=== PATIENT | female | born 1960 | race Caucasian/White ===

== ENCOUNTER 2016-07-19 11:11 | Inpatient (IN) | payer MEDICARE, OTHER ==
[2016-07-19 11:19] LABS: Glucose,Whole Blood 134 mg/dL (75-99)
--- NOTE | 2016-07-19 11:21 | ED ---
General Adult HPI - General Stated complaint: adema Time Seen by Provider: 07/19/16 11:11 Source: patient, EMS, RN notes reviewed, old records reviewed Mode of arrival: EMS - History of Present Illness Initial comments: This is a 56-year-old female history of multiple medical problems including renal insufficiency morbid obesity diabetes who was brought in by EMS for evaluation of lower extremity edema which is gotten worse over last week or so. She denies any fevers chills nausea vomiting sweats he is asthmatic but denies shortness of breath at this time. She does have some tingling and numbness to the skin. He does have weeping to the lower extremities. - Related Data Home Medications Medication Instructions Recorded Confirmed Allopurinol [Zyloprim] 100 mg PO DAILY 06/10/14 07/19/16 Cyclobenzaprine [Flexeril] 10 mg PO HS PRN 06/10/14 07/19/16 Exenatide [Byetta] 10 mcg SQ BID 06/10/14 07/19/16 Insulin Detemir [Levemir] 105 unit SQ BID 06/10/14 07/19/16 Magnesium Oxide [Magox 400] 800 mg PO BID 06/10/14 07/19/16 Montelukast Sodium [Singulair] 10 mg PO HS 06/10/14 07/19/16 Multivitamin/Iron/Folic Acid 1 tab PO DAILY 06/10/14 07/19/16 [Centrum Complete Multivit Tab] Simvastatin [Zocor] 40 mg PO HS 06/10/14 07/19/16 Venlafaxine HCl ER [Effexor XR] 150 mg PO DAILY 06/10/14 07/19/16 Budesonide-Formot 160-4.5 Mcg 2 puff INHALATION RT-BID 01/07/15 07/19/16 [Symbicort 160-4.5 Mcg Inhaler] Cholecalciferol [Vitamin D3] 2,000 unit PO DAILY 01/07/15 07/19/16 ALPRAZolam [Xanax] 0.25 mg PO TID PRN 07/09/15 07/19/16 ARIPiprazole [Abilify] 10 mg PO DAILY 07/09/15 07/19/16 Albuterol Nebulized [Ventolin 2.5 mg INHALATION RT-QID PRN 07/09/15 07/19/16 Nebulized] Insulin Lispro [humaLOG] 35 units SQ TID-W/MEALS 12/27/15 07/19/16 Ammonium Lactate Lotion 1 applic TOPICAL BID 07/19/16 07/19/16 [Lac-Hydrin 12% Lotion] Calcitriol [Rocaltrol] 0.25 mcg PO Q72H 07/19/16 07/19/16 Calcium Carbonate [Calcium] 600 mg PO TID 07/19/16 07/19/16 Cetirizine HCl [Zyrtec] 10 mg PO DAILY 07/19/16 07/19/16 Ferrous Sulfate [Feosol] 325 mg PO TID 07/19/16 07/19/16 Fluticasone/Salmeterol [Advair 1 inhalation PO RT-BID 07/19/16 07/19/16 250-50 Diskus] Furosemide [Lasix] 60 mg PO DAILY 07/19/16 07/19/16 INSULIN LISPRO (HumaLOG) [HumaLOG] 15 units SQ DAILY 07/19/16 07/19/16 Metoprolol Tartrate [Lopressor] 12.5 mg PO BID 07/19/16 07/19/16 Nystatin 100,000 Unit/ml Susp 5 ml PO QID PRN 07/19/16 07/19/16 [Mycostatin Oral Susp] Pantoprazole [Protonix] 40 mg PO DAILY 07/19/16 07/19/16 traMADol HCL [Ultram] 100 mg PO Q6H PRN 07/19/16 07/19/16 Allergies Allergy/AdvReac Type Severity Reaction Status Date / Time codeine Allergy Rash/Hives Verified 07/19/16 11:39 Review of Systems ROS Statement: Those systems with pertinent positive or pertinent negative responses have been documented in the HPI. ROS Other: All systems not noted in ROS Statement are negative. Past Medical History Past Medical History: Asthma, COPD, Diabetes Mellitus, Hyperlipidemia, Renal Disease Additional Past Medical History / Comment(s): USES A WALKER OR W/C TO AMBULATE, PREVIOUS USE OF O2 NONE NOW, HX OF GOUT, HIATAL HERNIA, WEARS DEPENDS History of Any Multi-Drug Resistant Organisms: None Reported Past Surgical History: Bariatric Surgery, Cholecystectomy, Orthopedic Surgery Additional Past Surgical History / Comment(s): Total L knee 11/19/14, lap band placed then removed, gastric sleeve 08/19/2012 EGD. Past Anesthesia/Blood Transfusion Reactions: No Reported Reaction Additional Past Anesthesia/Blood Transfusion Reaction / Comment(s): Pt has never recieved blood.CLAUSTERPHOBIA Past Psychological History: Anxiety, Depression, Schizophrenia Additional Psychological History / Comment(s): Pt has hx also of borderline personality disorder. Pt does not drive so this niece also gives her rides. [facility] [place] [facility]. HAS A CAREGIVER(SHAYY AGEE [id number]) Smoking Status: Never smoker Past Alcohol Use History: None Reported Past Drug Use History: None Reported - Past Family History Father Family Medical History: Musculoskeletal Disorder Additional Family Medical History / Comment(s): Father had parkinsons. He in his 80's. Mother Family Medical History: No Reported History General Exam - General Exam Comments Initial Comments: This is a well-developed well-nourished awake alert oriented 3 female General appearance: alert, in no apparent distress Head exam: Present: atraumatic, normocephalic, normal inspection Eye exam: Present: normal appearance, PERRL, EOMI. Absent: scleral icterus, conjunctival injection, periorbital swelling ENT exam: Present: normal exam, mucous membranes moist Neck exam: Present: normal inspection. Absent: tenderness, meningismus, lymphadenopathy Respiratory exam: Present: decreased breath sounds. Absent: respiratory distress, wheezes, rales, rhonchi, stridor Cardiovascular Exam: Present: regular rate, normal rhythm, normal heart sounds. Absent: systolic murmur, diastolic murmur, rubs, gallop, clicks GI/Abdominal exam: Present: soft, normal bowel sounds. Absent: distended, tenderness, guarding, rebound, rigid Extremities exam: Present: full ROM, normal capillary refill, pedal edema, other (Stasis dermatitis bilaterally with some erythema noted some weeping noted from both lower extremities. No definite increased temperature.). Absent : tenderness, joint swelling, calf tenderness Back exam: Present: normal inspection Neurological exam: Present: alert, oriented X3, CN II-XII intact Psychiatric exam: Present: normal affect, normal mood Skin exam: Present: warm, dry. Absent: intact, rash Course Vital Signs 07/19/16 07/19/16 11:28 13:55 Temperature 98.5 F 97.6 F Pulse Rate 97 96 Respiratory 18 18 Rate Blood Pressure 117/58 100/49 O2 Sat by Pulse 97 99 Oximetry - Reevaluation(s) Reevaluation #1: 07/19/16 15:18 The patient is also complaining of some apparent dysfunctional uterine bleeding and would like to get this checked will she is admitted. EKG Findings - EKG Results: EKG: interpreted by ELSA, sinus rhythm (Sinus rhythm with a rate of 97. 01 40 QRS duration of 92 QT/QTC of 358/454 did this is normal. EKG.) Medical Decision Making - Medical Decision Making I did discuss findings with patient and her family patient be admitted for failure of outpatient treatment. - Lab Data Result diagrams: 07/19/16 11:55 07/19/16 11:55 Lab Results 07/19/16 07/19/16 07/19/16 Range/Units 11:18 11:55 11:55 WBC 8.7 (3.8-10.6) k/uL RBC 4.50 (3.80-5.40) m/uL Hgb 14.3 (11.4-16.0) gm/dL Hct 43.5 (34.0-46.0) % MCV 96.8 (80.0-100.0) fL MCH 31.8 (25.0-35.0) pg MCHC 32.9 (31.0-37.0) g/dL RDW 13.9 (11.5-15.5) % Plt Count 220 (150-450) k/uL Neutrophils % 74 % Lymphocytes % 18 % Monocytes % 4 % Eosinophils % 2 % Basophils % 1 % Neutrophils # 6.4 (1.3-7.7) k/uL Lymphocytes # 1.6 (1.0-4.8) k/uL Monocytes # 0.3 (0-1.0) k/uL Eosinophils # 0.2 (0-0.7) k/uL Basophils # 0.1 (0-0.2) k/uL Sodium (137-145) mmol/L Potassium (3.5-5.1) mmol/L Chloride (98-107) mmol/L Carbon Dioxide (22-30) mmol/L Anion Gap mmol/L BUN (7-17) mg/dL Creatinine (0.52-1.04) mg/dL Est GFR (MDRD) Af Amer (>60 ml/min/1.73 sqM) Est GFR (MDRD) Non-Af (>60 ml/min/1.73 sqM) Glucose (74-99) mg/dL POC Glucose (mg/dL) 134 H (75-99) mg/dL POC Glu Material Control Specialist Maris Rodriguez Calcium (8.4-10.2) mg/dL Magnesium (1.6-2.3) mg/dL Total Bilirubin (0.2-1.3) mg/dL AST (14-36) U/L ALT (9-52) U/L Alkaline Phosphatase (38-126) U/L Total Creatine Kinase 27 L (30-135) U/L CK-MB (CK-2) 0.5 (0.0-2.4) ng/mL CK-MB (CK-2) Rel Index 1.9 NT-Pro-B Natriuret Pep pg/mL Total Protein (6.3-8.2) g/dL Albumin (3.5-5.0) g/dL Urine Color Urine Appearance (Clear) Urine pH (5.0-8.0) Ur Specific Freeland (1.001-1.035) Urine Protein (Negative) Urine Glucose (UA) (Negative) Urine Ketones (Negative) Urine Blood (Negative) Urine Nitrate (Negative) Urine Bilirubin (Negative) Urine Urobilinogen (<2.0) mg/dL Ur Leukocyte Esterase (Negative) 07/19/16 07/19/16 07/19/16 Range/Units 11:55 11:55 13:05 WBC (3.8-10.6) k/uL RBC (3.80-5.40) m/uL Hgb (11.4-16.0) gm/dL Hct (34.0-46.0) % MCV (80.0-100.0) fL MCH (25.0-35.0) pg MCHC (31.0-37.0) g/dL RDW (11.5-15.5) % Plt Count (150-450) k/uL Neutrophils % % Lymphocytes % % Monocytes % % Eosinophils % % Basophils % % Neutrophils # (1.3-7.7) k/uL Lymphocytes # (1.0-4.8) k/uL Monocytes # (0-1.0) k/uL Eosinophils # (0-0.7) k/uL Basophils # (0-0.2) k/uL Sodium 145 (137-145) mmol/L Potassium 4.1 (3.5-5.1) mmol/L Chloride 97 L (98-107) mmol/L Carbon Dioxide 37 H (22-30) mmol/L Anion Gap 11 mmol/L BUN 30 H (7-17) mg/dL Creatinine 1.09 H (0.52-1.04) mg/dL Est GFR (MDRD) Af Amer >60 (>60 ml/min/1.73 sqM) Est GFR (MDRD) Non-Af 52 (>60 ml/min/1.73 sqM) Glucose 134 H (74-99) mg/dL POC Glucose (mg/dL) (75-99) mg/dL POC Glu Material Control Specialist ID Calcium 9.2 (8.4-10.2) mg/dL Magnesium 1.9 (1.6-2.3) mg/dL Total Bilirubin 0.8 (0.2-1.3) mg/dL AST 68 H (14-36) U/L ALT 70 H (9-52) U/L Alkaline Phosphatase 187 H (38-126) U/L Total Creatine Kinase (30-135) U/L CK-MB (CK-2) (0.0-2.4) ng/mL CK-MB (CK-2) Rel Index NT-Pro-B Natriuret Pep 69 pg/mL Total Protein 7.4 (6.3-8.2) g/dL Albumin 3.7 (3.5-5.0) g/dL Urine Color Yellow Urine Appearance Clear (Clear) Urine pH 6.0 (5.0-8.0) Ur Specific Freeland 1.013 (1.001-1.035) Urine Protein Negative (Negative) Urine Glucose (UA) Negative (Negative) Urine Ketones Negative (Negative) Urine Blood Negative (Negative) Urine Nitrate Negative (Negative) Urine Bilirubin Negative (Negative) Urine Urobilinogen <2.0 (<2.0) mg/dL Ur Leukocyte Esterase Negative (Negative) - Radiology Data Radiology results: report reviewed (I did review the imaging and report no acute findings), image reviewed Disposition Clinical Impression: Renal insufficiency, Peripheral edema, Dysfunctional uterine bleeding, Failure of outpatient treatment Disposition: ADMITTED IP TO THIS HOSP Condition: Stable Referrals: Alen Wbeb DO [Primary Care Provider] - 1-2 days
[2016-07-19 12:14] LABS: Basophils # (A) 0.1 k/uL (0-0.2); Basophils % (A) 1 %; CH 32.5; CHCM 33.7; Eosinophils # (A) 0.2 k/uL (0-0.7); Eosinophils % (A) 2 %; HCT 43.5 % (34.0-46.0); HDW 2.92; HGB 14.3 gm/dL (11.4-16.0); Luc # (Auto) 0.15; Luc % (Auto) 2; Lymphocytes # (A) 1.6 k/uL (1.0-4.8); Lymphocytes % (A) 18 %; MCH 31.8 pg (25.0-35.0); MCHC 32.9 g/dL (31.0-37.0); MCV 96.8 fL (80.0-100.0); Mean Platelet Volume 8.2; Monocytes # (A) 0.3 k/uL (0-1.0); Monocytes % (A) 4 %; Neutrophils # (A) 6.4 k/uL (1.3-7.7); Neutrophils % (A) 74 %; RDW 13.9 % (11.5-15.5); WBC 8.7 k/uL (3.8-10.6); WBC (Perox) 8.63
[2016-07-19 12:20] LABS: ALT 70 U/L (9-52); AST 68 U/L (14-36); Alkaline Phosphatase 187 U/L (38-126); Anion Gap 11 mmol/L; Blood Urea Nitrogen 30 mg/dL (7-17); Calcium 9.2 mg/dL (8.4-10.2); Carbon Dioxide 37 mmol/L (22-30); Chloride 97 mmol/L (98-107); Glucose 134 mg/dL (74-99); Magnesium 1.9 mg/dL (1.6-2.3); Non-African American GFR(MDRD) 52 (>60 ml/min/1.73 sqM); Potassium 4.1 mmol/L (3.5-5.1); Sodium 145 mmol/L (137-145); Total Bilirubin 0.8 mg/dL (0.2-1.3); Total Protein 7.4 g/dL (6.3-8.2)
[2016-07-19 12:49] LABS: Creatine Kinase MB 0.5 ng/mL (0.0-2.4)
--- NOTE | 2016-07-19 13:15 | US ---
EXAMINATION TYPE: US venous doppler duplex LE BI DATE OF EXAM: 07/19/2016 12:56 PM COMPARISON: Prior bilateral lower extremity ultrasound May 12, 2014 CLINICAL HISTORY: Pain. Morbidly obese patient SIDE PERFORMED: Bilateral VESSELS IMAGED: External Iliac Vein (EIV) Common Femoral Vein Deep Femoral Vein Greater Saphenous Vein * Femoral Vein Popliteal Vein Small Saphenous Vein * Proximal Calf Veins (* superficial vessels) TECHNOLOGIST IMPRESSION: compression imaging unachievable for upper legs due to patient size and eris thing, additional color imaging was performed on upper legs to document good color flow. compression imaging was done on pop vn as well as color imaging. Right Leg: Negative for DVT Left Leg: Negative for DVT Exam is noted suboptimal due to patient's large body habitus and overlying clothing material. Teetee hermann views only performed from popliteal vein inferiorly. Satisfactory color flow and phasicity is se en above popliteal vein level bilaterally on images saved. IMPRESSION: Suboptimal study without ultrasound evidence for acute DVT identified in either lower ext remity.
[2016-07-19 13:42] LABS: Appearance,Urine Clear (Clear); Bilirubin,Urine Negative (Negative); Glucose,Urine (UA) Negative (Negative); Ketones,Urine Negative (Negative); Leukocyte Esterase,Urine Negative (Negative); Nitrite,Urine Negative (Negative); Protein,Urine Negative (Negative); Specific Gravity,Urine 1.013 (1.001-1.035); UA Billing (MACRO vs. MICRO) CHEM; Urobilinogen,Urine <2.0 mg/dL (<2.0)
--- NOTE | 2016-07-19 13:44 | XR ---
EXAMINATION TYPE: XR chest 2V DATE OF EXAM: 07/19/2016 1:38 PM COMPARISON: CTA chest and chest x-ray December 27, 2015. HISTORY: History of asthma presents with cough per order, fluid retention per patient. TECHNIQUE: Frontal and lateral views of the chest are obtained. FINDINGS: Exam is suboptimal due to patient's large body habitus. There is no obvious new focal air s pace opacity, pleural effusion, or pneumothorax seen. The cardiac silhouette size remains prominent. Somewhat low lung volumes are redemonstrated. The osseous structures are intact. IMPRESSION: Suboptimal study with persistent cardiac silhouette prominence but no acute infiltrate c learly seen.
[2016-07-19] MEDS ORDERED: NALOXONE 0.4 MG/ML 1 ML VIAL IV PRN (15:20)
[2016-07-19] MEDS ORDERED: ALBUTEROL NEBULIZED 2.5 MG/3 ML INHALATION PRN (15:21)
[2016-07-19] MEDS ORDERED: ALPRAZolam 0.25 MG TAB PO PRN (15:21)
[2016-07-19] MEDS ORDERED: CYCLOBENZAPRINE 10 MG TAB PO PRN (15:21)
[2016-07-19] MEDS ORDERED: CALCITRIOL 0.25 MCG CAP PO SCH (17:00)
[2016-07-19 17:07] LABS: Glucose,Whole Blood 252 mg/dL (75-99)
[2016-07-19 19:05] LABS: Glucose,Whole Blood 261 mg/dL (75-99)
[2016-07-19] MEDS ORDERED: NON-FORMULARY DRUG (Fluticasone/Salmeterol [Advair 250-50 Diskus] 1 INHALATION) PO SCH (20:00)
[2016-07-19 20:27] LABS: Glucose,Whole Blood 252 mg/dL (75-99)
[2016-07-19] MEDS: SYMBICORT 160-4.5 MCG INHALER INHALATION SCH (20:30)
[2016-07-19] MEDS: CALCIUM CARBONATE 500 MG CHEWABLE PO SCH (20:32)
[2016-07-19] MEDS: traMADol 50 MG TAB PO PRN (20:32)
[2016-07-19] MEDS: FUROSEMIDE 10 MG/ML 4 ML VIAL IV SCH (20:32)
[2016-07-19] MEDS: FERROUS SULFATE 325 MG TAB PO SCH (20:33)
[2016-07-19] MEDS: INSULIN LISPRO (humaLOG) 300 UNIT/3 ML VIAL SQ SCH (20:34)
[2016-07-19] MEDS: INSULIN DETEMIR 100 UNIT/ML 10 ML VIAL SQ SCH (20:35)
[2016-07-19] MEDS: AMMONIUM LACTATE 12% LOTION 225 GM BTL TOPICAL SCH (20:35)
[2016-07-19] MEDS: ATORVASTATIN 20 MG TAB PO SCH (20:35)
[2016-07-19] MEDS: MAGNESIUM OXIDE 400 MG TAB PO SCH (20:35)
[2016-07-19] MEDS: MONTELUKAST 10 MG TAB PO SCH (20:36)
[2016-07-19] MEDS: METOPROLOL TARTRATE 12.5 MG TAB PO SCH (23:17)
[2016-07-20] MEDS: FUROSEMIDE 10 MG/ML 4 ML VIAL IV SCH ×4 (00:01→22:43)
[2016-07-20] MEDS: traMADol 50 MG TAB PO PRN ×2 (04:09→19:25)
[2016-07-20] MEDS: INSULIN LISPRO (humaLOG) 300 UNIT/3 ML VIAL SQ SCH ×4 (04:13→17:11)
[2016-07-20 04:17] LABS: Glucose,Whole Blood 262 mg/dL (75-99)
[2016-07-20] MEDS: ALLOPURINOL 100 MG TAB PO SCH (07:37)
[2016-07-20] MEDS: METOPROLOL TARTRATE 12.5 MG TAB PO SCH ×2 (07:37→19:26)
[2016-07-20] MEDS: LORATADINE 10 MG TAB PO SCH (07:37)
[2016-07-20] MEDS: CALCIUM CARBONATE 500 MG CHEWABLE PO SCH ×3 (07:37→17:10)
[2016-07-20] MEDS: VENLAFAXINE HCL ER 150 MG CAP PO SCH (07:37)
[2016-07-20] MEDS: MAGNESIUM OXIDE 400 MG TAB PO SCH ×2 (07:37→19:26)
[2016-07-20] MEDS: PANTOPRAZOLE 40 MG TABLET PO SCH (07:38)
[2016-07-20] MEDS: ARIPiprazole 10 MG TAB PO SCH (07:38)
[2016-07-20] MEDS: CHOLECALCIFEROL 1,000 UNIT TAB PO SCH (07:38)
[2016-07-20] MEDS: FERROUS SULFATE 325 MG TAB PO SCH ×3 (07:44→17:10)
[2016-07-20] MEDS: INSULIN DETEMIR 100 UNIT/ML 10 ML VIAL SQ SCH ×2 (07:46→21:05)
[2016-07-20 07:47] LABS: Glucose,Whole Blood 210 mg/dL (75-99)
[2016-07-20] MEDS: AMMONIUM LACTATE 12% LOTION 225 GM BTL TOPICAL SCH ×2 (07:50→19:30)
[2016-07-20 08:34] LABS: CH 31.4; CHCM 32.5; HCT 41.3 % (34.0-46.0); HGB 13.3 gm/dL (11.4-16.0); MCH 31.2 pg (25.0-35.0); MCHC 32.1 g/dL (31.0-37.0); Mean Platelet Volume 7.2; RBC 4.25 m/uL (3.80-5.40); RDW 13.7 % (11.5-15.5); WBC 6.2 k/uL (3.8-10.6)
[2016-07-20 08:45] LABS: Anion Gap 10 mmol/L; Blood Urea Nitrogen 27 mg/dL (7-17); Calcium 8.6 mg/dL (8.4-10.2); Carbon Dioxide 37 mmol/L (22-30); Chloride 100 mmol/L (98-107); Glucose 213 mg/dL (74-99); Non-African American GFR(MDRD) 58 (>60 ml/min/1.73 sqM); Sodium 147 mmol/L (137-145)
[2016-07-20] MEDS ORDERED: FUROSEMIDE 40 MG TAB PO SCH (09:00)
[2016-07-20] MEDS: SYMBICORT 160-4.5 MCG INHALER INHALATION SCH ×2 (09:34→19:35)
[2016-07-20 11:02] LABS: Hemoglobin A1C 7.9 % (4.2-6.1)
[2016-07-20 11:38] LABS: Glucose,Whole Blood 224 mg/dL (75-99)
[2016-07-20] MEDS: EXENATIDE 10 MCG SQ SCH (11:48)
--- NOTE | 2016-07-20 12:38 | HP ---
DATE OF ADMISSION: 07/19/2016 PRESENTING COMPLAINT: Swelling of the legs, hands. HISTORY OF PRESENTING COMPLAINT: This is a 56-year-old patient of Dr. Webb whose chronic stable medical conditions include diabetes, sleep apnea, hypertension, hyperlipidemia, depression, asthma, morbid obesity. Patient developed increasing swelling in the hands, legs, face. She did go down to see Dr. Webb and was given Lasix to which did not help much. Hence, she was admitted. Patient since admission did receive IV Lasix, did receive increased dose of Lasix. She diuresed, feels a bit better. REVIEW OF SYSTEMS: CONSTITUTIONAL: Tired. HEENT: None. RESPIRATORY: Baseline some shortness of breath. CARDIOVASCULAR: None. GASTROINTESTINAL: None. GENITOURINARY: None. MUSCULOSKELETAL: None. DERMATOLOGICAL: Some cellulitis of the lower extremity. HEMATOLOGICAL: None. LYMPHATICS: None. PSYCHIATRY: History of depression, controlled. NEUROLOGICAL: Some numbness, tingling in the feet. PAST MEDICAL HISTORY: Asthma, diabetes mellitus type 2, hyperlipidemia, kidney disease, gait dysfunction, uses a walker, gout, hiatal hernia, urinary incontinence,. stopped menstruating about 15 years ago, depression, schizophrenia. PAST SURGICAL HISTORY: Bariatric surgery, cholecystectomy, left total knee done, lap band placed then removed, gastric sleeve on 08/19/12. SOCIAL HISTORY: The patient lives with [facility], has a caregiver, Angela, Sunday through Sunday, telephone number [phone]. No smoking. Alcohol rarely. FAMILY HISTORY: Father had Parkinson disease, in his 80s. HOME MEDICATIONS: 1. Nystatin suspension 5 mL p.o. q.i.d. p.r.n. 2. Lasix 60 mg p.o. daily. 3. Calcitriol 0.25 mcg p.o. every 72 hours. 4. Lopressor 12.5 p.o. b.i.d. 5. Humalog 15 units subcu daily. 6. Effexor XR 150 mg p.o. daily. 7. Protonix 40 mg p.o. daily. 8. Centrum complete 1 tablet p.o. daily. 9. Singulair 10 mg q.h.s. 10. Magnesium 800 mg p.o. b.i.d. 11. Humalog 35 units subcu t.i.d. with meals. 12. Levemir 105 units subcu b.i.d. 13. Advair 250/50 one puff b.i.d. 14. Iron 325 p.o. t.i.d. 15. Byetta 10 mcg subcu b.i.d. 16. Vitamin D3, 2000 units p.o. daily. 17. Zyrtec 10 mg p.o. daily. 18. Calcium 600 mg p.o. t.i.d. 19. Symbicort 160/4.5 two puffs b.i.d. 20. Lac-Hydrin 12% lotion topical b.i.d. 21. Allopurinol 100 mg p.o. daily. 22. Abilify 10 mg p.o. daily. 23. Zocor 40 mg q.h.s. 24. Ultram 100 mg p.o. q.6 p.r.n. 25. Xanax 0.25 p.o. t.i.d. p.r.n. 26. Flexeril 10 mg p.o. q.h.s. p.r.n. 27. Ventolin 2.5 q.i.d. p.r.n. Allergies to CODEINE. ON EXAMINATION: VITAL SIGNS ON PRESENTATION: Temperature 98.5, pulse 97, respirations 18, blood pressure 117/58, pulse ox 97% on room air. GENERAL APPEARANCE: Morbidly obese, BMI 69.9, sitting up, tired appearing. EYES: Pupils equal. Conjunctivae normal. HEENT: External appearance of nose and ears normal. Oral cavity normal. NECK: Short, thick, unable to assess JVD. Mass not palpable. RESPIRATORY: Effort increased. LUNGS: Distant breath sounds. CARDIOVASCULAR: Heart sounds muffled. Edema present. ABDOMEN: Distended. Large. Soft. Liver and spleen not palpable. LYMPHATIC: No lymph nodes palpable in neck or axillae. PSYCHIATRY: Alert and oriented x3. Mood and affect slightly anxious appearing. DERMATOLOGICAL: Evidence of some cellulitis in both the shins. Edema is present. PSYCHIATRY: Alert and oriented x3. Mood and affect normal. INVESTIGATIONS: White count 8.7, hemoglobin 14.3. Potassium 4.1. BUN 30, creatinine 1.09. UA negative. EKG shows normal sinus rhythm. Chest x-ray suboptimal study. Venous Doppler no obvious evidence of DVT ASSESSMENT: 1. Possible acute on chronic congestive heart failure exacerbation from diastolic dysfunction. The patient's ejection fraction is 50% to 55% from echocardiogram back in August 2014. The patient did feel somewhat better with IV Lasix. 2. Morbid obesity, body mass index 69.9 3. Moderate persistent asthma. 4. Diabetes mellitus type 2, chronically on insulin. 5. Hyperlipidemia. 6. Chronic kidney disease stage II, probably from diabetic nephropathy. 7. Gait dysfunction, uses a walker. 8. Chronic gout. 9. Hiatal hernia. 10. Chronic urinary incontinence. 11. Schizophrenia, chronic, stable. PLAN: Patient is on IV Lasix. Home medication are resumed. We will also give IV ceftriaxone for the cellulitis lower extremity. Care was discussed with the patient. Keep a close eye on the electrolytes. The patient does feel better with Lasix. Will at least need 2 nights of hospital stay based on the presentation. Care was discussed with the patient.
[2016-07-20 16:57] LABS: Glucose,Whole Blood 150 mg/dL (75-99)
[2016-07-20] MEDS: ATORVASTATIN 20 MG TAB PO SCH (19:26)
[2016-07-20] MEDS: MONTELUKAST 10 MG TAB PO SCH (19:30)
[2016-07-20 20:46] LABS: Glucose,Whole Blood 167 mg/dL (75-99)
[2016-07-21 04:15] LABS: Glucose,Whole Blood 179 mg/dL (75-99)
[2016-07-21] MEDS: INSULIN LISPRO (humaLOG) 300 UNIT/3 ML VIAL SQ SCH ×3 (04:42→12:37)
[2016-07-21] MEDS: traMADol 50 MG TAB PO PRN (04:45)
[2016-07-21 07:46] LABS: Glucose,Whole Blood 151 mg/dL (75-99)
[2016-07-21] MEDS: AMMONIUM LACTATE 12% LOTION 225 GM BTL TOPICAL SCH (07:48)
[2016-07-21] MEDS: ALLOPURINOL 100 MG TAB PO SCH (07:48)
[2016-07-21] MEDS: FUROSEMIDE 10 MG/ML 4 ML VIAL IV SCH (07:48)
[2016-07-21] MEDS: FERROUS SULFATE 325 MG TAB PO SCH ×2 (07:48→12:37)
[2016-07-21] MEDS: CALCIUM CARBONATE 500 MG CHEWABLE PO SCH ×2 (07:48→12:36)
[2016-07-21] MEDS: LORATADINE 10 MG TAB PO SCH (07:48)
[2016-07-21] MEDS: VENLAFAXINE HCL ER 150 MG CAP PO SCH (07:49)
[2016-07-21] MEDS: METOPROLOL TARTRATE 12.5 MG TAB PO SCH (07:49)
[2016-07-21] MEDS: MAGNESIUM OXIDE 400 MG TAB PO SCH (07:49)
[2016-07-21] MEDS: PANTOPRAZOLE 40 MG TABLET PO SCH (07:49)
[2016-07-21] MEDS: ARIPiprazole 10 MG TAB PO SCH (07:49)
[2016-07-21] MEDS: INSULIN DETEMIR 100 UNIT/ML 10 ML VIAL SQ SCH (07:57)
[2016-07-21 08:16] VITALS: BP 106/59; PULSE 94; RESP 16; TEMP 97.9
[2016-07-21] MEDS: SYMBICORT 160-4.5 MCG INHALER INHALATION SCH (08:30)
[2016-07-21 08:37] LABS: Anion Gap 9 mmol/L; Blood Urea Nitrogen 31 mg/dL (7-17); Calcium 8.8 mg/dL (8.4-10.2); Carbon Dioxide 38 mmol/L (22-30); Chloride 97 mmol/L (98-107); Glucose 153 mg/dL (74-99); Non-African American GFR(MDRD) 53 (>60 ml/min/1.73 sqM); Potassium 3.6 mmol/L (3.5-5.1); Sodium 144 mmol/L (137-145)
--- NOTE | 2016-07-21 09:48 | ECHOF ---
Referral Reason:chf MEASUREMENTS -------- HEIGHT: 154.9 cm WEIGHT: 167.8 kg BP: RVIDd: 2.8 cm (< 3.3) IVSd: 1.3 cm (0.6 - 1.1) LVIDd: 4.2 cm (3.9 - 5.3) LVPWd: 1.4 cm (0.6 - 1.1) IVSs: 1.6 cm LVIDs: 2.6 cm LVPWs: 1.7 cm LA Diam: 3.1 cm (2.7 - 3.8) Ao Diam: 3.0 cm (2.0 - 3.7) AV Cusp: 2.0 cm (1.5 - 2.6) MV EXCURSION: 20.499 mm (> 18.000) MV EF SLOPE: 56 mm/s (70 - 150) EPSS: 0.3 cm MV E Efrain: 0.93 m/s MV DecT: 232 ms MV A Efrain: 1.01 m/s MV E/A Ratio: 0.92 RAP: 5.00 mmHg RVSP: 34.31 mmHg FINDINGS -------- Sinus rhythm. This was a technically difficult study with suboptimal views. The left ventricular size is normal. There is moderate concentric left ventricular hypertrophy. Overall left ventricular systolic function is normal with, an EF between 60 - 65 %. The diastolic filling pattern is normal for the age of the patient 12.46. The right ventricle is normal in size. The left atrial size is normal. The right atrium was not well visualized. 1.5mg of Definity was utilized for enhancement of images The aortic valve was not well visualized. The mitral valve leaflets are mildly thickened. Mild tricuspid regurgitation present. Right ventricular systolic pressure is normal at < 35 mmHg. The pulmonic valve was not well visualized. The aortic root size is normal. Normal inferior vena cava with normal inspiratory collapse consistent with estimated right atrial pressure of 5 mmHg. There is no pericardial effusion. CONCLUSIONS -------- 1. Sinus rhythm. 2. 1.5mg of Definity was utilized for enhancement of images 3. The aortic valve was not well visualized. 4. The mitral valve leaflets are mildly thickened. 5. Mild tricuspid regurgitation present. 6. Right ventricular systolic pressure is normal at < 35 mmHg. 7. The pulmonic valve was not well visualized. 8. The aortic root size is normal. 9. Normal inferior vena cava with normal inspiratory collapse consistent with estimated right atrial pressure of 5 mmHg. 10. There is no pericardial effusion. 11. This was a technically difficult study with suboptimal views. 12. The left ventricular size is normal. 13. There is moderate concentric left ventricular hypertrophy. 14. Overall left ventricular systolic function is normal with, an EF between 60 - 65 %. 15. The diastolic filling pattern is normal for the age of the patient 12.46 16. The right ventricle is normal in size. 17. The left atrial size is normal. 18. The right atrium was not well visualized. EDUCATION SUPERVISOR: Anastacia Khan RDCS
[2016-07-21 11:27] LABS: Glucose,Whole Blood 229 mg/dL (75-99)
[2016-07-21] MEDS: CHOLECALCIFEROL 1,000 UNIT TAB PO SCH (12:36)
--- NOTE | 2016-07-21 20:17 | DS ---
DATE OF ADMISSION: 07/19/2016 DATE OF DISCHARGE: 07/21/2016 FINAL DIAGNOSES: 1. Acute on chronic congestive heart failure exacerbation from diastolic dysfunction, ejection fraction 50% to 55%. 2. Moderate obesity, body mass index 69.9. 3. Moderate persistent asthma. 4. Diabetes mellitus type 2, chronically on insulin. 5. Hyperlipidemia. 6. Chronic kidney disease, stage IV probably from diabetic nephropathy. 7. Gait dysfunction uses a walker. 8. Chronic gout. 9. Hiatal hernia. 10. Chronic urinary incontinence. 11. Schizophrenic, chronic stable. 12. Hypertensive heart disease. HOSPITAL COURSE: This patient presented with CHF exacerbation, 2-D echo showed an EF of 60-65%. Doing better at the time of discharge. Patient BUN and creatinine were 31 and 1.08. Patient DVT was ruled out doing much better at the time of discharge. Care was discussed with the patient. On examination lungs have fair air entry. CARDIOVASCULAR: First and second sounds normal. Edema decreased. DISCHARGE MEDICATIONS: 1. Allopurinol 100 mg a day. 2. Flexeril 10 mg p.o. q.h.s. p.r.n. 3. Byetta 10 mcg subcutaneously b.i.d. 4. Levemir 105 units subcu b.i.d. 5. Magnesium oxide 800 mg p.o. b.i.d. 6. Singulair 10 mg p.o. q.h.s. 7. Centrum complete multivitamin 1 tablet p.o. daily. 8. Zocor 40 mg p.o. q.h.s. 9. Effexor-XR 150 mg daily. 10. Symbicort 160/4.5, 2 puffs b.i.d. 11. Vitamin D3 2000 p.o. daily. 12. Xanax 0.25 p.o. t.i.d. p.r.n. 13. Abilify 10 mg p.o. daily. 14. Hytrin 2.5 nebulizer q.i.d. p.r.n. 15. Humalog 35 units subcutaneously t.i.d. with meals. 16. Lac-Hydrin 12% topical b.i.d. 17. Rocaltrol 0.25 micrograms p.o. q72. 18. Calcium 600 mg p.o. t.i.d. 19. Iron 325 p.o. t.i.d. 20. Lasix 60 mg p.o. daily. 21. Humalog 15 units subcu daily. 22. Lopressor 12.5 p.o. b.i.d. 23. Mycostatin 5 mL p.o. q.i.d. p.r.n. 24. Protonix 40 mg p.o. daily. 25. Ultram 100 mg p.o. q.6 p.r.n. 26. Ceftin 200 mg p.o. b.i.d. 6 capsules. 27. ( ) topical b.i.d. Follow up with Dr. Webb on 08/02/2016. Lungs distant breath sounds. CARDIOVASCULAR: First and second sounds normal. Mild cellulitis of the lower extremities, improved.
== END 2016-07-21 16:33 | disposition home health service (06) | DRG 291 ==
LOC: EC 11:11 → 4MS4W 15:20 → 5MS5E 17:39
PROVIDERS: ADMIT Hospitalist; ATTEND Hospitalist
DX: I13.0 Hypertensive heart and chronic kidney disease with heart failure and stage 1 through stage 4 chronic kidney disease, or unspecified chronic kidney disease (principal); I50.33 Acute on chronic diastolic (congestive) heart failure; N18.4 Chronic kidney disease, stage 4 (severe); L03.115 Cellulitis of right lower limb; L03.116 Cellulitis of left lower limb; E11.22 Type 2 diabetes mellitus with diabetic chronic kidney disease; E11.21 Type 2 diabetes mellitus with diabetic nephropathy; E66.01 Morbid (severe) obesity due to excess calories; E78.5 Hyperlipidemia, unspecified; F20.9 Schizophrenia, unspecified; F32.9 Major depressive disorder, single episode, unspecified; F60.3 Borderline personality disorder; G47.30 Sleep apnea, unspecified; J44.9 Chronic obstructive pulmonary disease, unspecified; J45.40 Moderate persistent asthma, uncomplicated; K44.9 Diaphragmatic hernia without obstruction or gangrene; M1A.9XX0 Chronic gout, unspecified, without tophus (tophi); N93.8 Other specified abnormal uterine and vaginal bleeding; R32 Unspecified urinary incontinence; F41.9 Anxiety disorder, unspecified; R26.9 Unspecified abnormalities of gait and mobility; F40.240 Claustrophobia; Z68.44 Body mass index [BMI] 60.0-69.9, adult; Z79.4 Long term (current) use of insulin; Z79.899 Other long term (current) drug therapy; Z88.5 Allergy status to narcotic agent
CPT/HCPCS: 36415; 51701; 71020; 80048; 80053; 81003; 82550; 82553; 83036; 83735; 83880; 85025; 85027; 93005; 93306; 93970; 94640; 99285

== ENCOUNTER → 2016-08-09 | Outpatient (CLI) | payer MEDICARE, OTHER ==
[2016-08-09 13:46] VITALS: BP 120/76; PULSE 106; TEMP 97.5; BMI 62.4
[2016-08-09 16:03] LABS: Iron 52 ug/dL (37-170); Phosphorous 3.9 mg/dL (2.5-4.5)
[2016-08-09 16:14] LABS: % Iron Saturation 19.4 % (20-50); Prealbumin 13 mg/dL (18-36); Total Iron Binding Capacity 268 ug/dL (265-497)
[2016-08-09 17:10] LABS: Vitamin B12 619 pg/mL (239-931)
[2016-08-09 18:46] LABS: Hemoglobin A1C 8.1 % (4.2-6.1)
[2016-08-11 18:23] LABS: Selenium 148 mcg/L (63-160)
--- NOTE | 2016-09-13 16:55 | P.PN ---
Progress Note - Text DATE OF SERVICE: 08/09/2016 CHIEF COMPLAINT: Bariatric assessment. HISTORY OF PRESENT ILLNESS: Tresa Espinoza is a 56-year-old female with previous gastric band over 7+ years ago. For her height of 5 foot 2 her highest weight was 400 pounds. Her body mass index was 73.3. She was then revised to a gastric sleeve by Dr. Onofre in 2012. Her weight had initially gone down to 314 pounds. Now she comes in with weight gain to 340 pounds. Body mass index has gone down to 62.4. Percent excess weight loss is 22%. Body mass index has been reduced by 11 points. She has maintained 60-pound weight loss. In the past 8 months, she had been hospitalized for renal insufficiency. Approximately 3 weeks ago she was in the hospital. She comes in with evaluation for additional weight loss procedures. Overall now she has poor kidney function. She is now in a wheelchair. Since her last evaluation in September 2015, she has gained another 20 pounds. PAST MEDICAL HISTORY: 1. Hypertension. 2. Depression. 3. Chronic back pain. 4. Diabetes type 2. 5. Chronic obstructive pulmonary disease. 6. Panniculitis. 7. Iron deficiency anemia. 8. Chronic obstructive pulmonary disease. 9. Gout. 10. Cognitive delay. 11. Chronic renal insufficiency. 12. Borderline personality disorder. 13. Morbid obesity. 14. Debility in wheelchair. PAST SURGICAL HISTORY: 1. Left total knee arthroplasty. 2. History of Lap band placement with subsequent removal. 3. Gastric sleeve in July 2012. 4. Cholecystectomy. 5. Upper endoscopy. MEDICATIONS: 1. Ultram. 2. Effexor. 3. Zocor. 4. Silvadene cream. 5. Protonix. 6. Nystatin powder. 7. Multivitamin. 8. Singulair. 9. Lopressor. 10. Magnesium oxide. 11. Humalog. 12. Levemir. 13. Lasix. 14. Feosol. 15. Byetta. 16. Flexeril. 17. Vitamin D. 18. Seproxetine. 19. Calcium. 20. Calcitrol. 21. Symbicort. 22. Ammonium lactate lotion. 23. Allopurinol. 24. Ventolin inhaler. 25. Abilify. 26. Xanax. ALLERGIES: Denies. SOCIAL HISTORY: No active tobacco use. FAMILY HISTORY: Pertinent for morbid obesity including Parkinson disease. Please note she has a personal history of anxiety, depression, including schizophrenia. REVIEW OF SYSTEMS: CONSTITUTIONAL: Weight gain of 20 pounds in 8 months. Initial body mass index of 73.3 now down to 62.4. Highest weight of 400 pounds now down to 340 pounds. Maintained percent excess weight loss of only 22%. A total maintained weight loss 60 pounds. GENITOURINARY: History of renal insufficiency. CARDIOVASCULAR: History of congestive heart failure. MUSCULOSKELETAL: History of distal increased edema as well as wheelchair bound. GASTROINTESTINAL: Diaphragmatic hiatal hernia confirmed upper endoscopy. Has GERD. GENERAL: No reports of fever or chills. HEENT: Wears glasses. No troubles with hearing. ENDOCRINE: Has diabetes without hypothyroidism. RESPIRATORY: History of asthma. Also she is currently on home oxygen at all times. NEURO: No history of stroke or seizure disorders. PSYCH: History of anxiety, depression including schizophrenia. HEMATOLOGIC: No easy bruising or bleeding. PHYSICAL EXAM: VITAL SIGNS: 97.5, 106, 120/76, 5 foot 2, 340 pounds. Body mass index 62.4. ABDOMEN: Protuberant, soft, nontender, nondistended. No palpable incisional hernia. Moderate panniculitis. MUSCULOSKELETAL: 3+ bilateral pitting edema extending to the proximal thighs. No cyanosis. GENERAL: Well-developed female in no acute distress. HEENT: No scleral icterus. Extraocular muscles grossly intact. NEURO: No focal or lateralizing signs. PSYCH: Appropriate mood and affect. NECK: Supple without lymphadenopathy. No JV distention. CHEST: Non-labored respirations and equal bilateral excursions. CARDIOVASCULAR: Regular rate and rhythm. Palpable 2+ radial pulses. LABS: Hemoglobin A1c elevated at 8.1%. Percent iron saturation is low at 19.4. Ferritin elevated at 477. Prealbumin low at 13. Zinc low at 56. ASSESSMENT: 1. Morbid obesity due to excess calories. 2. Body mass index reduced from 73.3 down to 62.4. 3. History of sleeve gastrectomy. 4. Moderate weight regain. 5. Recurrent moderate to severe panniculitis. 6. Depression without recent psychosis. 7. Gastroesophageal reflux disease. 8. Asthma. 9. Magnesium deficiency. 10. Hypertensive heart disease. 11. Insulin-dependent diabetes type 2. 12. Iron deficiency anemia. 13. Chronic lower back pain. 14. Vitamin D deficiency. 15. Gout. 16. Anxiety disorder. 17. Osteoarthritis of the bilateral knees. 18. Osteoarthritis of lower back. 19. Chronic renal disease secondary to diabetes type 2, poorly controlled. 20. Dietary surveillance and counseling. PLAN: 1. On exam, she has moderate edema for which she would be best served with follow-up with a social contact worker including a winding rack operator. 2. Given her increased comorbidities, including wheelchair bound, this puts her at extremely higher risks for complications from additional bariatric procedures. She has sleeve gastrectomy and with her moderate weight alternatives of a duodenal switch was discussed. Referral to [facility] was also described; however, she states that she has been denied referral. 3. In the interim, medically supervised weight loss, specifically for diabetic education was also reviewed and discussed. 4. Overall, options were reviewed in detail for which at this time for safety will continue with medical supervised weight loss.
== END | disposition home or self-care (01) ==
LOC: BARWHC3 13:22
PROVIDERS: ATTEND Surgery Plastic and Reconstructive Surgery
DX: Z48.815 Encounter for surgical aftercare following surgery on the digestive system (principal); E66.01 Morbid (severe) obesity due to excess calories; Z68.44 Body mass index [BMI] 60.0-69.9, adult; E21.1 Secondary hyperparathyroidism, not elsewhere classified; D50.8 Other iron deficiency anemias; E46 Unspecified protein-calorie malnutrition; E55.9 Vitamin D deficiency, unspecified; K74.1 Hepatic sclerosis; N19 Unspecified kidney failure; K50.90 Crohn's disease, unspecified, without complications; Z98.84 Bariatric surgery status; M79.3 Panniculitis, unspecified; F32.9 Major depressive disorder, single episode, unspecified; K21.9 Gastro-esophageal reflux disease without esophagitis; J45.909 Unspecified asthma, uncomplicated; E61.2 Magnesium deficiency; I11.9 Hypertensive heart disease without heart failure; G89.29 Other chronic pain; M54.5 Low back pain; M10.9 Gout, unspecified; F41.9 Anxiety disorder, unspecified; M17.0 Bilateral primary osteoarthritis of knee; M47.896 Other spondylosis, lumbar region; E11.22 Type 2 diabetes mellitus with diabetic chronic kidney disease; Z79.4 Long term (current) use of insulin; N18.9 Chronic kidney disease, unspecified; Z79.899 Other long term (current) drug therapy; R60.9 Edema, unspecified; Z99.3 Dependence on wheelchair
CPT/HCPCS: 84255; 84134; 84425; 82607; 82728; 83036; 82525; 82746; 83540; 83550; 83735; 84100; 84443; 84590; 84630; 82306; 83970; 97803; 36415; G0463; 99211

== ENCOUNTER → 2016-12-22 | Outpatient (CLI) | payer MEDICARE, OTHER ==
--- NOTE | 2016-12-22 13:58 | US ---
EXAMINATION TYPE: US pelvic complete DATE OF EXAM: 12/22/2016 COMPARISON: NONE CLINICAL HISTORY: N93.9 Abnormal uterine and vaginal bleeding, unspe. Abnormal bleeding x 6 months TECHNIQUE: Transvaginal (TV) and Transabdominal (TA) Date of LMP: Unsure EXAM MEASUREMENTS: Uterus: 7.4 x 4.3 x 4.4 cm Endometrial Stripe: 1.41 cm 1. Uterus: Anteverted 2. Endometrium: Heterogenous 3. Right Ovary: Obscured by overlying bowel gas 4. Left Ovary: Obscured by overlying bowel gas 5. Bilateral Adnexa: wnl 6. Posterior cul-de-sac: wnl Exam limitations due to patient morbid obesity IMPRESSION: LIMITED EXAMINATION DEMONSTRATING SOME HETEROGENEITY OF THE UTERUS. THIS MAY BE SECONDARY TO ADENOMYO SIS.
== END | disposition home or self-care (01) ==
LOC: RADUSWWP 12:18
PROVIDERS: ATTEND Family Medicine
DX: N93.9 Abnormal uterine and vaginal bleeding, unspecified (principal); R93.9 Diagnostic imaging inconclusive due to excess body fat of patient
CPT/HCPCS: 76830; 76856; 76857

== ENCOUNTER 2017-04-03 11:23 | Inpatient (IN) | payer MEDICARE, OTHER ==
[2017-04-03 11:51] LABS: Glucose,Whole Blood 339 mg/dL (75-99)
[2017-04-03] MEDS ORDERED: cefTRIAXone IN SWFI 1,000 MG/10 ML SYRINGE IVP STA (12:04)
[2017-04-03] MEDS ORDERED: INSULIN REGULAR 100 UNIT/ML VIAL IV ONE (12:06)
[2017-04-03] MEDS ORDERED: INSULIN REGULAR 100 UNIT/ML VIAL SQ ONE (12:06)
[2017-04-03] MEDS ORDERED: cefTRIAXone IN SWFI 2,000 MG/20 ML SYRINGE IVP STA (12:11)
--- NOTE | 2017-04-03 13:18 | ED ---
General Adult HPI - General Chief complaint: Recheck/Abnormal Lab/Rx Stated complaint: Hyperglycemia Time Seen by Provider: 04/03/17 11:54 Source: patient, Caregiver Mode of arrival: wheelchair Limitations: no limitations - History of Present Illness Initial comments: 56 years old female came in with high sugar, she said she has a sugar high for the last few days he is insulin-dependent diabetic also on oral hypoglycemic agents her sugar today is 339 she also expressed concerning thoughts that she has been thinking about harming herself she has a long history of depression and suicidal thoughts been more frequent lately. She does have a cellulitis of the legs chronic but seems like her legs are more red or erythematous recently. Review of system is unremarkable otherwise - Related Data Home Medications Medication Instructions Recorded Confirmed Allopurinol [Zyloprim] 100 mg PO DAILY 06/10/14 04/03/17 Cyclobenzaprine [Flexeril] 10 mg PO HS PRN 06/10/14 04/03/17 Exenatide [Byetta] 10 mcg SQ BID 06/10/14 04/03/17 Insulin Detemir [Levemir] 80 unit SQ BID 06/10/14 04/03/17 Montelukast Sodium [Singulair] 10 mg PO HS 06/10/14 04/03/17 Simvastatin [Zocor] 40 mg PO HS 06/10/14 04/03/17 Venlafaxine HCl ER [Effexor XR] 150 mg PO DAILY 06/10/14 04/03/17 ARIPiprazole [Abilify] 15 mg PO DAILY 07/09/15 04/03/17 Albuterol Nebulized [Ventolin 2.5 mg INHALATION RT-QID PRN 07/09/15 04/03/17 Nebulized] Ammonium Lactate Lotion 1 applic TOPICAL BID 07/19/16 04/03/17 [Lac-Hydrin 12% Lotion] Calcitriol [Rocaltrol] 0.25 mcg PO DIRECTED 07/19/16 04/03/17 Ferrous Sulfate [Feosol] 325 mg PO TID 07/19/16 04/03/17 Furosemide [Lasix] 40 mg PO DAILY 07/19/16 04/03/17 Metoprolol Tartrate [Lopressor] 12.5 mg PO BID 07/19/16 04/03/17 Pantoprazole [Protonix] 40 mg PO DAILY 07/19/16 04/03/17 traMADol HCL [Ultram] 100 mg PO Q6H PRN 07/19/16 04/03/17 Cetirizine HCl [Zyrtec] 10 mg PO DAILY 12/15/16 04/03/17 Nystatin 100,000Unit/gm Cream 1 applic TOPICAL BID 12/15/16 04/03/17 [Mycostatin Cream] ALPRAZolam [Xanax] 0.75 mg PO DAILY PRN 04/03/17 04/03/17 Albuterol Inhaler [Ventolin Hfa 2 puff INHALATION RT-Q6H PRN 04/03/17 04/03/17 Inhaler] Budesonide-Formot 160-4.5 Mcg 2 puff INHALATION RT-BID 04/03/17 04/03/17 [Symbicort 160-4.5 Mcg Inhaler] Calcium Carbonate [Calcium] 600 mg PO TID 04/03/17 04/03/17 Canagliflozin [Invokana] 300 mg PO DAILY 04/03/17 04/03/17 Collagenase [Santyl] 1 applic TOPICAL DAILY 04/03/17 04/03/17 Docusate [Colace] 100 mg PO DAILY 04/03/17 04/03/17 Hydrochlorothiazide 25 mg PO DAILY 04/03/17 04/03/17 Insulin Lispro [humaLOG Kwikpen] 40 unit SQ AC-BID@0800,1200 04/03/17 04/03/17 Insulin Lispro [humaLOG Kwikpen] 60 unit SQ AC-SUPPER 04/03/17 04/03/17 Magnesium Oxide [Mag-Ox] 800 mg PO BID 04/03/17 04/03/17 Nystatin 100,000 Unit/ml Susp 500,000 units PO QID 04/03/17 04/03/17 [Mycostatin Oral Susp] Potassium Chloride [Klor-Con 20] 20 meq PO DAILY 04/03/17 04/03/17 Triamcinolone 0.1% Cream [Kenalog] 1 applicatio TOPICAL BID 04/03/17 04/03/17 Zinc Oxide [Desitin] 1 applic TOPICAL DAILY 04/03/17 04/03/17 Allergies Allergy/AdvReac Type Severity Reaction Status Date / Time codeine Allergy Rash/Hives Verified 04/03/17 11:53 Review of Systems ROS Statement: Those systems with pertinent positive or pertinent negative responses have been documented in the HPI. ROS Other: All systems not noted in ROS Statement are negative. Past Medical History Past Medical History: Asthma, COPD, Diabetes Mellitus, Hyperlipidemia, Renal Disease Additional Past Medical History / Comment(s): USES A WALKER OR W/C TO AMBULATE, PREVIOUS USE OF O2 NONE NOW, HX OF GOUT, HIATAL HERNIA, UTI, WEARS DEPENDS, PER PT'S CAREGIVER-"PT STOPPED MENSTRUATING 15 YEARS AGO BUT HAS STARTED SPOTTING AND AT TIME HEAVY" History of Any Multi-Drug Resistant Organisms: None Reported Past Surgical History: Bariatric Surgery, Cholecystectomy, Orthopedic Surgery Additional Past Surgical History / Comment(s): Total L knee 04/15/14, lap band placed then removed, gastric sleeve 08/19/2012 EGD. D and C Past Anesthesia/Blood Transfusion Reactions: No Reported Reaction Additional Past Anesthesia/Blood Transfusion Reaction / Comment(s): Pt has never recieved blood.CLAUSTERPHOBIA Past Psychological History: Anxiety, Depression, Schizophrenia Smoking Status: Never smoker Past Alcohol Use History: Occasional Past Drug Use History: None Reported - Past Family History Father Family Medical History: Musculoskeletal Disorder Additional Family Medical History / Comment(s): Father had parkinsons. He in his 80's. Mother Family Medical History: No Reported History General Exam - General Exam Comments Initial Comments: General: The patient is awake and alert, in no distress, and does not appear acutely ill. She is very anxious and crying off and on during the interview Skin: Skin is warm and dry and no rashes or lesions are noted. Both of her lower legs have a cellulitis Eye: Pupils are equal, round and reactive to light, extra-ocular movements are intact; there is normal conjunctiva bilaterally. Ears, nose, mouth and throat: There are moist mucous membranes and no oral lesions. Neck: The neck is supple, there is no tenderness or JVD. Cardiovascular: There is a regular rate and rhythm. No murmur, rub or gallop is appreciated. Respiratory: To auscultation bilateral, no wheezing no rhonchi no distress respiratory yan noticed Gastrointestinal: Soft, non-distended, non-tender abdomen without masses or organomegaly noted. There is no rebound or guarding present. Bowel sounds are unremarkable. Back: There is no tenderness to palpation in the midline. There is no obvious deformity. Musculoskeletal: Normal ROM, no tenderness, There is no pedal edema. There is no calf tenderness or swelling. No cords were appreciated. Neurological: CN II-XII intact, Cranial nerves III through XII are intact. There are no obvious motor or sensory deficits. Coordination appears grossly intact. Speech is normal. Psychiatric: Cooperative, seems depressed and admits to suicidal ideation Limitations: no limitations Course Vital Signs 04/03/17 11:34 Temperature 98 F Pulse Rate 108 H Respiratory 18 Rate Blood Pressure 130/63 O2 Sat by Pulse 99 Oximetry Gen. was reassessed at 1430, sugar was at 339 WITH THE BOTH LEGS IS STILL PENDING WHITE COUNT IS 10.9 INR IS NEGATIVE URINALYSIS IS UNREMARKABLE LACTATE IS 3.2 CONSIDERING THE HYPERGLYCEMIA AND ELEVATED LACTATE SHE WOULD NEED TO COME INTO THE MEDICAL FLOOR UNDER DR. BROOKS'S SERVICE AND A CONSIDERING HER DEPRESSION AND SUICIDAL IDEATION CONSULT DEPARTMENT OF PSYCHIATRY RADIOLOGY DIRECTOR PHYSICIAN DR. FERNÁNDEZ PSYCHIATRIST WILL BE CONSULTED EKG Findings - EKG Comments: EKG Findings:: Sinus tachycardia ventricular rate is 109 AR interval is 144 QRS duration is 90 QT/QTc is 342/460 of this EKG does not reveal any ST elevation or significant ST depression Medical Decision Making - Lab Data Result diagrams: 04/03/17 13:16 04/03/17 13:16 Lab Results 04/03/17 04/03/17 04/03/17 Range/Units 11:49 13:16 13:16 WBC 10.9 H (3.8-10.6) k/uL RBC 4.91 (3.80-5.40) m/uL Hgb 15.3 (11.4-16.0) gm/dL Hct 48.5 H (34.0-46.0) % MCV 98.7 (80.0-100.0) fL MCH 31.1 (25.0-35.0) pg MCHC 31.5 (31.0-37.0) g/dL RDW 15.5 (11.5-15.5) % Plt Count 224 (150-450) k/uL Neutrophils % 74 % Lymphocytes % 20 % Monocytes % 3 % Eosinophils % 2 % Basophils % 1 % Neutrophils # 8.1 H (1.3-7.7) k/uL Lymphocytes # 2.1 (1.0-4.8) k/uL Monocytes # 0.4 (0-1.0) k/uL Eosinophils # 0.2 (0-0.7) k/uL Basophils # 0.1 (0-0.2) k/uL Macrocytosis Slight PT (9.0-12.0) sec INR (<1.2) APTT (22.0-30.0) sec Sodium 140 (137-145) mmol/L Potassium 3.1 L (3.5-5.1) mmol/L Chloride 96 L (98-107) mmol/L Carbon Dioxide 33 H (22-30) mmol/L Anion Gap 11 mmol/L BUN 33 H (7-17) mg/dL Creatinine 1.10 H (0.52-1.04) mg/dL Est GFR (MDRD) Af Amer >60 (>60 ml/min/1.73 sqM) Est GFR (MDRD) Non-Af 52 (>60 ml/min/1.73 sqM) Glucose 307 H (74-99) mg/dL POC Glucose (mg/dL) 339 H (75-99) mg/dL POC Glu Human Resources Operations Specialist ID Myra Ellis Plasma Lactic Acid Oscar (0.7-2.0) mmol/L Calcium 9.3 (8.4-10.2) mg/dL Total Bilirubin 1.0 (0.2-1.3) mg/dL AST 42 H (14-36) U/L ALT 52 (9-52) U/L Alkaline Phosphatase 272 H (38-126) U/L Total Protein 7.4 (6.3-8.2) g/dL Albumin 3.6 (3.5-5.0) g/dL Urine Color Urine Appearance (Clear) Urine pH (5.0-8.0) Ur Specific [place] (1.001-1.035) Urine Protein (Negative) Urine Glucose (UA) (Negative) Urine Ketones (Negative) Urine Blood (Negative) Urine Nitrite (Negative) Urine Bilirubin (Negative) Urine Urobilinogen (<2.0) mg/dL Ur Leukocyte Esterase (Negative) Urine RBC (0-5) /hpf Urine WBC (0-5) /hpf Ur Squamous Epith Cells (0-4) /hpf Urine Bacteria (None) /hpf 04/03/17 04/03/1717 Range/Units 13:16 13:16 13:16 WBC (3.8-10.6) k/uL RBC (3.80-5.40) m/uL Hgb (11.4-16.0) gm/dL Hct (34.0-46.0) % MCV (80.0-100.0) fL MCH (25.0-35.0) pg MCHC (31.0-37.0) g/dL RDW (11.5-15.5) % Plt Count (150-450) k/uL Neutrophils % % Lymphocytes % % Monocytes % % Eosinophils % % Basophils % % Neutrophils # (1.3-7.7) k/uL Lymphocytes # (1.0-4.8) k/uL Monocytes # (0-1.0) k/uL Eosinophils # (0-0.7) k/uL Basophils # (0-0.2) k/uL Macrocytosis PT 10.2 (9.0-12.0) sec INR 1.0 (<1.2) APTT 24.1 (22.0-30.0) sec Sodium (137-145) mmol/L Potassium (3.5-5.1) mmol/L Chloride (98-107) mmol/L Carbon Dioxide (22-30) mmol/L Anion Gap mmol/L BUN (7-17) mg/dL Creatinine (0.52-1.04) mg/dL Est GFR (MDRD) Af Amer (>60 ml/min/1.73 sqM) Est GFR (MDRD) Non-Af (>60 ml/min/1.73 sqM) Glucose (74-99) mg/dL POC Glucose (mg/dL) (75-99) mg/dL POC Glu Human Resources Operations Specialist ID Plasma Lactic Acid Oscar 3.0 H* (0.7-2.0) mmol/L Calcium (8.4-10.2) mg/dL Total Bilirubin (0.2-1.3) mg/dL AST (14-36) U/L ALT (9-52) U/L Alkaline Phosphatase (38-126) U/L Total Protein (6.3-8.2) g/dL Albumin (3.5-5.0) g/dL Urine Color Yellow Urine Appearance Clear (Clear) Urine pH 7.0 (5.0-8.0) Ur Specific [place] 1.014 (1.001-1.035) Urine Protein Negative (Negative) Urine Glucose (UA) 4+ H (Negative) Urine Ketones Negative (Negative) Urine Blood Negative (Negative) Urine Nitrite Negative (Negative) Urine Bilirubin Negative (Negative) Urine Urobilinogen <2.0 (<2.0) mg/dL Ur Leukocyte Esterase Trace H (Negative) Urine RBC 1 (0-5) /hpf Urine WBC 7 H (0-5) /hpf Ur Squamous Epith Cells <1 (0-4) /hpf Urine Bacteria Rare H (None) /hpf 04/03/17 04/03/17 Range/Units 13:17 14:25 WBC (3.8-10.6) k/uL RBC (3.80-5.40) m/uL Hgb (11.4-16.0) gm/dL Hct (34.0-46.0) % MCV (80.0-100.0) fL MCH (25.0-35.0) pg MCHC (31.0-37.0) g/dL RDW (11.5-15.5) % Plt Count (150-450) k/uL Neutrophils % % Lymphocytes % % Monocytes % % Eosinophils % % Basophils % % Neutrophils # (1.3-7.7) k/uL Lymphocytes # (1.0-4.8) k/uL Monocytes # (0-1.0) k/uL Eosinophils # (0-0.7) k/uL Basophils # (0-0.2) k/uL Macrocytosis PT (9.0-12.0) sec INR (<1.2) APTT (22.0-30.0) sec Sodium (137-145) mmol/L Potassium (3.5-5.1) mmol/L Chloride (98-107) mmol/L Carbon Dioxide (22-30) mmol/L Anion Gap mmol/L BUN (7-17) mg/dL Creatinine (0.52-1.04) mg/dL Est GFR (MDRD) Af Amer (>60 ml/min/1.73 sqM) Est GFR (MDRD) Non-Af (>60 ml/min/1.73 sqM) Glucose (74-99) mg/dL POC Glucose (mg/dL) 312 H 314 H (75-99) mg/dL POC Glu Human Resources Operations Specialist Myra Velazquez Tiffany Plasma Lactic Acid Oscar (0.7-2.0) mmol/L Calcium (8.4-10.2) mg/dL Total Bilirubin (0.2-1.3) mg/dL AST (14-36) U/L ALT (9-52) U/L Alkaline Phosphatase (38-126) U/L Total Protein (6.3-8.2) g/dL Albumin (3.5-5.0) g/dL Urine Color Urine Appearance (Clear) Urine pH (5.0-8.0) Ur Specific [place] (1.001-1.035) Urine Protein (Negative) Urine Glucose (UA) (Negative) Urine Ketones (Negative) Urine Blood (Negative) Urine Nitrite (Negative) Urine Bilirubin (Negative) Urine Urobilinogen (<2.0) mg/dL Ur Leukocyte Esterase (Negative) Urine RBC (0-5) /hpf Urine WBC (0-5) /hpf Ur Squamous Epith Cells (0-4) /hpf Urine Bacteria (None) /hpf Disposition Clinical Impression: Hyperglycemia, Cellulitis, Suicidal ideation, Depression Disposition: ADMITTED IP TO THIS HOSP Condition: Good Referrals: Alen Webb DO [Primary Care Provider] - 1-2 days
[2017-04-03 13:19] LABS: Glucose,Whole Blood 312 mg/dL (75-99)
[2017-04-03] MEDS: SODIUM CHLORIDE 0.9% 500 ML IV SCH ×2 (13:29→13:30)
[2017-04-03 13:36] LABS: Basophils # (A) 0.1 k/uL (0-0.2); Basophils % (A) 1 %; CH 31.7; CHCM 32.3; Eosinophils # (A) 0.2 k/uL (0-0.7); Eosinophils % (A) 2 %; HCT 48.5 % (34.0-46.0); HGB 15.3 gm/dL (11.4-16.0); Luc # (Auto) 0.09; Luc % (Auto) 1; Lymphocytes # (A) 2.1 k/uL (1.0-4.8); Lymphocytes % (A) 20 %; MCH 31.1 pg (25.0-35.0); MCHC 31.5 g/dL (31.0-37.0); MCV 98.7 fL (80.0-100.0); Macrocytosis Slight; Mean Platelet Volume 8.2; Monocytes # (A) 0.4 k/uL (0-1.0); Monocytes % (A) 3 %; Neutrophils # (A) 8.1 k/uL (1.3-7.7); Neutrophils % (A) 74 %; RBC 4.91 m/uL (3.80-5.40); RDW 15.5 % (11.5-15.5); WBC 10.9 k/uL (3.8-10.6); WBC (Perox) 10.77
[2017-04-03 13:40] LABS: Appearance,Urine Clear (Clear); Bacteria,Urine Rare /hpf; Bilirubin,Urine Negative (Negative); Glucose,Urine (UA) 4+ (Negative); Ketones,Urine Negative (Negative); Leukocyte Esterase,Urine Trace (Negative); Nitrite,Urine Negative (Negative); Particle Count 1010; Protein,Urine Negative (Negative); RBC,Urine 1 /hpf (0-5); Specific Gravity,Urine 1.014 (1.001-1.035); Squamous Epithelial Cell,Urine <1 /hpf (0-4); UA Billing (MACRO vs. MICRO) MICRO; Urobilinogen,Urine <2.0 mg/dL (<2.0); WBC,Urine 7 /hpf (0-5)
[2017-04-03 13:44] LABS: Partial Thromboplastin Time 24.1 sec (22.0-30.0); Prothrombin Time 10.2 sec (9.0-12.0)
[2017-04-03 13:49] LABS: ALT 52 U/L (9-52); AST 42 U/L (14-36); Alkaline Phosphatase 272 U/L (38-126); Anion Gap 11 mmol/L; Blood Urea Nitrogen 33 mg/dL (7-17); Calcium 9.3 mg/dL (8.4-10.2); Carbon Dioxide 33 mmol/L (22-30); Chloride 96 mmol/L (98-107); Glucose 307 mg/dL (74-99); Non-African American GFR(MDRD) 52 (>60 ml/min/1.73 sqM); Potassium 3.1 mmol/L (3.5-5.1); Sodium 140 mmol/L (137-145); Total Protein 7.4 g/dL (6.3-8.2)
--- NOTE | 2017-04-03 13:55 | XR ---
EXAMINATION TYPE: XR chest 1V portable DATE OF EXAM: 04/03/2017 Comparison: 07/19/2016 Clinical History: 56-year-old female Fever Findings: Heart is borderline enlarged. Heart size may be accentuated by AP portable technique. Hazy densities in the lower lungs may relate to overlying soft tissue. No melissa consolidation or significant pleural effusion. Impression: Limited portable exam. Heart is borderline in size. Hazy lower lung densities likely relates to overl megha soft tissue. No definite acute process.
[2017-04-03] MEDS ORDERED: POTASSIUM CHLORIDE ORAL LIQUID 40 MEQ/30 ML CUP PO ONE (13:58)
[2017-04-03 14:27] LABS: Glucose,Whole Blood 314 mg/dL (75-99)
[2017-04-03] MEDS ORDERED: NALOXONE 0.4 MG/ML 1 ML VIAL IV PRN (14:37)
[2017-04-03] MEDS ORDERED: ACETAMINOPHEN TAB 325 MG TAB PO PRN (14:48)
[2017-04-03] MEDS ORDERED: ALBUTEROL INHALER 60 PUFF/8 GM INHALER INHALATION PRN (15:00)
[2017-04-03] MEDS ORDERED: CYCLOBENZAPRINE 10 MG TAB PO PRN (15:00)
[2017-04-03] MEDS ORDERED: ALBUTEROL NEBULIZED 2.5 MG/3 ML INHALATION PRN (15:00)
[2017-04-03] MEDS ORDERED: traMADol 50 MG TAB PO PRN (15:00)
[2017-04-03] MEDS ORDERED: ALPRAZolam 0.25 MG TAB PO PRN (15:00)
--- NOTE | 2017-04-03 15:02 | US ---
EXAMINATION TYPE: US venous doppler duplex LE BI DATE OF EXAM: 04/03/2017 2:49 PM COMPARISON: US 07/19/2016 CLINICAL HISTORY: 56-year-old female Pain. SIDE PERFORMED: Bilateral TECHNIQUE: The lower extremity deep venous system is examined utilizing real time linear array sonog merissa with graded compression, doppler sonography and color-flow sonography. FINDINGS: DISC RULER OPERATOR NOTES: Extremely difficult and limited exam due to patient body habitus. VESSELS IMAGED: External Iliac Vein (EIV) Common Femoral Vein Deep Femoral Vein Greater Saphenous Vein * Femoral Vein Popliteal Vein Small Saphenous Vein * Proximal Calf Veins (* superficial vessels) Right Leg: Appears negative for DVT as visualized Left Leg: Appears negative for DVT as visualized IMPRESSION: Exam limitations due to large patient body habitus. No DVT visualized in either lower extremity image d from the groin to the upper calves.
[2017-04-03 16:30] LABS: Glucose,Whole Blood 253 mg/dL (75-99)
[2017-04-03 17:08] LABS: Glucose,Whole Blood 286 mg/dL (75-99)
[2017-04-03] MEDS ORDERED: HUMALOG U SQ SCH (17:30)
[2017-04-03] MEDS ORDERED: INSULIN LISPRO (humaLOG) 300 UNIT/3 ML VIAL SQ SCH ×2 (17:30)
[2017-04-03] MEDS: NYSTATIN 100,000 UNIT/ML SUSP 500,000 UNIT/5 ML CUP PO SCH ×2 (17:40→21:52)
[2017-04-03] MEDS: CALCIUM CARBONATE 500 MG CHEWABLE PO SCH ×2 (17:41→21:52)
[2017-04-03] MEDS: FERROUS SULFATE 325 MG TAB PO SCH ×2 (17:41→21:52)
[2017-04-03] MEDS: INSULIN LISPRO (humaLOG) 300 UNIT/3 ML VIAL SQ SCH ×2 (17:43→22:10)
--- NOTE | 2017-04-03 17:43 | HP ---
HISTORY AND PHYSICAL DATE OF ADMISSION: 04/03/17. PRESENT COMPLAINT: Severe depression. HISTORY OF PRESENTING COMPLAINT: A very pleasant 56 -year-old patient of Dr. Webb. Chronic stable medical conditions include COPD, hyperlipidemia, hiatal hernia, osteoarthritis. The patient presents her sugars been running high anywhere from 400s to 500s. The patient already takes Levemir 80 units twice a day. The patient also has a history of depression as feeling rather tearful and sometimes wants to hurt herself. Actually has got too many medical conditions. The patient also got discoloration of lower extremities, scratches herself and got some redness on the guillen, especially on the right side. The patient normally uses a wheelchair or walker to get about. REVIEW OF SYSTEMS: Constitutional: Tired. HEENT none. Respiratory: Baseline some shortness of breath. Cardiovascular: No chest pain. Gastrointestinal: None. Genitourinary: None. Musculoskeletal: Arthritic pain especially in the knees and lower back. Dermatological: Chronic skin changes in the lower extremities and bleeding from where she has been scratching. Psychiatry depressed, suicidal. NEUROLOGICAL: Numbness and tingling in both the feet. PAST MEDICAL HISTORY: COPD, diabetes, hyperlipidemia, kidney disease, gait difficulties, uses a walker, hiatal hernia, depression, schizophrenia, osteoarthritis. PAST SURGICAL HISTORY: Bariatric surgery, cholecystectomy, left total knee, lap band placed and removed, gastric sleeve in 2013. PAST PSYCH HISTORY: Past psych history of depression, anxiety, schizophrenia, personality disorder. SOCIAL HISTORY: Lives at the [facility]. Has a caregiver, Soraya, telephone #[phone]. No smoking. Alcohol occasional. FAMILY HISTORY: Father had Parkinson's disease. HOME MEDICATIONS: 1. Humalog quick pen 40 units a.c. b.i.d. and 60 units with supper. 2. Rocaltrol 0.25 mcg every month. 3. Desitin topical daily. 4. Xanax 0.75 p.o. daily p.r.n. 5. Ultram 100 mg p.o. q.6h p.r.n. 6. Kenalog topical b.i.d. 7. Ventolin 2 puffs q.6h p.r.n. 8. Zocor 40 mg q.h.s. 9. Protonix 40 mg p.o. daily. 10.Santyl topical daily. 11.Symbicort 160/4.5, 2 puffs b.i.d. 12.Mycostatin p.o. q.i.d. 13.Cream topical b.i.d. 14.Singulair 10 mg q.h.s. 15.Lopressor 12.5 p.o. b.i.d. 16.Magnesium oxide 800 mg p.o. b.i.d. 17.Levemir 80 units subcu b.i.d. 18.Lasix 40 mg p.o. daily. 19.Potassium 20 mEq p.o. daily. 20.Colace 100 mg p.o. daily. 21.Invokana 300 mg p.o. daily. 22.Calcium 600 mg p.o. t.i.d. 23.Hydrochlorothiazide 25 mg p.o. daily. 24.Effexor XR 150 mg p.o. daily. 25.Iron 325 p.o. t.i.d. 26.Flexeril 10 mg p.o. q.h.s. p.r.n. 27.Zyrtec 10 mg p.o. daily. 28.Byetta 10 mcg subcu b.i.d. 29.Lac-Hydrin 12% lotion topical b.i.d. 30.Allopurinol 100 mg p.o. daily. 31.Ventolin 2.5 q.i.d. p.r.n. 32.Abilify 50 mg p.o. daily. ALLERGIES: CODEINE. PHYSICAL EXAMINATION: Temperature 98, pulse 108, respiration 18, blood pressure 130/63, pulse ox 99% on room air. General appearance morbidly obese, BMI 58. Sitting up. Eyes pupils equal. Conjunctivae normal. HEENT: Oral cavity normal. Neck short, thick. JVD unable to assess. Mass not palpable. Respiratory effort increased. Lungs distant breath sounds. Cardiovascular: Heart sounds muffled edema present. Abdomen large distended pendulous, liver spleen not palpable. Lymphatics no lymph nodes palpable in the neck or axillae. PSYCHIATRY: Alert and oriented x3. Mood and affect somewhat low. Musculoskeletal evidence of osteoarthritis especially in the knees and hands. Dermatological: The patient has got venous stasis changes of lower extremity half way down the guillen to the feet and area of superficial bleeding on the right side from scratching. INVESTIGATIONS: White count 10.9, hemoglobin 15.3, potassium 3.1, BUN 33, creatinine 1.10, sugar was 312, AST 42. ASSESSMENT: 1. Major depression, recurrent, with suicidal ideation. 2. Diabetes mellitus type 2, chronically on insulin, uncontrolled causing peripheral neuropathy and chronic kidney disease stage II from diabetic nephrosclerosis. 3. Hypokalemia. 4. Morbid obesity BMI 58. 5. Bilateral lower extremity venous stasis with dermatitis. 6. Mild cellulitis right lower extremity from scratching. 7. Obesity hypoventilation syndrome. 8. Hyperlipidemia. 9. Gait dysfunction uses a walker and a wheelchair from morbid obesity. 10.Hiatal hernia. 11.Primary osteoarthritis likely of the knees and upper back. PLAN: Will get a sitter for the patient. Psychiatry was consulted. Home medications will be resumed. Will increase the patient's Lantus to 100 units subcu b.i.d. The patient was told not to scratch. Replace potassium and follow from there. Copy to Dr. Webb. MMCARRIEL / KAYCE: [id number] /
[2017-04-03] MEDS: SYMBICORT 160-4.5 MCG INHALER INHALATION SCH (18:48)
[2017-04-03] MEDS ORDERED: INSULIN DETEMIR 100 UNIT/ML 10 ML VIAL SQ SCH (21:00)
[2017-04-03] MEDS: ATORVASTATIN 20 MG TAB PO SCH (21:50)
[2017-04-03] MEDS: AMMONIUM LACTATE 12% LOTION 225 GM BTL TOPICAL SCH (21:50)
[2017-04-03] MEDS: EXENATIDE 10 MCG SQ SCH (21:51)
[2017-04-03] MEDS: METOPROLOL TARTRATE 12.5 MG TAB PO SCH (21:52)
[2017-04-03] MEDS: MAGNESIUM OXIDE 400 MG TAB PO SCH (21:52)
[2017-04-03] MEDS: MONTELUKAST 10 MG TAB PO SCH (21:52)
[2017-04-03] MEDS: TRIAMCINOLONE 0.1% CREAM 80 GM TUBE TOPICAL SCH (21:53)
[2017-04-03] MEDS: NYSTATIN 100,000UNIT/GM CREAM 30 GM TUBE TOPICAL SCH (21:53)
[2017-04-03] MEDS: INSULIN DETEMIR 100 UNIT/ML 10 ML VIAL SQ SCH (22:15)
[2017-04-03 22:19] LABS: Glucose,Whole Blood 207 mg/dL (75-99)
[2017-04-04 07:41] LABS: Glucose,Whole Blood 172 mg/dL (75-99)
[2017-04-04] MEDS ORDERED: INSULIN LISPRO (humaLOG) 300 UNIT/3 ML VIAL SQ SCH (08:00)
[2017-04-04] MEDS ORDERED: HUMALOG U SQ SCH (08:00)
[2017-04-04] MEDS: DOCUSATE 100 MG CAP PO SCH (08:14)
[2017-04-04] MEDS: EXENATIDE 10 MCG SQ SCH ×2 (08:15→17:24)
[2017-04-04] MEDS: FUROSEMIDE 40 MG TAB PO SCH (08:15)
[2017-04-04] MEDS: COLLAGENASE 250 UNIT/GM OINTMENT 30 GM TUBE TOPICAL SCH (08:16)
[2017-04-04] MEDS: INSULIN LISPRO (humaLOG) 300 UNIT/3 ML VIAL SQ SCH ×4 (08:16→13:48)
[2017-04-04] MEDS: cefTRIAXone IN SWFI 2,000 MG/20 ML SYRINGE IVP SCH (08:16)
[2017-04-04] MEDS: HYDROCHLOROTHIAZIDE 25 MG TAB PO SCH (08:17)
[2017-04-04] MEDS: PANTOPRAZOLE 40 MG TABLET PO SCH (08:17)
[2017-04-04] MEDS: LORATADINE 10 MG TAB PO SCH (08:17)
[2017-04-04] MEDS: ALLOPURINOL 100 MG TAB PO SCH (08:18)
[2017-04-04] MEDS: MAGNESIUM OXIDE 400 MG TAB PO SCH ×2 (08:18→21:58)
[2017-04-04] MEDS: CALCIUM CARBONATE 500 MG CHEWABLE PO SCH ×3 (08:18→21:59)
[2017-04-04] MEDS: METOPROLOL TARTRATE 12.5 MG TAB PO SCH ×2 (08:18→21:58)
[2017-04-04] MEDS: FERROUS SULFATE 325 MG TAB PO SCH ×3 (08:18→21:58)
[2017-04-04] MEDS: NYSTATIN 100,000 UNIT/ML SUSP 500,000 UNIT/5 ML CUP PO SCH ×4 (08:18→21:58)
[2017-04-04] MEDS: ARIPiprazole 15 MG TAB PO SCH (08:18)
[2017-04-04] MEDS: NYSTATIN 100,000UNIT/GM CREAM 30 GM TUBE TOPICAL SCH ×2 (08:19→21:59)
[2017-04-04] MEDS: POTASSIUM CHLORIDE ER 20 MEQ TAB.ER PO SCH (08:19)
[2017-04-04] MEDS: ZINC OXIDE 20% OINT 28.4 GM TUBE TOPICAL SCH (08:20)
[2017-04-04] MEDS: TRIAMCINOLONE 0.1% CREAM 80 GM TUBE TOPICAL SCH ×2 (08:20→21:59)
[2017-04-04] MEDS: SYMBICORT 160-4.5 MCG INHALER INHALATION SCH ×2 (08:50→21:34)
[2017-04-04] MEDS ORDERED: VENLAFAXINE HCL ER 150 MG CAP PO SCH (09:00)
[2017-04-04] MEDS: AMMONIUM LACTATE 12% LOTION 225 GM BTL TOPICAL SCH ×2 (09:35→21:56)
[2017-04-04] MEDS: NON-FORMULARY DRUG (Canagliflozin [Invokana] 300 MG) PO SCH (09:35)
[2017-04-04] MEDS: INSULIN DETEMIR 100 UNIT/ML 10 ML VIAL SQ SCH ×2 (09:36→21:57)
[2017-04-04 10:02] LABS: Basophils % (A) 0 %; CH 30.7; CHCM 31.5; Eosinophils # (A) 0.1 k/uL (0-0.7); Eosinophils % (A) 2 %; HCT 42.7 % (34.0-46.0); HDW 2.59; HGB 13.6 gm/dL (11.4-16.0); Hypochromasia Slight; Luc # (Auto) 0.12; Luc % (Auto) 2; Lymphocytes # (A) 1.6 k/uL (1.0-4.8); Lymphocytes % (A) 20 %; MCH 31.4 pg (25.0-35.0); MCHC 31.9 g/dL (31.0-37.0); MCV 98.2 fL (80.0-100.0); Mean Platelet Volume 8.4; Monocytes # (A) 0.2 k/uL (0-1.0); Monocytes % (A) 3 %; Neutrophils % (A) 74 %; RBC 4.34 m/uL (3.80-5.40); RDW 15.2 % (11.5-15.5); WBC 8.1 k/uL (3.8-10.6); WBC (Perox) 8.21
[2017-04-04 10:16] LABS: Anion Gap 8 mmol/L; Blood Urea Nitrogen 28 mg/dL (7-17); Calcium 8.6 mg/dL (8.4-10.2); Carbon Dioxide 30 mmol/L (22-30); Chloride 101 mmol/L (98-107); Glucose 403 mg/dL (74-99); Non-African American GFR(MDRD) 51 (>60 ml/min/1.73 sqM); Potassium 3.7 mmol/L (3.5-5.1); Sodium 139 mmol/L (137-145)
[2017-04-04 12:32] LABS: Glucose,Whole Blood 344 mg/dL (75-99)
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
[2017-04-04] MEDS ORDERED: INSULIN ASPART 100 UNIT/ML 1 ML 10 ML VIAL SQ SCH ×2 (16:17→16:22)
--- NOTE | 2017-04-04 16:43 | P.PN ---
Progress Note - Text Progress Note Date: 04/04/17 DATE OF SERVICE: 04/04/2017 PRESENTING COMPLAINT: Severe depression/ suicidal ideation HISTORY OF PRESENT ILLNESS: 56-year-old female who presented with hyperglycemia with blood glucose running in the 400s to 500s. Her extremities are discolored and patient scratches at these routinely, looks like cellulitis. Has a history of depression was feeling very tearful and expressed wanting to hurt herself. Patient was admitted for the same. Sitter placed at the bedside for suicide precaution. INTERVAL HISTORY: 04/04/2017: Patient seen in follow-up, lying in bed appears comfortable sitter at the bedside. Tolerating her diet able to eat her breakfast, blood glucose is somewhat improved 170 this morning. Uses a wheelchair and a walker to get about requires some assistance. Waiting for psychiatry to see the patient. Nursing staff spoke with patient's family and they have some concerns about her living alone as they feel she is not able to care for herself, some talk about going for guardianship for her. REVIEW OF SYSTEMS: Done for constitutional ,cardiovascular, GI, pulmonary with relevant findings as above. CURRENT MEDICATIONS Albuterol, allopurinol 100 mg by mouth daily, Xanax 0.75 mg by mouth daily, Abilify 15 mg by mouth daily, Lipitor 20 mg by mouth at bedtime, Symbicort 160- 4.5 g, calcitriol 0.25 g by mouth Sunday, ferrous sulfate 325 mg by mouth 3 times a day, Lasix 40 mg by mouth daily, hydrochlorothiazide 25 mg by mouth daily, NovoLog 60 units subcu at supper, NovoLog 40 units subcu twice a day Levemir 100 units subcu twice a day, Lac-Hydrin topical twice a day, magnesium oxide 800 mg by mouth twice a day, Lopressor 12.5 mg by mouth twice a day, Singulair 10 mg by mouth at bedtime, Protonix 40 mg by mouth before meals breakfast, potassium chloride 20 mEq by mouth daily, Ultram 100 mg by mouth every 6 hours. PHYSICAL EXAM VITAL SIGNS: Temperature 98.8, pulse 109, respiratory rate 20, blood pressure 126/70, oxygen saturation 94% on room air. GENERAL APPEARANCE: Lying in bed, not in distress. EYES: Pupils equal. Conjunctiva normal. NECK: JVD not raised. Mass not palpable. RESPIRATORY: Respiratory effort normal. Lungs diminished to auscultation. CARDIOVASCULAR: First and second sounds normal. Moderate edema. ABDOMEN: Soft. Liver and spleen not palpable. No tenderness. No mass palpable. PSYCHIATRY: Alert and oriented x3. Mood and affect normal. INTEGUMENT: Bilateral lower extremities red tender swollen some scratch villar noted which are scabbed over INVESTIGATIONS: CBC unremarkable, BUN 28, creatinine 1.12, Accu-Cheks noted. ASSESSMENT: -Major depression, recurrent, with suicidal ideation. -Diabetes mellitus type 2 chronically on insulin, uncontrolled causing peripheral neuropathy and chronic kidney damage stage II from diabetic nephrosclerosis. -Hypokalemia. -Moderate obesity BMI 58. -Bilateral lower extremity venous stasis with dermatitis. -Mild cellulitis right lower extremity from scratching. -Obesity hypoventilation syndrome. -Hyperlipidemia. -Gait dysfunction uses walker and wheelchair for morbid obesity. -Hiatal hernia. -Primary osteoarthritis likely of the knees and upper back. PLAN: Psychiatry does not feel patient is in acute danger to herself, discontinue the one-to-one sitter, does not feel patient meets criteria for involuntary admission to mental health services, does recommend increasing venlafaxine ER to 225 mg daily and to continue Abilify, further suggests seeing new psychiatrist earlier and more frequently. We'll speak with social work regarding guardianship for this patient. We'll continue with current medication and treatment plan. Tentative discharge planning for the next 24-48 hours. OFFAL WORKER statement: Patient was seen and examined by nurse practitioner Imelda Gillis and all elements of the case discussed with attending Dr. Montilla
[2017-04-04 17:05] LABS: Glucose,Whole Blood 292 mg/dL (75-99)
[2017-04-04] MEDS: INSULIN ASPART 100 UNIT/ML 1 ML 10 ML VIAL SQ SCH ×2 (17:22→21:57)
--- NOTE | 2017-04-04 19:13 | PN ---
PROGRESS NOTE DATE OF SERVICE: 04/04/2017. ATTENDING NOTE: Patient was seen and examined by me. I discussed with my nurse practitioner, Ms. Gillis. Patient admitted with depression with some suicidal ideation, doing much better today. Also had uncontrolled sugars, feeling better. Also on ceftriaxone for cellulitis of lower extremity. EXAMINATION: Afebrile, pulse 109, blood pressure 126/70. Decreased redness in the lower extremity. Accu-Cheks did show 172, 344, 292. ASSESSMENT: 1. Major depression, recurrent, with suicidal ideation on presentation, now improving. 2. Diabetes mellitus type 2, uncontrolled. PLAN: Will increase the patient's Aspart to 50 units subcu 3 times a day. Other medication and treatment plan is to continue. Sitter has been discontinued per Psych. MMODL / IJN: [id number] /
[2017-04-04 21:10] LABS: Glucose,Whole Blood 279 mg/dL (75-99)
[2017-04-04] MEDS: ATORVASTATIN 20 MG TAB PO SCH (21:57)
[2017-04-04] MEDS: MONTELUKAST 10 MG TAB PO SCH (21:58)
[2017-04-05 07:09] LABS: Glucose,Whole Blood 212 mg/dL (75-99)
[2017-04-05] MEDS: SYMBICORT 160-4.5 MCG INHALER INHALATION SCH ×2 (07:22→19:22)
[2017-04-05 07:51] LABS: Anion Gap 7 mmol/L; Blood Urea Nitrogen 24 mg/dL (7-17); Calcium 8.7 mg/dL (8.4-10.2); Carbon Dioxide 31 mmol/L (22-30); Chloride 102 mmol/L (98-107); Glucose 214 mg/dL (74-99); Non-African American GFR(MDRD) 58 (>60 ml/min/1.73 sqM); Potassium 3.5 mmol/L (3.5-5.1); Sodium 140 mmol/L (137-145)
[2017-04-05] MEDS: NYSTATIN 100,000UNIT/GM CREAM 30 GM TUBE TOPICAL SCH ×2 (08:00→21:16)
[2017-04-05] MEDS: ZINC OXIDE 20% OINT 28.4 GM TUBE TOPICAL SCH (08:00)
[2017-04-05] MEDS: EXENATIDE 10 MCG SQ SCH ×2 (08:00→17:46)
[2017-04-05] MEDS: TRIAMCINOLONE 0.1% CREAM 80 GM TUBE TOPICAL SCH ×2 (08:00→21:18)
[2017-04-05] MEDS: NON-FORMULARY DRUG (Canagliflozin [Invokana] 300 MG) PO SCH (08:00)
[2017-04-05] MEDS: METOPROLOL TARTRATE 12.5 MG TAB PO SCH ×2 (08:05→21:18)
[2017-04-05] MEDS: ARIPiprazole 15 MG TAB PO SCH (08:05)
[2017-04-05] MEDS: CALCIUM CARBONATE 500 MG CHEWABLE PO SCH ×3 (08:05→21:18)
[2017-04-05] MEDS: NYSTATIN 100,000 UNIT/ML SUSP 500,000 UNIT/5 ML CUP PO SCH ×4 (08:06→21:17)
[2017-04-05] MEDS: MAGNESIUM OXIDE 400 MG TAB PO SCH ×2 (08:06→21:18)
[2017-04-05] MEDS: INSULIN ASPART 100 UNIT/ML 1 ML 10 ML VIAL SQ SCH ×7 (08:07→21:17)
[2017-04-05] MEDS: FERROUS SULFATE 325 MG TAB PO SCH ×3 (08:07→21:17)
[2017-04-05] MEDS: POTASSIUM CHLORIDE ER 20 MEQ TAB.ER PO SCH (08:07)
[2017-04-05] MEDS: ALLOPURINOL 100 MG TAB PO SCH (08:07)
[2017-04-05] MEDS: DOCUSATE 100 MG CAP PO SCH (08:07)
[2017-04-05] MEDS: VENLAFAXINE HCL ER 75 MG CAP PO SCH (08:07)
[2017-04-05] MEDS: HYDROCHLOROTHIAZIDE 25 MG TAB PO SCH (08:07)
[2017-04-05] MEDS: FUROSEMIDE 40 MG TAB PO SCH (08:08)
[2017-04-05] MEDS: PANTOPRAZOLE 40 MG TABLET PO SCH (08:08)
[2017-04-05] MEDS: AMMONIUM LACTATE 12% LOTION 225 GM BTL TOPICAL SCH ×2 (08:08→21:18)
[2017-04-05] MEDS: LORATADINE 10 MG TAB PO SCH (08:08)
[2017-04-05] MEDS: COLLAGENASE 250 UNIT/GM OINTMENT 30 GM TUBE TOPICAL SCH (08:10)
[2017-04-05 08:47] VITALS: BMI 57.9
[2017-04-05] MEDS ORDERED: CALCITRIOL 0.25 MCG CAP PO SCH (09:00)
[2017-04-05] MEDS: cefTRIAXone IN SWFI 2,000 MG/20 ML SYRINGE IVP SCH (09:14)
[2017-04-05] MEDS: INSULIN DETEMIR 100 UNIT/ML 10 ML VIAL SQ SCH ×2 (09:14→21:16)
[2017-04-05 12:24] LABS: Glucose,Whole Blood 260 mg/dL (75-99)
--- NOTE | 2017-04-05 14:38 | P.PN ---
Progress Note - Text Progress Note Date: 04/05/17 DATE OF SERVICE: 04/05/2017 PRESENTING COMPLAINT: Severe depression/ suicidal ideation HISTORY OF PRESENT ILLNESS: 56-year-old female who presented with hyperglycemia with blood glucose running in the 400s to 500s. Her extremities are discolored and patient scratches at these routinely, looks like cellulitis. Has a history of depression was feeling very tearful and expressed wanting to hurt herself. Patient was admitted for the same. Psychiatry evaluated the patient and Sitter no longer required for suicide precaution as patient is felt to not be a danger to herself or others. INTERVAL HISTORY: 04/05/2017: Patient seen in follow-up lying in bed appears comfortable. Psychiatry saw the patient and felt patient was not as danger to herself or others DC the safety physician and also felt an inpatient mental health admission was not necessary, medications were adjusted. adjustments made to her insulin yesterday both prandial and dose at bedtime. Blood glucose continues to be in the 200 range.Tolerating her diet able to eat her breakfast, Discussed with the patient regarding guardianship, patient is of sound mind and does not feel she requires anyone to be her guardian. Bilateral lower extremities continue to be reddened tender to palpation, will add Silvadene cream and gauze wraps with Vijay wraps 04/04/2017: Patient seen in follow-up, lying in bed appears comfortable sitter at the bedside. Tolerating her diet able to eat her breakfast, blood glucose is somewhat improved 170 this morning. Uses a wheelchair and a walker to get about requires some assistance. Waiting for psychiatry to see the patient. Nursing staff spoke with patient's family and they have some concerns about her living alone as they feel she is not able to care for herself, some talk about going for guardianship for her. REVIEW OF SYSTEMS: Done for constitutional ,cardiovascular, GI, pulmonary with relevant findings as above. CURRENT MEDICATIONS Albuterol, allopurinol 100 mg by mouth daily, Xanax 0.75 mg by mouth daily, Abilify 15 mg by mouth daily, Lipitor 20 mg by mouth at bedtime, Symbicort 160- 4.5 g, calcitriol 0.25 g by mouth Sunday, ferrous sulfate 325 mg by mouth 3 times a day, Lasix 40 mg by mouth daily, hydrochlorothiazide 25 mg by mouth daily, NovoLog 60 units subcu at supper, NovoLog 40 units subcu twice a day Levemir 100 units subcu twice a day, Lac-Hydrin topical twice a day, magnesium oxide 800 mg by mouth twice a day, Lopressor 12.5 mg by mouth twice a day, Singulair 10 mg by mouth at bedtime, Protonix 40 mg by mouth before meals breakfast, potassium chloride 20 mEq by mouth daily, Ultram 100 mg by mouth every 6 hours. Silvadene cream applied to bilateral lower extremities daily PHYSICAL EXAM VITAL SIGNS: Temperature 97.0, pulse 102, respiratory rate 18, blood pressure 94/45, oxygen saturation 97% on room air. GENERAL APPEARANCE: Lying in bed, not in distress. EYES: Pupils equal. Conjunctiva normal. NECK: JVD not raised. Mass not palpable. RESPIRATORY: Respiratory effort normal. Lungs diminished to auscultation. CARDIOVASCULAR: First and second sounds normal. Moderate edema. ABDOMEN: Soft. Liver and spleen not palpable. No tenderness. No mass palpable. PSYCHIATRY: Alert and oriented x3. Mood and affect normal. INTEGUMENT: Bilateral lower extremities red tender swollen some scratch villar noted which are scabbed over, Silvadene/Curlex/Vijay wraps ordered INVESTIGATIONS: BUN 24, creatinine 1.00, Accu-Cheks continue in the low 200s to upper 200s ASSESSMENT: -Major depression, recurrent, with suicidal ideation, improving -Diabetes mellitus type 2 chronically on insulin, uncontrolled causing peripheral neuropathy and chronic kidney damage stage II from diabetic nephrosclerosis. -Hypokalemia, resolved -Moderate obesity BMI 58. -Bilateral lower extremity venous stasis with dermatitis. -Mild cellulitis right lower extremity from scratching slow to respond -Obesity hypoventilation syndrome. -Hyperlipidemia. -Gait dysfunction uses walker and wheelchair for morbid obesity. -Hiatal hernia. -Primary osteoarthritis likely of the knees and upper back. PLAN: Lower extremities continue to be reddened tender to palpation, Silvadene/Curlex/ Vijay wraps ordered. Patient was very clear about not wanting a legal guardian placed for her seem to have a clear understanding of what that meant. We'll continue with current medication and treatment plan. Tentative discharge planning for the next 24-48 hours. BATTERY TESTER AND REPAIRER statement: Patient was seen and examined by nurse practitioner Imelda Gillis and all elements of the case discussed with attending Dr. Montilla
[2017-04-05 17:22] LABS: Glucose,Whole Blood 202 mg/dL (75-99)
[2017-04-05 20:53] LABS: Glucose,Whole Blood 235 mg/dL (75-99)
[2017-04-05] MEDS: ATORVASTATIN 20 MG TAB PO SCH (21:17)
[2017-04-05] MEDS: MONTELUKAST 10 MG TAB PO SCH (21:18)
[2017-04-06 06:27] VITALS: BP 100/57; PULSE 99; RESP 20; TEMP 97.1
[2017-04-06 07:35] LABS: Glucose,Whole Blood 216 mg/dL (75-99)
[2017-04-06] MEDS: INSULIN ASPART 100 UNIT/ML 1 ML 10 ML VIAL SQ SCH ×4 (07:50→12:21)
[2017-04-06] MEDS: PANTOPRAZOLE 40 MG TABLET PO SCH (07:51)
[2017-04-06] MEDS: ALLOPURINOL 100 MG TAB PO SCH (07:51)
[2017-04-06] MEDS: AMMONIUM LACTATE 12% LOTION 225 GM BTL TOPICAL SCH (07:52)
[2017-04-06] MEDS: ARIPiprazole 15 MG TAB PO SCH (07:52)
[2017-04-06] MEDS: CALCIUM CARBONATE 500 MG CHEWABLE PO SCH (07:52)
[2017-04-06] MEDS: EXENATIDE 10 MCG SQ SCH (07:53)
[2017-04-06] MEDS: NON-FORMULARY DRUG (Canagliflozin [Invokana] 300 MG) PO SCH (07:53)
[2017-04-06] MEDS: NYSTATIN 100,000 UNIT/ML SUSP 500,000 UNIT/5 ML CUP PO SCH ×2 (07:53→12:22)
[2017-04-06] MEDS: NYSTATIN 100,000UNIT/GM CREAM 30 GM TUBE TOPICAL SCH (07:53)
[2017-04-06] MEDS: POTASSIUM CHLORIDE ER 20 MEQ TAB.ER PO SCH (07:54)
[2017-04-06] MEDS: VENLAFAXINE HCL ER 75 MG CAP PO SCH (07:54)
[2017-04-06] MEDS: TRIAMCINOLONE 0.1% CREAM 80 GM TUBE TOPICAL SCH (07:54)
[2017-04-06] MEDS: SYMBICORT 160-4.5 MCG INHALER INHALATION SCH (08:06)
--- NOTE | 2017-04-06 08:24 | PN ---
PROGRESS NOTE DATE OF SERVICE: 04/05/2017. ATTENDING NOTE: Patient seen and examined by me. Discussed with my nurse practitioner, Ms. Gillis. This is a patient who presented with depression and suicidal ideations. Medications adjusted. Also sugars are uncontrolled. Insulin was adjusted. Feeling a bit better. Tolerating food. EXAMINATION: On examination, afebrile. Blood pressure 95/45. INVESTIGATIONS: Accu-Cheks 212, 260, 202, 202. ASSESSMENT: 1. Major depression recurrent with suicidal ideation on presentation, now resolved. 2. Diabetes mellitus type 2 uncontrolled. PLAN: Keep the patient on current dose of Levemir that is 100 subcu twice a day and Humalog 50 units three times a day. antibiotics are to continue. Care was discussed with the patient. There is a question about some family members getting guardianship. Patient is rather to take care of her own decisions at this point. MMODL / IJN: [id number] /
[2017-04-06] MEDS: cefTRIAXone IN SWFI 2,000 MG/20 ML SYRINGE IVP SCH (09:54)
[2017-04-06] MEDS: COLLAGENASE 250 UNIT/GM OINTMENT 30 GM TUBE TOPICAL SCH (09:55)
[2017-04-06] MEDS: FUROSEMIDE 40 MG TAB PO SCH (09:56)
[2017-04-06] MEDS: HYDROCHLOROTHIAZIDE 25 MG TAB PO SCH (09:56)
[2017-04-06] MEDS: FERROUS SULFATE 325 MG TAB PO SCH (09:56)
[2017-04-06] MEDS: DOCUSATE 100 MG CAP PO SCH (09:56)
[2017-04-06] MEDS: METOPROLOL TARTRATE 12.5 MG TAB PO SCH (09:57)
[2017-04-06] MEDS: LORATADINE 10 MG TAB PO SCH (09:57)
[2017-04-06] MEDS: MAGNESIUM OXIDE 400 MG TAB PO SCH (09:57)
[2017-04-06] MEDS: ZINC OXIDE 20% OINT 28.4 GM TUBE TOPICAL SCH (09:58)
[2017-04-06] MEDS: INSULIN DETEMIR 100 UNIT/ML 10 ML VIAL SQ SCH (10:00)
[2017-04-06 12:14] LABS: Glucose,Whole Blood 241 mg/dL (75-99)
--- NOTE | 2017-04-06 23:07 | DS ---
DISCHARGE SUMMARY DATE OF ADMISSION: 04/03/17. DATE OF DISCHARGE: 04/06/17. FINAL DIAGNOSES: 1. Major depression, recurrent, with suicidal ideation present on admission. 2. Diabetes mellitus type 2, chronically on insulin, uncontrolled causing peripheral neuropathy. 3. Chronic kidney disease stage 2, from diabetic nephrosclerosis. 4. Hypokalemia. 5. Morbid obesity BMI 58. 6. Bilateral lower extremity venous stasis with dermatitis. 7. Acute cellulitis of right lower extremity from scratching. 8. Obesity hypoventilation syndrome. 9. Hyperlipidemia. 10.Gait dysfunction uses a walker with a wheelchair from morbid obesity. 11.Hiatal hernia. 12.Primary osteoarthritis likely of the knees and upper back and the lower back. CONSULTATIONS: Dr. Tran from Psychiatry. HOSPITAL COURSE: This patient because of multiple medical problems, felt more depressed, a bit suicidal. Seen by Dr. Tran who had upped her medication. The patient's sugars also were uncontrolled and dose of Lantus and Humalog and sugars were doing better. I did have a long talk with the patient about the same. The patient has some cellulitis from scratching right lower extremity. Responded well to antibiotics and Kerlix and Vijay wraps. EXAMINATION: Lungs distant breath sounds. Psych AO x3. Less depressed. DISCHARGE MEDICATIONS: 1. Allopurinol 100 mg p.o. daily. 2. Flexeril 10 mg p.o. q.h.s. p.r.n. 3. Byetta 10 mcg subcu b.i.d. 4. Singulair 10 mg p.o. q.h.s. 5. Zocor 40 mg q.h.s. 6. Effexor XR 225 mg p.o. daily new dose. 7. Abilify 50 mg p.o. daily. 8. Ventolin 2.5 nebulizer q.i.d. p.r.n. 9. Lac-Hydrin 12% topical b.i.d. 10.Rocaltrol 0.25 mcg p.o. Sunday and . 11.Iron 325 p.o. t.i.d. 12.Lasix 40 mg p.o. daily. 13.Lopressor 12.5 p.o. b.i.d. 14.Protonix 40 mg p.o. daily. 15.Ultram 100 mg p.o. q.6h p.r.n. 16.Zyrtec 10 mg p.o. daily. 17.Xanax 0.75 mg p.o. daily p.r.n. 18.Ventolin HFA 2 puffs q.6h p.r.n. 19.Symbicort 160/4.5, 2 puffs b.i.d. 20.Calcium 600 mg p.o. t.i.d. 21.Invokana 300 mg p.o. daily. 22.Santyl topical daily. 23.Colace 100 mg p.o. daily. 24.Hydrochlorothiazide 25 mg p.o. daily. 25.Magnesium oxide 800 mg p.o. b.i.d. 26.Nystatin 500,000 units b.i.d. 27.Wirt 20 mEq p.o. daily. 28.Kenalog topical b.i.d. 29.Desitin topical daily. 30.Levemir 100 units subcu b.i.d. 31.Insulin lispro 15 units subcu t.i.d. 32.Nystatin topical twice a day powder. 33.Silvadene cream topical to the right lower extremity with Kerlix and Vijay wraps. 34.Bactrim DS 1 tab p.o. q.12, 10 tablets. Accu-Cheks to be followed. Follow with Dr. Webb's 04/10/17. Wound care to continue as discussed. Copy to Dr. Webb. MMCARRIEL / IJN: [id number] /
--- NOTE | 2017-04-25 20:39 | PN ---
PROGRESS NOTE ADDENDUM: On examination, lungs reveal decreased breath sounds. CARDIOVASCULAR: Heart sounds muffled. MMODL / IJN: [id number] /
--- NOTE | 2017-05-13 15:27 | PN ---
PROGRESS NOTE ADDENDUM: This is an addendum to the note on Tresa Espinoza . Note dictated on April 25, 2017 at time 1922. Date transcribed 04/25/17 at 2030. The date of service should read 04/05/17. MMCARRIEL / IJN: [id number] /
== END 2017-04-06 14:10 | disposition home health service (06) | DRG 638 ==
LOC: EC 11:23 → 4MS4W 14:37
PROVIDERS: ADMIT Hospitalist; ATTEND Hospitalist
DX: E11.65 Type 2 diabetes mellitus with hyperglycemia (principal); F33.9 Major depressive disorder, recurrent, unspecified; R45.851 Suicidal ideations; E11.22 Type 2 diabetes mellitus with diabetic chronic kidney disease; Z68.43 Body mass index [BMI] 50.0-59.9, adult; L03.115 Cellulitis of right lower limb; E66.2 Morbid (severe) obesity with alveolar hypoventilation; E11.42 Type 2 diabetes mellitus with diabetic polyneuropathy; I12.9 Hypertensive chronic kidney disease with stage 1 through stage 4 chronic kidney disease, or unspecified chronic kidney disease; N18.2 Chronic kidney disease, stage 2 (mild); E87.6 Hypokalemia; I87.2 Venous insufficiency (chronic) (peripheral); E78.5 Hyperlipidemia, unspecified; R26.9 Unspecified abnormalities of gait and mobility; K44.9 Diaphragmatic hernia without obstruction or gangrene; M17.10 Unilateral primary osteoarthritis, unspecified knee; F20.9 Schizophrenia, unspecified; F60.9 Personality disorder, unspecified; F40.240 Claustrophobia; Z96.652 Presence of left artificial knee joint; J44.9 Chronic obstructive pulmonary disease, unspecified; Z79.899 Other long term (current) drug therapy; Z79.51 Long term (current) use of inhaled steroids; Z90.49 Acquired absence of other specified parts of digestive tract; Z98.84 Bariatric surgery status; Z79.4 Long term (current) use of insulin; Z87.440 Personal history of urinary (tract) infections; Z82.0 Family history of epilepsy and other diseases of the nervous system
CPT/HCPCS: 36415; 71010; 80048; 80053; 81001; 82075; 83036; 83605; 85025; 85610; 85730; 87040; 87086; 93005; 93970; 94640; 94760; 96361; 96374; 99285

== ENCOUNTER → 2017-04-26 | Outpatient (CLI) | payer MEDICARE, OTHER ==
[2017-04-26 17:16] LABS: Basophils % (A) 0 %; CH 31.4; CHCM 32.5; Eosinophils # (A) 0.2 k/uL (0-0.7); Eosinophils % (A) 2 %; HCT 44.4 % (34.0-46.0); HDW 2.85; HGB 14.4 gm/dL (11.4-16.0); Luc # (Auto) 0.11; Luc % (Auto) 1; Lymphocytes # (A) 2.2 k/uL (1.0-4.8); Lymphocytes % (A) 23 %; MCH 31.4 pg (25.0-35.0); MCHC 32.5 g/dL (31.0-37.0); MCV 96.8 fL (80.0-100.0); Mean Platelet Volume 7.8; Monocytes # (A) 0.3 k/uL (0-1.0); Monocytes % (A) 3 %; Neutrophils # (A) 6.8 k/uL (1.3-7.7); Neutrophils % (A) 71 %; RBC 4.59 m/uL (3.80-5.40); RDW 13.3 % (11.5-15.5); WBC 9.6 k/uL (3.8-10.6); WBC (Perox) 9.09
[2017-04-26 17:19] LABS: Appearance,Urine Cloudy (Clear); Bacteria,Urine Rare /hpf; Bilirubin,Urine Negative (Negative); Glucose,Urine (UA) 4+ (Negative); Ketones,Urine Negative (Negative); Leukocyte Esterase,Urine Negative (Negative); Nitrite,Urine Negative (Negative); PH, Urine 6.5 (5.0-8.0); Particle Count 2511; Protein,Urine Negative (Negative); RBC,Urine 2 /hpf (0-5); Specific Gravity,Urine 1.017 (1.001-1.035); Squamous Epithelial Cell,Urine 8 /hpf (0-4); UA Billing (MACRO vs. MICRO) MICRO; Urobilinogen,Urine <2.0 mg/dL (<2.0); WBC,Urine 6 /hpf (0-5)
[2017-04-26 17:26] LABS: Calcium 9.6 mg/dL (8.4-10.2); Magnesium 2.1 mg/dL (1.6-2.3); Phosphorus 3.1 mg/dL (2.5-4.5); Potassium 3.3 mmol/L (3.5-5.1)
[2017-04-27 00:38] LABS: Iron Saturation 15.13 (12.00-45.00)
== END | disposition home or self-care (01) ==
LOC: LABWHC1 16:20
PROVIDERS: ATTEND Nurse Practitioner Family
DX: N39.0 Urinary tract infection, site not specified (principal); M10.9 Gout, unspecified; N18.3 Chronic kidney disease, stage 3 (moderate); N25.81 Secondary hyperparathyroidism of renal origin; D50.9 Iron deficiency anemia, unspecified; D63.1 Anemia in chronic kidney disease; E11.65 Type 2 diabetes mellitus with hyperglycemia; E11.22 Type 2 diabetes mellitus with diabetic chronic kidney disease; E83.42 Hypomagnesemia
CPT/HCPCS: 36415; 80048; 81001; 82306; 82728; 83036; 83540; 83550; 83735; 83970; 84100; 84550; 85025

== ENCOUNTER 2017-12-20 13:48 | Emergency (ER) | payer MEDICARE, OTHER ==
[2017-12-20 13:53] VITALS: RESP 18
[2017-12-20] MEDS ORDERED: SODIUM CHLORIDE 0.9% 1,000 ML IV STA ×2 (14:24)
[2017-12-20] MEDS ORDERED: INSULIN REGULAR 100 UNIT/ML VIAL IV ONE (14:24)
--- NOTE | 2017-12-20 14:27 | ED ---
Recheck HPI - General Chief Complaint: Recheck/Abnormal Lab/Rx Stated Complaint: Elevated BS sent by PCP Time Seen by Provider: 12/20/17 14:14 Source: patient, RN notes reviewed Mode of arrival: wheelchair Limitations: no limitations - History of Present Illness MD Complaint: abnormal lab - Related Data Home Medications Medication Instructions Recorded Confirmed Allopurinol [Zyloprim] 100 mg PO DAILY 06/10/14 04/03/17 Cyclobenzaprine [Flexeril] 10 mg PO HS PRN 06/10/14 04/03/17 Exenatide [Byetta] 10 mcg SQ BID 06/10/14 04/03/17 Montelukast Sodium [Singulair] 10 mg PO HS 06/10/14 04/03/17 Simvastatin [Zocor] 40 mg PO HS 06/10/14 04/03/17 ARIPiprazole [Abilify] 15 mg PO DAILY 07/09/15 04/03/17 Albuterol Nebulized [Ventolin 2.5 mg INHALATION RT-QID PRN 07/09/15 04/03/17 Nebulized] Ammonium Lactate Lotion 1 applic TOPICAL BID 07/19/16 04/03/17 [Lac-Hydrin 12% Lotion] Calcitriol [Rocaltrol] 0.25 mcg PO MOTH 07/19/16 04/03/17 Ferrous Sulfate [Feosol] 325 mg PO TID 07/19/16 04/03/17 Furosemide [Lasix] 40 mg PO DAILY 07/19/16 04/03/17 Metoprolol Tartrate [Lopressor] 12.5 mg PO BID 07/19/16 04/03/17 Pantoprazole [Protonix] 40 mg PO DAILY 07/19/16 04/03/17 traMADol HCL [Ultram] 100 mg PO Q6H PRN 07/19/16 04/03/17 Cetirizine HCl [Zyrtec] 10 mg PO DAILY 12/15/16 04/03/17 ALPRAZolam [Xanax] 0.75 mg PO DAILY PRN 04/03/17 04/03/17 Albuterol Inhaler [Ventolin Hfa 2 puff INHALATION RT-Q6H PRN 04/03/17 04/03/17 Inhaler] Budesonide-Formot 160-4.5 Mcg 2 puff INHALATION RT-BID 04/03/17 04/03/17 [Symbicort 160-4.5 Mcg Inhaler] Calcium Carbonate [Calcium] 600 mg PO TID 04/03/17 04/03/17 Canagliflozin [Invokana] 300 mg PO DAILY 04/03/17 04/03/17 Collagenase [Santyl] 1 applic TOPICAL DAILY 04/03/17 04/03/17 Docusate [Colace] 100 mg PO DAILY 04/03/17 04/03/17 Hydrochlorothiazide 25 mg PO DAILY 04/03/17 04/03/17 Magnesium Oxide [Mag-Ox] 800 mg PO BID 04/03/17 04/03/17 Nystatin 100,000 Unit/ml Susp 500,000 units PO QID 04/03/17 04/03/17 [Mycostatin Oral Susp] Potassium Chloride [Klor-Con 20] 20 meq PO DAILY 04/03/17 04/03/17 Triamcinolone 0.1% Cream [Kenalog] 1 applicatio TOPICAL BID 04/03/17 04/03/17 Zinc Oxide [Desitin] 1 applic TOPICAL DAILY 04/03/17 04/03/17 Previous Rx's Medication Instructions Recorded Insulin Detemir [Levemir] 100 unit SQ BID #0 04/06/17 Insulin Lispro [humaLOG Kwikpen] 50 unit SQ AC-TID #0 04/06/17 Nystatin [Nystop] 1 applic TOPICAL BID #1 package 04/06/17 SILVER sulfADIAZINE CREAM 1 applic TOPICAL DAILY #1 tube 04/06/17 [Silvadene Cream] Sulfamethox-Tmp 800-160Mg [Bactrim 1 tab PO Q12HR #10 tab 04/06/17 DS 800-160 mg] Venlafaxine HCl [Effexor XR] 225 mg PO DAILY #30 tab 04/06/17 Allergies Allergy/AdvReac Type Severity Reaction Status Date / Time codeine Allergy Rash/Hives Verified 12/20/17 13:53 Review of Systems ROS Statement: Those systems with pertinent positive or pertinent negative responses have been documented in the HPI. ROS Other: All systems not noted in ROS Statement are negative. Past Medical History Past Medical History: Asthma, COPD, Diabetes Mellitus, Hyperlipidemia, Renal Disease Additional Past Medical History / Comment(s): USES A WALKER OR W/C TO AMBULATE, PREVIOUS USE OF O2 NONE NOW, HX OF GOUT, HIATAL HERNIA, UTI, WEARS DEPENDS, PER PT'S CAREGIVER-"PT STOPPED MENSTRUATING 15 YEARS AGO BUT HAS STARTED SPOTTING AND AT TIME HEAVY-HAD d&c APPROX 2 WEEKS AGO AT [facility] IN [facility] History of Any Multi-Drug Resistant Organisms: None Reported Past Surgical History: Bariatric Surgery, Cholecystectomy, Orthopedic Surgery Additional Past Surgical History / Comment(s): Total L knee 04/15/14, lap band placed then removed, gastric sleeve 08/19/2012 EGD. D and C Past Anesthesia/Blood Transfusion Reactions: No Reported Reaction Additional Past Anesthesia/Blood Transfusion Reaction / Comment(s): Pt has never recieved blood.CLAUSTERPHOBIA Past Psychological History: Anxiety, Depression, Schizophrenia Smoking Status: Never smoker Past Alcohol Use History: None Reported Past Drug Use History: None Reported - Past Family History Father Family Medical History: Musculoskeletal Disorder Additional Family Medical History / Comment(s): Father had parkinsons. He in his 80's. Mother Family Medical History: No Reported History General Exam - General Exam Comments Initial Comments: This is a well-developed morbidly obese female who is awake alert oriented 3 Limitations: no limitations General appearance: alert, in no apparent distress Head exam: Present: atraumatic, normocephalic, normal inspection Eye exam: Present: normal appearance, PERRL, EOMI. Absent: scleral icterus, conjunctival injection, periorbital swelling ENT exam: Present: mucous membranes dry Neck exam: Present: normal inspection. Absent: tenderness, meningismus, lymphadenopathy Respiratory exam: Present: normal lung sounds bilaterally. Absent: respiratory distress, wheezes, rales, rhonchi, stridor Cardiovascular Exam: Present: normal rhythm, tachycardia, normal heart sounds. Absent: systolic murmur, diastolic murmur, rubs, gallop, clicks GI/Abdominal exam: Present: soft, normal bowel sounds. Absent: distended, tenderness, guarding, rebound, rigid Extremities exam: Present: normal inspection, full ROM, normal capillary refill , pedal edema (Trace edema with stasis dermatitis. No open wounds.). Absent: tenderness, joint swelling, calf tenderness Back exam: Present: normal inspection Neurological exam: Present: alert, oriented X3, CN II-XII intact Psychiatric exam: Present: normal affect, normal mood Skin exam: Present: warm, dry, intact, normal color. Absent: rash Course Vital Signs 12/20/17 13:49 Temperature 98.2 F Pulse Rate 122 H Respiratory 18 Rate Blood Pressure 123/84 O2 Sat by Pulse 96 Oximetry Disposition Referrals: Alen Webb DO [Primary Care Provider] - 1-2 days
[2017-12-20 14:53] LABS: Glucose,Whole Blood 289 mg/dL (75-99)
--- NOTE | 2017-12-20 15:10 | ED ---
General Adult HPI - General Chief complaint: Recheck/Abnormal Lab/Rx Stated complaint: Elevated BS sent by PCP Time Seen by Provider: 12/20/17 14:14 Source: patient, RN notes reviewed Mode of arrival: wheelchair Limitations: no limitations - History of Present Illness Initial comments: This is a 57-year-old female with a history of insulin-dependent diabetes who is sent in for evaluation of elevated blood sugar. She was found have an elevated blood sugar and it doctor's office greater than 600 today. She denies any fevers chills nausea vomiting sweats does have polyuria and polydipsia. No other modifying factors at this time she has been taking her medications as directed. - Related Data Home Medications Medication Instructions Recorded Confirmed Cyclobenzaprine [Flexeril] 10 mg PO HS PRN 06/10/14 12/20/17 Montelukast Sodium [Singulair] 10 mg PO HS 06/10/14 12/20/17 Simvastatin [Zocor] 40 mg PO HS 06/10/14 12/20/17 Ammonium Lactate Lotion 1 applic TOPICAL BID 07/19/16 12/20/17 [Lac-Hydrin 12% Lotion] Calcitriol [Rocaltrol] 0.25 mcg PO MOTH 07/19/16 12/20/17 Furosemide [Lasix] 40 mg PO DAILY 07/19/16 12/20/17 Metoprolol Tartrate [Lopressor] 12.5 mg PO BID 07/19/16 12/20/17 traMADol HCL [Ultram] 100 mg PO Q6H PRN 07/19/16 12/20/17 Albuterol Inhaler [Ventolin Hfa 2 puff INHALATION RT-Q6H PRN 04/03/17 12/20/17 Inhaler] Canagliflozin [Invokana] 300 mg PO DAILY 04/03/17 12/20/17 ARIPiprazole [Abilify] 20 mg PO DAILY 12/20/17 12/20/17 Allopurinol [Zyloprim] 300 mg PO DAILY 12/20/17 12/20/17 Dulaglutide [Trulicity] 0.75 mg SQ Q7D 12/20/17 12/20/17 Fluticasone/Salmeterol [Advair 1 puff INHALATION RT-BID 12/20/17 12/20/17 250-50 Diskus] Furosemide [Lasix] 20 mg PO DAILY 12/20/17 12/20/17 Hydrochlorothiazide 12.5 mg PO HS 12/20/17 12/20/17 Insulin Lispro [humaLOG Kwikpen] 50 unit SQ AC-BID 12/20/17 12/20/17 Insulin Lispro [humaLOG Kwikpen] 70 unit SQ AC-SUPPER 12/20/17 12/20/17 Latanoprost [Xalatan 0.005%] 1 drop LEFT EYE HS 12/20/17 12/20/17 Lisdexamfetamine Dimesylate 50 mg PO QAM 12/20/17 12/20/17 [Vyvanse] Megestrol [Megace] 40 mg PO QID 12/20/17 12/20/17 Potassium Chloride ER [K-Dur 10] 30 meq PO DAILY 12/20/17 12/20/17 Venlafaxine HCl ER [Effexor Xr] 75 mg PO DAILY 12/20/17 12/20/17 Venlafaxine HCl ER [Effexor Xr] 150 mg PO DAILY 12/20/17 12/20/17 traZODone HCL 75 mg PO HS 12/20/17 12/20/17 Previous Rx's Medication Instructions Recorded Insulin Detemir [Levemir] 100 unit SQ BID #0 04/06/17 Allergies Allergy/AdvReac Type Severity Reaction Status Date / Time codeine Allergy Rash/Hives Verified 12/20/17 14:52 Review of Systems ROS Statement: Those systems with pertinent positive or pertinent negative responses have been documented in the HPI. ROS Other: All systems not noted in ROS Statement are negative. Past Medical History Past Medical History: Asthma, COPD, Diabetes Mellitus, Hyperlipidemia, Renal Disease Additional Past Medical History / Comment(s): USES A WALKER OR W/C TO AMBULATE, PREVIOUS USE OF O2 NONE NOW, HX OF GOUT, HIATAL HERNIA, UTI, WEARS DEPENDS, PER PT'S CAREGIVER-"PT STOPPED MENSTRUATING 15 YEARS AGO BUT HAS STARTED SPOTTING AND AT TIME HEAVY-HAD d&c APPROX 2 WEEKS AGO AT [facility] History of Any Multi-Drug Resistant Organisms: None Reported Past Surgical History: Bariatric Surgery, Cholecystectomy, Orthopedic Surgery Additional Past Surgical History / Comment(s): Total L knee 04/15/14, lap band placed then removed, gastric sleeve 08/19/2012 EGD. D and C Past Anesthesia/Blood Transfusion Reactions: No Reported Reaction Additional Past Anesthesia/Blood Transfusion Reaction / Comment(s): Pt has never recieved blood.CLAUSTERPHOBIA Past Psychological History: Anxiety, Depression, Schizophrenia Smoking Status: Never smoker Past Alcohol Use History: None Reported Past Drug Use History: None Reported - Past Family History Father Family Medical History: Musculoskeletal Disorder Additional Family Medical History / Comment(s): Father had parkinsons. He in his 80's. Mother Family Medical History: No Reported History General Exam - General Exam Comments Initial Comments: Physical well-developed obese female who is awake alert oriented 3 female Limitations: no limitations General appearance: alert, in no apparent distress Head exam: Present: atraumatic, normocephalic, normal inspection Eye exam: Present: normal appearance, PERRL, EOMI. Absent: scleral icterus, conjunctival injection, periorbital swelling ENT exam: Present: mucous membranes dry Neck exam: Present: normal inspection. Absent: tenderness, meningismus, lymphadenopathy Respiratory exam: Present: normal lung sounds bilaterally. Absent: respiratory distress, wheezes, rales, rhonchi, stridor Cardiovascular Exam: Present: normal rhythm, tachycardia, normal heart sounds. Absent: systolic murmur, diastolic murmur, rubs, gallop, clicks GI/Abdominal exam: Present: soft, normal bowel sounds. Absent: distended, tenderness, guarding, rebound, rigid Extremities exam: Present: full ROM, normal capillary refill, pedal edema ( Trace edema bilaterally with stasis dermatitis. No open wounds). Absent: tenderness, joint swelling, calf tenderness Back exam: Present: normal inspection Neurological exam: Present: alert, oriented X3, CN II-XII intact Psychiatric exam: Present: normal affect, normal mood Skin exam: Present: warm, dry, intact, normal color. Absent: rash Course Vital Signs 12/20/17 12/20/17 13:49 16:18 Temperature 98.2 F 98.0 F Pulse Rate 122 H 110 H Respiratory 18 18 Rate Blood Pressure 123/84 128/60 O2 Sat by Pulse 96 96 Oximetry EKG Findings - EKG Results: EKG: interpreted by ERMD, sinus rhythm (Sinus tachycardia rate of 112. Interval 146 QRS duration 80 QT since QTC 342/466 left exodeviation no acute ST- T wave changes.) Medical Decision Making - Medical Decision Making I did a long session with patient regarding the findings patient is feeling better. Patient is demonstrating dehydration no sources of any infectious processes. Patient will be discharged home with family. Follow back up with her doctor return when necessary increase her oral fluids. - Lab Data Result diagrams: 12/20/17 14:57 12/20/17 14:57 Lab Results 12/20/17 12/20/17 12/20/17 Range/Units 14:51 14:57 14:57 WBC 10.5 (3.8-10.6) k/uL RBC 4.80 (3.80-5.40) m/uL Hgb 14.7 (11.4-16.0) gm/dL Hct 43.4 (34.0-46.0) % MCV 90.5 (80.0-100.0) fL MCH 30.7 (25.0-35.0) pg MCHC 33.9 (31.0-37.0) g/dL RDW 14.1 (11.5-15.5) % Plt Count 208 (150-450) k/uL Neutrophils % 69 % Lymphocytes % 26 % Monocytes % 3 % Eosinophils % 1 % Basophils % 0 % Neutrophils # 7.2 (1.3-7.7) k/uL Lymphocytes # 2.7 (1.0-4.8) k/uL Monocytes # 0.3 (0-1.0) k/uL Eosinophils # 0.1 (0-0.7) k/uL Basophils # 0.0 (0-0.2) k/uL Sodium (137-145) mmol/L Potassium (3.5-5.1) mmol/L Chloride (98-107) mmol/L Carbon Dioxide (22-30) mmol/L Anion Gap mmol/L BUN (7-17) mg/dL Creatinine (0.52-1.04) mg/dL Est GFR (CKD-EPI)AfAm (>60 ml/min/1.73 sqM) Est GFR (CKD-EPI)NonAf (>60 ml/min/1.73 sqM) Glucose (74-99) mg/dL POC Glucose (mg/dL) 289 H (75-99) mg/dL POC Glu Subgrade Roller Operator Idania Brooke Plasma Lactic Acid Oscar (0.7-2.0) mmol/L Calcium (8.4-10.2) mg/dL Magnesium (1.6-2.3) mg/dL Total Bilirubin (0.2-1.3) mg/dL AST (14-36) U/L ALT (9-52) U/L Alkaline Phosphatase (38-126) U/L Total Creatine Kinase 29 L (30-135) U/L CK-MB (CK-2) 0.4 (0.0-2.4) ng/mL CK-MB (CK-2) Rel Index 1.4 Troponin I <0.012 (0.000-0.034) ng/mL Total Protein (6.3-8.2) g/dL Albumin (3.5-5.0) g/dL Urine Color Urine Appearance (Clear) Urine pH (5.0-8.0) Ur Specific [place] (1.001-1.035) Urine Protein (Negative) Urine Glucose (UA) (Negative) Urine Ketones (Negative) Urine Blood (Negative) Urine Nitrite (Negative) Urine Bilirubin (Negative) Urine Urobilinogen (<2.0) mg/dL Ur Leukocyte Esterase (Negative) Urine RBC (0-5) /hpf Urine WBC (0-5) /hpf Ur Squamous Epith Cells (0-4) /hpf Urine Bacteria (None) /hpf Urine Mucus (None) /hpf 12/20/17 12/20/17 12/20/17 Range/Units 14:57 14:57 14:57 WBC (3.8-10.6) k/uL RBC (3.80-5.40) m/uL Hgb (11.4-16.0) gm/dL Hct (34.0-46.0) % MCV (80.0-100.0) fL MCH (25.0-35.0) pg MCHC (31.0-37.0) g/dL RDW (11.5-15.5) % Plt Count (150-450) k/uL Neutrophils % % Lymphocytes % % Monocytes % % Eosinophils % % Basophils % % Neutrophils # (1.3-7.7) k/uL Lymphocytes # (1.0-4.8) k/uL Monocytes # (0-1.0) k/uL Eosinophils # (0-0.7) k/uL Basophils # (0-0.2) k/uL Sodium 143 (137-145) mmol/L Potassium 3.5 (3.5-5.1) mmol/L Chloride 101 (98-107) mmol/L Carbon Dioxide 31 H (22-30) mmol/L Anion Gap 11 mmol/L BUN 45 H (7-17) mg/dL Creatinine 1.10 H (0.52-1.04) mg/dL Est GFR (CKD-EPI)AfAm 65 (>60 ml/min/1.73 sqM) Est GFR (CKD-EPI)NonAf 57 (>60 ml/min/1.73 sqM) Glucose 312 H (74-99) mg/dL POC Glucose (mg/dL) (75-99) mg/dL POC Glu Subgrade Roller Operator ID Plasma Lactic Acid Oscar 1.7 (0.7-2.0) mmol/L Calcium 9.7 (8.4-10.2) mg/dL Magnesium 2.3 (1.6-2.3) mg/dL Total Bilirubin 0.6 (0.2-1.3) mg/dL AST 27 (14-36) U/L ALT 50 (9-52) U/L Alkaline Phosphatase 169 H (38-126) U/L Total Creatine Kinase (30-135) U/L CK-MB (CK-2) (0.0-2.4) ng/mL CK-MB (CK-2) Rel Index Troponin I (0.000-0.034) ng/mL Total Protein 6.7 (6.3-8.2) g/dL Albumin 3.8 (3.5-5.0) g/dL Urine Color Light Yellow Urine Appearance Clear (Clear) Urine pH 6.0 (5.0-8.0) Ur Specific [place] 1.020 (1.001-1.035) Urine Protein Negative (Negative) Urine Glucose (UA) 4+ H (Negative) Urine Ketones Negative (Negative) Urine Blood Negative (Negative) Urine Nitrite Negative (Negative) Urine Bilirubin Negative (Negative) Urine Urobilinogen <2.0 (<2.0) mg/dL Ur Leukocyte Esterase Trace H (Negative) Urine RBC 2 (0-5) /hpf Urine WBC 12 H (0-5) /hpf Ur Squamous Epith Cells 2 (0-4) /hpf Urine Bacteria Rare H (None) /hpf Urine Mucus Rare H (None) /hpf - Radiology Data Radiology results: report reviewed (I did review the imaging and report no acute findings.), image reviewed Disposition Clinical Impression: Hyperglycemia, Insulin dependent diabetes mellitus, Dehydration Disposition: HOME SELF-CARE Condition: Good Instructions: Diabetic Hyperglycemia (ED), Dehydration (ED) Is patient prescribed a controlled substance at d/c from ED?: No Referrals: Alen Webb DO [Primary Care Provider] - 1-2 days
[2017-12-20 15:18] LABS: Basophils % (A) 0 %; Eosinophils # (A) 0.1 k/uL (0-0.7); Eosinophils % (A) 1 %; HCT 43.4 % (34.0-46.0); HGB 14.7 gm/dL (11.4-16.0); Lymphocytes # (A) 2.7 k/uL (1.0-4.8); Lymphocytes % (A) 26 %; MCH 30.7 pg (25.0-35.0); MCHC 33.9 g/dL (31.0-37.0); MCV 90.5 fL (80.0-100.0); Mean Platelet Volume 7.6; Monocytes # (A) 0.3 k/uL (0-1.0); Monocytes % (A) 3 %; Neutrophils # (A) 7.2 k/uL (1.3-7.7); Neutrophils % (A) 69 %; Platelet Count 208 k/uL (150-450); RDW 14.1 % (11.5-15.5); WBC 10.5 k/uL (3.8-10.6)
[2017-12-20 15:27] LABS: Albumin 3.8 g/dL (3.5-5.0); Calcium 9.7 mg/dL (8.4-10.2); Magnesium 2.3 mg/dL (1.6-2.3); Potassium 3.5 mmol/L (3.5-5.1); Total Bilirubin 0.6 mg/dL (0.2-1.3); Total Protein 6.7 g/dL (6.3-8.2)
--- NOTE | 2017-12-20 15:37 | XR ---
EXAMINATION TYPE: XR chest 2V DATE OF EXAM: 12/20/2017 COMPARISON: 04/03/2017 HISTORY: Shortness of breath TECHNIQUE: Frontal and lateral views of the chest are obtained. FINDINGS: Scattered senescent parenchymal changes noted. Hyperinflation compatible with COPD. No evidence for infiltrate. No evidence for atelectasis. Heart size is stable. Mediastinal structures are stable and grossly unremarkable. No evidence for hilar prominence. Degenerative changes dorsal spine. IMPRESSION: 1. No evidence for acute pulmonary disease.
[2017-12-20 15:38] LABS: Creatine Kinase 29 U/L (30-135)
[2017-12-20 15:39] LABS: Appearance,Urine Clear (Clear); Bacteria,Urine Rare /hpf; Bilirubin,Urine Negative (Negative); Blood,Urine Negative (Negative); Color,Urine Light Yellow; Glucose,Urine (UA) 4+ (Negative); Ketones,Urine Negative (Negative); Leukocyte Esterase,Urine Trace (Negative); Mucus,Urine Rare /hpf; Nitrite,Urine Negative (Negative); Protein,Urine Negative (Negative); RBC,Urine 2 /hpf (0-5); Squamous Epithelial Cell,Urine 2 /hpf (0-4); Urobilinogen,Urine <2.0 mg/dL (<2.0); WBC,Urine 12 /hpf (0-5)
[2017-12-20 15:50] LABS: Creatine Kinase MB 0.4 ng/mL (0.0-2.4); Troponin I <0.012 ng/mL (0.000-0.034)
[2017-12-20 16:19] VITALS: BP 128/60; TEMP 98
[2017-12-20] MEDS ORDERED: SODIUM CHLORIDE 0.9% 500 ML IV STA (16:19)
[2017-12-20] MEDS ORDERED: INSULIN REGULAR 100 UNIT/ML VIAL SQ ONE (16:19)
[2017-12-20 17:04] LABS: Glucose,Whole Blood 259 mg/dL (75-99)
[2017-12-20 17:05] VITALS: PULSE 107
[2017-12-21 02:47] LABS: Hemoglobin A1C 11.9 % (4.0-6.0)
== END 2017-12-20 17:28 | disposition home or self-care (01) ==
LOC: EC 13:48
DX: E86.0 Dehydration (principal); E11.65 Type 2 diabetes mellitus with hyperglycemia; R00.0 Tachycardia, unspecified; I87.2 Venous insufficiency (chronic) (peripheral); R60.0 Localized edema; J44.9 Chronic obstructive pulmonary disease, unspecified; E78.5 Hyperlipidemia, unspecified; M10.9 Gout, unspecified; F20.9 Schizophrenia, unspecified; F32.9 Major depressive disorder, single episode, unspecified; F41.9 Anxiety disorder, unspecified; E66.9 Obesity, unspecified; Z79.4 Long term (current) use of insulin; Z79.51 Long term (current) use of inhaled steroids; Z79.899 Other long term (current) drug therapy; Z88.5 Allergy status to narcotic agent; Z68.43 Body mass index [BMI] 50.0-59.9, adult
CPT/HCPCS: 36415; 71046; 80053; 81001; 82550; 82553; 83036; 83605; 83735; 84484; 85025; 93005; 96360; 96361; 99285

== ENCOUNTER → 2018-03-19 | Outpatient (CLI) | payer MEDICARE, OTHER ==
--- NOTE | 2018-03-19 14:18 | ECHOF ---
Referral Reason:R01.1 Cardia murmur, unspecified MEASUREMENTS -------- HEIGHT: 157.5 cm WEIGHT: 126.6 kg BP: IVSd: 0.8 cm (0.6 - 1.1) LVIDd: 3.4 cm (3.9 - 5.3) LVPWd: 1.0 cm (0.6 - 1.1) IVSs: 1.1 cm LVIDs: 1.9 cm LVPWs: 1.5 cm Ao Diam: 3.0 cm (2.0 - 3.7) LA Diam: 2.2 cm (2.7 - 3.8) AV Cusp: 1.7 cm (1.5 - 2.6) EPSS: 1.7 cm MV EF SLOPE: 67.17 mm/s (70 - 150) MV EXCURSION: 11.45 mm (> 18.000) FINDINGS -------- Sinus rhythm. This was a technically difficult study with suboptimal views. Limited Study The left ventricular size is normal. Left ventricular wall thickness is normal. Overall left vent ricular systolic function is normal with, an EF between 55 - 60 %. The right ventricle is normal in size and function. The left atrium is normal in size. The right atrium is normal in size. Lumason used The aortic valve was not well visualized. There is trace mitral regurgitation. Trace tricuspid regurgitation present. The right ventricular systolic pressure, as measured by Dopp ler, is {RVSP}. The pulmonic valve was not well visualized. CONCLUSIONS -------- 1. Sinus rhythm. 2. This was a technically difficult study with suboptimal views. 3. Limited Study 4. The left ventricular size is normal. 5. Left ventricular wall thickness is normal. 6. Overall left ventricular systolic function is normal with, an EF between 55 - 60 %. 7. The right ventricle is normal in size and function. 8. The left atrium is normal in size. 9. The right atrium is normal in size. 10. Lumason used 11. The aortic valve was not well visualized. 12. There is trace mitral regurgitation. 13. Trace tricuspid regurgitation present. 14. The right ventricular systolic pressure, as measured by Doppler, is {RVSP}. 15. The pulmonic valve was not well visualized. BARREL ENDSHAKER ADJUSTER: Angelina Vila [facility]
== END | disposition home or self-care (01) ==
LOC: RADECHMAIN 10:59
PROVIDERS: ATTEND Family Medicine
DX: R01.1 Cardiac murmur, unspecified (principal)
CPT/HCPCS: C8929; Q9950; 93306

== ENCOUNTER → 2018-03-19 | Outpatient (CLI) | payer MEDICARE, OTHER ==
--- NOTE | 2018-03-20 13:13 | MM ---
Reason for exam: screening (asymptomatic). Last mammogram was performed 3 years and 2 months ago. History: Patient is nulliparous. Cyst aspiration of the right breast. Physical Findings: A clinical breast exam by your physician is recommended on an annual basis and results should be correlated with mammographic findings. MG 3D Screening Mammo W/Cad Bilateral CC, MLO, and XCCL view(s) were taken. Prior study comparison: January 08, 2015, bilateral MG screening mammo w CAD. March 21, 2011, CAD bilateral diagnostic mammogram. The breast tissue is almost entirely fat. No significant changes when compared with prior studies. ASSESSMENT: Benign, BI-RAD 2 RECOMMENDATION: Routine screening mammogram of both breasts in 1 year.
== END | disposition home or self-care (01) ==
LOC: RADMAMWWP 11:39
PROVIDERS: ATTEND Family Medicine
DX: Z12.31 Encounter for screening mammogram for malignant neoplasm of breast (principal)
CPT/HCPCS: 77063; 77067

== ENCOUNTER 2018-08-02 10:27 | Emergency (ER) | payer MEDICARE, OTHER ==
[2018-08-02] MEDS ORDERED: SODIUM CHLORIDE 0.9% 1,000 ML IV ONE (10:33)
[2018-08-02] MEDS ORDERED: INSULIN REGULAR 100 UNIT/ML VIAL IV ONE (10:34)
--- NOTE | 2018-08-02 10:37 | ED ---
General Adult HPI - General Stated complaint: Hyperglycemia Time Seen by Provider: 08/02/18 10:27 Source: RN notes reviewed - History of Present Illness Initial comments: This is a 58 old female who has a past medical history significant for diabetes. Patient comes in today because she was feeling shaky at home she called EMS to come check on her and her sugar was over 500. Patient denies any headache patient denies any numbness weakness. Patient denies any lightheadedness dizziness or near syncopal episode. Patient states she's been taking her insulin as she always does and she has been following her diabetic diet. P atient denies any chest pain difficulty breathing first breath per patient denies any palpation. Patient denies any recent fever chills or cough. Patient denies any abdominal pain patient denies any recent nausea vomiting diarrhea. Patient denies any dysuria hematuria urinary frequency. Patient states her only complaint is she feels shaky and that usually means her sugar is high. - Related Data Home Medications Medication Instructions Recorded Confirmed Montelukast Sodium [Singulair] 10 mg PO HS 06/10/14 08/02/18 Simvastatin [Zocor] 40 mg PO HS 06/10/14 08/02/18 Furosemide [Lasix] 40 mg PO DAILY 07/19/16 08/02/18 Metoprolol Tartrate [Lopressor] 25 mg PO BID 07/19/16 08/02/18 traMADol HCL [Ultram] 100 mg PO Q6H PRN 07/19/16 08/02/18 Albuterol Inhaler [Ventolin Hfa 2 puff INHALATION RT-Q6H PRN 04/03/17 08/02/18 Inhaler] Canagliflozin [Invokana] 300 mg PO DAILY 04/03/17 08/02/18 Allopurinol [Zyloprim] 300 mg PO DAILY 12/20/17 08/02/18 Hydrochlorothiazide 12.5 mg PO HS 12/20/17 08/02/18 Insulin Lispro [humaLOG Kwikpen] 20 unit SQ DAILY@0400 PRN 12/20/17 08/02/18 Insulin Lispro [humaLOG Kwikpen] 50 unit SQ AC-TID 12/20/17 08/02/18 Latanoprost [Xalatan 0.005%] 1 drop LEFT EYE HS 12/20/17 08/02/18 Megestrol [Megace] 40 mg PO TID 12/20/17 08/02/18 Potassium Chloride ER [K-Dur 10] 20 meq PO BID 12/20/17 08/02/18 Venlafaxine HCl ER [Effexor Xr] 75 mg PO DAILY 12/20/17 08/02/18 Venlafaxine HCl ER [Effexor Xr] 150 mg PO DAILY 12/20/17 08/02/18 ARIPiprazole [Abilify] 30 mg PO DAILY 08/02/18 08/02/18 Albuterol Nebulized [Ventolin 2.5 mg INHALATION RT-QID PRN 08/02/18 08/02/18 Nebulized] Cetirizine HCl [Zyrtec] 10 mg PO HS PRN 08/02/18 08/02/18 Cholecalciferol [Vitamin D3] 1,000 units PO DAILY 08/02/18 08/02/18 Ferrous Sulfate [Feosol] 325 mg PO TID 08/02/18 08/02/18 Magnesium Oxide [Magox 400] 400 mg PO DAILY 08/02/18 08/02/18 Nystatin 100,000 Unit/gm Powd 1 applic TOPICAL DAILY PRN 08/02/18 08/02/18 [Mycostatin Powder] Nystatin 100,000Unit/gm Cream 1 applic TOPICAL DAILY PRN 08/02/18 08/02/18 [Mycostatin Cream] Triamcinolone 0.1% Cream [Kenalog 1 applicatio TOPICAL DAILY PRN 08/02/18 08/02/18 0.1% Cream] Previous Rx's Medication Instructions Recorded Insulin Detemir (Levemir) [Levemir] 100 unit SQ BID #0 04/06/17 Allergies Allergy/AdvReac Type Severity Reaction Status Date / Time codeine Allergy Rash/Hives Verified 08/02/18 10:43 Review of Systems ROS Statement: Those systems with pertinent positive or pertinent negative responses have been documented in the HPI. ROS Other: All systems not noted in ROS Statement are negative. Past Medical History Past Medical History: Asthma, COPD, Diabetes Mellitus, Hyperlipidemia, Renal Disease Additional Past Medical History / Comment(s): USES A WALKER OR W/C TO AMBULATE, PREVIOUS USE OF O2 NONE NOW, HX OF GOUT, HIATAL HERNIA, UTI, WEARS DEPENDS, PER PT'S CAREGIVER-"PT STOPPED MENSTRUATING 15 YEARS AGO BUT HAS STARTED SPOTTING AND AT TIME HEAVY-HAD d&c APPROX 2 WEEKS AGO AT [facility] [facility] History of Any Multi-Drug Resistant Organisms: None Reported Past Surgical History: Bariatric Surgery, Cholecystectomy, Orthopedic Surgery Additional Past Surgical History / Comment(s): Total L knee 04/15/14, lap band placed then removed, gastric sleeve 08/19/2012 EGD. D and C Past Anesthesia/Blood Transfusion Reactions: No Reported Reaction Additional Past Anesthesia/Blood Transfusion Reaction / Comment(s): Pt has never recieved blood.CLAUSTERPHOBIA Past Psychological History: Anxiety, Depression, Schizophrenia Smoking Status: Never smoker Past Alcohol Use History: None Reported Past Drug Use History: None Reported - Past Family History Father Family Medical History: Musculoskeletal Disorder Additional Family Medical History / Comment(s): Father had parkinsons. He in his 80's. Mother Family Medical History: No Reported History General Exam - General Exam Comments Initial Comments: GENERAL: Patient is well-developed and well-nourished. Patient is nontoxic and well- hydrated and is in no acute distress. ENT: Neck is soft and supple. No significant lymphadenopathy is noted. Oropharynx is clear. Moist mucous membranes. Neck has full range of motion without eliciting any pain. EYES: The sclera were anicteric and conjunctiva were pink and moist. Extraocular movements were intact and pupils were equal round and reactive to light. Eyelids were unremarkable. PULMONARY: Unlabored respirations. Good breath sounds bilaterally. No audible rales rhonchi or wheezing was noted. CARDIOVASCULAR: There is a regular rate and rhythm without any murmurs gallops or rubs. ABDOMEN: Soft and nontender with normal bowel sounds. No palpable organomegaly was noted. There is no palpable pulsatile mass. SKIN: Skin is clear with no lesions or rashes and otherwise unremarkable. NEUROLOGIC: Patient is alert and oriented x3. Cranial nerves II through XII are grossly intact. Motor and sensory are also intact. Normal speech, volume and content. Symmetrical smile. MUSCULOSKELETAL: Normal extremities with adequate strength and full range of motion. Chronic cellulitis bilateral legs.. LYMPHATICS: No significant lymphadenopathy is noted PSYCHIATRIC: Normal psychiatric evaluation. Course Vital Signs 08/02/18 08/02/18 10:34 13:10 Temperature 98.1 F Pulse Rate 113 H 105 H Respiratory 18 18 Rate Blood Pressure 125/89 121/85 O2 Sat by Pulse 97 96 Oximetry Medical Decision Making - Medical Decision Making EKG shows sinus tachycardia at 106 bpm DE interval 240 dresses 80 QT interval 350 QTC is 464 per patient's EKG shows no ST segment elevation or depression or T wave abnormalities are noted. Patient states she is not following her diet. Patient was placed on the insulin drip after given a bolus of insulin. Patient also got 2 L of fluid. Patient's sugar came down below 300 which she states is about where it is every day. Patient states she'll follow-up with Dr. Webb to have her insulin adjusted. Patient states she will start taking her blood sugar before every meal and before bed. Patient currently has no complaints. - Lab Data Result diagrams: 08/02/18 10:57 08/02/18 12:24 Lab Results 08/02/18 08/02/18 08/02/18 Range/Units 10:34 10:57 10:57 WBC 11.9 H (3.8-10.6) k/uL RBC 5.31 (3.80-5.40) m/uL Hgb 15.8 (11.4-16.0) gm/dL Hct 49.7 H (34.0-46.0) % MCV 93.7 (80.0-100.0) fL MCH 29.7 (25.0-35.0) pg MCHC 31.7 (31.0-37.0) g/dL RDW 14.2 (11.5-15.5) % Plt Count 275 (150-450) k/uL Neutrophils % 70 % Lymphocytes % 24 % Monocytes % 3 % Eosinophils % 2 % Basophils % 0 % Neutrophils # 8.3 H (1.3-7.7) k/uL Lymphocytes # 2.8 (1.0-4.8) k/uL Monocytes # 0.4 (0-1.0) k/uL Eosinophils # 0.2 (0-0.7) k/uL Basophils # 0.0 (0-0.2) k/uL Sodium (137-145) mmol/L Potassium (3.5-5.1) mmol/L Chloride (98-107) mmol/L Carbon Dioxide (22-30) mmol/L Anion Gap mmol/L BUN (7-17) mg/dL Creatinine (0.52-1.04) mg/dL Est GFR (CKD-EPI)AfAm (>60 ml/min/1.73 sqM) Est GFR (CKD-EPI)NonAf (>60 ml/min/1.73 sqM) Glucose (74-99) mg/dL POC Glucose (mg/dL) 441 H (75-99) mg/dL POC Glu [employer] ID Viktor Kulkarni Calcium (8.4-10.2) mg/dL Magnesium (1.6-2.3) mg/dL Total Bilirubin (0.2-1.3) mg/dL AST (14-36) U/L ALT (9-52) U/L Alkaline Phosphatase (38-126) U/L Troponin I (0.000-0.034) ng/mL Total Protein (6.3-8.2) g/dL Albumin (3.5-5.0) g/dL Urine Color Light Yellow Urine Appearance Clear (Clear) Urine pH 6.5 (5.0-8.0) Ur Specific Dum[place] 1.017 (1.001-1.035) Urine Protein Negative (Negative) Urine Glucose (UA) 4+ H (Negative) Urine Ketones Negative (Negative) Urine Blood Negative (Negative) Urine Nitrite Negative (Negative) Urine Bilirubin Negative (Negative) Urine Urobilinogen <2.0 (<2.0) mg/dL Ur Leukocyte Esterase Negative (Negative) 08/02/18 08/02/18 08/02/18 Range/Units 11:50 12:24 12:24 WBC (3.8-10.6) k/uL RBC (3.80-5.40) m/uL Hgb (11.4-16.0) gm/dL Hct (34.0-46.0) % MCV (80.0-100.0) fL MCH (25.0-35.0) pg MCHC (31.0-37.0) g/dL RDW (11.5-15.5) % Plt Count (150-450) k/uL Neutrophils % % Lymphocytes % % Monocytes % % Eosinophils % % Basophils % % Neutrophils # (1.3-7.7) k/uL Lymphocytes # (1.0-4.8) k/uL Monocytes # (0-1.0) k/uL Eosinophils # (0-0.7) k/uL Basophils # (0-0.2) k/uL Sodium 140 (137-145) mmol/L Potassium 3.9 (3.5-5.1) mmol/L Chloride 101 (98-107) mmol/L Carbon Dioxide 25 (22-30) mmol/L Anion Gap 14 mmol/L BUN 52 H (7-17) mg/dL Creatinine 1.09 H (0.52-1.04) mg/dL Est GFR (CKD-EPI)AfAm 66 (>60 ml/min/1.73 sqM) Est GFR (CKD-EPI)NonAf 57 (>60 ml/min/1.73 sqM) Glucose 341 H (74-99) mg/dL POC Glucose (mg/dL) 363 H (75-99) mg/dL POC Glu Jail Guard ID Calcium 9.6 (8.4-10.2) mg/dL Magnesium 2.0 (1.6-2.3) mg/dL Total Bilirubin 0.7 (0.2-1.3) mg/dL AST 25 (14-36) U/L ALT 33 (9-52) U/L Alkaline Phosphatase 173 H (38-126) U/L Troponin I <0.012 (0.000-0.034) ng/mL Total Protein 7.0 (6.3-8.2) g/dL Albumin 3.8 (3.5-5.0) g/dL Urine Color Urine Appearance (Clear) Urine pH (5.0-8.0) Ur Specific [place] (1.001-1.035) Urine Protein (Negative) Urine Glucose (UA) (Negative) Urine Ketones (Negative) Urine Blood (Negative) Urine Nitrite (Negative) Urine Bilirubin (Negative) Urine Urobilinogen (<2.0) mg/dL Ur Leukocyte Esterase (Negative) 08/02/18 08/02/18 Range/Units 12:49 13:51 WBC (3.8-10.6) k/uL RBC (3.80-5.40) m/uL Hgb (11.4-16.0) gm/dL Hct (34.0-46.0) % MCV (80.0-100.0) fL MCH (25.0-35.0) pg MCHC (31.0-37.0) g/dL RDW (11.5-15.5) % Plt Count (150-450) k/uL Neutrophils % % Lymphocytes % % Monocytes % % Eosinophils % % Basophils % % Neutrophils # (1.3-7.7) k/uL Lymphocytes # (1.0-4.8) k/uL Monocytes # (0-1.0) k/uL Eosinophils # (0-0.7) k/uL Basophils # (0-0.2) k/uL Sodium (137-145) mmol/L Potassium (3.5-5.1) mmol/L Chloride (98-107) mmol/L Carbon Dioxide (22-30) mmol/L Anion Gap mmol/L BUN (7-17) mg/dL Creatinine (0.52-1.04) mg/dL Est GFR (CKD-EPI)AfAm (>60 ml/min/1.73 sqM) Est GFR (CKD-EPI)NonAf (>60 ml/min/1.73 sqM) Glucose (74-99) mg/dL POC Glucose (mg/dL) 321 H 300 H (75-99) mg/dL POC Glu [employer] ID Yady Chung Calcium (8.4-10.2) mg/dL Magnesium (1.6-2.3) mg/dL Total Bilirubin (0.2-1.3) mg/dL AST (14-36) U/L ALT (9-52) U/L Alkaline Phosphatase (38-126) U/L Troponin I (0.000-0.034) ng/mL Total Protein (6.3-8.2) g/dL Albumin (3.5-5.0) g/dL Urine Color Urine Appearance (Clear) Urine pH (5.0-8.0) Ur Specific [place] (1.001-1.035) Urine Protein (Negative) Urine Glucose (UA) (Negative) Urine Ketones (Negative) Urine Blood (Negative) Urine Nitrite (Negative) Urine Bilirubin (Negative) Urine Urobilinogen (<2.0) mg/dL Ur Leukocyte Esterase (Negative) Disposition Clinical Impression: Hyperglycemia Disposition: HOME SELF-CARE Condition: Good Instructions (If sedation given, give patient instructions): Diabetic Hyperglycemia (ED) Additional Instructions: Patient's take her blood sugar before meals and before bed and follow-up with Dr. Webb. Patient is to follow her strict diabetic diet as well. Is patient prescribed a controlled substance at d/c from ED?: No Referrals: Alen Webb DO [Primary Care Provider] - 1-2 days Time of Disposition: 14:53
[2018-08-02] MEDS ORDERED: INSULIN REGULAR 100 UNIT in SODIUM CHLORIDE 0.9% 100 ML IV SCH (10:45)
[2018-08-02] MEDS ORDERED: SODIUM CHLORIDE 0.9% 1,000 ML IV SCH (10:45)
[2018-08-02 10:49] LABS: Glucose,Whole Blood 441 mg/dL (75-99)
[2018-08-02 11:08] LABS: Appearance,Urine Clear (Clear); Bilirubin,Urine Negative (Negative); Blood,Urine Negative (Negative); Color,Urine Light Yellow; Glucose,Urine (UA) 4+ (Negative); Ketones,Urine Negative (Negative); Leukocyte Esterase,Urine Negative (Negative); Nitrite,Urine Negative (Negative); PH, Urine 6.5 (5.0-8.0); Protein,Urine Negative (Negative); Specific Gravity,Urine 1.017 (1.001-1.035); Urobilinogen,Urine <2.0 mg/dL (<2.0)
[2018-08-02 11:11] LABS: Basophils % (A) 0 %; Eosinophils # (A) 0.2 k/uL (0-0.7); Eosinophils % (A) 2 %; HCT 49.7 % (34.0-46.0); HGB 15.8 gm/dL (11.4-16.0); Lymphocytes # (A) 2.8 k/uL (1.0-4.8); Lymphocytes % (A) 24 %; MCH 29.7 pg (25.0-35.0); MCHC 31.7 g/dL (31.0-37.0); MCV 93.7 fL (80.0-100.0); Mean Platelet Volume 9.1; Monocytes # (A) 0.4 k/uL (0-1.0); Monocytes % (A) 3 %; Neutrophils # (A) 8.3 k/uL (1.3-7.7); Neutrophils % (A) 70 %; Platelet Count 275 k/uL (150-450); RBC 5.31 m/uL (3.80-5.40); RDW 14.2 % (11.5-15.5); WBC 11.9 k/uL (3.8-10.6)
--- NOTE | 2018-08-02 11:46 | XR ---
EXAMINATION TYPE: XR chest 2V DATE OF EXAM: 08/02/2018 COMPARISON: NONE TECHNIQUE: PA and lateral views submitted. HISTORY: Difficulty breathing FINDINGS: There is reduced inspiration. Soft tissue artifact overlying the lower lung perez. Grossly the Lungs are clear and there is no pneumothorax, pleural effusion, or focal pneumonia. Arthropathy shoulder s. Heart size mildly prominent. Hypertrophic and degenerative change spine. IMPRESSION: 1. No acute process.
[2018-08-02 12:01] LABS: Glucose,Whole Blood 363 mg/dL (75-99)
[2018-08-02 12:51] LABS: Glucose,Whole Blood 321 mg/dL (75-99)
[2018-08-02 13:18] LABS: Albumin 3.8 g/dL (3.5-5.0); Calcium 9.6 mg/dL (8.4-10.2); Potassium 3.9 mmol/L (3.5-5.1); Total Bilirubin 0.7 mg/dL (0.2-1.3)
[2018-08-02 14:02] LABS: Glucose,Whole Blood 300 mg/dL (75-99)
[2018-08-02 15:20] VITALS: BP 138/70; PULSE 78; RESP 16; TEMP 97.8
[2018-08-02 15:29] LABS: Glucose,Whole Blood 256 mg/dL (75-99)
== END 2018-08-02 15:15 | disposition home or self-care (01) ==
LOC: EC 10:27
DX: E11.65 Type 2 diabetes mellitus with hyperglycemia (principal); R00.0 Tachycardia, unspecified; E11.628 Type 2 diabetes mellitus with other skin complications; L03.116 Cellulitis of left lower limb; L03.115 Cellulitis of right lower limb; J44.9 Chronic obstructive pulmonary disease, unspecified; E78.5 Hyperlipidemia, unspecified; M10.9 Gout, unspecified; N39.0 Urinary tract infection, site not specified; F20.9 Schizophrenia, unspecified; F32.9 Major depressive disorder, single episode, unspecified; F41.9 Anxiety disorder, unspecified; Z88.5 Allergy status to narcotic agent; Z79.4 Long term (current) use of insulin; Z79.899 Other long term (current) drug therapy
CPT/HCPCS: 36415; 71046; 80053; 81003; 83735; 84484; 85025; 93005; 96360; 96361; 99285

== ENCOUNTER → 2018-10-16 | Outpatient (CLI) | payer MEDICARE, OTHER ==
--- NOTE | 2018-10-16 15:59 | US ---
EXAMINATION TYPE: US kidneys/renal and bladder DATE OF EXAM: 10/16/2018 COMPARISON: CLINICAL HISTORY: N18.3 chronic kidney disease stage 3. CKD Limited exam due to patient body habitus EXAM MEASUREMENTS: Right Kidney: 9.5 x 4.5 x 4.6 cm Left Kidney: 9.4 x 4.5 x 4.9 cm Right Kidney: No hydronephrosis or masses seen, cortical thinning Left Kidney: suboptimal visualization, lower pole not visualized due to overlying bowel gas Bladder: distended, wnl as seen Bilateral Jets not seen Cortical medullary differentiation is maintained. There is no ascites. IMPRESSION: Exam somewhat limited. Renal sizes as described.
== END | disposition home or self-care (01) ==
LOC: RADUSWWP 14:32
PROVIDERS: ATTEND Internal Medicine Nephrology
DX: N18.3 Chronic kidney disease, stage 3 (moderate) (principal)
CPT/HCPCS: 76770

== ENCOUNTER 2018-12-18 10:44 | Emergency (ER) | payer MEDICARE, OTHER ==
[2018-12-18 10:56] VITALS: RESP 18
[2018-12-18] MEDS: LIDOCAINE 1% INJ 10MG/ML (20 ML MDV) SQ ONE ×2 (12:14→12:16)
--- NOTE | 2018-12-18 13:10 | ED ---
Wound/Laceration HPI - General Chief Complaint: Wound/Laceration Stated Complaint: Laceration Time Seen by Provider: 12/18/18 11:43 Source: patient Mode of arrival: EMS Limitations: no limitations - History of Present Illness Initial Comments: Patient is a 58-year-old female who presents with a laceration on the left lower leg x today. Patient states she was in her wheelchair when she actually ran into another wheelchair and sustained a laceration to her left lower leg. Patient has past medical history of DM2, COPD, renal disease. Upon arrival, b leeding is controlled this time. Patient is resting currently on the bed. Patient denies being on blood thinners. Tetanus vaccine is up-to-date. - Related Data Home Medications Medication Instructions Recorded Confirmed Montelukast Sodium [Singulair] 10 mg PO HS 06/10/14 12/18/18 Simvastatin [Zocor] 40 mg PO HS 06/10/14 12/18/18 Furosemide [Lasix] 40 mg PO DAILY 07/19/16 12/18/18 Metoprolol Tartrate [Lopressor] 25 mg PO BID 07/19/16 12/18/18 traMADol HCL [Ultram] 100 mg PO Q6H PRN 07/19/16 12/18/18 Albuterol Inhaler [Ventolin Hfa 2 puff INHALATION RT-Q6H PRN 04/03/17 12/18/18 Inhaler] Canagliflozin [Invokana] 300 mg PO DAILY 04/03/17 12/18/18 Allopurinol [Zyloprim] 300 mg PO DAILY 12/20/17 12/18/18 Hydrochlorothiazide 12.5 mg PO HS 12/20/17 12/18/18 Insulin Lispro [humaLOG Kwikpen] 20 unit SQ DAILY@0400 PRN 12/20/17 12/18/18 Insulin Lispro [humaLOG Kwikpen] 50 unit SQ AC-TID 12/20/17 12/18/18 Latanoprost [Xalatan 0.005%] 1 drop BOTH EYES HS 12/20/17 12/18/18 Megestrol [Megace] 40 mg PO TID 12/20/17 12/18/18 Potassium Chloride ER [K-Dur 10] 20 meq PO BID 12/20/17 12/18/18 Venlafaxine HCl ER [Effexor Xr] 75 mg PO DAILY 12/20/17 12/18/18 Venlafaxine HCl ER [Effexor Xr] 150 mg PO DAILY 12/20/17 12/18/18 ARIPiprazole [Abilify] 30 mg PO DAILY 08/02/18 12/18/18 Albuterol Nebulized [Ventolin 2.5 mg INHALATION RT-QID PRN 08/02/18 12/18/18 Nebulized] Cetirizine HCl [Zyrtec] 10 mg PO HS PRN 08/02/18 12/18/18 Cholecalciferol [Vitamin D3] 1,000 units PO DAILY 08/02/18 12/18/18 Ferrous Sulfate [Feosol] 325 mg PO BID 08/02/18 12/18/18 Magnesium Oxide [Magox 400] 400 mg PO DAILY 08/02/18 12/18/18 Nystatin 100,000 Unit/gm Powd 1 applic TOPICAL DAILY PRN 08/02/18 12/18/18 [Mycostatin Powder] Nystatin 100,000Unit/gm Cream 1 applic TOPICAL DAILY PRN 08/02/18 12/18/18 [Mycostatin Cream] Triamcinolone 0.1% Cream [Kenalog 1 applicatio TOPICAL DAILY PRN 08/02/18 12/18/18 0.1% Cream] Previous Rx's Medication Instructions Recorded Insulin Detemir (Levemir) [Levemir] 100 unit SQ BID #0 04/06/17 Allergies Allergy/AdvReac Type Severity Reaction Status Date / Time codeine Allergy Rash/Hives Verified 12/18/18 11:02 Review of Systems ROS Statement: Those systems with pertinent positive or pertinent negative responses have been documented in the HPI. ROS Other: All systems not noted in ROS Statement are negative. Past Medical History Past Medical History: Asthma, COPD, Diabetes Mellitus, Hyperlipidemia, Renal Disease Additional Past Medical History / Comment(s): USES A WALKER OR W/C TO AMBULATE, PREVIOUS USE OF O2 NONE NOW, HX OF GOUT, HIATAL HERNIA, UTI, WEARS DEPENDS, PER PT'S CAREGIVER-"PT STOPPED MENSTRUATING 15 YEARS AGO BUT HAS STARTED SPOTTING AND AT TIME HEAVY-HAD d&c APPROX 2 WEEKS AGO AT [facility] [place] [facility] History of Any Multi-Drug Resistant Organisms: None Reported Past Surgical History: Bariatric Surgery, Cholecystectomy, Orthopedic Surgery Additional Past Surgical History / Comment(s): Total L knee 04/15/14, lap band placed then removed, gastric sleeve 08/19/2012 EGD. D and C Past Anesthesia/Blood Transfusion Reactions: No Reported Reaction Additional Past Anesthesia/Blood Transfusion Reaction / Comment(s): Pt has never recieved blood.CLAUSTERPHOBIA Past Psychological History: Anxiety, Depression, Schizophrenia Smoking Status: Never smoker Past Alcohol Use History: None Reported Past Drug Use History: None Reported - Past Family History Father Family Medical History: Musculoskeletal Disorder Additional Family Medical History / Comment(s): Father had parkinsons. He in his 80's. Mother Family Medical History: No Reported History General Exam - General Exam Comments Initial Comments: GENERAL: Well-appearing, well-nourished and in no acute distress. HEAD: Atraumatic, normocephalic. EYES: Pupils equal round and reactive to light, extraocular movements intact, sclera anicteric, conjunctiva are normal. ENT: TMs normal, nares patent, oropharynx clear without exudates. Moist mucous membranes. NECK: Normal range of motion, supple without lymphadenopathy or JVD. LUNGS: Breath sounds clear to auscultation bilaterally and equal. No wheezes rales or rhonchi. HEART: Regular rate and rhythm without murmurs, rubs or gallops. ABDOMEN: Soft, nontender, normoactive bowel sounds. No guarding, no rebound. No masses appreciated. : Deferred EXTREMITIES: Normal range of motion, no pitting or edema. No clubbing or cyanosis. NEUROLOGICAL: Cranial nerves II through XII grossly intact. Normal speech, normal gait. PSYCH: Normal mood, normal affect. SKIN: Warm, Dry, normal turgor. Patient has bilateral lower extremity venous insufficiency. Patient has a 6 cm laceration to the anterior left lower leg. Limitations: no limitations Course Vital Signs 12/18/18 12/18/18 10:51 13:31 Temperature 98.0 F 97.1 F L Pulse Rate 105 H 98 Respiratory 18 18 Rate Blood Pressure 135/76 140/60 O2 Sat by Pulse 98 98 Oximetry Procedures - Laceration Laceration #1 Consent Obtained: verbal consent Indication: laceration Site: lower extremity (Anterior left leg) Size (cm): 6 Description: linear Depth: simple, single layer Anesthetic Used: lidocaine 1% Anesthesia Technique: local infiltration Amount (mls): 5 Pre-repair: irrigated extensively Type of Sutures: nylon, vicryl Size of Sutures: 4-0, other (3, 4-0 Vicryl sutures were placed internally.) Number of Sutures: 10 Technique: simple, interrupted Patient Tolerated Procedure: well Medical Decision Making - Medical Decision Making Patient is a 58-year-old female who presented with a laceration to her left lower leg, anterior aspect. Patient was in a wheelchair and actually ran into another wheelchair. On exam patient has a 6 cm laceration. Wound was cleaned and 10, 4-0 sutures were placed. Patient tolerated procedure well. Patient will have sutures removed in 12-14 days. Discussed with patient to return to the ER for signs of infection. Patient is stable for discharge. Patient's tetanus vaccine is up-to-date. Patient is in agreement with this plan. Return parameters were discussed with the patient she verbalizes understanding. Case discussed with Dr. Hinkle. Disposition Clinical Impression: Laceration of left lower leg Disposition: HOME SELF-CARE Condition: Stable Instructions (If sedation given, give patient instructions): Care For Your Stitches (ED) Additional Instructions: Please return to the Emergency Department if symptoms worsen or any other concerns. Sutures need to be removed in 12-14 days. Is patient prescribed a controlled substance at d/c from ED?: No Referrals: Alen Webb DO [Primary Care Provider] - 1-2 days
[2018-12-18 13:33] VITALS: BP 140/60; PULSE 98; TEMP 97.1
== END 2018-12-18 13:31 | disposition home or self-care (01) ==
LOC: EC 10:44
DX: S81.812A Laceration without foreign body, left lower leg, initial encounter (principal); J44.9 Chronic obstructive pulmonary disease, unspecified; E11.9 Type 2 diabetes mellitus without complications; E78.5 Hyperlipidemia, unspecified; M10.9 Gout, unspecified; F20.9 Schizophrenia, unspecified; F32.9 Major depressive disorder, single episode, unspecified; K44.9 Diaphragmatic hernia without obstruction or gangrene; F41.9 Anxiety disorder, unspecified; Z79.4 Long term (current) use of insulin; Z79.899 Other long term (current) drug therapy; Z88.5 Allergy status to narcotic agent; W22.8XXA Striking against or struck by other objects, initial encounter; Y92.009 Unspecified place in unspecified non-institutional (private) residence as the place of occurrence of the external cause
CPT/HCPCS: 99283; 12002; J2001

== ENCOUNTER 2019-02-22 17:38 | Emergency (ER) | payer MEDICARE, OTHER ==
[2019-02-22 18:10] VITALS: RESP 18
[2019-02-22 18:47] LABS: Appearance,Urine Clear (Clear); Bacteria,Urine Rare /hpf; Bilirubin,Urine Negative (Negative); Blood,Urine Negative (Negative); Color,Urine Light Yellow; Glucose,Urine (UA) 4+ (Negative); Ketones,Urine Negative (Negative); Leukocyte Esterase,Urine Small (Negative); Nitrite,Urine Negative (Negative); Protein,Urine Negative (Negative); Specific Gravity,Urine 1.016 (1.001-1.035); Squamous Epithelial Cell,Urine <1 /hpf (0-4); Urobilinogen,Urine <2.0 mg/dL (<2.0); WBC,Urine 19 /hpf (0-5)
--- NOTE | 2019-02-22 19:36 | ED ---
General Adult HPI - General Chief complaint: Urogenital Stated complaint: bladder infection Time Seen by Provider: 02/22/19 18:12 Source: patient, RN notes reviewed Mode of arrival: wheelchair Limitations: no limitations - History of Present Illness Initial comments: 58-year-old female with a past medical history of asthma, COPD, diabetes mellitus, hyperlipidemia, UTIs presents to the emergency department for a chief complaint of possible urinary tract infection. Patient states that for the past week or 2 she has had suprapubic discomfort when urinating. Denies any burning with urination but does admit to increased urinary frequency. Patient denies any fevers or chills for a chief back pain besides her chronic back pain. States she is eating and drinking normally. States she has urinary tract infection somewhat often and always feels like this.Patient has no other complaints at this time including shortness of breath, chest pain, abdominal pain, nausea or vomiting, headache, or visual changes. - Related Data Home Medications Medication Instructions Recorded Confirmed Montelukast Sodium [Singulair] 10 mg PO HS 06/10/14 12/18/18 Simvastatin [Zocor] 40 mg PO HS 06/10/14 12/18/18 Furosemide [Lasix] 40 mg PO DAILY 07/19/16 12/18/18 Metoprolol Tartrate [Lopressor] 25 mg PO BID 07/19/16 12/18/18 traMADol HCL [Ultram] 100 mg PO Q6H PRN 07/19/16 12/18/18 Albuterol Inhaler [Ventolin Hfa 2 puff INHALATION RT-Q6H PRN 04/03/17 12/18/18 Inhaler] Canagliflozin [Invokana] 300 mg PO DAILY 04/03/17 12/18/18 Allopurinol [Zyloprim] 300 mg PO DAILY 12/20/17 12/18/18 Hydrochlorothiazide 12.5 mg PO 12/20/17 12/18/18 Insulin Lispro [humaLOG Kwikpen] 20 unit SQ DAILY@0400 PRN 12/20/17 12/18/18 Insulin Lispro [humaLOG Kwikpen] 50 unit SQ AC-TID 12/20/17 12/18/18 Latanoprost [Xalatan 0.005%] 1 drop BOTH EYES HS 12/20/17 12/18/18 Megestrol [Megace] 40 mg PO TID 12/20/17 12/18/18 Potassium Chloride ER [K-Dur 10] 20 meq PO BID 12/20/17 12/18/18 Venlafaxine HCl ER [Effexor Xr] 75 mg PO DAILY 12/20/17 12/18/18 Venlafaxine HCl ER [Effexor Xr] 150 mg PO DAILY 12/20/17 12/18/18 ARIPiprazole [Abilify] 30 mg PO DAILY 08/02/18 12/18/18 Albuterol Nebulized [Ventolin 2.5 mg INHALATION RT-QID PRN 08/02/18 12/18/18 Nebulized] Cetirizine HCl [Zyrtec] 10 mg PO HS PRN 08/02/18 12/18/18 Cholecalciferol [Vitamin D3] 1,000 units PO DAILY 08/02/18 12/18/18 Ferrous Sulfate [Feosol] 325 mg PO BID 08/02/18 12/18/18 Magnesium Oxide [Magox 400] 400 mg PO DAILY 08/02/18 12/18/18 Nystatin 100,000 Unit/gm Powd 1 applic TOPICAL DAILY PRN 08/02/18 12/18/18 [Mycostatin Powder] Nystatin 100,000Unit/gm Cream 1 applic TOPICAL DAILY PRN 08/02/18 12/18/18 [Mycostatin Cream] Triamcinolone 0.1% Cream [Kenalog 1 applicatio TOPICAL DAILY PRN 08/02/18 12/18/18 0.1% Cream] Previous Rx's Medication Instructions Recorded Insulin Detemir (Levemir) [Levemir] 100 unit SQ BID #0 04/06/17 Cephalexin [Keflex] 500 mg PO Q6H 7 Days cap 02/22/19 Allergies Allergy/AdvReac Type Severity Reaction Status Date / Time codeine Allergy Rash/Hives Verified 02/22/19 18:09 Review of Systems ROS Statement: Those systems with pertinent positive or pertinent negative responses have been documented in the HPI. ROS Other: All systems not noted in ROS Statement are negative. Past Medical History Past Medical History: Asthma, COPD, Diabetes Mellitus, Hyperlipidemia, Renal Disease Additional Past Medical History / Comment(s): USES A WALKER OR W/C TO AMBULATE, PREVIOUS USE OF O2 NONE NOW, HX OF GOUT, HIATAL HERNIA, UTI, WEARS DEPENDS, PER PT'S CAREGIVER-"PT STOPPED MENSTRUATING 15 YEARS AGO BUT HAS STARTED SPOTTING AND AT TIME HEAVY-HAD d&c APPROX 2 WEEKS AGO AT [facility] IN [facility] History of Any Multi-Drug Resistant Organisms: None Reported Past Surgical History: Bariatric Surgery, Cholecystectomy, Orthopedic Surgery Additional Past Surgical History / Comment(s): Total L knee 04/15/14, lap band placed then removed, gastric sleeve 08/19/2012 EGD. D and C Past Anesthesia/Blood Transfusion Reactions: No Reported Reaction Additional Past Anesthesia/Blood Transfusion Reaction / Comment(s): Pt has never recieved blood.CLAUSTERPHOBIA Past Psychological History: Anxiety, Depression, Schizophrenia Smoking Status: Never smoker Past Alcohol Use History: None Reported Past Drug Use History: None Reported - Past Family History Father Family Medical History: Musculoskeletal Disorder Additional Family Medical History / Comment(s): Father had parkinsons. He in his 80's. Mother Family Medical History: No Reported History General Exam Limitations: no limitations General appearance: alert, in no apparent distress Head exam: Present: atraumatic, normocephalic, normal inspection Eye exam: Present: normal appearance, PERRL, EOMI. Absent: scleral icterus, conjunctival injection, periorbital swelling ENT exam: Present: normal exam, mucous membranes moist Neck exam: Present: normal inspection, full ROM. Absent: tenderness, meningismus, lymphadenopathy Respiratory exam: Present: normal lung sounds bilaterally. Absent: respiratory distress, wheezes, rales, rhonchi, stridor Cardiovascular Exam: Present: regular rate, normal rhythm, normal heart sounds. Absent: systolic murmur, diastolic murmur, rubs, gallop, clicks GI/Abdominal exam: Present: soft, tenderness (Minimal suprapubic tenderness without guarding or rebound. No right or left lower quadrant tenderness. No epigastric or upper abdominal tenderness.), normal bowel sounds. Absent: distended, guarding, rebound, rigid Back exam: Absent: CVA tenderness (R), CVA tenderness (L) Course Vital Signs 02/22/19 18:08 Temperature 98.7 F Pulse Rate 111 H Respiratory 18 Rate Blood Pressure 120/64 O2 Sat by Pulse 99 Oximetry Medical Decision Making - Medical Decision Making 58-year-old female with history of recurrent urinary tract infections presents for possible bladder infection. Patient has had super pubic discomfort when urinating as well as increased urinary frequency for about a week or 2. No other abdominal pain. She has chronic back pain but no new back pain or upper back pain. No CVA tenderness on exam. Patient has some minimal suprapubic tenderness. No right or left lower quadrant tenderness. No upper abdominal tenderness. Vitals are stable. Patient mildly tachycardic which was taken just on arrival and will be repeated. Urinalysis shows small leukocyte esterase with 19 white blood cells. This will be cultured as well. Patient's past cultures have been sensitive to Keflex. She'll be treated with Keflex outpatient and will follow up with primary care in 1-2 days. She'll return if she has any worsening symptoms. I discussed this case with attending Dr. Haas who agrees with this assessment and treatment plan. - Lab Data Lab Results 02/22/19 Range/Units 18:20 Urine Color Light Yellow Urine Appearance Clear (Clear) Urine pH 6.0 (5.0-8.0) Ur Specific [place] 1.016 (1.001-1.035) Urine Protein Negative (Negative) Urine Glucose (UA) 4+ H (Negative) Urine Ketones Negative (Negative) Urine Blood Negative (Negative) Urine Nitrite Negative (Negative) Urine Bilirubin Negative (Negative) Urine Urobilinogen <2.0 (<2.0) mg/dL Ur Leukocyte Esterase Small H (Negative) Urine WBC 19 H (0-5) /hpf Ur Squamous Epith Cells <1 (0-4) /hpf Urine Bacteria Rare H (None) /hpf Disposition Clinical Impression: Urinary tract infection Disposition: HOME SELF-CARE Condition: Good Instructions (If sedation given, give patient instructions): Urinary Tract Infection in Women (ED) Additional Instructions: Please take antibiotic as directed. Please follow-up with primary care in 1-2 days. Return to the emergency department if you have any worsening symptoms. Prescriptions: Cephalexin [Keflex] 500 mg PO Q6H 7 Days cap Is patient prescribed a controlled substance at d/c from ED?: No Referrals: Alen Webb DO [Primary Care Provider] - 1-2 days Time of Disposition: 19:43
[2019-02-22] MEDS ORDERED: CEPHALEXIN 500MG STARTER PACK 4 CAP BTL PO STA (19:42)
[2019-02-22 19:54] VITALS: BP 119/76; PULSE 98; TEMP 98.6
== END 2019-02-22 19:56 | disposition home or self-care (01) ==
LOC: EC 17:38
DX: N39.0 Urinary tract infection, site not specified (principal); G89.29 Other chronic pain; M54.5 Low back pain; J44.9 Chronic obstructive pulmonary disease, unspecified; E11.9 Type 2 diabetes mellitus without complications; E78.5 Hyperlipidemia, unspecified; M10.9 Gout, unspecified; F32.9 Major depressive disorder, single episode, unspecified; F41.9 Anxiety disorder, unspecified; F20.9 Schizophrenia, unspecified; Z88.5 Allergy status to narcotic agent; Z79.4 Long term (current) use of insulin; Z79.899 Other long term (current) drug therapy
CPT/HCPCS: 81001; 87086; 99283

== ENCOUNTER 2019-03-15 17:53 | Emergency (ER) | payer MEDICARE, OTHER ==
--- NOTE | 2019-03-15 18:06 | ED ---
Recheck HPI - General Chief Complaint: Recheck/Abnormal Lab/Rx Stated Complaint: Hyperglycemia Time Seen by Provider: 03/15/19 17:54 Source: patient, EMS Mode of arrival: EMS Limitations: no limitations - History of Present Illness Initial Comments: 58-year-old female with history of diabetes presented [facility] for evaluation of out of insulin elevated blood glucose. Patient states she has been out of her insulin for the past 4 days. She states this happens frequently at the end of the month. She states her pharmacy stated she was not due for a refill for another week. Patient states she has had consistently high readings. Patient states she is increased frequency of urine however this happens when her glucose is high. Patient denies abdominal pain, fevers, headache, chest pain, SOB or any other complaints. Patient states she has no other complaints. She states she received her flu shot yesterday. - Related Data Home Medications Medication Instructions Recorded Confirmed Montelukast Sodium [Singulair] 10 mg PO HS 06/10/14 12/18/18 Simvastatin [Zocor] 40 mg PO HS 06/10/14 12/18/18 Furosemide [Lasix] 40 mg PO DAILY 07/19/16 12/18/18 Metoprolol Tartrate [Lopressor] 25 mg PO BID 07/19/16 12/18/18 traMADol HCL [Ultram] 100 mg PO Q6H PRN 07/19/16 12/18/18 Albuterol Inhaler [Ventolin Hfa 2 puff INHALATION RT-Q6H PRN 04/03/17 12/18/18 Inhaler] Canagliflozin [Invokana] 300 mg PO DAILY 04/03/17 12/18/18 Allopurinol [Zyloprim] 300 mg PO DAILY 12/20/17 12/18/18 Hydrochlorothiazide 12.5 mg PO HS 12/20/17 12/18/18 Insulin Lispro [humaLOG Kwikpen] 20 unit SQ DAILY@0400 PRN 12/20/17 12/18/18 Insulin Lispro [humaLOG Kwikpen] 50 unit SQ AC-TID 12/20/17 12/18/18 Latanoprost [Xalatan 0.005%] 1 drop BOTH EYES HS 12/20/17 12/18/18 Megestrol [Megace] 40 mg PO TID 12/20/17 12/18/18 Potassium Chloride ER [K-Dur 10] 20 meq PO BID 12/20/17 12/18/18 Venlafaxine HCl ER [Effexor Xr] 75 mg PO DAILY 12/20/17 12/18/18 Venlafaxine HCl ER [Effexor Xr] 150 mg PO DAILY 12/20/17 12/18/18 ARIPiprazole [Abilify] 30 mg PO DAILY 08/02/18 12/18/18 Albuterol Nebulized [Ventolin 2.5 mg INHALATION RT-QID PRN 08/02/18 12/18/18 Nebulized] Cetirizine HCl [Zyrtec] 10 mg PO HS PRN 08/02/18 12/18/18 Cholecalciferol [Vitamin D3] 1,000 units PO DAILY 08/02/18 12/18/18 Ferrous Sulfate [Feosol] 325 mg PO BID 08/02/18 12/18/18 Magnesium Oxide [Magox 400] 400 mg PO DAILY 08/02/18 12/18/18 Nystatin 100,000 Unit/gm Powd 1 applic TOPICAL DAILY PRN 08/02/18 12/18/18 [Mycostatin Powder] Nystatin 100,000Unit/gm Cream 1 applic TOPICAL DAILY PRN 08/02/18 12/18/18 [Mycostatin Cream] Triamcinolone 0.1% Cream [Kenalog 1 applicatio TOPICAL DAILY PRN 08/02/18 12/18/18 0.1% Cream] Previous Rx's Medication Instructions Recorded Insulin Detemir (Levemir) [Levemir] 100 unit SQ BID #0 04/06/17 Cephalexin [Keflex] 500 mg PO Q6H 7 Days cap 02/22/19 Insulin Lispro [Insulin Lispro 20 units SQ DAILY 7 Days #1 pen 03/15/19 Kwikpen U-100] Insulin Lispro [Insulin Lispro 50 units SQ AC-TID 7 Days #2 pen 03/15/19 Kwikpen U-100] Allergies Allergy/AdvReac Type Severity Reaction Status Date / Time codeine Allergy Rash/Hives Verified 03/15/19 18:04 Review of Systems ROS Statement: Those systems with pertinent positive or pertinent negative responses have been documented in the HPI. ROS Other: All systems not noted in ROS Statement are negative. Past Medical History Past Medical History: Asthma, COPD, Diabetes Mellitus, Hyperlipidemia, Renal Disease Additional Past Medical History / Comment(s): USES A WALKER OR W/C TO AMBULATE, PREVIOUS USE OF O2 NONE NOW, HX OF GOUT, HIATAL HERNIA, UTI, WEARS DEPENDS, PER PT'S CAREGIVER-"PT STOPPED MENSTRUATING 15 YEARS AGO BUT HAS STARTED SPOTTING AND AT TIME HEAVY-HAD d&c APPROX 2 WEEKS AGO AT [facility] IN [facility] History of Any Multi-Drug Resistant Organisms: None Reported Past Surgical History: Bariatric Surgery, Cholecystectomy, Orthopedic Surgery Additional Past Surgical History / Comment(s): Total L knee 04/15/14, lap band placed then removed, gastric sleeve 08/19/2012 EGD. D and C Past Anesthesia/Blood Transfusion Reactions: No Reported Reaction Additional Past Anesthesia/Blood Transfusion Reaction / Comment(s): Pt has never recieved blood.CLAUSTERPHOBIA Past Psychological History: Anxiety, Depression, Schizophrenia Smoking Status: Never smoker Past Alcohol Use History: None Reported Past Drug Use History: None Reported - Past Family History Father Family Medical History: Musculoskeletal Disorder Additional Family Medical History / Comment(s): Father had parkinsons. He in his 80's. Mother Family Medical History: No Reported History General Exam - General Exam Comments Initial Comments: General: The patient is awake and alert, in no distress, and does not appear acutely ill. Eye: +3mm pupils are equal, round and reactive to light, extra-ocular movements are intact. No nystagmus. There is normal conjunctiva bilaterally. No signs of icterus. Ears, nose, mouth and throat: There are moist mucous membranes and no oral lesions. Neck: The neck is supple, there is no tenderness or JVD. Cardiovascular: There is a regular rate and rhythm. No murmur, rub or gallop is appreciated. Respiratory: Lungs are clear to auscultation, respirations are non-labored, breath sounds are equal. No wheezes, stridor, rales, or rhonchi. Gastrointestinal: Soft, non-distended, non-tender abdomen without masses or organomegaly noted. There is no rebound or guarding present. Musculoskeletal: Normal ROM, no tenderness. Strength 5/5. Sensation intact. Raidal pulses equal bilaterally 2+. Neurological: A&O x 3. CN II-XII intact grossly, There are no obvious motor or sensory deficits. Coordination appears grossly intact. Speech is normal. Skin: Skin is warm and dry and no rashes or lesions are noted. Psychiatric: Cooperative, appropriate mood & affect, normal judgment. Limitations: no limitations Course Vital Signs 03/15/19 03/15/19 03/15/19 18:01 18:51 21:04 Temperature 100.0 F H 99.7 F H Pulse Rate 107 H Respiratory 18 16 Rate Blood Pressure 110/67 O2 Sat by Pulse 98 Oximetry 03/15/19 03/15/19 21:29 23:35 Temperature 98.3 F 97.9 F Pulse Rate 112 H 72 Respiratory 18 18 Rate Blood Pressure 120/63 122/62 O2 Sat by Pulse 96 98 Oximetry Medical Decision Making - Medical Decision Making 58-year-old female presenting for chief complaint of hyperglycemia out of insulin prescription. Patient's blood glucose decreased to emergency by patient given IV fluids. Patient shows no evidence of DKA. Patient case is discussed with attending provider Dr. Duffy who recommended discharge with outpatient RX for humalog. Patient provided a prescription. Patient agreeable discharge had no other complaints she appears well. Patient to f/u with PCP and refill rx in 1 week. - Lab Data Result diagrams: 03/15/19 18:38 03/15/19 18:38 Lab Results 03/15/19 03/15/19 03/15/19 Range/Units 18:10 18:38 18:38 WBC 9.0 (3.8-10.6) k/uL RBC 4.40 (3.80-5.40) m/uL Hgb 13.6 (11.4-16.0) gm/dL Hct 41.4 (34.0-46.0) % MCV 94.2 (80.0-100.0) fL MCH 30.8 (25.0-35.0) pg MCHC 32.7 (31.0-37.0) g/dL RDW 14.2 (11.5-15.5) % Plt Count 219 (150-450) k/uL Neutrophils % 71 % Lymphocytes % 21 % Monocytes % 5 % Eosinophils % 1 % Basophils % 1 % Neutrophils # 6.4 (1.3-7.7) k/uL Lymphocytes # 1.9 (1.0-4.8) k/uL Monocytes # 0.5 (0-1.0) k/uL Eosinophils # 0.1 (0-0.7) k/uL Basophils # 0.1 (0-0.2) k/uL Sodium 140 (137-145) mmol/L Potassium 5.3 H (3.5-5.1) mmol/L Chloride 105 (98-107) mmol/L Carbon Dioxide 23 (22-30) mmol/L Anion Gap 12 mmol/L BUN 41 H (7-17) mg/dL Creatinine 1.10 H (0.52-1.04) mg/dL Est GFR (CKD-EPI)AfAm 65 (>60 ml/min/1.73 sqM) Est GFR (CKD-EPI)NonAf 56 (>60 ml/min/1.73 sqM) Glucose 436 H (74-99) mg/dL POC Glucose (mg/dL) 418 H (75-99) mg/dL POC Glu Resistance Brazer ID Camilla Trevino Calcium 9.1 (8.4-10.2) mg/dL Magnesium 2.1 (1.6-2.3) mg/dL Total Bilirubin 0.7 (0.2-1.3) mg/dL AST 49 H (14-36) U/L ALT 46 (9-52) U/L Alkaline Phosphatase 152 H (38-126) U/L Total Protein 7.6 (6.3-8.2) g/dL Albumin 4.1 (3.5-5.0) g/dL Urine Color Urine Appearance (Clear) Urine pH (5.0-8.0) Ur Specific [place] (1.001-1.035) Urine Protein (Negative) Urine Glucose (UA) (Negative) Urine Ketones (Negative) Urine Blood (Negative) Urine Nitrite (Negative) Urine Bilirubin (Negative) Urine Urobilinogen (<2.0) mg/dL Ur Leukocyte Esterase (Negative) Urine WBC (0-5) /hpf Ur Squamous Epith Cells (0-4) /hpf Acetone, Qual Negative (Negative) 03/15/19 03/15/19 03/15/19 Range/Units 19:15 21:18 22:03 WBC (3.8-10.6) k/uL RBC (3.80-5.40) m/uL Hgb (11.4-16.0) gm/dL Hct (34.0-46.0) % MCV (80.0-100.0) fL MCH (25.0-35.0) pg MCHC (31.0-37.0) g/dL RDW (11.5-15.5) % Plt Count (150-450) k/uL Neutrophils % % Lymphocytes % % Monocytes % % Eosinophils % % Basophils % % Neutrophils # (1.3-7.7) k/uL Lymphocytes # (1.0-4.8) k/uL Monocytes # (0-1.0) k/uL Eosinophils # (0-0.7) k/uL Basophils # (0-0.2) k/uL Sodium (137-145) mmol/L Potassium (3.5-5.1) mmol/L Chloride (98-107) mmol/L Carbon Dioxide (22-30) mmol/L Anion Gap mmol/L BUN (7-17) mg/dL Creatinine (0.52-1.04) mg/dL Est GFR (CKD-EPI)AfAm (>60 ml/min/1.73 sqM) Est GFR (CKD-EPI)NonAf (>60 ml/min/1.73 sqM) Glucose (74-99) mg/dL POC Glucose (mg/dL) 420 H 357 H (75-99) mg/dL POC Glu Resistance Brazer ID Uriel, Camilla Uriel, Camilla Calcium (8.4-10.2) mg/dL Magnesium (1.6-2.3) mg/dL Total Bilirubin (0.2-1.3) mg/dL AST (14-36) U/L ALT (9-52) U/L Alkaline Phosphatase (38-126) U/L Total Protein (6.3-8.2) g/dL Albumin (3.5-5.0) g/dL Urine Color Light Yellow Urine Appearance Clear (Clear) Urine pH 5.5 (5.0-8.0) Ur Specific [place] 1.014 (1.001-1.035) Urine Protein Negative (Negative) Urine Glucose (UA) 4+ H (Negative) Urine Ketones Negative (Negative) Urine Blood Negative (Negative) Urine Nitrite Negative (Negative) Urine Bilirubin Negative (Negative) Urine Urobilinogen <2.0 (<2.0) mg/dL Ur Leukocyte Esterase Trace H (Negative) Urine WBC 5 (0-5) /hpf Ur Squamous Epith Cells <1 (0-4) /hpf Acetone, Qual (Negative) 03/15/19 Range/Units 22:51 WBC (3.8-10.6) k/uL RBC (3.80-5.40) m/uL Hgb (11.4-16.0) gm/dL Hct (34.0-46.0) % MCV (80.0-100.0) fL MCH (25.0-35.0) pg MCHC (31.0-37.0) g/dL RDW (11.5-15.5) % Plt Count (150-450) k/uL Neutrophils % % Lymphocytes % % Monocytes % % Eosinophils % % Basophils % % Neutrophils # (1.3-7.7) k/uL Lymphocytes # (1.0-4.8) k/uL Monocytes # (0-1.0) k/uL Eosinophils # (0-0.7) k/uL Basophils # (0-0.2) k/uL Sodium (137-145) mmol/L Potassium (3.5-5.1) mmol/L Chloride (98-107) mmol/L Carbon Dioxide (22-30) mmol/L Anion Gap mmol/L BUN (7-17) mg/dL Creatinine (0.52-1.04) mg/dL Est GFR (CKD-EPI)AfAm (>60 ml/min/1.73 sqM) Est GFR (CKD-EPI)NonAf (>60 ml/min/1.73 sqM) Glucose (74-99) mg/dL POC Glucose (mg/dL) 338 H (75-99) mg/dL POC Glu Resistance Brazer ID Camilla Trevino Calcium (8.4-10.2) mg/dL Magnesium (1.6-2.3) mg/dL Total Bilirubin (0.2-1.3) mg/dL AST (14-36) U/L ALT (9-52) U/L Alkaline Phosphatase (38-126) U/L Total Protein (6.3-8.2) g/dL Albumin (3.5-5.0) g/dL Urine Color Urine Appearance (Clear) Urine pH (5.0-8.0) Ur Specific [place] (1.001-1.035) Urine Protein (Negative) Urine Glucose (UA) (Negative) Urine Ketones (Negative) Urine Blood (Negative) Urine Nitrite (Negative) Urine Bilirubin (Negative) Urine Urobilinogen (<2.0) mg/dL Ur Leukocyte Esterase (Negative) Urine WBC (0-5) /hpf Ur Squamous Epith Cells (0-4) /hpf Acetone, Qual (Negative) - EKG Data EKG Comments: Ventricular rate 110 bpm, SD interval 152 ms, QRS duration 98 ms, QT/QTC 364/492 ms this is sinus tachycardia with left axis noted. There is also found to be a right bundle branch block. No ST elevation or depression appreciated. Each EKG compared to that of 08/02/2018. Disposition Clinical Impression: Elevated random blood glucose level, Hx of diabetes mellitus Disposition: HOME SELF-CARE Condition: Good Instructions (If sedation given, give patient instructions): Type 2 Diabetes Management for Adults (ED) Additional Instructions: Please use medication as discussed. Please follow-up with family doctor in the next 2 days. Please return to emergency room if the symptoms increase or worsen or for any other concerns. Prescriptions: Insulin Lispro [Insulin Lispro Kwikpen U-100] 20 units SQ DAILY 7 Days #1 pen Insulin Lispro [Insulin Lispro Kwikpen U-100] 50 units SQ AC-TID 7 Days #2 pen Is patient prescribed a controlled substance at d/c from ED?: No Referrals: Alen Webb DO [Primary Care Provider] - 1-2 days Time of Disposition: 23:23
[2019-03-15 18:12] LABS: Glucose,Whole Blood 418 mg/dL (75-99)
[2019-03-15 19:19] LABS: Basophils # (A) 0.1 k/uL (0-0.2); Basophils % (A) 1 %; Eosinophils # (A) 0.1 k/uL (0-0.7); Eosinophils % (A) 1 %; HCT 41.4 % (34.0-46.0); HGB 13.6 gm/dL (11.4-16.0); Lymphocytes # (A) 1.9 k/uL (1.0-4.8); Lymphocytes % (A) 21 %; MCH 30.8 pg (25.0-35.0); MCHC 32.7 g/dL (31.0-37.0); MCV 94.2 fL (80.0-100.0); Mean Platelet Volume 7.4; Monocytes # (A) 0.5 k/uL (0-1.0); Monocytes % (A) 5 %; Neutrophils # (A) 6.4 k/uL (1.3-7.7); Neutrophils % (A) 71 %; Platelet Count 219 k/uL (150-450); RDW 14.2 % (11.5-15.5)
[2019-03-15 19:25] LABS: Appearance,Urine Clear (Clear); Bilirubin,Urine Negative (Negative); Blood,Urine Negative (Negative); Color,Urine Light Yellow; Glucose,Urine (UA) 4+ (Negative); Ketones,Urine Negative (Negative); Leukocyte Esterase,Urine Trace (Negative); Nitrite,Urine Negative (Negative); PH, Urine 5.5 (5.0-8.0); Protein,Urine Negative (Negative); Specific Gravity,Urine 1.014 (1.001-1.035); Squamous Epithelial Cell,Urine <1 /hpf (0-4); Urobilinogen,Urine <2.0 mg/dL (<2.0); WBC,Urine 5 /hpf (0-5)
[2019-03-15] MEDS ORDERED: INSULIN REGULAR 100 UNIT/ML VIAL SQ ONE (19:41)
[2019-03-15 20:00] LABS: ALT 46 U/L (9-52); AST 49 U/L (14-36); African American GFR (CKD) 65 (>60 ml/min/1.73 sqM); Albumin 4.1 g/dL (3.5-5.0); Alkaline Phosphatase 152 U/L (38-126); Anion Gap 12 mmol/L; Blood Urea Nitrogen 41 mg/dL (7-17); Calcium 9.1 mg/dL (8.4-10.2); Carbon Dioxide 23 mmol/L (22-30); Chloride 105 mmol/L (98-107); Glucose 436 mg/dL (74-99); Magnesium 2.1 mg/dL (1.6-2.3); Non-African American GFR(CKD) 56 (>60 ml/min/1.73 sqM); Sodium 140 mmol/L (137-145); Total Bilirubin 0.7 mg/dL (0.2-1.3); Total Protein 7.6 g/dL (6.3-8.2)
[2019-03-15 20:01] LABS: Potassium 5.3 mmol/L (3.5-5.1)
[2019-03-15] MEDS ORDERED: INSULIN REGULAR 100 UNIT/ML VIAL IV ONE ×2 (21:18→22:07)
[2019-03-15 21:29] LABS: Glucose,Whole Blood 420 mg/dL (75-99)
[2019-03-15 21:33] VITALS: RESP 18
[2019-03-15 22:05] LABS: Glucose,Whole Blood 357 mg/dL (75-99)
[2019-03-15 22:53] LABS: Glucose,Whole Blood 338 mg/dL (75-99)
[2019-03-15 23:45] VITALS: BP 122/62; PULSE 72; TEMP 97.9
== END 2019-03-15 23:35 | disposition home or self-care (01) ==
LOC: EC 17:53
DX: E11.65 Type 2 diabetes mellitus with hyperglycemia (principal); J44.9 Chronic obstructive pulmonary disease, unspecified; E78.5 Hyperlipidemia, unspecified; M10.9 Gout, unspecified; F41.9 Anxiety disorder, unspecified; F32.9 Major depressive disorder, single episode, unspecified; F20.9 Schizophrenia, unspecified; Z79.51 Long term (current) use of inhaled steroids; Z79.4 Long term (current) use of insulin; Z79.899 Other long term (current) drug therapy; Z88.5 Allergy status to narcotic agent; Z90.49 Acquired absence of other specified parts of digestive tract; Z98.84 Bariatric surgery status; Z96.652 Presence of left artificial knee joint; Z99.89 Dependence on other enabling machines and devices
CPT/HCPCS: 36415; 80053; 81001; 82009; 83735; 85025; 93005; 99285

== ENCOUNTER → 2019-04-09 | Outpatient (CLI) | payer MEDICARE, OTHER ==
--- NOTE | 2019-04-09 14:32 | US ---
EXAMINATION TYPE: US kidneys/renal and bladder DATE OF EXAM: 04/09/2019 COMPARISON: NONE CLINICAL HISTORY: N18.3 Chronic Kidney Disease Stage 3. CKD Limited study due to body habitus. Patien t unable to roll. EXAM MEASUREMENTS: Right Kidney: 9.0 x 5.2 x 4.0 cm Left Kidney: 8.0 x 4.8 x 3.4 cm Right Kidney: No hydronephrosis or masses seen Left Kidney: Limited due to body habitus and bowel gas. Bladder: wnl Bilateral Jets seen: Yes Cortical renal thinning is seen bilaterally. Somewhat diminished cortical medullary differentiation o n the left, likely due to suboptimal visualization given the patient body habitus. There is no eviden ce for hydronephrosis at this point in time. No nephrolithiasis is seen. The urinary bladder is ane choic. Bilateral ureteral jets are seen. IMPRESSION: Sonographic sequela of medical renal disease. Suboptimal visualization. No gross evidence of hydronephrosis.
== END | disposition home or self-care (01) ==
LOC: RADUSWWP 13:49
PROVIDERS: ATTEND Internal Medicine Nephrology
DX: N18.3 Chronic kidney disease, stage 3 (moderate) (principal)
CPT/HCPCS: 76770

== ENCOUNTER 2019-07-17 16:52 | Emergency (ER) | payer MEDICARE, OTHER ==
[2019-07-17 18:04] LABS: Basophils % (A) 0 %; Eosinophils # (A) 0.1 k/uL (0-0.7); Eosinophils % (A) 1 %; HCT 42.8 % (34.0-46.0); HGB 13.9 gm/dL (11.4-16.0); Lymphocytes # (A) 2.1 k/uL (1.0-4.8); Lymphocytes % (A) 18 %; MCHC 32.5 g/dL (31.0-37.0); MCV 92.3 fL (80.0-100.0); Mean Platelet Volume 7.9; Monocytes # (A) 0.3 k/uL (0-1.0); Monocytes % (A) 3 %; Neutrophils # (A) 8.9 k/uL (1.3-7.7); Neutrophils % (A) 76 %; Platelet Count 278 k/uL (150-450); RBC 4.63 m/uL (3.80-5.40); WBC 11.7 k/uL (3.8-10.6)
[2019-07-17 18:05] LABS: Albumin 3.9 g/dL (3.5-5.0); Calcium 9.3 mg/dL (8.4-10.2); Potassium 3.8 mmol/L (3.5-5.1); Total Bilirubin 0.7 mg/dL (0.2-1.3); Total Protein 7.2 g/dL (6.3-8.2)
[2019-07-17 19:14] LABS: INR 0.9 (<1.2); Partial Thromboplastin Time 23.3 sec (22.0-30.0); Prothrombin Time 9.9 sec (9.0-12.0)
--- NOTE | 2019-07-17 19:19 | US ---
EXAMINATION TYPE: US transvaginal DATE OF EXAM: 07/17/2019 COMPARISON: US, CT CLINICAL HISTORY: post menopausal bleeding. Post menopausal bleeding x 5 days. D and C 2 years ago. TECHNIQUE: Transvaginal (TV). Date of LMP: 15 years ago EXAM MEASUREMENTS: Uterus: 10.5 x 6.9 x 5.7 cm Endometrial Stripe: Not well visualized Right Ovary: Not visualized Left Ovary: Not visualized 1. Uterus: Anteverted Appears heterogeneous as seen. 2. Endometrium: Not well visualized 5. Bilateral Adnexa: Limited visibility due to large patient body habitus. 6. Posterior cul-de-sac: Appears wnl Limited transvaginal exam due to large patient body habitus. IMPRESSION: NO DEFINITE SONOGRAPHIC CORRELATE FOR THE PATIENT'S POSTMENOPAUSAL BLEEDING, BUT DIFFICULT SONOGRAPHI C VISUALIZATION LIMITS THIS EXAMINATION. If clinically warranted, MRI characterization can complement this examination.
--- NOTE | 2019-07-17 19:41 | ED ---
Female Urogenital HPI - General Chief complaint: Vaginal Bleeding Stated complaint: Vaginal bleeding Time Seen by Provider: 07/17/19 16:57 Source: patient, family Mode of arrival: wheelchair Limitations: no limitations - History of Present Illness Initial comments: 59yo female >1 year postmenopausal presenting to the ER for "blood coming from vagina" patient states for the past 2 days blood has been coming from her vagina she states it is dark red, no odor. Adán pain, vomiting, chest pain, SOB, or leg swelling. Patient denies history of uterine/ovarian cancer, denies sexual activity or foreign body penetration, denies anticoagulation therapy. Patient has no other complaints. Upon arrival patient appears well, no signs of acute distress. - Related Data Home Medications Medication Instructions Recorded Confirmed Montelukast Sodium [Singulair] 10 mg PO HS 06/10/14 12/18/18 Simvastatin [Zocor] 40 mg PO HS 06/10/14 12/18/18 Furosemide [Lasix] 40 mg PO DAILY 07/19/16 12/18/18 Metoprolol Tartrate [Lopressor] 25 mg PO BID 07/19/16 12/18/18 traMADol HCL [Ultram] 100 mg PO Q6H PRN 07/19/16 12/18/18 Albuterol Inhaler [Ventolin Hfa 2 puff INHALATION RT-Q6H PRN 04/03/17 12/18/18 Inhaler] Canagliflozin [Invokana] 300 mg PO DAILY 04/03/17 12/18/18 Allopurinol [Zyloprim] 300 mg PO DAILY 12/20/17 12/18/18 Hydrochlorothiazide 12.5 mg PO HS 12/20/17 12/18/18 Insulin Lispro [humaLOG Kwikpen] 20 unit SQ DAILY@0400 PRN 12/20/17 12/18/18 Insulin Lispro [humaLOG Kwikpen] 50 unit SQ AC-TID 12/20/17 12/18/18 Latanoprost [Xalatan 0.005%] 1 drop BOTH EYES HS 12/20/17 12/18/18 Megestrol [Megace] 40 mg PO TID 12/20/17 12/18/18 Potassium Chloride ER [K-Dur 10] 20 meq PO BID 12/20/17 12/18/18 Venlafaxine HCl ER [Effexor Xr] 75 mg PO DAILY 12/20/17 12/18/18 Venlafaxine HCl ER [Effexor Xr] 150 mg PO DAILY 12/20/17 12/18/18 ARIPiprazole [Abilify] 30 mg PO DAILY 08/02/18 12/18/18 Albuterol Nebulized [Ventolin 2.5 mg INHALATION RT-QID PRN 08/02/18 12/18/18 Nebulized] Cetirizine HCl [Zyrtec] 10 mg PO HS PRN 08/02/18 12/18/18 Cholecalciferol [Vitamin D3] 1,000 units PO DAILY 08/02/18 12/18/18 Ferrous Sulfate [Feosol] 325 mg PO BID 08/02/18 12/18/18 Magnesium Oxide [Magox 400] 400 mg PO DAILY 08/02/18 12/18/18 Nystatin 100,000 Unit/gm Powd 1 applic TOPICAL DAILY PRN 08/02/18 12/18/18 [Mycostatin Powder] Nystatin 100,000Unit/gm Cream 1 applic TOPICAL DAILY PRN 08/02/18 12/18/18 [Mycostatin Cream] Triamcinolone 0.1% Cream [Kenalog 1 applicatio TOPICAL DAILY PRN 08/02/18 12/18/18 0.1% Cream] Previous Rx's Medication Instructions Recorded Insulin Detemir (Levemir) [Levemir] 100 unit SQ BID #0 04/06/17 Cephalexin [Keflex] 500 mg PO Q6H 7 Days cap 02/22/19 Insulin Lispro [Insulin Lispro 20 units SQ DAILY 7 Days #1 pen 03/15/19 Kwikpen U-100] Insulin Lispro [Insulin Lispro 50 units SQ AC-TID 7 Days #2 pen 03/15/19 Kwikpen U-100] Allergies Allergy/AdvReac Type Severity Reaction Status Date / Time codeine Allergy Rash/Hives Verified 07/17/19 17:06 Review of Systems ROS Statement: Those systems with pertinent positive or pertinent negative responses have been documented in the HPI. ROS Other: All systems not noted in ROS Statement are negative. Past Medical History Past Medical History: Asthma, COPD, Diabetes Mellitus, Hyperlipidemia, Renal Disease Additional Past Medical History / Comment(s): USES A WALKER OR W/C TO AMBULATE, PREVIOUS USE OF O2 NONE NOW, HX OF GOUT, HIATAL HERNIA, UTI, WEARS DEPENDS, PER PT'S CAREGIVER-"PT STOPPED MENSTRUATING 15 YEARS AGO BUT HAS STARTED SPOTTING AND AT TIME HEAVY-HAD d&c APPROX 2 WEEKS AGO AT [facility] IN [facility] History of Any Multi-Drug Resistant Organisms: None Reported Past Surgical History: Bariatric Surgery, Cholecystectomy, Orthopedic Surgery Additional Past Surgical History / Comment(s): Total L knee 04/15/14, lap band placed then removed, gastric sleeve 08/19/2012 EGD. D and C Past Anesthesia/Blood Transfusion Reactions: No Reported Reaction Additional Past Anesthesia/Blood Transfusion Reaction / Comment(s): Pt has never recieved blood.CLAUSTERPHOBIA Past Psychological History: Anxiety, Depression, Schizophrenia Smoking Status: Never smoker Past Alcohol Use History: None Reported Past Drug Use History: None Reported - Past Family History Father Family Medical History: Musculoskeletal Disorder Additional Family Medical History / Comment(s): Father had parkinsons. He in his 80's. Mother Family Medical History: No Reported History General Exam - General Exam Comments Initial Comments: General: The patient is awake and alert, in no distress Eye: Pupils are equal, round and reactive to light, extra-ocular movements are intact. No nystagmus. There is normal conjunctiva bilaterally. No signs of icterus. Ears, nose, mouth and throat: There are moist mucous membranes and no oral lesions. Neck: The neck is supple, there is no tenderness or JVD. Cardiovascular: There is a regular rate and rhythm. No murmur, rub or gallop is appreciated. Respiratory: Lungs are clear to auscultation, respirations are non-labored, breath sounds are equal. No wheezes, stridor, rales, or rhonchi. Gastrointestinal: Soft, non-distended, non-tender abdomen without masses or organomegaly noted. There is no rebound or guarding present. Pelvic: Brown/red blood coming from vaginal orfice, no rectal bleeding. No hemorrhage or large clots. Musculoskeletal: Normal ROM, no tenderness. Strength 5/5. Sensation intact. Pulses equal bilaterally 2+. Neurological: A&O x 3. CN II-XII intact grossly, There are no obvious motor or sensory deficits. Coordination appears grossly intact. Speech is normal. Skin: Skin is warm and dry and no rashes or lesions are noted. Psychiatric: Cooperative, appropriate mood & affect, normal judgment. Limitations: no limitations Course Vital Signs 07/17/19 07/17/19 07/17/19 17:03 17:05 20:34 Temperature 98.2 F 98.7 F Pulse Rate 111 H 107 H Respiratory 18 20 19 Rate Blood Pressure 156/76 132/65 O2 Sat by Pulse 95 97 Oximetry Medical Decision Making - Lab Data Result diagrams: 07/17/19 17:32 07/17/19 17:32 Lab Results 07/17/19 07/17/19 07/17/19 Range/Units 17:32 17:32 17:32 WBC 11.7 H (3.8-10.6) k/uL RBC 4.63 (3.80-5.40) m/uL Hgb 13.9 (11.4-16.0) gm/dL Hct 42.8 (34.0-46.0) % MCV 92.3 (80.0-100.0) fL MCH 30.0 (25.0-35.0) pg MCHC 32.5 (31.0-37.0) g/dL RDW 14.0 (11.5-15.5) % Plt Count 278 (150-450) k/uL Neutrophils % 76 % Lymphocytes % 18 % Monocytes % 3 % Eosinophils % 1 % Basophils % 0 % Neutrophils # 8.9 H (1.3-7.7) k/uL Lymphocytes # 2.1 (1.0-4.8) k/uL Monocytes # 0.3 (0-1.0) k/uL Eosinophils # 0.1 (0-0.7) k/uL Basophils # 0.0 (0-0.2) k/uL PT 9.9 (9.0-12.0) sec INR 0.9 (<1.2) APTT 23.3 (22.0-30.0) sec Sodium 140 (137-145) mmol/L Potassium 3.8 (3.5-5.1) mmol/L Chloride 104 (98-107) mmol/L Carbon Dioxide 26 (22-30) mmol/L Anion Gap 10 mmol/L BUN 44 H (7-17) mg/dL Creatinine 1.28 H (0.52-1.04) mg/dL Est GFR (CKD-EPI)AfAm 54 (>60 ml/min/1.73 sqM) Est GFR (CKD-EPI)NonAf 47 (>60 ml/min/1.73 sqM) Glucose 177 H (74-99) mg/dL Calcium 9.3 (8.4-10.2) mg/dL Total Bilirubin 0.7 (0.2-1.3) mg/dL AST 32 (14-36) U/L ALT 26 (4-34) U/L Alkaline Phosphatase 160 H (38-126) U/L Total Protein 7.2 (6.3-8.2) g/dL Albumin 3.9 (3.5-5.0) g/dL Urine Color Urine Appearance (Clear) Urine pH (5.0-8.0) Ur Specific [place] (1.001-1.035) Urine Protein (Negative) Urine Glucose (UA) (Negative) Urine Ketones (Negative) Urine Blood (Negative) Urine Nitrite (Negative) Urine Bilirubin (Negative) Urine Urobilinogen (<2.0) mg/dL Ur Leukocyte Esterase (Negative) Urine RBC (0-5) /hpf Urine WBC (0-5) /hpf Ur Squamous Epith Cells (0-4) /hpf Urine Bacteria (None) /hpf Urine Yeast (Budding) (None) /hpf Urine HCG, Qual (Not Detectd) 07/17/19 07/17/19 Range/Units 19:30 19:30 WBC (3.8-10.6) k/uL RBC (3.80-5.40) m/uL Hgb (11.4-16.0) gm/dL Hct (34.0-46.0) % MCV (80.0-100.0) fL MCH (25.0-35.0) pg MCHC (31.0-37.0) g/dL RDW (11.5-15.5) % Plt Count (150-450) k/uL Neutrophils % % Lymphocytes % % Monocytes % % Eosinophils % % Basophils % % Neutrophils # (1.3-7.7) k/uL Lymphocytes # (1.0-4.8) k/uL Monocytes # (0-1.0) k/uL Eosinophils # (0-0.7) k/uL Basophils # (0-0.2) k/uL PT (9.0-12.0) sec INR (<1.2) APTT (22.0-30.0) sec Sodium (137-145) mmol/L Potassium (3.5-5.1) mmol/L Chloride (98-107) mmol/L Carbon Dioxide (22-30) mmol/L Anion Gap mmol/L BUN (7-17) mg/dL Creatinine (0.52-1.04) mg/dL Est GFR (CKD-EPI)AfAm (>60 ml/min/1.73 sqM) Est GFR (CKD-EPI)NonAf (>60 ml/min/1.73 sqM) Glucose (74-99) mg/dL Calcium (8.4-10.2) mg/dL Total Bilirubin (0.2-1.3) mg/dL AST (14-36) U/L ALT (4-34) U/L Alkaline Phosphatase (38-126) U/L Total Protein (6.3-8.2) g/dL Albumin (3.5-5.0) g/dL Urine Color Yellow Urine Appearance Cloudy H (Clear) Urine pH 5.5 (5.0-8.0) Ur Specific [place] 1.019 (1.001-1.035) Urine Protein 1+ H (Negative) Urine Glucose (UA) 4+ H (Negative) Urine Ketones Negative (Negative) Urine Blood Moderate H (Negative) Urine Nitrite Negative (Negative) Urine Bilirubin Negative (Negative) Urine Urobilinogen <2.0 (<2.0) mg/dL Ur Leukocyte Esterase Moderate H (Negative) Urine RBC 106 H (0-5) /hpf Urine WBC 50 H (0-5) /hpf Ur Squamous Epith Cells 2 (0-4) /hpf Urine Bacteria Occasional H (None) /hpf Urine Yeast (Budding) Rare H (None) /hpf Urine HCG, Qual Not Detected (Not Detectd) Disposition Clinical Impression: Post-menopause bleeding Disposition: HOME SELF-CARE Condition: Good Instructions (If sedation given, give patient instructions): Dysfunctional Uterine Bleeding (ED) Additional Instructions: Please use medication as discussed. Please follow-up with OBGYN and PCP in next week, i recommend uterine biopsy to rule out cancer and MRI for further evaluation. Please return to emergency room if the symptoms increase or worsen or for any other concerns, increasing bleeding/pain. Is patient prescribed a controlled substance at d/c from ED?: No Referrals: Alen Webb DO [Primary Care Provider] - 1-2 days Courtney Aviles DO [Doctor of Osteopathic Medicine] - 1-2 days Jamil Sheikh MD [STAFF PHYSICIAN] - 1-2 days Time of Disposition: 19:41
[2019-07-17 20:17] LABS: Appearance,Urine Cloudy (Clear); Bacteria,Urine Occasional /hpf; Bilirubin,Urine Negative (Negative); Blood,Urine Moderate (Negative); Budding Yeast,Urine Rare /hpf; Color,Urine Yellow; Glucose,Urine (UA) 4+ (Negative); Ketones,Urine Negative (Negative); Leukocyte Esterase,Urine Moderate (Negative); Nitrite,Urine Negative (Negative); PH, Urine 5.5 (5.0-8.0); Protein,Urine 1+ (Negative); RBC,Urine 106 /hpf (0-5); Specific Gravity,Urine 1.019 (1.001-1.035); Squamous Epithelial Cell,Urine 2 /hpf (0-4); Urobilinogen,Urine <2.0 mg/dL (<2.0); WBC,Urine 50 /hpf (0-5)
[2019-07-17 20:36] VITALS: BP 132/65; PULSE 107; RESP 19; TEMP 98.7
== END 2019-07-17 20:38 | disposition home or self-care (01) ==
LOC: EC 16:52
DX: N95.0 Postmenopausal bleeding (principal); F41.9 Anxiety disorder, unspecified; F32.9 Major depressive disorder, single episode, unspecified; F20.9 Schizophrenia, unspecified; J44.9 Chronic obstructive pulmonary disease, unspecified; E11.9 Type 2 diabetes mellitus without complications; E78.5 Hyperlipidemia, unspecified; M10.9 Gout, unspecified; Z79.3 Long term (current) use of hormonal contraceptives; Z79.51 Long term (current) use of inhaled steroids; Z79.4 Long term (current) use of insulin; Z79.899 Other long term (current) drug therapy; Z88.5 Allergy status to narcotic agent; Z90.49 Acquired absence of other specified parts of digestive tract; Z98.84 Bariatric surgery status; Z96.652 Presence of left artificial knee joint; Z99.89 Dependence on other enabling machines and devices
CPT/HCPCS: 36415; 76830; 80053; 81001; 81025; 85025; 85610; 85730; 99284

== ENCOUNTER 2020-02-19 17:50 | Emergency (ER) | payer MEDICARE, OTHER ==
[2020-02-19 17:56] VITALS: RESP 18
[2020-02-19] MEDS ORDERED: SODIUM CHLORIDE 0.9% 1,000 ML IV ONE (18:24)
[2020-02-19 18:57] LABS: Basophils % (A) 0 %; Eosinophils # (A) 0.2 k/uL (0-0.7); Eosinophils % (A) 1 %; HCT 43.9 % (34.0-46.0); HGB 14.2 gm/dL (11.4-16.0); Lymphocytes % (A) 19 %; MCH 30.1 pg (25.0-35.0); MCHC 32.4 g/dL (31.0-37.0); MCV 92.9 fL (80.0-100.0); Mean Platelet Volume 7.5; Monocytes # (A) 0.4 k/uL (0-1.0); Monocytes % (A) 4 %; Neutrophils # (A) 8.1 k/uL (1.3-7.7); Neutrophils % (A) 75 %; Platelet Count 264 k/uL (150-450); RBC 4.73 m/uL (3.80-5.40); RDW 14.9 % (11.5-15.5); WBC 10.9 k/uL (3.8-10.6)
[2020-02-19 19:07] LABS: ALT 41 U/L (4-34); AST 55 U/L (14-36); African American GFR (CKD) 61 (>60 ml/min/1.73 sqM); Albumin 3.6 g/dL (3.5-5.0); Alkaline Phosphatase 156 U/L (38-126); Anion Gap 4 mmol/L; Blood Urea Nitrogen 54 mg/dL (7-17); Calcium 8.7 mg/dL (8.4-10.2); Carbon Dioxide 35 mmol/L (22-30); Chloride 100 mmol/L (98-107); Glucose 137 mg/dL (74-99); Magnesium 2.5 mg/dL (1.6-2.3); Non-African American GFR(CKD) 53 (>60 ml/min/1.73 sqM); Potassium 3.8 mmol/L (3.5-5.1); Sodium 139 mmol/L (137-145); Total Bilirubin 0.6 mg/dL (0.2-1.3)
[2020-02-19] MEDS ORDERED: CEPHALEXIN 500MG STARTER PACK 4 CAP BTL PO STA (19:46)
--- NOTE | 2020-02-19 20:24 | ED ---
General Adult HPI - General Chief complaint: Extremity Problem,Nontraumatic Stated complaint: Leg pain Time Seen by Provider: 02/19/20 18:08 Source: patient, EMS Mode of arrival: EMS Limitations: physical limitation - History of Present Illness Initial comments: 59-year-old female presents to the emergency department with complaints of bilateral lower extremity swelling. States she was prescribed antibiotics by her primary care provider for her swollen legs but has not obtained them from the pharmacy. Reports moderate amount of discomfort associated with the legs that is relieved with Tylenol or Motrin. Also complains of high blood sugar. States she ran out of her insulin a week ago and it is currently on back order by her pharmacy. Reports sugar fluctuates between 150 and 500. Patient denies any recent rash, fever, chills, cough, shortness of breath, chest pain, abdominal pain, nausea, vomiting, diarrhea, constipation, back pain, numbness, tingling, dizziness, weakness, hematuria, dysuria, urinary urgency, urinary frequency, headache, visual changes, or any other complaints. - Related Data Home Medications Medication Instructions Recorded Confirmed Montelukast Sodium [Singulair] 10 mg PO HS 06/10/14 12/18/18 Simvastatin [Zocor] 40 mg PO HS 06/10/14 12/18/18 Furosemide [Lasix] 40 mg PO DAILY 07/19/16 12/18/18 Metoprolol Tartrate [Lopressor] 25 mg PO BID 07/19/16 12/18/18 traMADol HCL [Ultram] 100 mg PO Q6H PRN 07/19/16 12/18/18 Albuterol Inhaler (Mhu) [Ventolin 2 puff INHALATION RT-Q6H PRN 04/03/17 12/18/18 Hfa Inhaler (Mhu)] Canagliflozin [Invokana] 300 mg PO DAILY 04/03/17 12/18/18 Hydrochlorothiazide 12.5 mg PO HS 12/20/17 12/18/18 [hydroCHLOROthiazide] Insulin Lispro [humaLOG Kwikpen] 20 unit SQ DAILY@0400 PRN 12/20/17 12/18/18 Insulin Lispro [humaLOG Kwikpen] 50 unit SQ AC-TID 12/20/17 12/18/18 Latanoprost [Xalatan 0.005%] 1 drop BOTH EYES HS 12/20/17 12/18/18 Megestrol [Megace] 40 mg PO TID 12/20/17 12/18/18 Potassium Chloride ER [K-Dur 10] 20 meq PO BID 12/20/17 12/18/18 Venlafaxine HCl ER [Effexor Xr] 75 mg PO DAILY 12/20/17 12/18/18 Venlafaxine HCl ER [Effexor Xr] 150 mg PO DAILY 12/20/17 12/18/18 allopurinoL [Zyloprim] 300 mg PO DAILY 12/20/17 12/18/18 ARIPiprazole [Abilify] 30 mg PO DAILY 08/02/18 12/18/18 Albuterol Nebulized [Ventolin 2.5 mg INHALATION RT-QID PRN 08/02/18 12/18/18 Nebulized] Cetirizine HCl [Zyrtec] 10 mg PO HS PRN 08/02/18 12/18/18 Cholecalciferol [Vitamin D3] 1,000 units PO DAILY 08/02/18 12/18/18 Ferrous Sulfate [Feosol] 325 mg PO BID 08/02/18 12/18/18 Magnesium Oxide [Magox 400] 400 mg PO DAILY 08/02/18 12/18/18 Nystatin 100,000 Unit/gm Powd 1 applic TOPICAL DAILY PRN 08/02/18 12/18/18 [Mycostatin Powder] Nystatin 100,000Unit/gm Cream 1 applic TOPICAL DAILY PRN 08/02/18 12/18/18 [Mycostatin Cream] Triamcinolone 0.1% Cream [Kenalog 1 applicatio TOPICAL DAILY PRN 08/02/18 12/18/18 0.1% Cream] Previous Rx's Medication Instructions Recorded Insulin Detemir (Levemir) [Levemir] 100 unit SQ BID #0 04/06/17 Cephalexin [Keflex] 500 mg PO Q6H 7 Days cap 02/22/19 Insulin Lispro [Insulin Lispro 20 units SQ DAILY 7 Days #1 pen 03/15/19 Kwikpen U-100] Insulin Lispro [Insulin Lispro 50 units SQ AC-TID 7 Days #2 pen 03/15/19 Kwikpen U-100] Cephalexin [Keflex] 500 mg PO Q6HR 7 Days #28 cap 07/24/19 Cephalexin [Keflex] 500 mg PO Q6HR #40 cap 02/19/20 INSULIN LISPRO (HumaLOG) [humaLOG] 35 units SQ TID #2 vial 02/19/20 Allergies Allergy/AdvReac Type Severity Reaction Status Date / Time codeine Allergy Rash/Hives Verified 07/17/19 17:06 Review of Systems ROS Statement: Those systems with pertinent positive or pertinent negative responses have been documented in the HPI. ROS Other: All systems not noted in ROS Statement are negative. Past Medical History Past Medical History: Asthma, COPD, Diabetes Mellitus, Hyperlipidemia, Renal Disease Additional Past Medical History / Comment(s): USES A WALKER OR W/C TO AMBULATE, PREVIOUS USE OF O2 NONE NOW, HX OF GOUT, HIATAL HERNIA, UTI, WEARS DEPENDS, PER PT'S CAREGIVER-"PT STOPPED MENSTRUATING 15 YEARS AGO BUT HAS STARTED SPOTTING AND AT TIME HEAVY-HAD d&c APPROX 2 WEEKS AGO AT [facility] History of Any Multi-Drug Resistant Organisms: None Reported Past Surgical History: Bariatric Surgery, Cholecystectomy, Orthopedic Surgery Additional Past Surgical History / Comment(s): Total L knee 04/15/14, lap band placed then removed, gastric sleeve 08/19/2012 EGD. D and C Past Anesthesia/Blood Transfusion Reactions: No Reported Reaction Additional Past Anesthesia/Blood Transfusion Reaction / Comment(s): Pt has never recieved blood.CLAUSTERPHOBIA Past Psychological History: Anxiety, Depression, Schizophrenia Smoking Status: Never smoker Past Alcohol Use History: None Reported Past Drug Use History: None Reported - Past Family History Father Family Medical History: Musculoskeletal Disorder Additional Family Medical History / Comment(s): Father had parkinsons. He in his 80's. Mother Family Medical History: No Reported History General Exam Limitations: physical limitation General appearance: alert (Well-developed, well-nourished female presents in no acute distress. Initial temperature 99.2F, pulse 97, respirations 18, blood pressure 118/65, pulse ox 98% on room air.), in no apparent distress Respiratory exam: Present: normal lung sounds bilaterally. Absent: respiratory distress, wheezes, rales, rhonchi, stridor Cardiovascular Exam: Present: regular rate, normal rhythm, normal heart sounds. Absent: systolic murmur, diastolic murmur, rubs, gallop, clicks GI/Abdominal exam: Present: soft, normal bowel sounds. Absent: distended, tenderness, guarding, rebound, rigid Left Lower Leg exam: Present: swelling, erythema (Skin warm to touch and taut, areas of thick white drainage and thin yellow drainage noted. + 2 pedal and posttibial pulses) Right Lower Leg exam: Present: swelling, erythema (Skin warm to touch and taut, areas of thick white drainage and thin yellow drainage noted. + 2 pedal and posttibial pulses) Neurological exam: Present: alert, oriented X3, CN II-XII intact Psychiatric exam: Present: normal affect, normal mood Course Vital Signs 02/19/20 02/19/20 17:52 20:32 Temperature 99.2 F 98.9 F Pulse Rate 97 88 Respiratory 18 18 Rate Blood Pressure 118/65 135/67 O2 Sat by Pulse 98 98 Oximetry Medical Decision Making - Medical Decision Making 59-year-old female patient presents to the emergency department today for evaluation of bilateral lower extremity redness and swelling. Patient states that she was diagnosed with cellulitis and given prescription of antibiotics by her primary doctor, she has not been able to pick these up yet. Patient states she is also out of her Humalog insulin. Physical examination did reveal eryth carmen and swelling to the bilateral lower legs, there is thickened cobblestones skin consistent with venous insufficiency. Blood sugar was 137. Patient will be given prescription for Keflex, I will send this to a different pharmacy for her. She'll be also given a refill of her Humalog depending hop picker or for other prescription, her pharmacies closer the weekend. She is instructed take Tylenol Motrin for pain control. She is instructed to return immediately if she develops fever or is vomiting and unable to keep down her medications. She is instructed follow up with the primary care physician for recheck in 1-2 days. Return parameters are discussed in detail patient verbalizes understanding and agrees with this plan. - Lab Data Result diagrams: 02/19/20 18:40 02/19/20 18:40 Lab Results 02/19/20 02/19/20 Range/Units 18:40 18:40 WBC 10.9 H (3.8-10.6) k/uL RBC 4.73 (3.80-5.40) m/uL Hgb 14.2 (11.4-16.0) gm/dL Hct 43.9 (34.0-46.0) % MCV 92.9 (80.0-100.0) fL MCH 30.1 (25.0-35.0) pg MCHC 32.4 (31.0-37.0) g/dL RDW 14.9 (11.5-15.5) % Plt Count 264 (150-450) k/uL Neutrophils % 75 % Lymphocytes % 19 % Monocytes % 4 % Eosinophils % 1 % Basophils % 0 % Neutrophils # 8.1 H (1.3-7.7) k/uL Lymphocytes # 2.0 (1.0-4.8) k/uL Monocytes # 0.4 (0-1.0) k/uL Eosinophils # 0.2 (0-0.7) k/uL Basophils # 0.0 (0-0.2) k/uL Sodium 139 (137-145) mmol/L Potassium 3.8 (3.5-5.1) mmol/L Chloride 100 (98-107) mmol/L Carbon Dioxide 35 H (22-30) mmol/L Anion Gap 4 mmol/L BUN 54 H (7-17) mg/dL Creatinine 1.15 H (0.52-1.04) mg/dL Est GFR (CKD-EPI)AfAm 61 (>60 ml/min/1.73 sqM) Est GFR (CKD-EPI)NonAf 53 (>60 ml/min/1.73 sqM) Glucose 137 H (74-99) mg/dL Calcium 8.7 (8.4-10.2) mg/dL Magnesium 2.5 H (1.6-2.3) mg/dL Total Bilirubin 0.6 (0.2-1.3) mg/dL AST 55 H (14-36) U/L ALT 41 H (4-34) U/L Alkaline Phosphatase 156 H (38-126) U/L Total Protein 7.0 (6.3-8.2) g/dL Albumin 3.6 (3.5-5.0) g/dL Acetone, Qual Negative (Negative) Disposition Clinical Impression: Bilateral lower leg cellulitis Disposition: HOME SELF-CARE Condition: Good Instructions (If sedation given, give patient instructions): Cellulitis (ED) Additional Instructions: Take medications as directed. Follow-up with her primary care physician for recheck in 1-2 days. Return to the emergency department immediately for any new, worsening, or concerning symptoms. Prescriptions: INSULIN LISPRO (HumaLOG) [humaLOG] 35 units SQ TID #2 vial Cephalexin [Keflex] 500 mg PO Q6HR #40 cap Is patient prescribed a controlled substance at d/c from ED?: No Referrals: Alen Webb DO [Primary Care Provider] - 1-2 days Time of Disposition: 20:24
[2020-02-19 20:33] VITALS: BP 135/67; PULSE 88; TEMP 98.9
== END 2020-02-19 20:36 | disposition home or self-care (01) ==
LOC: EC 17:50
DX: L03.116 Cellulitis of left lower limb (principal); L03.115 Cellulitis of right lower limb; E11.65 Type 2 diabetes mellitus with hyperglycemia; E78.5 Hyperlipidemia, unspecified; E11.29 Type 2 diabetes mellitus with other diabetic kidney complication; N28.9 Disorder of kidney and ureter, unspecified; J44.9 Chronic obstructive pulmonary disease, unspecified; M10.9 Gout, unspecified; F41.9 Anxiety disorder, unspecified; F20.9 Schizophrenia, unspecified; F32.9 Major depressive disorder, single episode, unspecified; Z79.899 Other long term (current) drug therapy; Z79.84 Long term (current) use of oral hypoglycemic drugs; Z79.4 Long term (current) use of insulin; Z88.5 Allergy status to narcotic agent; Z98.890 Other specified postprocedural states
CPT/HCPCS: 80053; 82009; 83735; 85025; 87040; 96360; 99283

== ENCOUNTER 2020-04-16 11:15 | Emergency (ER) | payer MEDICARE, OTHER ==
[2020-04-16 11:26] VITALS: RESP 18; TEMP 97.6
[2020-04-16] MEDS ORDERED: methylPREDNISolone SOD SUCCI 125 MG/2 ML VIAL IV STA (11:46)
[2020-04-16] MEDS ORDERED: FAMOTIDINE 20 MG/2 ML VIAL IV STA (11:46)
[2020-04-16] MEDS ORDERED: diphenhydrAMINE 50 MG/ML 1 ML VIAL IVP STA (11:46)
--- NOTE | 2020-04-16 11:54 | ED ---
General Adult HPI - General Chief complaint: Allergic Reaction Stated complaint: Throat swelling Time Seen by Provider: 04/16/20 11:35 Source: patient, EMS, RN notes reviewed Mode of arrival: EMS Limitations: no limitations - History of Present Illness Initial comments: Patient is a pleasant 59-year-old female presenting to the emergency department with concern for throat swelling for ALLERGIC reaction. Patient has been on Cipro for several days for leg infection and that has improved. Symptoms include some gagging and swelling on the back of her throat. Symptoms have slowly progressed with the past 2-3 days. Patient denies any dyspnea in her chest or wheezing. No rash. No swelling of the tongue or lips or face - Related Data Home Medications Medication Instructions Recorded Confirmed Montelukast Sodium [Singulair] 10 mg PO HS 06/10/14 12/18/18 Simvastatin [Zocor] 40 mg PO HS 06/10/14 12/18/18 Furosemide [Lasix] 40 mg PO DAILY 07/19/16 12/18/18 Metoprolol Tartrate [Lopressor] 25 mg PO BID 07/19/16 12/18/18 traMADol HCL [Ultram] 100 mg PO Q6H PRN 07/19/16 12/18/18 Albuterol Inhaler (Mhu) [Ventolin 2 puff INHALATION RT-Q6H PRN 04/03/17 12/18/18 Hfa Inhaler (Mhu)] Canagliflozin [Invokana] 300 mg PO DAILY 04/03/17 12/18/18 Hydrochlorothiazide 12.5 mg PO HS 12/20/17 12/18/18 [hydroCHLOROthiazide] Insulin Lispro [humaLOG Kwikpen] 20 unit SQ DAILY@0400 PRN 12/20/17 12/18/18 Insulin Lispro [humaLOG Kwikpen] 50 unit SQ AC-TID 12/20/17 12/18/18 Latanoprost [Xalatan 0.005%] 1 drop BOTH EYES HS 12/20/17 12/18/18 Megestrol [Megace] 40 mg PO TID 12/20/17 12/18/18 Potassium Chloride ER [K-Dur 10] 20 meq PO BID 12/20/17 12/18/18 Venlafaxine HCl ER [Effexor Xr] 75 mg PO DAILY 12/20/17 12/18/18 Venlafaxine HCl ER [Effexor Xr] 150 mg PO DAILY 12/20/17 12/18/18 allopurinoL [Zyloprim] 300 mg PO DAILY 12/20/17 12/18/18 ARIPiprazole [Abilify] 30 mg PO DAILY 08/02/18 12/18/18 Albuterol Nebulized [Ventolin 2.5 mg INHALATION RT-QID PRN 08/02/18 12/18/18 Nebulized] Cetirizine HCl [Zyrtec] 10 mg PO HS PRN 08/02/18 12/18/18 Cholecalciferol [Vitamin D3] 1,000 units PO DAILY 08/02/18 12/18/18 Ferrous Sulfate [Feosol] 325 mg PO BID 08/02/18 12/18/18 Magnesium Oxide [Magox 400] 400 mg PO DAILY 08/02/18 12/18/18 Nystatin 100,000 Unit/gm Powd 1 applic TOPICAL DAILY PRN 08/02/18 12/18/18 [Mycostatin Powder] Nystatin 100,000Unit/gm Cream 1 applic TOPICAL DAILY PRN 08/02/18 12/18/18 [Mycostatin Cream] Triamcinolone 0.1% Cream [Kenalog 1 applicatio TOPICAL DAILY PRN 08/02/18 12/18/18 0.1% Cream] Previous Rx's Medication Instructions Recorded Insulin Detemir (Levemir) [Levemir] 100 unit SQ BID #0 04/06/17 Cephalexin [Keflex] 500 mg PO Q6H 7 Days cap 02/22/19 Insulin Lispro [Insulin Lispro 20 units SQ DAILY 7 Days #1 pen 03/15/19 Kwikpen U-100] Insulin Lispro [Insulin Lispro 50 units SQ AC-TID 7 Days #2 pen 03/15/19 Kwikpen U-100] Cephalexin [Keflex] 500 mg PO Q6HR 7 Days #28 cap 07/24/19 Cephalexin [Keflex] 500 mg PO Q6HR #40 cap 02/19/20 INSULIN LISPRO (HumaLOG) [humaLOG] 35 units SQ TID #2 vial 02/19/20 diphenhydrAMINE [Benadryl] 25 mg PO QID #20 capsule 11/20/20 predniSONE [Deltasone] 20 mg PO BID #10 tab 04/16/20 Allergies Allergy/AdvReac Type Severity Reaction Status Date / Time codeine Allergy Rash/Hives Verified 04/16/20 11:26 Review of Systems ROS Statement: Those systems with pertinent positive or pertinent negative responses have been documented in the HPI. ROS Other: All systems not noted in ROS Statement are negative. Constitutional: Denies: fever Eyes: Denies: eye pain ENT: Denies: ear pain Respiratory: Reports: as per HPI. Denies: cough Cardiovascular: Denies: chest pain Endocrine: Denies: fatigue Gastrointestinal: Denies: abdominal pain Genitourinary: Denies: dysuria Musculoskeletal: Denies: back pain Skin: Denies: rash Neurological: Denies: weakness Past Medical History Past Medical History: Asthma, COPD, Diabetes Mellitus, Hyperlipidemia, Renal Disease Additional Past Medical History / Comment(s): USES A WALKER OR W/C TO AMBULATE, PREVIOUS USE OF O2 NONE NOW, HX OF GOUT, HIATAL HERNIA, UTI, WEARS DEPENDS, PER PT'S CAREGIVER-"PT STOPPED MENSTRUATING 15 YEARS AGO BUT HAS STARTED SPOTTING AND AT TIME HEAVY-HAD d&c APPROX 2 WEEKS AGO AT [facility] IN [facility] History of Any Multi-Drug Resistant Organisms: None Reported Past Surgical History: Bariatric Surgery, Cholecystectomy, Orthopedic Surgery Additional Past Surgical History / Comment(s): Total L knee 04/15/14, lap band placed then removed, gastric sleeve 08/19/2012 EGD. D and C Past Anesthesia/Blood Transfusion Reactions: No Reported Reaction Additional Past Anesthesia/Blood Transfusion Reaction / Comment(s): Pt has never recieved blood.CLAUSTERPHOBIA Past Psychological History: Anxiety, Depression, Schizophrenia Smoking Status: Never smoker Past Alcohol Use History: None Reported Past Drug Use History: None Reported - Past Family History Father Family Medical History: Musculoskeletal Disorder Additional Family Medical History / Comment(s): Father had parkinsons. He in his 80's. Mother Family Medical History: No Reported History General Exam Limitations: no limitations General appearance: alert, in no apparent distress Head exam: Present: normocephalic Eye exam: Present: normal appearance ENT exam: Present: other (Mild edema of the uvula. No swelling of the lips or tongue.) Neck exam: Present: normal inspection Respiratory exam: Present: normal lung sounds bilaterally. Absent: respiratory distress, wheezes Cardiovascular Exam: Present: regular rate, normal rhythm GI/Abdominal exam: Present: soft. Absent: tenderness Extremities exam: Present: pedal edema Neurological exam: Present: alert Psychiatric exam: Present: normal affect, normal mood Skin exam: Present: other (Chronic skin discoloration bilateral lower extremities) Course Vital Signs 04/16/20 04/16/20 11:23 11:45 Temperature 97.6 F Pulse Rate 99 Respiratory 18 18 Rate Blood Pressure 138/71 O2 Sat by Pulse 97 Oximetry Disposition Clinical Impression: Allergic reaction Disposition: HOME SELF-CARE Condition: Stable Instructions (If sedation given, give patient instructions): Allergies (ED), General Allergic Reaction (ED) Additional Instructions: Hold Cipro. Please follow-up with your doctor in the next day or 2 for recheck and reconsideration of further medication as needed. Please return for any difficulty in breathing, increased swelling, rash, swelling of the tongue or lips or face, worsening symptoms or any other concerns. Prescription has been sent to your pharmacy, [facility] [place] Prescriptions: diphenhydrAMINE [Benadryl] 25 mg PO QID #20 capsule predniSONE [Deltasone] 20 mg PO BID #10 tab Is patient prescribed a controlled substance at d/c from ED?: No Referrals: Alen Webb DO [Primary Care Provider] - 1-2 days Time of Disposition: 11:51
[2020-04-16 12:08] VITALS: BP 127/94; PULSE 96
== END 2020-04-16 12:24 | disposition home or self-care (01) ==
LOC: EC 11:15
DX: T78.40XA Allergy, unspecified, initial encounter (principal); R22.1 Localized swelling, mass and lump, neck; J44.9 Chronic obstructive pulmonary disease, unspecified; E11.9 Type 2 diabetes mellitus without complications; E78.5 Hyperlipidemia, unspecified; F41.9 Anxiety disorder, unspecified; F32.9 Major depressive disorder, single episode, unspecified; F20.9 Schizophrenia, unspecified; Z79.4 Long term (current) use of insulin; Z79.899 Other long term (current) drug therapy; Z79.51 Long term (current) use of inhaled steroids; Z88.5 Allergy status to narcotic agent; Z98.84 Bariatric surgery status
CPT/HCPCS: 99283; 96374; 96375 ×2; J1200; J2930

== ENCOUNTER → 2020-10-05 | Outpatient (CLI) | payer MEDICARE, OTHER ==
[2020-10-05 10:15] VITALS: BP 137/83; PULSE 88; RESP 18; TEMP 97.8
--- NOTE | 2020-10-05 13:35 | MM ---
Reason for exam: screening (asymptomatic). Last mammogram was performed 2 years and 7 months ago. History: Patient is nulliparous. Cyst aspiration of the right breast. Physical Findings: A clinical breast exam by your physician is recommended on an annual basis and results should be correlated with mammographic findings. MG 3D Screening Mammo W/Cad Bilateral CC and MLO view(s) were taken. Prior study comparison: March 19, 2018, bilateral MG 3d screening mammo w/cad. January 08, 2015, bilateral MG screening mammo w CAD. There are scattered fibroglandular densities. Finding #1: There is a 6 mm mass in the subareolar position of the left breast. Finding #2: There are typically benign calcifications in both breasts. These results were verbally communicated with the patient and result sheet given to the patient on 10/05/20. ASSESSMENT: Incomplete: need additional imaging evaluation, BI-RAD 0 RECOMMENDATION: Ultrasound of the left breast.
--- NOTE | 2020-10-05 13:36 | USB ---
Reason for exam: additional evaluation requested from abnormal screening. History: Patient is nulliparous. Cyst aspiration of the right breast. Physical Findings: Dr. Hensley did breast exam. US Breast Workup Limited LT Left limited breast ultrasound including focal area of concern, retroareolar and axilla demonstrates a 0.6 x 0.5 x 0.3cm mixed lesion at 1-2 o'clock. These results were verbally communicated with the patient and result sheet given to the patient on 10/05/20. ASSESSMENT: Probably benign, BI-RAD 3 RECOMMENDATION: Follow-up diagnostic mammogram of the left breast in 6 months.
--- NOTE | 2020-10-05 14:06 | P.HPOB ---
History of Present Illness H&P Date: 10/05/20 Chief Complaint: The patient is here for her routine gynecologic exam and ma mmogram. This is a 60-year-old G0 with an LNMP of approximately 2000. The patient is here to establish with this office. She states her menstrual periods stopped about 20 years ago, but she states she has had on and off irregular infrequent light bleeding since her 40s. She states the light bleeding can occur about every 2 months. It is typically spotting but one year ago she did have some eris ts. Her last episode of light bleeding was about 2 weeks ago. She occasionally has some sharp pains associated with the bleeding but she also can have sharp pains without the bleeding. She states she had a D&C about 3-4 years ago was in [place] and she does not know the name of the doctor who did the D&C. She believes the doctor's first name was Anna. She was told there was some type of cancerous cells when she had the D&C and was treated with some type of medication. She states she did not have a hysterectomy. She does not know the name of the medication she was treated with. She did have a pelvic ultrasound on 07/17/2019 because of the postmenopausal bleeding. The exam was very limited because of her size. Endometrial thickness could not be visualized. She states she has never been sexually active. Review of Systems She states she has lost about 80 pounds since her gastric bypass in 2017. She denies respiratory, cardiac or GI problems. Past Medical History Past Medical History: Asthma, COPD, Diabetes Mellitus, Hyperlipidemia, Renal Disease Additional Past Medical History / Comment(s): OBESITY. USES A WALKER OR W/C TO AMBULATE, HX OF GOUT, HIATAL HERNIA, UTI, WEARS DEPENDS. PAST [employer] HISTORY: She has no history of STDs. She has never been sexually active. Postmenopausal bleeding, recurrent. History of Any Multi-Drug Resistant Organisms: None Reported Past Surgical History: Bariatric Surgery, Cholecystectomy, Orthopedic Surgery Additional Past Surgical History / Comment(s): Total L knee 04/15/14, lap band placed then removed, gastric sleeve 08/19/2012 EGD. D&C 2016 or 2017(?) Past Anesthesia/Blood Transfusion Reactions: No Reported Reaction Additional Past Anesthesia/Blood Transfusion Reaction / Comment(s): Pt has never recieved blood.CLAUSTERPHOBIA Past Psychological History: Anxiety, Depression, Schizophrenia Additional Psychological History / Comment(s): Pt has hx also of borderline personality disorder. Pt does not drive so this niece also gives her rides. PT LIVES AT THE [facility]. HAS A CAREGIVER THAIS. Smoking Status: Former smoker Past Alcohol Use History: None Reported Additional Past Alcohol Use History / Comment(s): Smoked as a teenager, then quit. Past Drug Use History: None Reported Additional History: She is disabled and lives on her own. Her caregiver, several times per week. She is single and has never been sexually active. - Past Family History Father Family Medical History: Diabetes Mellitus, Musculoskeletal Disorder Additional Family Medical History / Comment(s): Father had parkinsons. He in his 80's. Paternal aunt had breast cancer. Mother Family Medical History: Diabetes Mellitus Medications and Allergies Home Medications Medication Instructions Recorded Confirmed Type Simvastatin [Zocor] 40 mg PO HS 06/10/14 10/05/20 History Furosemide [Lasix] 40 mg PO DAILY 07/19/16 10/05/20 History Metoprolol Tartrate [Lopressor] 25 mg PO BID 07/19/16 10/05/20 History traMADol HCL [Ultram] 100 mg PO Q6H PRN 07/19/16 10/05/20 History Albuterol Inhaler (Mhu) [Ventolin 2 puff INHALATION RT-Q6H PRN 04/03/17 10/05/20 History Hfa Inhaler (Mhu)] Canagliflozin [Invokana] 100 mg PO DAILY 04/03/17 10/05/20 History Potassium Chloride ER [K-Dur 10] 20 meq PO BID 12/20/17 10/05/20 History Venlafaxine HCl ER [Effexor Xr] 75 mg PO DAILY 12/20/17 10/05/20 History Venlafaxine HCl ER [Effexor Xr] 150 mg PO DAILY 12/20/17 10/05/20 History allopurinoL [Zyloprim] 300 mg PO DAILY 12/20/17 10/05/20 History ARIPiprazole [Abilify] 30 mg PO DAILY 08/02/18 10/05/20 History Albuterol Nebulized [Ventolin 2.5 mg INHALATION RT-QID PRN 08/02/18 10/05/20 History Nebulized] Cholecalciferol [Vitamin D3] 1,000 units PO DAILY 08/02/18 10/05/20 History Magnesium Oxide [Magox 400] 400 mg PO DAILY 08/02/18 10/05/20 History Nystatin 100,000Unit/gm Cream 1 applic TOPICAL DAILY PRN 08/02/18 10/05/20 History [Mycostatin Cream] Albuterol Sulfate [Proair Hfa] 1 - 2 puff INHALATION Q6HR PRN 10/05/20 10/05/20 History Calcipotriene [Dovonex] 1 applic TOPICAL BID 10/05/20 10/05/20 History Dulaglutide [Trulicity] 0.75 mg SQ WEEKLY 10/05/20 10/05/20 History Fluticasone Nasal [place] [Flonase 2 spr EA NOSTRIL DAILY 10/05/20 10/05/20 History Nasal [place]] Fluticasone/Vilanterol [Breo 1 inhalation INHALATION DAILY 10/05/20 10/05/20 History Ellipta 200-25 Mcg INH] Insulin Glargine,Hum.rec.anlog 0 units SQ HS 10/05/20 10/05/20 History [Toujeo Max Solostar] Insulin Lispro [humaLOG Kwikpen] 0 unit SQ DAILY 10/05/20 10/05/20 History Multivit-Min/FA/Lycopen/Lutein 1 each PO DAILY 10/05/20 10/05/20 History [Centrum Silver Tablet] Pantoprazole [Protonix] 40 mg PO DAILY 10/05/20 10/05/20 History busPIRone HCL 10 mg PO BID 10/05/20 10/05/20 History Allergies Allergy/AdvReac Type Severity Reaction Status Date / Time codeine Allergy Rash/Hives Verified 10/05/20 10:12 Exam Vital Signs Temp Pulse Resp BP Pulse Ox 10/05/20 10:12 97.8 F 88 18 137/83 100 Intake and Output 10/04/20 10/05/20 10/05/20 22:59 06:59 14:59 Other: Weight 145.15 kg Height and weight were not obtainable since she is unable to stand on the scale without assistance. The patient states her height is 5 feet 2 inches and her weight is 320 pounds (unconfirmed). This would be give a BMI of 58.5. This is a well-developed well-nourished morbidly obese female who is alert and oriented times 3 in no acute distress. The patient is coming in a wheelchair and is unable to ambulate without assistance. She does have movement in her lower extremities but needed assistance to get on the examination table. HEENT: Within normal limits. NECK: Supple without mass or thyromegaly. CHEST AND LUNGS: Clear to auscultation. HEART: Regular rate and rhythm. BREASTS: Are without mass or discharge. AXILLARY EXAM: Negative for adenopathy. BACK: Negative for CVA tenderness. ABDOMEN: Soft, morbidly obese, nontender, without palpable masses. PELVIC EXAM: External genitalia reveals mild atrophy with mild generalized erythema without ulceration or focal lesions. Speculum examination was quite li mited secondary to her size and inability to visualize the cervix. The large speculum was unable to hold the vaginal sidewalls in this caused an obstruction of the view of the vagina. The vagina seemed to have a darker appearance in the anterior aspect of the vagina and could be described as more maroon than pink in appearance. I am uncertain as to whether this represented some type of vaginal lesion or some type of normal variant. The examination also seemed somewhat uncomfortable for the patient. There was a slightly thick cloudy discharge with some small chunks of white material. No blood was seen in the vagina. There was an odor consistent with possible urine. The cervix could not be visualized secondary to a very deep long vagina, obstructed view from the outer sidewalls of the vagina and because the patient was having discomfort upon opening the speculum. There is no evidence of prolapse. The uterus was not palpable secondary to her size. There are no palpable adnexal masses or tenderness however this is very limited secondary to her size. RECTAL EXAM: Rectovaginal exam is negative for mass or tenderness and is negative for occult blood. EXTREMITIES: Nontender. IMPRESSION: 1. 60-year-old virginal menopausal female with recurrent light postmenopausal bleeding. 2. Morbid obesity. 3. Some discoloration of the anterior vaginal wall which is darker than the posterior and sidewalls of the vagina. This possibly could represent some type of vaginal lesion or a normal variant. 4. Very limited speculum and pelvic examination secondary to her morbid obesity. 5. Incomplete database. The patient had a D&C approximately 2017 and she believes there may have been some type of cancerous cells, but she is uncertain of this and is uncertain of the medication that was used to treat it. The D&C may have been done at [facility] but she is uncertain of this and does not know the doctor's name who performed. 6. Vaginal discharge. Differential diagnosis will include Traci, bacterial vaginosis and urine. 7. Multiple medical problems PLAN: 1. Pap smear cotest from the back of the vagina was obtained. The cervix was not visualized secondary to her morbid obesity. 2. Self breast awareness was discussed with the patient. 3. Screening mammogram will be done today. 4. I will try to obtain records from [facility] from her D&C that was done within the last few years. 5. The patient will be referred for possible examination under anesthesia and D&C with possible hysteroscopy. She understands that I do not perform gynecologic surgery and a referral will be needed for further evaluation. 6. Affirm testing was obtained from the vaginal discharge. 7. Because of her morbid obesity and inability for her to support herself, we had to use 3 people to move her onto and off of the examination table. This was done with significant difficulty. I do not feel we are adequately set up to safely transfer the patient to the examination table and she may be referred to a Center that can handle her body habitus for future gynecologic examinations. This will be for the safety of the patient and caregivers.
[2020-10-06 05:09] LABS: Gardnerella Negative (Negative); Source Vagina; Trichomonas Negative (Negative)
== END ==
LOC: WWCWWP 09:43
PROVIDERS: ATTEND Obstetrics & Gynecology
DX: Z01.419 Encounter for gynecological examination (general) (routine) without abnormal findings (principal); N89.8 Other specified noninflammatory disorders of vagina; E11.9 Type 2 diabetes mellitus without complications; E78.5 Hyperlipidemia, unspecified; E66.01 Morbid (severe) obesity due to excess calories; N95.0 Postmenopausal bleeding; J44.9 Chronic obstructive pulmonary disease, unspecified; Z87.891 Personal history of nicotine dependence; F32.9 Major depressive disorder, single episode, unspecified; F41.9 Anxiety disorder, unspecified; F20.9 Schizophrenia, unspecified; Z80.3 Family history of malignant neoplasm of breast; Z79.4 Long term (current) use of insulin; Z88.5 Allergy status to narcotic agent; Z79.899 Other long term (current) drug therapy; Z12.31 Encounter for screening mammogram for malignant neoplasm of breast; Z68.43 Body mass index [BMI] 50.0-59.9, adult
CPT/HCPCS: 77063; 77067; 87480; 87510; 87660

== ENCOUNTER 2020-11-07 21:17 | Emergency (ER) | payer MEDICARE, OTHER ==
[2020-11-07] MEDS ORDERED: SODIUM CHLORIDE 0.9% 1,000 ML IV ONE ×2 (21:43→23:42)
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
--- NOTE | 2020-11-07 21:53 | XR ---
EXAMINATION TYPE: XR chest 1V portable DATE OF EXAM: 11/07/2020 COMPARISON: 08/02/2018 HISTORY: Difficulty breathing TECHNIQUE: Single view FINDINGS: There is no heart failure nor confluent pneumonic infiltrate. Costophrenic angles are clear . There are chest leads. IMPRESSION: No active cardiopulmonary disease. Normal heart. No change.
[2020-11-07 21:54] LABS: Basophils # (A) 0.1 k/uL (0-0.2); Basophils % (A) 1 %; Eosinophils # (A) 0.1 k/uL (0-0.7); Eosinophils % (A) 1 %; HCT 45.6 % (34.0-46.0); HGB 14.4 gm/dL (11.4-16.0); Lymphocytes # (A) 2.2 k/uL (1.0-4.8); Lymphocytes % (A) 19 %; MCH 29.2 pg (25.0-35.0); MCHC 31.5 g/dL (31.0-37.0); MCV 92.7 fL (80.0-100.0); Mean Platelet Volume 8.1; Monocytes # (A) 0.4 k/uL (0-1.0); Monocytes % (A) 3 %; Neutrophils # (A) 8.8 k/uL (1.3-7.7); Neutrophils % (A) 75 %; Platelet Count 213 k/uL (150-450); RBC 4.91 m/uL (3.80-5.40); RDW 15.1 % (11.5-15.5); WBC 11.8 k/uL (3.8-10.6)
[2020-11-07 22:04] LABS: INR 0.9 (<1.2); Partial Thromboplastin Time 22.5 sec (22.0-30.0); Prothrombin Time 9.9 sec (9.0-12.0)
[2020-11-07 22:08] LABS: Albumin 3.6 g/dL (3.5-5.0); Calcium 9.1 mg/dL (8.4-10.2); Magnesium 2.2 mg/dL (1.6-2.3); Potassium 4.5 mmol/L (3.5-5.1); Total Bilirubin 0.4 mg/dL (0.2-1.3); Total Protein 6.6 g/dL (6.3-8.2)
[2020-11-07 23:30] LABS: Color,Urine Yellow
[2020-11-07 23:31] LABS: Appearance,Urine Cloudy (Clear); Bilirubin,Urine Negative (Negative); Blood,Urine Small (Negative); Glucose,Urine (UA) 4+ (Negative); Ketones,Urine Negative (Negative); Leukocyte Esterase,Urine Large (Negative); Nitrite,Urine Negative (Negative); PH, Urine 5.5 (5.0-8.0); Protein,Urine Negative (Negative); Specific Gravity,Urine 1.015 (1.001-1.035); Urobilinogen,Urine <2.0 mg/dL (<2.0)
[2020-11-07 23:39] LABS: Bacteria,Urine Occasional /hpf; Hyaline Casts,Urine 3 /lpf (0-2); Mucus,Urine Rare /hpf; RBC,Urine 3 /hpf (0-5); Squamous Epithelial Cell,Urine 16 /hpf (0-4); WBC,Urine 160 /hpf (0-5)
[2020-11-07] MEDS ORDERED: INSULIN REGULAR 100 UNIT/ML VIAL IV STA (23:42)
[2020-11-08 00:53] LABS: Glucose,Whole Blood 289 mg/dL (75-99)
[2020-11-08 03:27] LABS: Glucose,Whole Blood 241 mg/dL (75-99)
[2020-11-08 04:25] VITALS: BP 110/74; PULSE 102; RESP 20; TEMP 98.1
== END 2020-11-08 04:25 | disposition home or self-care (01) ==
LOC: EEVIPCON 21:17 → EC 21:17
DX: E11.65 Type 2 diabetes mellitus with hyperglycemia (principal); N39.0 Urinary tract infection, site not specified; E66.9 Obesity, unspecified; E78.5 Hyperlipidemia, unspecified; J44.9 Chronic obstructive pulmonary disease, unspecified; M10.9 Gout, unspecified; Z79.4 Long term (current) use of insulin; Z87.891 Personal history of nicotine dependence; Z88.5 Allergy status to narcotic agent; Z79.51 Long term (current) use of inhaled steroids; Z68.43 Body mass index [BMI] 50.0-59.9, adult; Z79.899 Other long term (current) drug therapy
CPT/HCPCS: 99285; 96365; 96366; 96375; 36415 ×2; 93005; 80053; 82009; 83605; 83735; 84443; 84484; 85025; 85610; 85730; 81001; 87086; 87077; 87186; 71045; 96361; J0696

== ENCOUNTER 2021-08-21 11:53 | Emergency (ER) | payer MEDICARE, OTHER ==
[2021-08-21 11:58] VITALS: TEMP 98.7
[2021-08-21] MEDS ORDERED: oxyCODONE-APAP 5-325MG 1 EACH TAB PO STA (12:22)
--- NOTE | 2021-08-21 12:28 | ED ---
General Adult HPI - General Chief complaint: Extremity Problem,Nontraumatic Stated complaint: Leg Pain Time Seen by Provider: 08/21/21 12:07 Source: patient Mode of arrival: EMS Limitations: no limitations - History of Present Illness Initial comments: Dictation was produced using [employer] dictation software. please excuse any grammatical, word or spelling errors. Chief Complaint: Patient is 61-year-old female presents to the emergency department for sciatica pain History of Present Illness: Patient's 61-year-old female presents to the emergency department for sciatica pain. Patient states she's been having sciatic pain for the last 2 weeks. She seen by her primary care doctor provided her with Motrin. Patient states that the pain medications do not seem to alleviate her symptoms well enough. States that the pain is severe. States pain starts in her right buttock and shoots down her leg. She denies any back pain. The ROS documented in this emergency department record has been reviewed and confirmed by me. Those systems with pertinent positive or negative responses have been documented in the HPI. All other systems are other negative and/or noncontributory. PHYSICAL EXAM: General Impression: Alert and oriented x3, not in acute distress HEENT: Normocephalic atraumatic, extra-ocular movements intact, pupils equal and reactive to light bilaterally, mucous membranes moist. Cardiovascular: Heart regular rate and rhythm Chest: Able to complete full sentences, no retractions, no tachypnea Abdomen: abdomen soft, non-tender, non-distended, no organomegaly Musculoskeletal: Pulses present and equal in all extremities, no peripheral edema, palpatory tenderness to the right gluteal area just over the piriformis Motor: no focal deficits noted Neurological: CN II-XII grossly intact, no focal motor or sensory deficits noted Skin: Intact with no visualized rashes Psych: Normal affect and mood ED course: 61-year-old female presents to the emergency department for sciatica symptoms. Patient feels like her symptoms aren't improving with Motrin prescribed by her primary care doctor. All signs upon arrival are within acceptable limits. Patient given his dose of Percocet. Patient will be given 12 pills of [place] to take when necessary severe pain. Advised to follow up again with her primary care doctor. - Related Data Home Medications Medication Instructions Recorded Confirmed Simvastatin [Zocor] 40 mg PO HS 06/10/14 10/05/20 Furosemide [Lasix] 40 mg PO DAILY 07/19/16 10/05/20 Metoprolol Tartrate [Lopressor] 25 mg PO BID 07/19/16 10/05/20 traMADol HCL [Ultram] 100 mg PO Q6H PRN 07/19/16 10/05/20 Albuterol Inhaler (Mhu) [Ventolin 2 puff INHALATION RT-Q6H PRN 04/03/17 10/05/20 Hfa Inhaler (Mhu)] Canagliflozin [Invokana] 100 mg PO DAILY 04/03/17 10/05/20 Potassium Chloride ER [K-Dur 10] 20 meq PO BID 12/20/17 10/05/20 Venlafaxine HCl ER [Effexor Xr] 75 mg PO DAILY 12/20/17 10/05/20 Venlafaxine HCl ER [Effexor Xr] 150 mg PO DAILY 12/20/17 10/05/20 allopurinoL [Zyloprim] 300 mg PO DAILY 12/20/17 10/05/20 ARIPiprazole [Abilify] 30 mg PO DAILY 08/02/18 10/05/20 Albuterol Nebulized [Ventolin 2.5 mg INHALATION RT-QID PRN 08/02/18 10/05/20 Nebulized] Cholecalciferol [Vitamin D3] 1,000 units PO DAILY 08/02/18 10/05/20 Magnesium Oxide [Magox 400] 400 mg PO DAILY 08/02/18 10/05/20 Nystatin 100,000Unit/gm Cream 1 applic TOPICAL DAILY PRN 08/02/18 10/05/20 [Mycostatin Cream] Albuterol Sulfate [Proair Hfa] 1 - 2 puff INHALATION Q6HR PRN 10/05/20 10/05/20 Calcipotriene [Dovonex] 1 applic TOPICAL BID 10/05/20 10/05/20 Dulaglutide [Trulicity] 0.75 mg SQ WEEKLY 10/05/20 10/05/20 Fluticasone Nasal [place] [Flonase 2 spr EA NOSTRIL DAILY 10/05/20 10/05/20 Nasal [place]] Fluticasone/Vilanterol [Breo 1 inhalation INHALATION DAILY 10/05/20 10/05/20 Ellipta 200-25 Mcg INH] Insulin Glargine,Hum.rec.anlog 0 units SQ HS 10/05/20 10/05/20 [Toujeo Max Solostar] Insulin Lispro [humaLOG Kwikpen] 0 unit SQ DAILY 10/05/20 10/05/20 Multivit-Min/FA/Lycopen/Lutein 1 each PO DAILY 10/05/20 10/05/20 [Centrum Silver Tablet] Pantoprazole [Protonix] 40 mg PO DAILY 10/05/20 10/05/20 busPIRone HCL 10 mg PO BID 10/05/20 10/05/20 Previous Rx's Medication Instructions Recorded Cephalexin [Keflex] 500 mg PO Q6HR #28 cap 11/08/20 oxyCODONE HCL/ACETAMINOPHEN 1 tab PO Q6HR PRN 3 Days #12 tab 08/21/21 [Percocet 5-325 mg] Allergies Allergy/AdvReac Type Severity Reaction Status Date / Time codeine Allergy Rash/Hives Verified 08/21/21 11:57 Review of Systems ROS Statement: Those systems with pertinent positive or pertinent negative responses have been documented in the HPI. ROS Other: All systems not noted in ROS Statement are negative. Past Medical History Past Medical History: Asthma, COPD, Diabetes Mellitus, Hyperlipidemia, Renal Disease Additional Past Medical History / Comment(s): OBESITY. USES A WALKER OR W/C TO AMBULATE, HX OF GOUT, HIATAL HERNIA, UTI, WEARS DEPENDS. 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 She has never been sexually active. Postmenopausal bleeding, recurrent. History of Any Multi-Drug Resistant Organisms: None Reported Past Surgical History: Bariatric Surgery, Cholecystectomy, Orthopedic Surgery Additional Past Surgical History / Comment(s): Total L knee 04/15/14, lap band placed then removed, gastric sleeve 08/19/2012 EGD. D&C 2016 or 2017(?) Past Anesthesia/Blood Transfusion Reactions: No Reported Reaction Additional Past Anesthesia/Blood Transfusion Reaction / Comment(s): Pt has never recieved blood.CLAUSTERPHOBIA Past Psychological History: Anxiety, Depression, Schizophrenia Smoking Status: Former smoker Past Alcohol Use History: None Reported Past Drug Use History: None Reported - Past Family History Father Family Medical History: Diabetes Mellitus, Musculoskeletal Disorder Additional Family Medical History / Comment(s): Father had parkinsons. He in his 80's. Paternal aunt had breast cancer. Mother Family Medical History: Diabetes Mellitus General Exam Limitations: no limitations Course Vital Signs 08/21/21 11:55 Temperature 98.7 F Pulse Rate 90 Respiratory 22 Rate Blood Pressure 140/95 O2 Sat by Pulse 95 Oximetry Disposition Clinical Impression: Sciatica Disposition: HOME SELF-CARE Condition: Good Instructions (If sedation given, give patient instructions): Sciatica (ED) Prescriptions: oxyCODONE HCL/ACETAMINOPHEN [Percocet 5-325 mg] 1 tab PO Q6HR PRN 3 Days #12 tab PRN Reason: Pain Is patient prescribed a controlled substance at d/c from ED?: Yes If prescribed controlled substance>3 days was MAPS reviewed?: Prescribed <3 Days Referrals: Min Tian MD [REFERRING] - 1-2 days
[2021-08-21] MEDS ORDERED: LIDOCAINE 5% PATCH TOPICAL STA (12:31)
[2021-08-21 13:27] VITALS: BP 154/87; PULSE 78; RESP 20
== END 2021-08-21 13:27 | disposition home or self-care (01) ==
LOC: EC 11:53
DX: M54.30 Sciatica, unspecified side (principal); E11.9 Type 2 diabetes mellitus without complications; I10 Essential (primary) hypertension; J45.909 Unspecified asthma, uncomplicated; Z87.891 Personal history of nicotine dependence; Z88.5 Allergy status to narcotic agent
CPT/HCPCS: 99283

== ENCOUNTER 2021-11-05 17:02 | Emergency (ER) | payer MEDICARE, OTHER ==
[2021-11-05 17:09] VITALS: TEMP 98.7
[2021-11-05] MEDS ORDERED: SODIUM CHLORIDE 0.9% 1,000 ML IV STA (17:15)
--- NOTE | 2021-11-05 17:21 | ED ---
General Adult HPI - General Chief complaint: Recheck/Abnormal Lab/Rx Stated complaint: High BS Time Seen by Provider: 11/05/21 17:10 Source: patient, EMS, RN notes reviewed Mode of arrival: EMS Limitations: no limitations - History of Present Illness Initial comments: This is a pleasant 61-year-old female who presents emergency department comp laining of high blood sugars. Patient states that she was admitted to [facility] in September for urinary tract infection subsequently sent to [facility]. She has been home for several days. States that her glucometer continues to run high. Her only other complaint is generalized weakness. Patient states that she finished a course of antibiotics and they recheck the urine and confirmed there was no subsequent infection. Patient denying any other signs or symptoms of infection. No fever or chills. No cough. No sore throat. No skin rashes or lesions. Patient does have long- standing, insulin dependent diabetes, type II, patient has neuropathy of both legs. No headache, no fever or chills, no changes in vision or hearing, no sore throat or difficulty with speech, no neck pain, no chest pain or shortness of breath, no abdominal pain, no nausea or vomiting, no changes in urination or bowel movements, no numbness or tingling, no skin rashes or lesions. - Related Data Home Medications Medication Instructions Recorded Confirmed Simvastatin [Zocor] 40 mg PO HS 06/10/14 10/05/20 Furosemide [Lasix] 40 mg PO DAILY 07/19/16 10/05/20 Metoprolol Tartrate [Lopressor] 25 mg PO BID 07/19/16 10/05/20 traMADol HCL [Ultram] 100 mg PO Q6H PRN 07/19/16 10/05/20 Albuterol Inhaler (Mhu) [Ventolin 2 puff INHALATION RT-Q6H PRN 04/03/17 10/05/20 Hfa Inhaler (Mhu)] Canagliflozin [Invokana] 100 mg PO DAILY 04/03/17 10/05/20 Potassium Chloride ER [K-Dur 10] 20 meq PO BID 12/20/17 10/05/20 Venlafaxine HCl ER [Effexor Xr] 75 mg PO DAILY 12/20/17 10/05/20 Venlafaxine HCl ER [Effexor Xr] 150 mg PO DAILY 12/20/17 10/05/20 allopurinoL [Zyloprim] 300 mg PO DAILY 12/20/17 10/05/20 ARIPiprazole [Abilify] 30 mg PO DAILY 08/02/18 10/05/20 Albuterol Nebulized [Ventolin 2.5 mg INHALATION RT-QID PRN 08/02/18 10/05/20 Nebulized] Cholecalciferol [Vitamin D3] 1,000 units PO DAILY 08/02/18 10/05/20 Magnesium Oxide [Magox 400] 400 mg PO DAILY 08/02/18 10/05/20 Nystatin 100,000Unit/gm Cream 1 applic TOPICAL DAILY PRN 08/02/18 10/05/20 [Mycostatin Cream] Albuterol Sulfate [Proair Hfa] 1 - 2 puff INHALATION Q6HR PRN 10/05/20 10/05/20 Calcipotriene [Dovonex] 1 applic TOPICAL BID 10/05/20 10/05/20 Dulaglutide [Trulicity] 0.75 mg SQ WEEKLY 10/05/20 10/05/20 Fluticasone Nasal [place] [Flonase 2 spr EA NOSTRIL DAILY 10/05/20 10/05/20 Nasal [place]] Fluticasone/Vilanterol [Breo 1 inhalation INHALATION DAILY 10/05/20 10/05/20 Ellipta 200-25 Mcg INH] Insulin Glargine,Hum.rec.anlog 0 units SQ HS 10/05/20 10/05/20 [Toujeo Max Solostar] Insulin Lispro [humaLOG Kwikpen] 0 unit SQ DAILY 10/05/20 10/05/20 Multivit-Min/FA/Lycopen/Lutein 1 each PO DAILY 10/05/20 10/05/20 [Centrum Silver Tablet] Pantoprazole [Protonix] 40 mg PO DAILY 10/05/20 10/05/20 busPIRone HCL 10 mg PO BID 10/05/20 10/05/20 Previous Rx's Medication Instructions Recorded Cephalexin [Keflex] 500 mg PO Q6HR #28 cap 11/08/20 oxyCODONE HCL/ACETAMINOPHEN 1 tab PO Q6HR PRN 3 Days #12 tab 08/21/21 [Percocet 5-325 mg] Allergies Allergy/AdvReac Type Severity Reaction Status Date / Time codeine Allergy Rash/Hives Verified 11/05/21 17:09 Review of Systems ROS Statement: Those systems with pertinent positive or pertinent negative responses have been documented in the HPI. ROS Other: All systems not noted in ROS Statement are negative. Past Medical History Past Medical History: Asthma, COPD, Diabetes Mellitus, Hyperlipidemia, Renal Disease Additional Past Medical History / Comment(s): OBESITY. USES A WALKER OR W/C TO AMBULATE, HX OF GOUT, HIATAL HERNIA, UTI, WEARS DEPENDS. 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 She has never been sexually active. Postmenopausal bleeding, recurrent. History of Any Multi-Drug Resistant Organisms: None Reported Past Surgical History: Bariatric Surgery, Cholecystectomy, Orthopedic Surgery Additional Past Surgical History / Comment(s): Total L knee 04/15/14, lap band placed then removed, gastric sleeve 08/19/2012 EGD. D&C 2016 or 2017(?) Past Anesthesia/Blood Transfusion Reactions: No Reported Reaction Additional Past Anesthesia/Blood Transfusion Reaction / Comment(s): Pt has never recieved blood.CLAUSTERPHOBIA Past Psychological History: Anxiety, Depression, Schizophrenia Smoking Status: Never smoker Past Alcohol Use History: None Reported Past Drug Use History: None Reported - Past Family History Father Family Medical History: Diabetes Mellitus, Musculoskeletal Disorder Additional Family Medical History / Comment(s): Father had parkinsons. He in his 80's. Paternal aunt had breast cancer. Mother Family Medical History: Diabetes Mellitus General Exam - General Exam Comments Initial Comments: Vital signs reviewed, patient does not appear to be ill or toxic. Limitations: no limitations General appearance: alert, in no apparent distress, obese Head exam: Present: atraumatic, normocephalic, normal inspection Eye exam: Present: normal appearance, PERRL, EOMI. Absent: scleral icterus, conjunctival injection, periorbital swelling ENT exam: Present: normal exam, normal oropharynx, mucous membranes dry, mucous membranes moist, TM's normal bilaterally, normal external ear exam Neck exam: Present: normal inspection. Absent: tenderness, meningismus, lymphadenopathy Respiratory exam: Present: normal lung sounds bilaterally. Absent: respiratory distress, wheezes, rales, rhonchi, stridor Cardiovascular Exam: Present: regular rate, normal rhythm, normal heart sounds. Absent: systolic murmur, diastolic murmur, rubs, gallop, clicks GI/Abdominal exam: Present: soft, normal bowel sounds. Absent: distended, tenderness, guarding, rebound, rigid Extremities exam: Present: normal inspection, full ROM, normal capillary refill. Absent: tenderness, pedal edema, joint swelling, calf tenderness Back exam: Present: normal inspection Neurological exam: Present: alert, oriented X3, CN II-XII intact Psychiatric exam: Present: normal affect, normal mood Skin exam: Present: warm, dry, intact, normal color. Absent: rash Course Vital Signs 11/05/21 11/05/21 11/05/21 17:03 18:26 19:46 Temperature 98.7 F Pulse Rate 113 H 105 H 105 H Respiratory 18 18 18 Rate Blood Pressure 148/65 139/69 O2 Sat by Pulse 98 99 95 Oximetry - Reevaluation(s) Reevaluation #1: 11/05/21 20:24 Medical record is reviewed Patient asymptomatic, hemodynamically stable, no distress, no vomiting, able to eat and drink, blood sugar elevated but no evidence of DKA or hyperosmolar state pH 7.5, acetone negative Patient is informed of results and questions answered Patient in no distress EKG Findings - EKG Comments: EKG Findings:: EKG done at 1748 and read by the ED attending physician reveals sinus tachycardia with a rate of 106. Right bundle branch block. No evidence of acute changes. Left anterior fascicular block. Baptism 125 ms. Normal intervals otherwise. Left axis deviation. When compared to the previous study from October 2020 there is no change. Medical Decision Making - Medical Decision Making Patient in no distress. Suspect patient is having hyperglycemia. Apparently she states she did have some medication changes when she left the other hospital encounter was sent to rehabilitation. She also states that her sugars were running high even at [facility]. Patient has an appointment Sunday with her analytical lab analyst, Dr. Spencer. Follow-up with your regular physician as directed. Return to the ER immediately if any symptoms worsen, new symptoms arise, or any other problems develop. - Lab Data Result diagrams: 11/05/21 17:40 11/05/21 17:40 Lab Results 11/05/21 11/05/21 11/05/21 Range/Units 17:40 17:40 17:40 WBC 10.8 H (3.8-10.6) k/uL RBC 4.58 (3.80-5.40) m/uL Hgb 13.7 (11.4-16.0) gm/dL Hct 44.2 (34.0-46.0) % MCV 96.4 (80.0-100.0) fL MCH 29.9 (25.0-35.0) pg MCHC 31.0 (31.0-37.0) g/dL RDW 13.6 (11.5-15.5) % Plt Count 209 (150-450) k/uL MPV 8.7 Neutrophils % 73 % Lymphocytes % 21 % Monocytes % 3 % Eosinophils % 2 % Basophils % 0 % Neutrophils # 7.9 H (1.3-7.7) k/uL Lymphocytes # 2.2 (1.0-4.8) k/uL Monocytes # 0.3 (0-1.0) k/uL Eosinophils # 0.2 (0-0.7) k/uL Basophils # 0.1 (0-0.2) k/uL VBG pH (7.31-7.41) VBG pCO2 (37-51) mmHg VBG HCO3 (24-28) mmol/L Sodium 138 (137-145) mmol/L Potassium 4.0 (3.5-5.1) mmol/L Chloride 98 (98-107) mmol/L Carbon Dioxide 32 H (22-30) mmol/L Anion Gap 8 mmol/L BUN 40 H (7-17) mg/dL Creatinine 1.15 H (0.52-1.04) mg/dL Est GFR (CKD-EPI)AfAm 60 (>60 ml/min/1.73 sqM) Est GFR (CKD-EPI)NonAf 52 (>60 ml/min/1.73 sqM) Glucose 322 H (74-99) mg/dL POC Glucose (mg/dL) (75-99) mg/dL POC Glu School Clerk ID Calcium 8.7 (8.4-10.2) mg/dL Phosphorus 3.6 (2.5-4.5) mg/dL Magnesium 2.2 (1.6-2.3) mg/dL Total Bilirubin 0.3 (0.2-1.3) mg/dL AST 25 (14-36) U/L ALT 31 (4-34) U/L Alkaline Phosphatase 153 H (38-126) U/L Troponin I <0.012 (0.000-0.034) ng/mL Total Protein 7.0 (6.3-8.2) g/dL Albumin 3.8 (3.5-5.0) g/dL TSH 1.820 (0.465-4.680) mIU/L Acetone, Qual Negative (Negative) 11/05/21 11/05/21 Range/Units 18:02 19:22 WBC (3.8-10.6) k/uL RBC (3.80-5.40) m/uL Hgb (11.4-16.0) gm/dL Hct (34.0-46.0) % MCV (80.0-100.0) fL MCH (25.0-35.0) pg MCHC (31.0-37.0) g/dL RDW (11.5-15.5) % Plt Count (150-450) k/uL MPV Neutrophils % % Lymphocytes % % Monocytes % % Eosinophils % % Basophils % % Neutrophils # (1.3-7.7) k/uL Lymphocytes # (1.0-4.8) k/uL Monocytes # (0-1.0) k/uL Eosinophils # (0-0.7) k/uL Basophils # (0-0.2) k/uL VBG pH 7.45 H (7.31-7.41) VBG pCO2 43 (37-51) mmHg VBG HCO3 29 H (24-28) mmol/L Sodium (137-145) mmol/L Potassium (3.5-5.1) mmol/L Chloride (98-107) mmol/L Carbon Dioxide (22-30) mmol/L Anion Gap mmol/L BUN (7-17) mg/dL Creatinine (0.52-1.04) mg/dL Est GFR (CKD-EPI)AfAm (>60 ml/min/1.73 sqM) Est GFR (CKD-EPI)NonAf (>60 ml/min/1.73 sqM) Glucose (74-99) mg/dL POC Glucose (mg/dL) 245 H (75-99) mg/dL POC Glu School Clerk ID Lakshmi Ponce Calcium (8.4-10.2) mg/dL Phosphorus (2.5-4.5) mg/dL Magnesium (1.6-2.3) mg/dL Total Bilirubin (0.2-1.3) mg/dL AST (14-36) U/L ALT (4-34) U/L Alkaline Phosphatase (38-126) U/L Troponin I (0.000-0.034) ng/mL Total Protein (6.3-8.2) g/dL Albumin (3.5-5.0) g/dL TSH (0.465-4.680) mIU/L Acetone, Qual (Negative) Disposition Clinical Impression: Hyperglycemia due to type 1 diabetes mellitus, Non-compliant patient Disposition: HOME SELF-CARE Condition: Good Instructions (If sedation given, give patient instructions): Diabetic Hyperglycemia (ED) Additional Instructions: Stay away from any concentrated sugars. Follow-up with your analytical lab analyst on Sunday as planned. Monitor sugars as directed by your regular physician and your analytical lab analyst. Follow-up with your regular physician as directed. Return to the ER immediately if any symptoms worsen, new symptoms arise, or any other problems develop. Is patient prescribed a controlled substance at d/c from ED?: No Referrals: Min Tian MD [Primary Care Provider] - 1-2 days Tamara Spencer MD [STAFF PHYSICIAN] - 11/07/21 Time of Disposition: 20:27
[2021-11-05 18:03] LABS: Glucose,Whole Blood 245 mg/dL (75-99)
[2021-11-05 18:09] LABS: Basophils # (A) 0.1 k/uL (0-0.2); Basophils % (A) 0 %; Eosinophils # (A) 0.2 k/uL (0-0.7); Eosinophils % (A) 2 %; HCT 44.2 % (34.0-46.0); HGB 13.7 gm/dL (11.4-16.0); Lymphocytes # (A) 2.2 k/uL (1.0-4.8); Lymphocytes % (A) 21 %; MCH 29.9 pg (25.0-35.0); MCV 96.4 fL (80.0-100.0); Mean Platelet Volume 8.7; Monocytes # (A) 0.3 k/uL (0-1.0); Monocytes % (A) 3 %; Neutrophils # (A) 7.9 k/uL (1.3-7.7); Neutrophils % (A) 73 %; Platelet Count 209 k/uL (150-450); RBC 4.58 m/uL (3.80-5.40); RDW 13.6 % (11.5-15.5); WBC 10.8 k/uL (3.8-10.6)
[2021-11-05 18:24] LABS: ALT 31 U/L (4-34); AST 25 U/L (14-36); African American GFR (CKD) 60 (>60 ml/min/1.73 sqM); Albumin 3.8 g/dL (3.5-5.0); Alkaline Phosphatase 153 U/L (38-126); Anion Gap 8 mmol/L; Blood Urea Nitrogen 40 mg/dL (7-17); Calcium 8.7 mg/dL (8.4-10.2); Carbon Dioxide 32 mmol/L (22-30); Chloride 98 mmol/L (98-107); Glucose 322 mg/dL (74-99); Magnesium 2.2 mg/dL (1.6-2.3); Non-African American GFR(CKD) 52 (>60 ml/min/1.73 sqM); Phosphorus 3.6 mg/dL (2.5-4.5); Sodium 138 mmol/L (137-145); Total Bilirubin 0.3 mg/dL (0.2-1.3)
--- NOTE | 2021-11-05 18:39 | XR ---
EXAMINATION TYPE: XR chest 1V portable DATE OF EXAM: 11/05/2021 COMPARISON: 11/07/2020 HISTORY: Hyperglycemia TECHNIQUE: Single view FINDINGS: There is no heart failure nor confluent pneumonic infiltrate. Costophrenic angles are clear. There ar e chest leads. Bony thorax is intact. IMPRESSION: No active cardiopulmonary disease. No change.
[2021-11-05 19:41] LABS: VBG PH 7.45 (7.31-7.41)
[2021-11-05 20:59] VITALS: BP 123/67; PULSE 101; RESP 20
== END 2021-11-05 21:00 | disposition home or self-care (01) ==
LOC: EC 17:02
DX: E10.65 Type 1 diabetes mellitus with hyperglycemia (principal); I10 Essential (primary) hypertension; E66.9 Obesity, unspecified; E78.5 Hyperlipidemia, unspecified; M10.9 Gout, unspecified; J44.9 Chronic obstructive pulmonary disease, unspecified; Z91.19 Patient's noncompliance with other medical treatment and regimen; Z88.5 Allergy status to narcotic agent; Z79.899 Other long term (current) drug therapy; Z79.51 Long term (current) use of inhaled steroids; Z68.27 Body mass index [BMI] 27.0-27.9, adult
CPT/HCPCS: 36415; 71045; 80053; 82009; 82803; 83735; 84100; 84443; 84484; 85025; 93005; 96360; 96361; 99285

== ENCOUNTER → 2021-11-18 | Outpatient (CLI) | payer MEDICARE, OTHER ==
--- NOTE | 2021-11-21 14:16 | MM ---
Reason for Exam: Screening (asymptomatic). Last mammogram was performed 1 year(s) and 1 month(s) ago. Patient History: Menarche at age 14. Patient has no children. Postmenopausal. Cyst Aspiration on the Right side. Risk Values: Samara 5 year model risk: 1.5%. NCI Lifetime model risk: 8.3%. Prior Study Comparison: 01/08/2015 Bilateral Screening Mammogram, [facility]. 03/19/2018 Bilateral Screening Mammogram, [facility]. 10/05/2020 Bilateral Screening Mammogram, [facility]. Tissue Density: The breast tissue is almost entirely fat. Findings: Analyzed By CAD. Chronic nodularity anterior left breast. Benign vascular calcifications bilaterally. No significant change from prior exams. Overall Assessment: Benign, BI-RAD 2 Management: Screening Mammogram of both breasts in 1 year. 1. Patient should continue monthly self breast exams. 2. A clinical breast exam by your physician is recommended on an annual basis. 3. This exam should not preclude additional follow-up of suspicious palpable abnormalities. Electronically signed and approved by: Rosalio Mayen M.D. Radiologist
== END | disposition home or self-care (01) ==
LOC: EEVIPCON 10-07 11:40 → RADMAMWWP 13:12
PROVIDERS: ATTEND General Practice
DX: Z12.31 Encounter for screening mammogram for malignant neoplasm of breast (principal); I10 Essential (primary) hypertension; E11.22 Type 2 diabetes mellitus with diabetic chronic kidney disease; I73.9 Peripheral vascular disease, unspecified; E11.42 Type 2 diabetes mellitus with diabetic polyneuropathy; Z91.14 Patient's other noncompliance with medication regimen; Z79.899 Other long term (current) drug therapy
CPT/HCPCS: 77063; 77067

== ENCOUNTER → 2022-02-08 | Outpatient (CLI) | payer MEDICARE, OTHER ==
--- NOTE | 2022-02-08 15:02 | US ---
EXAMINATION TYPE: US kidneys/renal and bladder DATE OF EXAM: 02/08/2022 COMPARISON: NONE CLINICAL HISTORY: N18.32 Chronic kidney disease, stage 3b. EXAM MEASUREMENTS: Right Kidney: 10.4 x 4.6 x 5.6 cm Left Kidney: 9.7 x 4.3 x 4.5 cm Morbidly obese patient scanned in her [place] wheelchair. Right Kidney: portions visualized wnl, limited views, inferior pole obscured by bowel gas Left Kidney: very limited visualization, no gross abnormality seen Bladder: Not attempted due to patients large panus and sitting upright for exam There is no evidence for hydronephrosis at this point in time. No nephrolithiasis is seen. No gerardo s are identified. The urinary bladder is anechoic. Bilateral ureteral jets are seen. The liver is hyperechoic. IMPRESSION: 1. Limited exam without evidence for acute process 2. Hepatocellular disease commonly related to hepatic steatosis.
== END | disposition home or self-care (01) ==
LOC: RADUSWWP 14:21
PROVIDERS: ATTEND Internal Medicine Nephrology
DX: N18.32 Chronic kidney disease, stage 3b (principal)
CPT/HCPCS: 76770

== ENCOUNTER 2022-09-06 14:22 | Inpatient (IN) | payer MEDICARE, OTHER ==
[2022-09-06] MEDS ORDERED: FUROSEMIDE 10 MG/ML 10 ML VIAL IV STA (15:03)
[2022-09-06 15:35] LABS: Basophils % (A) 0 %; Eosinophils # (A) 0.1 k/uL (0-0.7); Eosinophils % (A) 1 %; HCT 38.8 % (34.0-46.0); Lymphocytes # (A) 1.8 k/uL (1.0-4.8); Lymphocytes % (A) 19 %; MCH 30.9 pg (25.0-35.0); MCHC 33.4 g/dL (31.0-37.0); MCV 92.5 fL (80.0-100.0); Monocytes # (A) 0.4 k/uL (0-1.0); Monocytes % (A) 4 %; Neutrophils # (A) 7.4 k/uL (1.3-7.7); Neutrophils % (A) 75 %; Platelet Count 175 k/uL (150-450); RBC 4.19 m/uL (3.80-5.40); RDW 14.2 % (11.5-15.5); WBC 9.8 k/uL (3.8-10.6)
--- NOTE | 2022-09-06 15:36 | XR ---
EXAMINATION TYPE: XR chest 2V DATE OF EXAM: 09/06/2022 3:31 PM COMPARISON: Chest radiographs from 11/05/2021 TECHNIQUE: XR chest 2V Frontal and lateral views of the chest. CLINICAL INDICATION:Female, 62 years old with history of Difficulty breathing ; FINDINGS: Lungs/Pleura: There is no evidence of pleural effusion, focal consolidation, or pneumothorax. Pulmonary vascularity: Unremarkable. Heart/mediastinum: Cardiomediastinal silhouette is prominent in size. Musculoskeletal: No acute osseous pathology. Degenerative changes of the spine. IMPRESSION: No acute cardiopulmonary disease/process.
[2022-09-06 15:52] LABS: Albumin 3.2 g/dL (3.5-5.0); Calcium 8.4 mg/dL (8.4-10.2); Total Bilirubin 0.5 mg/dL (0.2-1.3); Total Protein 6.5 g/dL (6.3-8.2)
[2022-09-06 16:08] LABS: Potassium 4.5 mmol/L (3.5-5.1)
--- NOTE | 2022-09-06 17:41 | ED ---
General Adult HPI - General Chief complaint: Shortness of Breath Stated complaint: Celulitis legs Time Seen by Provider: 09/06/22 14:31 Source: patient, EMS, RN notes reviewed, old records reviewed Mode of arrival: EMS Limitations: no limitations - History of Present Illness Initial comments: This is a 62-year-old female who presents emergency department with her caregiver caregiver states that she is getting increased swelling to her legs. And patient is unable to take care of herself she's unable to ambulate even with a walker at this point. Caregiver states she sits in her chair and just urinates in her chair to the point where there are flies maggots all over her chair and her [place] with urine because she won't get up to go to the bathroom and now she they're considering taking her because she will not take care of herself at all. Patient also is over eating and then taking too much insulin at night so that her sugar stays down. Patient is willing to go to a care home but they are still waiting to get her in as an outpatient. Family states she continues to fall and there also. She can injure herself if she does try to ambulate so she just sits in a chair and urinates all over - Related Data Home Medications Medication Instructions Recorded Confirmed Simvastatin [Zocor] 40 mg PO HS 06/10/14 09/06/22 Furosemide [Lasix] 40 mg PO DAILY 07/19/16 09/06/22 Albuterol Inhaler [Ventolin Hfa 2 puff INHALATION RT-Q6H PRN 04/03/17 09/06/22 Inhaler] Venlafaxine HCl ER [Effexor Xr] 300 mg PO DAILY 12/20/17 09/06/22 allopurinoL [Zyloprim] 300 mg PO HS 12/20/17 09/06/22 ARIPiprazole [Abilify] 30 mg PO DAILY 08/02/18 09/06/22 Magnesium Oxide [Magox 400] 400 mg PO BID 08/02/18 09/06/22 Fluticasone/Vilanterol [Breo 1 puff INHALATION RT-DAILY 10/05/20 09/06/22 Ellipta 200-25 Mcg INH] Insulin Glargine,Hum.rec.anlog 80 units SQ HS 10/05/20 09/06/22 [Beti Andrews] Insulin Lispro [humaLOG Kwikpen] 30 unit SQ AC-TID 10/05/20 09/06/22 Canagliflozin [Invokana] 100 mg PO DAILY 09/06/22 09/06/22 Cetirizine HCl [Zyrtec] 10 mg PO DAILY 09/06/22 09/06/22 Docusate [Colace] 100 mg PO BID 09/06/22 09/06/22 Dulaglutide [Trulicity] 4.5 mg PO SA 09/06/22 09/06/22 Gabapentin [Neurontin] 100 mg PO TID 09/06/22 09/06/22 Loperamide HCl [Imodium A-D] 4 mg PO QID PRN 09/06/22 09/06/22 Montelukast [Singulair] 10 mg PO DAILY 09/06/22 09/06/22 Potassium Chloride ER [K-Dur 20] 20 meq PO DAILY 09/06/22 09/06/22 busPIRone HCL 15 mg PO TID 09/06/22 09/06/22 calcitrioL [Calcitriol] 0.25 mcg PO MOFR 09/06/22 09/06/22 hydroCHLOROthiazide 25 mg PO DAILY 09/06/22 09/06/22 Allergies Allergy/AdvReac Type Severity Reaction Status Date / Time codeine Allergy Rash/Hives Verified 09/06/22 16:30 Review of Systems ROS Statement: Those systems with pertinent positive or pertinent negative responses have been documented in the HPI. ROS Other: All systems not noted in ROS Statement are negative. Past Medical History Past Medical History: Asthma, COPD, Diabetes Mellitus, Hyperlipidemia, Renal Disease Additional Past Medical History / Comment(s): OBESITY. USES A WALKER OR W/C TO A MBULATE, HX OF GOUT, HIATAL HERNIA, UTI, WEARS DEPENDS. 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 She has never been sexually active. Postmenopausal bleeding, recurrent. History of Any Multi-Drug Resistant Organisms: None Reported Past Surgical History: Bariatric Surgery, Cholecystectomy, Orthopedic Surgery Additional Past Surgical History / Comment(s): Total L knee 04/15/14, lap band placed then removed, gastric sleeve 08/19/2012 EGD. D&C 2016 or 2017(?) Past Anesthesia/Blood Transfusion Reactions: No Reported Reaction Additional Past Anesthesia/Blood Transfusion Reaction / Comment(s): Pt has never recieved blood.CLAUSTERPHOBIA Past Psychological History: Anxiety, Depression, Schizophrenia Smoking Status: Former smoker Past Alcohol Use History: None Reported Past Drug Use History: None Reported - Past Family History Father Family Medical History: Diabetes Mellitus, Musculoskeletal Disorder Additional Family Medical History / Comment(s): Father had parkinsons. He in his 80's. Paternal aunt had breast cancer. Mother Family Medical History: Diabetes Mellitus General Exam - General Exam Comments Initial Comments: GENERAL: Patient is well-developed and well-nourished. Patient is nontoxic and well- hydrated and is in mild distress. ENT: Neck is soft and supple. No significant lymphadenopathy is noted. Oropharynx is clear. Moist mucous membranes. Neck has full range of motion without eliciting any pain. EYES: The sclera were anicteric and conjunctiva were pink and moist. Extraocular movements were intact and pupils were equal round and reactive to light. Eyelids were unremarkable. PULMONARY: Unlabored respirations. Good breath sounds bilaterally. No audible rales rhonchi or wheezing was noted. CARDIOVASCULAR: There is a regular rate and rhythm without any murmurs gallops or rubs. ABDOMEN: Soft and nontender with normal bowel sounds. SKIN: Skin is clear with no lesions or rashes and otherwise unremarkable. NEUROLOGIC: Patient is alert and oriented x3. Cranial nerves II through XII are grossly intact. Motor and sensory are also intact. Normal speech, volume and content. Symmetrical smile. MUSCULOSKELETAL: Normal extremities with adequate strength and full range of motion. 2+ edema bilaterally LYMPHATICS: No significant lymphadenopathy is noted PSYCHIATRIC: Normal psychiatric evaluation. Limitations: no limitations Course Vital Signs 09/06/22 09/06/22 09/06/22 14:31 15:19 15:44 Temperature 98.4 F Pulse Rate 110 H 111 H 109 H Respiratory 22 22 22 Rate Blood Pressure 143/49 114/61 126/62 O2 Sat by Pulse 98 98 99 Oximetry 09/06/22 17:00 Temperature Pulse Rate 108 H Respiratory 20 Rate Blood Pressure 116/79 O2 Sat by Pulse 97 Oximetry Medical Decision Making - Medical Decision Making Was pt. sent in by a medical professional or institution (, PA, HELPDESK MANAGER, urgent care, hospital, or care home...) When possible be specific @ -No Did you speak to anyone other than the patient for history (EMS, parent, family, police, friend...)? What history was obtained from this source @ -The power of employment law attorney is giving most of the history. Did you review nursing and triage notes (agree or disagree)? Why? @ -I reviewed and agree with nursing and triage notes Were old charts reviewed (outside hosp., previous admission, EMS record, old EKG, old radiological studies, urgent care reports/EKG's, care home records)? Report findings @ -I reviewed prior charts in prior lab results. Differential Diagnosis (chest pain, altered mental status, abdominal pain women, abdominal pain men, vaginal bleeding, weakness, fever, dyspnea, syncope, headache, dizziness, GI bleed, back pain, seizure, CVA, palpatations, mental health, musculoskeletal)? @ -Differential Weakness: Hypoglycemia, shock, sepsis, hyponatremia, anemia, infection, ID, ETOH, adverse medicine reaction, overdose, stroke, this is not meant to be an all-inclusive list. s EKG interpreted by me (3pts min.). @ -As above X-rays interpreted by me (1pt min.). @ -X-ray chest x-ray was interpreted by myself shows no acute abnormality. CT interpreted by me (1pt min.). @ -None done U/S interpreted by me (1pt. min.). @ -None done What testing was considered but not performed or refused? (CT, X-rays, U/S, labs)? Why? @ -None What meds were considered but not given or refused? Why? @ -None Did you discuss the management of the patient with other professionals (professionals i.e. , PA, HELPDESK MANAGER, lab, RT, psych nurse, social service worker, manager customer, teacher, special weapons and tactics officer, caser)? Give summary @ -Spoke with Dr. Montilla he agreed to admit the patient admitted the patient wrote admitting orders Was smoking cessation discussed for >3mins.? @ -No Was critical care preformed (if so, how long)? @ -No Were there social determinants of health that impacted care today? How? (Homelessness, low income, unemployed, alcoholism, drug addiction, transportation, low edu. Level, literacy, decrease access to med. care, residential, rehab)? @ -No Was there de-escalation of care discussed even if they declined (Discuss DNR or withdrawal of care, Hospice)? DNR status @ -No What co-morbidities impacted this encounter? (DM, HTN, Smoking, COPD, CAD, Cancer, CVA, ARF, Chemo, Hep., AIDS, mental health diagnosis, sleep apnea, morbid obesity)? @ -None Was patient admitted / discharged? Hospital course, mention meds given and route, prescriptions, significant lab abnormalities, going to OR and other pertinent info. @ -According to family in the room patient is not taking care of herself she's unable to walk and she continues to fall multiple times. Patient also sits in a chair and is unable to get to the bathroom so she urinating all over the chair and all over the carpet. Family states it's maggots all inside the couch and flies all around her apartment and she is possibly going to be evicted Undiagnosed new problem with uncertain prognosis? @ -No Drug Therapy requiring intensive monitoring for toxicity (Heparin, Nitro, Insulin, Cardizem)? @ -No Were any procedures done? @ -No Diagnosis/symptom? @ -Generalized weakness Acute, or Chronic, or Acute on Chronic? @ -Acute on chronic Uncomplicated (without systemic symptoms) or Complicated (systemic symptoms)? @ -Complicated Side effects of treatment? @ -No Exacerbation, Progression, or Severe Exacerbation? @ -No Poses a threat to life or bodily function? How? (Chest pain, USA, ID, pneumonia, PE, COPD, DKA, ARF, appy, cholecystitis, CVA, Diverticulitis, Homicidal, Suicidal, threat to staff... and all critical care pts) @ -No Diagnosis/symptom? @ -Multiple falls Acute, or Chronic, or Acute on Chronic? @ -Acute on chronic Uncomplicated (without systemic symptoms) or Complicated (systemic symptoms)? @ -default Side effects of treatment? @ -none Exacerbation, Progression, or Severe Exacerbation] @ -no Poses a threat to life or bodily function? @ -no Diagnosis/symptom? @ -Peripheral edema Acute, or Chronic, or Acute on Chronic? @ -Acute on chronic Uncomplicated (without systemic symptoms) or Complicated (systemic symptoms)? @ -Uncomplicated Side effects of treatment? @ -none Exacerbation, Progression, or Severe Exacerbation] @ -no Poses a threat to life or bodily function? @ -no - Lab Data Result diagrams: 04/12/23 15:18 09/06/22 15:18 Lab Results 09/06/22 09/06/22 Range/Units 15:18 15:18 WBC 9.8 (3.8-10.6) k/uL RBC 4.19 (3.80-5.40) m/uL Hgb 13.0 (11.4-16.0) gm/dL Hct 38.8 (34.0-46.0) % MCV 92.5 (80.0-100.0) fL MCH 30.9 (25.0-35.0) pg MCHC 33.4 (31.0-37.0) g/dL RDW 14.2 (11.5-15.5) % Plt Count 175 (150-450) k/uL MPV 8.0 Neutrophils % 75 % Lymphocytes % 19 % Monocytes % 4 % Eosinophils % 1 % Basophils % 0 % Neutrophils # 7.4 (1.3-7.7) k/uL Lymphocytes # 1.8 (1.0-4.8) k/uL Monocytes # 0.4 (0-1.0) k/uL Eosinophils # 0.1 (0-0.7) k/uL Basophils # 0.0 (0-0.2) k/uL Sodium 141 (137-145) mmol/L Potassium 4.5 (3.5-5.1) mmol/L Chloride 102 (98-107) mmol/L Carbon Dioxide 35 H (22-30) mmol/L Anion Gap 4 mmol/L BUN 46 H (7-17) mg/dL Creatinine 1.10 H (0.52-1.04) mg/dL Est GFR (CKD-EPI)AfAm 63 (>60 ml/min/1.73 sqM) Est GFR (CKD-EPI)NonAf 55 (>60 ml/min/1.73 sqM) Glucose 125 H (74-99) mg/dL Calcium 8.4 (8.4-10.2) mg/dL Total Bilirubin 0.5 (0.2-1.3) mg/dL AST 36 (14-36) U/L ALT 33 (4-34) U/L Alkaline Phosphatase 119 (38-126) U/L Total Protein 6.5 (6.3-8.2) g/dL Albumin 3.2 L (3.5-5.0) g/dL Disposition Clinical Impression: Generalized weakness, Multiple falls, Peripheral edema Disposition: ADMITTED IP TO THIS HOSP Referrals: Min Tian MD [Primary Care Provider] - 1-2 days Time of Disposition: 18:00
[2022-09-06] MEDS ORDERED: ALBUTEROL NEBULIZED 2.5 MG/3 ML INHALATION PRN (18:34)
[2022-09-06] MEDS ORDERED: DEXTROSE 50% SYRINGE 50 ML IVP PRN ×2 (18:44)
[2022-09-06 21:34] LABS: Glucose,Whole Blood 185 mg/dL (70-110)
[2022-09-06] MEDS: busPIRone HCl 5 MG TAB PO SCH (21:41)
[2022-09-06] MEDS: INSULIN ASPART (NovoLOG) 100 UNIT/ML VIAL SQ SCH (21:41)
[2022-09-06] MEDS: allopurinoL 300 MG TAB PO SCH (21:41)
[2022-09-06] MEDS: GABAPENTIN 100 MG CAP PO SCH (21:41)
[2022-09-06] MEDS: ATORVASTATIN 20 MG TAB PO SCH (21:41)
[2022-09-06] MEDS ORDERED: MELATONIN 3 MG TABLET PO PRN (22:11)
[2022-09-06] MEDS ORDERED: CALCIUM CARBONATE 500 MG CHEWABLE PO PRN (22:11)
[2022-09-06] MEDS ORDERED: LORazepam 0.5 MG TAB PO PRN (22:11)
[2022-09-06] MEDS ORDERED: NALOXONE 0.4 MG/ML 1 ML VIAL IV PRN (22:11)
[2022-09-06] MEDS ORDERED: ACETAMINOPHEN TAB 325 MG TAB PO PRN (22:11)
[2022-09-06] MEDS ORDERED: ONDANSETRON 4 MG/2 ML VIAL IVP PRN (22:11)
[2022-09-07] MEDS: FUROSEMIDE 10 MG/ML 10 ML VIAL IV SCH ×2 (00:26→09:33)
[2022-09-07 06:34] LABS: Glucose,Whole Blood 168 mg/dL (70-110)
[2022-09-07] MEDS: INSULIN ASPART (NovoLOG) 100 UNIT/ML VIAL SQ SCH ×6 (07:01→22:08)
[2022-09-07] MEDS ORDERED: LACTULOSE 20 GM/30 ML CUP PO PRN (09:00)
[2022-09-07] MEDS: DAPAGLIFLOZIN PROPANEDIOL 5 MG TABLET PO SCH (09:32)
[2022-09-07] MEDS: ARIPiprazole 15 MG TAB PO SCH (09:32)
[2022-09-07] MEDS: VENLAFAXINE HCL ER 150 MG CAP PO SCH (09:33)
[2022-09-07] MEDS: GABAPENTIN 100 MG CAP PO SCH ×3 (09:33→22:08)
[2022-09-07] MEDS: busPIRone HCl 5 MG TAB PO SCH ×3 (09:33→22:07)
[2022-09-07] MEDS: hydroCHLOROthiazide 25 MG TAB PO SCH (09:33)
[2022-09-07] MEDS: MONTELUKAST 10 MG TAB PO SCH (09:35)
[2022-09-07] MEDS: POTASSIUM CHLORIDE ER 20 MEQ TAB.ER PO SCH (09:35)
[2022-09-07] MEDS ORDERED: DEXTROSE 50% SYRINGE 50 ML IVP PRN ×2 (10:32)
[2022-09-07 11:25] LABS: Glucose,Whole Blood 267 mg/dL (70-110)
[2022-09-07] MEDS: ENOXAPARIN 40 MG/0.4 ML SYRINGE SQ SCH (12:55)
[2022-09-07] MEDS: SYMBICORT 160-4.5 MCG INHALER INHALATION SCH ×2 (13:36→20:34)
[2022-09-07 15:05] VITALS: BMI 54.8
[2022-09-07 16:24] LABS: Glucose,Whole Blood 245 mg/dL (70-110)
[2022-09-07 20:20] LABS: Glucose,Whole Blood 208 mg/dL (70-110)
[2022-09-07] MEDS ORDERED: INSULIN DETEMIR (LEVEMIR) 100 UNIT/ML SYR SQ SCH (21:00)
[2022-09-07] MEDS: ATORVASTATIN 20 MG TAB PO SCH (22:08)
[2022-09-07] MEDS: allopurinoL 300 MG TAB PO SCH (22:58)
[2022-09-08 06:49] LABS: Glucose,Whole Blood 188 mg/dL (70-110)
[2022-09-08] MEDS: INSULIN ASPART (NovoLOG) 100 UNIT/ML VIAL SQ SCH ×4 (07:33→12:26)
[2022-09-08] MEDS: SYMBICORT 160-4.5 MCG INHALER INHALATION SCH (07:40)
[2022-09-08] MEDS: ENOXAPARIN 40 MG/0.4 ML SYRINGE SQ SCH (08:38)
[2022-09-08] MEDS: busPIRone HCl 5 MG TAB PO SCH (08:38)
[2022-09-08] MEDS: POTASSIUM CHLORIDE ER 20 MEQ TAB.ER PO SCH (08:38)
[2022-09-08] MEDS: VENLAFAXINE HCL ER 150 MG CAP PO SCH (08:38)
[2022-09-08] MEDS: ARIPiprazole 15 MG TAB PO SCH (08:38)
[2022-09-08] MEDS: GABAPENTIN 100 MG CAP PO SCH (08:39)
[2022-09-08] MEDS: DAPAGLIFLOZIN PROPANEDIOL 5 MG TABLET PO SCH (08:39)
[2022-09-08] MEDS: MONTELUKAST 10 MG TAB PO SCH (08:39)
--- NOTE | 2022-09-08 10:30 | P.HPIM ---
History of Present Illness H&P Date: 09/07/22 Chief Complaint: Patient not taking care of himself This is a 62-year-old patient, follows with visiting physicians Dr. Tian. This is a patient who lives by herself. History obtained from the patient: Patient states that she has a [id number]-ont Soraya as her guardian. She states she is following last time around [place] of 2021. Soraya brings her food. Normally has 2 bowel movements a week. Wears depends. Sleeps in a recliner. Another lady called Soraya who is her keller machine operator makes a walker times a week. Has chronic back pain. History of pain from the ER physician through a [id number] Soraya.: Does use a walker Patient pretty much lives in [place] unhygienic condition. Rarely gets out of her couch recliner. There is uterine maggots on the couch. She eats a lot. And keep eating taking insulin. Doesn't seem to manage her own. Very poor hygienic conditions. Patient be brought in to be managed and possibly need rehab. Review of systems: GEN.: None EYES: None HEENT: None NECK: None RESPIRATORY: None CARDIOVASCULAR: None GASTROINTESTINAL: None GENITOURINARY: Depends MUSCULOSKELETAL: No back pain LYMPHATICS: None HEMATOLOGICAL: None PSYCHIATRY: None NEUROLOGICAL: Uses a walker Past medical history to include: Asthma/COPD, diabetes, hyperlipidemia, obesity, uses a walker or wheelchair, gout, hiatal hernia, bariatric surgery, anxiety depression schizophrenia Social history: No smoking or alcohol. Soraya is a keller machine operator. Who comes in 3 times a week. Another Soraya is a cahlne-zd-hky who is the POA along with patient's brother Asim Physical examination: VITAL SIGNS: 98.3, 105, 18, 122/68, 82% on room air GENERAL: BMI 54.9, reclining in bed, comfortable. EYES: Pupils equal. Conjunctiva normal. HEENT: External appearance of nose and ears normal, oral cavity grossly normal. NECK: JVD not raised; masses not palpable. HEART: First and second heart sounds are normal; no edema. LUNGS: Respiratory rate normal; distant breath sounds. ABDOMEN: Soft, nontender, liver spleen not palpable, no masses palpable. PSYCH: Alert and oriented x3; mood and affect normal. MUSCULOSKELETAL:No Clubbing/cyanosis;muscles-grossly intact NEUROLOGICAL: Cranial nerves grossly intact; no facial asymmetry, power and sensation grossly intact. LYMPHATICS: No lymph nodes palpable in the axilla and neck INVESTIGATIONS, reviewed in the clinical context: White count 9.8 hemoglobin 13 platelets 175 potassium 4.5 BUN 46 creatinine 1.10 Chest x-ray: Unremarkable Assessment and plan: -Morbid obesity 54.9 Weight loss measures. Consult dietitian -Diabetes mellitus type 2 Lantus, lispro, and we'll,, Trulicity: Accu-Cheks and sliding scale -Moderate persistent Asthma in the nonsmoker Ventolin HFA when necessary. breo-ellipta -Peripheral neuropathy from diabetes Neurontin -Hyperlipidemia Zocor -Hyperuricemia/gout Allopurinol -Schizophrenia Abilify, Effexor ER, BuSpar -Depression and anxiety Effexor ER, BuSpar -Chronic medical debility -Gait dysfunction uses a walker due to morbid obesity -Full code Home medications resumed. Poor housing conditions/poor personal hygiene due to morbid obesity. manager occupational consulted. I will talk to patient's brother Past Medical History Past Medical History: Asthma, COPD, Diabetes Mellitus, Hyperlipidemia, Renal Disease Additional Past Medical History / Comment(s): OBESITY. USES A WALKER OR W/C TO AMBULATE, HX OF GOUT, HIATAL HERNIA, UTI, WEARS DEPENDS. 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 She has never been sexually active. Postmenopausal bleeding, recurrent. History of Any Multi-Drug Resistant Organisms: None Reported Past Surgical History: Bariatric Surgery, Cholecystectomy, Orthopedic Surgery Additional Past Surgical History / Comment(s): Total L knee 04/15/14, lap band placed then removed, gastric sleeve 08/19/2012 EGD. D&C 2016 or 2017(?) Past Anesthesia/Blood Transfusion Reactions: No Reported Reaction Additional Past Anesthesia/Blood Transfusion Reaction / Comment(s): Pt has never recieved blood.CLAUSTERPHOBIA Past Psychological History: Anxiety, Depression, Schizophrenia Additional Psychological History / Comment(s): Pt has hx also of borderline personality disorder. Pt does not drive so this niece also gives her rides. PT L[facility] AT THE [facility]. HAS A CAREGIVER THAIS. Smoking Status: Former smoker Past Alcohol Use History: None Reported Additional Past Alcohol Use History / Comment(s): Smoked as a teenager, then quit. Past Drug Use History: None Reported - Past Family History Father Family Medical History: Diabetes Mellitus, Musculoskeletal Disorder Additional Family Medical History / Comment(s): Father had parkinsons. He in his 80's. Paternal aunt had breast cancer. Mother Family Medical History: Diabetes Mellitus Medications and Allergies Home Medications Medication Instructions Recorded Confirmed Type Simvastatin [Zocor] 40 mg PO HS 06/10/14 09/06/22 History Furosemide [Lasix] 40 mg PO DAILY 07/19/16 09/06/22 History Albuterol Inhaler [Ventolin Hfa 2 puff INHALATION RT-Q6H PRN 04/03/17 09/06/22 History Inhaler] Venlafaxine HCl ER [Effexor Xr] 300 mg PO DAILY 12/20/17 09/06/22 History allopurinoL [Zyloprim] 300 mg PO HS 12/20/17 09/06/22 History ARIPiprazole [Abilify] 30 mg PO DAILY 08/02/18 09/06/22 History Magnesium Oxide [Magox 400] 400 mg PO BID 08/02/18 09/06/22 History Fluticasone/Vilanterol [Breo 1 puff INHALATION RT-DAILY 10/05/20 09/06/22 History Ellipta 200-25 Mcg INH] Insulin Glargine,Hum.rec.anlog 80 units SQ HS 10/05/20 09/06/22 History [Toujeo Max Solostar] Insulin Lispro [humaLOG Kwikpen] 30 unit SQ AC-TID 10/05/20 09/06/22 History Canagliflozin [Invokana] 100 mg PO DAILY 09/06/22 09/06/22 History Cetirizine HCl [Zyrtec] 10 mg PO DAILY 09/06/22 09/06/22 History Docusate [Colace] 100 mg PO BID 09/06/22 09/06/22 History Dulaglutide [Trulicity] 4.5 mg PO SA 09/06/22 09/06/22 History Gabapentin [Neurontin] 100 mg PO TID 09/06/22 09/06/22 History Loperamide HCl [Imodium A-D] 4 mg PO QID PRN 09/06/22 09/06/22 History Montelukast [Singulair] 10 mg PO DAILY 09/06/22 09/06/22 History Potassium Chloride ER [K-Dur 20] 20 meq PO DAILY 09/06/22 09/06/22 History busPIRone HCL 15 mg PO TID 09/06/22 09/06/22 History calcitrioL [Calcitriol] 0.25 mcg PO MOFR 09/06/22 09/06/22 History hydroCHLOROthiazide 25 mg PO DAILY 09/06/22 09/06/22 History Allergies Allergy/AdvReac Type Severity Reaction Status Date / Time codeine Allergy Rash/Hives Verified 09/06/22 16:30 Physical Exam Vitals: Vital Signs Temp Pulse Pulse Resp BP BP Pulse Ox 09/07/22 07:21 98.3 F 105 H 18 122/68 92 L 09/07/22 01:46 98.2 F 103 H 16 115/65 94 L 09/06/22 21:27 97.6 F 106 H 18 125/64 96 09/06/22 18:00 110 H 20 122/69 98 09/06/22 17:00 108 H 20 116/79 97 09/06/22 15:44 109 H 22 126/62 99 09/06/22 15:19 111 H 22 114/61 98 09/06/22 14:31 98.4 F 110 H 22 143/49 98 Intake and Output 09/06/22 09/07/22 09/07/22 22:59 06:59 14:59 Output Total 2100 Balance -2100 Output: Urine 2100 Other: Voiding Method External Catheter External Catheter Weight 136.078 kg Results CBC & Chem 7: 09/06/22 15:18 09/06/22 15:18 Labs: Abnormal Lab Results - Last 24 Hours (Table) 09/06/22 09/06/22 09/06/22 Range/Units 15:18 15:18 21:32 Carbon Dioxide 35 H (22-30) mmol/L BUN 46 H (7-17) mg/dL Creatinine 1.10 H (0.52-1.04) mg/dL Glucose 125 H (74-99) mg/dL POC Glucose (mg/dL) 185 H (70-110) mg/dL Hemoglobin A1c 8.7 H (0.0-6.0) % Albumin 3.2 L (3.5-5.0) g/dL 09/07/22 Range/Units 06:32 Carbon Dioxide (22-30) mmol/L BUN (7-17) mg/dL Creatinine (0.52-1.04) mg/dL Glucose (74-99) mg/dL POC Glucose (mg/dL) 168 H (70-110) mg/dL Hemoglobin A1c (0.0-6.0) % Albumin (3.5-5.0) g/dL Thrombosis Risk Factor Assmnt - Choose All That Apply Any of the Below Risk Factors Present?: Yes Each Factor Represents 1 point: Age 41-60 years, Swollen legs (current) Thrombosis Risk Factor Assessment Total Risk Factor Score: 2 Thrombosis Risk Factor Assessment Level: Low Risk
[2022-09-08 12:00] LABS: Glucose,Whole Blood 261 mg/dL (70-110)
--- NOTE | 2022-09-08 14:11 | P.DS ---
Providers Date of admission: 09/06/22 18:32 Expected date of discharge: 09/08/22 Attending physician: Dylon Montilla Primary care physician: Min Tian MD Hospital Course: Chief Complaint: Patient not taking care of himself This is a 62-year-old patient, follows with visiting physicians Dr. Tian. This is a patient who lives by herself. History obtained from the patient: Patient states that she has a [id number] Soraya as her guardian. She states she is following last time around [place] of 2021. Soraya brings her food. Normally has 2 bowel movements a week. Wears depends. Sleeps in a recliner. Another lady called Soraya who is her scalp treatment operator makes a walker times a week. Has chronic back pain. History of pain from the ER physician through a [id number] Soraya.: Does use a walker Patient pretty much lives in [place] unhygienic condition. Rarely gets out of her couch recliner. There is uterine maggots on the couch. She eats a lot. And keep eating taking insulin. Doesn't seem to manage her own. Very poor hygienic conditions. Patient be brought in to be managed and possibly need rehab. 09/08/2022: Laying in bed. Comfortable. Patient met with the dietitian. Importance of calorie restriction discussed. Patient accepted at rehab at [facility].. Past medical history to include: Asthma/COPD, diabetes, hyperlipidemia, obesity, uses a walker or wheelchair, gout, hiatal hernia, bariatric surgery, anxiety depression schizophrenia Social history: No smoking or alcohol. Soraya is a scalp treatment operator. Who comes in 3 times a week. Another Soraya is a [id number] who is the POA along with patient's brother Asim. Spoke to patient's brother Asim this morning at length. He did confirm that patient doesn't give the right picture. Patient has been accepted at [facility] rehab. Discussion and discharge planning more than 35 minutes Physical examination: VITAL SIGNS: 97.6, 103, 19, 103/73, 94% room air GENERAL: BMI 54.9, reclining in bed, comfortable. EYES: Pupils equal. Conjunctiva normal. HEENT: External appearance of nose and ears normal, oral cavity grossly normal. NECK: JVD not raised; masses not palpable. HEART: First and second heart sounds are normal; no edema. LUNGS: Respiratory rate normal; distant breath sounds. ABDOMEN: Soft, nontender, liver spleen not palpable, no masses palpable. PSYCH: Alert and oriented x3; mood and affect normal. MUSCULOSKELETAL:No Clubbing/cyanosis;muscles-grossly intact INVESTIGATIONS, reviewed in the clinical context: HbA1c 8.7 White count 9.8 hemoglobin 13 platelets 175 potassium 4.5 BUN 46 creatinine 1.10 Chest x-ray: Unremarkable Assessment and plan: -Morbid obesity 54.9 Weight loss measures. Consult dietitian -Diabetes mellitus type 2, uncontrolled on insulin Lantus, lispro, and Trulicity: Accu-Cheks and sliding scale -Moderate persistent Asthma in the nonsmoker Ventolin HFA when necessary. breo-ellipta -Peripheral neuropathy from diabetes Neurontin -Hyperlipidemia Zocor -Hyperuricemia/gout Allopurinol -Schizophrenia Abilify, Effexor ER, BuSpar -Depression and anxiety Effexor ER, BuSpar -Chronic medical debility -Gait dysfunction uses a walker due to morbid obesity -Full code Disposition: [facility]/rehab Plan - Discharge Summary New Discharge Prescriptions: New Lactulose [Cephulac] 20 gm PO DAILY PRN ml PRN Reason: Constipation Atorvastatin [Lipitor] 20 mg PO HS tab INSULIN ASPART (NovoLOG) [NovoLOG (formulary)] 0 unit SQ ACHS each Acetaminophen Tab [Tylenol] 650 mg PO Q6HR PRN tab PRN Reason: Mild Pain Or Fever > 100.5 Continue Albuterol Inhaler [Ventolin Hfa Inhaler] 2 puff INHALATION RT-Q6H PRN PRN Reason: Shortness Of Breath Venlafaxine HCl ER [Effexor XR] 300 mg PO DAILY allopurinoL [Zyloprim] 300 mg PO HS ARIPiprazole [Abilify] 30 mg PO DAILY busPIRone HCL 15 mg PO TID calcitrioL [Calcitriol] 0.25 mcg PO MOFR Dulaglutide [Trulicity] 4.5 mg PO SA hydroCHLOROthiazide 25 mg PO DAILY Loperamide HCl [Imodium A-D] 4 mg PO QID PRN PRN Reason: Diarrhea Insulin Glargine,Hum.rec.anlog [Toujeo Max Solostar] 80 units SQ HS Fluticasone/Vilanterol [Breo Ellipta 200-25 Mcg Inhaler] 1 puff INHALATION RT-DAILY Canagliflozin [Invokana] 100 mg PO DAILY Montelukast [Singulair] 10 mg PO DAILY Gabapentin [Neurontin] 100 mg PO TID #9 cap Changed Insulin Lispro [humaLOG Kwikpen] 25 unit SQ AC-TID #0 Discontinued Simvastatin [Zocor] 40 mg PO HS Furosemide [Lasix] 40 mg PO DAILY Magnesium Oxide [Magox 400] 400 mg PO BID Potassium Chloride ER [K-Dur 20] 20 meq PO DAILY Cetirizine HCl [Zyrtec] 10 mg PO DAILY Docusate [Colace] 100 mg PO BID Discharge Medication List Albuterol Inhaler [Ventolin Hfa Inhaler] 2 puff INHALATION RT-Q6H PRN 04/03/17 [History] Venlafaxine HCl ER [Effexor XR] 300 mg PO DAILY 12/20/17 [History] allopurinoL [Zyloprim] 300 mg PO HS 12/20/17 [History] ARIPiprazole [Abilify] 30 mg PO DAILY 08/02/18 [History] Fluticasone/Vilanterol [Breo Ellipta 200-25 Mcg Inhaler] 1 puff INHALATION RT- DAILY 10/05/20 [History] Insulin Glargine,Hum.rec.anlog [Toujeo Max Solostar] 80 units SQ HS 10/05/20 [History] Canagliflozin [Invokana] 100 mg PO DAILY 09/06/22 [History] Dulaglutide [Trulicity] 4.5 mg PO SA 09/06/22 [History] Loperamide HCl [Imodium A-D] 4 mg PO QID PRN 09/06/22 [History] Montelukast [Singulair] 10 mg PO DAILY 09/06/22 [History] busPIRone HCL 15 mg PO TID 09/06/22 [History] calcitrioL [Calcitriol] 0.25 mcg PO MOFR 09/06/22 [History] hydroCHLOROthiazide 25 mg PO DAILY 09/06/22 [History] Acetaminophen Tab [Tylenol] 650 mg PO Q6HR PRN tab 09/08/22 [Rx] Atorvastatin [Lipitor] 20 mg PO HS tab 09/08/22 [Rx] Gabapentin [Neurontin] 100 mg PO TID #9 cap 09/08/22 [Rx] INSULIN ASPART (NovoLOG) [NovoLOG (formulary)] 0 unit SQ ACHS each 09/08/22 [Rx] Insulin Lispro [humaLOG Kwikpen] 25 unit SQ AC-TID #0 09/08/22 [Rx] Lactulose [Cephulac] 20 gm PO DAILY PRN ml 09/08/22 [Rx] Follow up Appointment(s)/Referral(s): Min Tian MD [Primary Care Provider] - 1-2 days [facility], [NON-STAFF] - As Needed
[2022-09-08] MEDS: hydroCHLOROthiazide 25 MG TAB PO SCH (15:11)
[2022-09-08 15:54] VITALS: BP 114/69; PULSE 102; RESP 18; TEMP 98.7
[2022-09-09] MEDS ORDERED: NON FORMULARY DRUG (Dulaglutide [Trulicity] 4.5 MG/0.5 ML Each) PO SCH (09:00)
== END 2022-09-08 15:44 | DRG 641 ==
LOC: EC 14:22 → 4SSUR 18:32
PROVIDERS: ADMIT Hospitalist; ATTEND Hospitalist
DX: E66.01 Morbid (severe) obesity due to excess calories (principal); Z68.43 Body mass index [BMI] 50.0-59.9, adult; E11.42 Type 2 diabetes mellitus with diabetic polyneuropathy; F20.9 Schizophrenia, unspecified; F60.3 Borderline personality disorder; J44.9 Chronic obstructive pulmonary disease, unspecified; F32.A Depression, unspecified; F41.9 Anxiety disorder, unspecified; M10.9 Gout, unspecified; J45.40 Moderate persistent asthma, uncomplicated; G89.29 Other chronic pain; M54.9 Dorsalgia, unspecified; Z98.84 Bariatric surgery status; Z87.19 Personal history of other diseases of the digestive system; Z79.84 Long term (current) use of oral hypoglycemic drugs; Z79.4 Long term (current) use of insulin; Z79.899 Other long term (current) drug therapy; Z88.5 Allergy status to narcotic agent; Z90.49 Acquired absence of other specified parts of digestive tract; Z87.440 Personal history of urinary (tract) infections
CPT/HCPCS: 36415; 71046; 80053; 83036; 85025; 94640; 96374; 99285

== ENCOUNTER 2023-08-22 14:42 | Inpatient (IN) | payer MEDICARE, OTHER ==
--- NOTE | 2023-08-22 15:00 | ED ---
General Adult HPI - General Chief complaint: Recheck/Abnormal Lab/Rx Stated complaint: Abn Labs Time Seen by Provider: 08/22/23 14:50 Source: patient, EMS, RN notes reviewed Mode of arrival: EMS Limitations: altered mental status - History of Present Illness Initial comments: Patient is a 63-year-old female present to the emergency department with concern for lab abnormality. Patient also reportedly has some increased weakness. Patient admits to not eating much until a couple days ago. Patient states she does not eat when she is not hungry. Patient did have blood work done and she was advised to come to emergency department. Patient states overall she does feel well and does not have any specific complaints. Patient states she normally does not walk. - Related Data Home Medications Medication Instructions Recorded Confirmed Albuterol Inhaler [Ventolin Hfa 2 puff INHALATION RT-Q6H PRN 04/03/17 08/22/23 Inhaler] Venlafaxine HCl ER [Effexor XR] 300 mg PO HS@209912/20/17 08/22/23 allopurinoL [Zyloprim] 300 mg PO HS@209912/20/17 08/22/23 Fluticasone/Vilanterol [Breo 1 puff INHALATION RT-DAILY@89910/05/20 08/22/23 Ellipta 200-25 Mcg Inhaler] Insulin Glargine,Hum.rec.anlog 90 units SQ HS 10/05/20 08/22/23 [Beti Andrews] Canagliflozin [Invokana] 100 mg PO DAILY@89909/06/22 08/22/23 Loperamide HCl [Imodium A-D] 4 mg PO QID PRN 09/06/22 08/22/23 Montelukast [Singulair] 10 mg PO DAILY@89909/06/22 08/22/23 busPIRone HCL 15 mg PO TID@0900,1300,209909/06/22 08/22/23 calcitrioL 0.25 mcg PO MOFR@89909/06/22 08/22/23 hydroCHLOROthiazide 25 mg PO DIRECTED 09/06/22 08/22/23 ARIPiprazole [Abilify] 20 mg PO DAILY@89908/22/23 08/22/23 Atorvastatin [Lipitor] 20 mg PO HS@209908/22/23 08/22/23 Cefuroxime [Ceftin] 250 mg PO BID@0900,209908/22/23 08/22/23 Cyanocobalamin [Vitamin B-12] 1,000 mcg PO DAILY@0908/22/23 08/22/23 Ergocalciferol (Vitamin D2) 1,250 mcg PO Q14D 08/22/23 08/22/23 [Drisdol (50,000 Iu)] Furosemide [Lasix] 40 mg PO DAILY@89908/22/23 08/22/23 Gabapentin [Neurontin] 100 mg PO TID@0900,1300,209908/22/23 08/22/23 INSULIN LISPRO (HumaLOG) [humaLOG] 3 units SQ HS PRN 08/22/23 08/22/23 Insulin Lispro [humaLOG Kwikpen] 40 unit SQ AC-TID@08,12,17 08/22/23 08/22/23 Ipratropium/Albuter 20-100Mcg 1 puff INHALATION RT-QID PRN 08/22/23 08/22/23 [Combivent Respimat 20-100Mcg Inhaler] Menthol [Biofreeze] 1 applic TOPICAL DAILY PRN 08/22/23 08/22/23 Metoprolol Tartrate [Lopressor] 50 mg PO BID@0900,209908/22/23 08/22/23 Midodrine [ProAmatine] 5 mg PO TID@0900,1300,209908/22/23 08/22/23 Olopatadine HCl [Pataday] 1 drop BOTH EYES DAILY@0608/22/23 08/22/23 Potassium Chloride ER [K-Dur 20] 20 meq PO HS@209908/22/23 08/22/23 Prostat Awc 30 ml PO DAILY@89908/22/23 08/22/23 Tirzepatide [Mounjaro] 15 mg SQ MO@89908/22/23 08/22/23 dexAMETHasone [Decadron] 4 mg PO DAILY@0900 08/22/23 08/22/23 rOPINIRole HCL [Requip] 0.25 mg PO BID@0900,1700 08/22/23 08/22/23 Previous Rx's Medication Instructions Recorded Acetaminophen Tab [Tylenol] 650 mg PO Q6HR PRN tab 09/08/22 Lactulose [Cephulac] 20 gm PO DAILY PRN ml 09/08/22 Allergies Allergy/AdvReac Type Severity Reaction Status Date / Time codeine Allergy Rash/Hives Verified 08/22/23 15:04 Review of Systems ROS Statement: Those systems with pertinent positive or pertinent negative responses have been documented in the HPI. ROS Other: All systems not noted in ROS Statement are negative. Constitutional: Denies: fever Eyes: Denies: eye pain Respiratory: Denies: dyspnea Cardiovascular: Denies: chest pain Endocrine: Denies: fatigue Gastrointestinal: Denies: abdominal pain Neurological: Reports: as per HPI Past Medical History Past Medical History: Asthma, COPD, Diabetes Mellitus, Hyperlipidemia, Renal Disease Additional Past Medical History / Comment(s): OBESITY. USES A WALKER OR W/C TO AMBULATE, HX OF GOUT, HIATAL HERNIA, UTI, WEARS DEPENDS. 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 She has never been sexually active. Postmenopausal bleeding, recurrent. History of Any Multi-Drug Resistant Organisms: None Reported Past Surgical History: Bariatric Surgery, Cholecystectomy, Orthopedic Surgery Additional Past Surgical History / Comment(s): Total L knee 04/15/14, lap band placed then removed, gastric sleeve 08/19/2012 EGD. D&C 2016 or 2017(?) Past Anesthesia/Blood Transfusion Reactions: No Reported Reaction Additional Past Anesthesia/Blood Transfusion Reaction / Comment(s): Pt has never recieved blood.CLAUSTERPHOBIA Past Psychological History: Anxiety, Depression, Schizophrenia Smoking Status: Former smoker Past Alcohol Use History: None Reported Past Drug Use History: None Reported - Past Family History Father Family Medical History: Diabetes Mellitus, Musculoskeletal Disorder Additional Family Medical History / Comment(s): Father had parkinsons. He in his 80's. Paternal aunt had breast cancer. Mother Family Medical History: Diabetes Mellitus General Exam Limitations: altered mental status General appearance: alert, in no apparent distress Head exam: Present: normocephalic Eye exam: Present: normal appearance ENT exam: Present: mucous membranes dry Neck exam: Present: normal inspection Respiratory exam: Present: normal lung sounds bilaterally Cardiovascular Exam: Present: regular rate, normal rhythm GI/Abdominal exam: Present: soft. Absent: tenderness Extremities exam: Present: pedal edema. Absent: calf tenderness Neurological exam: Present: alert Expanded Motor strength exam: RUE: 5, LUE: 5, RLE: 5, LLE: 5 Psychiatric exam: Present: normal affect, normal mood Skin exam: Present: normal color Course Vital Signs 08/22/23 08/22/23 08/22/23 14:47 14:51 15:00 Temperature 99.1 F Pulse Rate 103 H 104 H Respiratory 20 18 Rate Blood Pressure 93/61 93/61 O2 Sat by Pulse 95 94 L 95 Oximetry 08/22/23 08/22/23 08/22/23 15:10 15:20 15:30 Temperature Pulse Rate 105 H 105 H 103 H Respiratory 25 H 13 23 Rate Blood Pressure 93/61 93/61 93/61 O2 Sat by Pulse 95 95 94 L Oximetry 08/22/23 08/22/23 15:40 16:00 Temperature Pulse Rate 103 H 105 H Respiratory 21 17 Rate Blood Pressure 93/61 104/59 O2 Sat by Pulse 96 95 Oximetry EKG Findings - EKG Results: EKG: interpreted by ERMD (Left axis. Right bundle branch block. Inferior Q waves. Nonspecific T waves), sinus rhythm EKG shows: tachycardia Medical Decision Making - Medical Decision Making Was pt. sent in by a medical professional or institution (, PA, BEADING MACHINE OPERATOR, urgent care, hospital, or care home...) When possible be specific @ -Patient sent from care Did you speak to anyone other than the patient for history (EMS, parent, family, police, friend...)? What history was obtained from this source @ -No Did you review nursing and triage notes (agree or disagree)? Why? @ -I reviewed and agree with nursing and triage notes Were old charts reviewed (outside hosp., previous admission, EMS record, old EKG, old radiological studies, urgent care reports/EKG's, care home records)? Report findings @ -Previous labs reviewed Differential Diagnosis (chest pain, altered mental status, abdominal pain women, abdominal pain men, vaginal bleeding, weakness, fever, dyspnea, syncope, headache, dizziness, GI bleed, back pain, seizure, CVA, palpatations, mental health, musculoskeletal)? @ -Differential Weakness: Hypoglycemia, shock, sepsis, hyponatremia, anemia, infection, NM, ETOH, adverse medicine reaction, overdose, stroke, this is not meant to be an all-inclusive list. EKG interpreted by me (3pts min.). @ -As above X-rays interpreted by me (1pt min.). @ -Chest x-ray shows cardiomegaly CT interpreted by me (1pt min.). @ -None done U/S interpreted by me (1pt. min.). @ -None done What testing was considered but not performed or refused? (CT, X-rays, U/S, labs)? Why? @ -None What meds were considered but not given or refused? Why? @ -None Did you discuss the management of the patient with other professionals (professionals i.e. , PA, BEADING MACHINE OPERATOR, lab, RT, psych nurse, sexual assault social worker, metal extrusion supervisor, teacher, senior commercial loan officer, supportive employment case manager)? Give summary @ -Case was discussed with Dr. Hernandez who will admit covering Dr. Garcia Was smoking cessation discussed for >3mins.? @ -No Was critical care preformed (if so, how long)? @ -31 minutes critical care Were there social determinants of health that impacted care today? How? (Homelessness, low income, unemployed, alcoholism, drug addiction, transportation, low edu. Level, literacy, decrease access to med. care, [facility], rehab)? @ -No Was there de-escalation of care discussed even if they declined (Discuss DNR or withdrawal of care, Hospice)? DNR status @ -No What co-morbidities impacted this encounter? (DM, HTN, Smoking, COPD, CAD, Cancer, CVA, ARF, Chemo, Hep., AIDS, mental health diagnosis, sleep apnea, morbid obesity)? @ -None Was patient admitted / discharged? Hospital course, mention meds given and route, prescriptions, significant lab abnormalities, going to OR and other pert inent info. @ -Patient updated on results and plan. Patient will be admitted with fluids and antibiotics. There is concern for sepsis diagnosed at 1640. Blood culture and lactic acid and IV antibiotics will be ordered. Admission orders written. Undiagnosed new problem with uncertain prognosis? @ -No Drug Therapy requiring intensive monitoring for toxicity (Heparin, Nitro, Insulin, Cardizem)? @ -No Were any procedures done? @ -No Diagnosis/symptom? @ -UTI, sepsis, prerenal azotemia Acute, or Chronic, or Acute on Chronic? @ -Acute, acute, acute Uncomplicated (without systemic symptoms) or Complicated (systemic symptoms)? @ -Default Side effects of treatment? @ -No Exacerbation, Progression, or Severe Exacerbation? @ -No Poses a threat to life or bodily function? How? (Chest pain, USA, NM, pneumonia, PE, COPD, DKA, ARF, appy, cholecystitis, CVA, Diverticulitis, Homicidal, Suici matthew, threat to staff... and all critical care pts) @ -No - Lab Data Result diagrams: 08/22/23 15:13 08/22/23 15:13 Lab Results 08/22/23 08/22/23 08/22/23 Range/Units 15:13 15:13 15:13 WBC 18.2 H (3.8-10.6) k/uL RBC 4.45 (3.80-5.40) m/uL Hgb 14.0 (11.4-16.0) gm/dL Hct 44.1 (34.0-46.0) % MCV 99.1 (80.0-100.0) fL MCH 31.4 (25.0-35.0) pg MCHC 31.7 (31.0-37.0) g/dL RDW 14.3 (11.5-15.5) % Plt Count 198 (150-450) k/uL MPV 9.0 Neutrophils % 83 % Lymphocytes % 9 % Monocytes % 5 % Eosinophils % 1 % Basophils % 0 % Neutrophils # 15.0 H (1.3-7.7) k/uL Lymphocytes # 1.7 (1.0-4.8) k/uL Monocytes # 0.9 (0-1.0) k/uL Eosinophils # 0.1 (0-0.7) k/uL Basophils # 0.1 (0-0.2) k/uL PT 11.3 (10.0-12.5) sec INR 1.0 (<1.2) APTT 23.2 (22.0-30.0) sec Sodium (137-145) mmol/L Potassium (3.5-5.1) mmol/L Chloride (98-107) mmol/L Carbon Dioxide (22-30) mmol/L Anion Gap mmol/L BUN (7-17) mg/dL Creatinine (0.52-1.04) mg/dL Est GFR (CKD-EPI)AfAm (>60 ml/min/1.73 sqM) Est GFR (CKD-EPI)NonAf (>60 ml/min/1.73 sqM) Glucose (74-99) mg/dL Plasma Lactic Acid Oscar (0.7-2.0) mmol/L Calcium (8.4-10.2) mg/dL Magnesium (1.6-2.3) mg/dL Total Bilirubin (0.2-1.3) mg/dL AST (14-36) U/L ALT (4-34) U/L Alkaline Phosphatase (38-126) U/L Troponin I (0.000-0.034) ng/mL Total Protein (6.3-8.2) g/dL Albumin (3.5-5.0) g/dL Urine Color Light Yellow Urine Appearance Turbid H (Clear) Urine pH 5.5 (5.0-8.0) Ur Specific [place] 1.015 (1.001-1.035) Urine Protein Trace H (Negative) Urine Glucose (UA) 3+ H (Negative) Urine Ketones Negative (Negative) Urine Blood Small H (Negative) Urine Nitrite Negative (Negative) Urine Bilirubin Negative (Negative) Urine Urobilinogen <2.0 (<2.0) mg/dL Ur Leukocyte Esterase Large H (Negative) Urine RBC 2 (0-5) /hpf Urine WBC >182 H (0-5) /hpf Urine WBC Clumps Many H (None) /hpf Urine Bacteria Many H (None) /hpf Urine Mucus Rare H (None) /hpf 08/22/23 08/22/23 08/22/23 Range/Units 15:13 15:13 15:13 WBC (3.8-10.6) k/uL RBC (3.80-5.40) m/uL Hgb (11.4-16.0) gm/dL Hct (34.0-46.0) % MCV (80.0-100.0) fL MCH (25.0-35.0) pg MCHC (31.0-37.0) g/dL RDW (11.5-15.5) % Plt Count (150-450) k/uL MPV Neutrophils % % Lymphocytes % % Monocytes % % Eosinophils % % Basophils % % Neutrophils # (1.3-7.7) k/uL Lymphocytes # (1.0-4.8) k/uL Monocytes # (0-1.0) k/uL Eosinophils # (0-0.7) k/uL Basophils # (0-0.2) k/uL PT (10.0-12.5) sec INR (<1.2) APTT (22.0-30.0) sec Sodium 141 (137-145) mmol/L Potassium 3.5 (3.5-5.1) mmol/L Chloride 101 (98-107) mmol/L Carbon Dioxide 29 (22-30) mmol/L Anion Gap 11 mmol/L BUN 113 H* (7-17) mg/dL Creatinine 2.28 H (0.52-1.04) mg/dL Est GFR (CKD-EPI)AfAm 26 (>60 ml/min/1.73 sqM) Est GFR (CKD-EPI)NonAf 23 (>60 ml/min/1.73 sqM) Glucose 263 H (74-99) mg/dL Plasma Lactic Acid Oscar 1.3 (0.7-2.0) mmol/L Calcium 8.9 (8.4-10.2) mg/dL Magnesium 2.8 H (1.6-2.3) mg/dL Total Bilirubin 1.1 (0.2-1.3) mg/dL AST 115 H (14-36) U/L ALT 35 H (4-34) U/L Alkaline Phosphatase 163 H (38-126) U/L Troponin I 0.020 (0.000-0.034) ng/mL Total Protein 6.6 (6.3-8.2) g/dL Albumin 3.3 L (3.5-5.0) g/dL Urine Color Urine Appearance (Clear) Urine pH (5.0-8.0) Ur Specific [place] (1.001-1.035) Urine Protein (Negative) Urine Glucose (UA) (Negative) Urine Ketones (Negative) Urine Blood (Negative) Urine Nitrite (Negative) Urine Bilirubin (Negative) Urine Urobilinogen (<2.0) mg/dL Ur Leukocyte Esterase (Negative) Urine RBC (0-5) /hpf Urine WBC (0-5) /hpf Urine WBC Clumps (None) /hpf Urine Bacteria (None) /hpf Urine Mucus (None) /hpf Critical Care Time Critical Care Time: Yes Total Critical Care Time: 31 Disposition Clinical Impression: Prerenal azotemia, UTI (urinary tract infection), Sepsis Disposition: ADMITTED IP TO THIS HOSP Condition: Serious Is patient prescribed a controlled substance at d/c from ED?: No Referrals: Daylin Garcia MD [Primary Care Provider] - 1-2 days Time of Disposition: 16:38
[2023-08-22] MEDS: SODIUM CHLORIDE 0.9% 1,000 ML IV STA ×3 (15:27→17:40)
[2023-08-22 15:34] LABS: Basophils # (A) 0.1 k/uL (0-0.2); Basophils % (A) 0 %; Eosinophils # (A) 0.1 k/uL (0-0.7); Eosinophils % (A) 1 %; HCT 44.1 % (34.0-46.0); Lymphocytes # (A) 1.7 k/uL (1.0-4.8); Lymphocytes % (A) 9 %; MCH 31.4 pg (25.0-35.0); MCHC 31.7 g/dL (31.0-37.0); MCV 99.1 fL (80.0-100.0); Monocytes # (A) 0.9 k/uL (0-1.0); Monocytes % (A) 5 %; Neutrophils % (A) 83 %; Platelet Count 198 k/uL (150-450); RBC 4.45 m/uL (3.80-5.40); RDW 14.3 % (11.5-15.5); WBC 18.2 k/uL (3.8-10.6)
[2023-08-22 15:48] LABS: Partial Thromboplastin Time 23.2 sec (22.0-30.0); Prothrombin Time 11.3 sec (10.0-12.5)
[2023-08-22 15:55] LABS: ALT 35 U/L (4-34); AST 115 U/L (14-36); African American GFR (CKD) 26 (>60 ml/min/1.73 sqM); Albumin 3.3 g/dL (3.5-5.0); Alkaline Phosphatase 163 U/L (38-126); Anion Gap 11 mmol/L; Calcium 8.9 mg/dL (8.4-10.2); Carbon Dioxide 29 mmol/L (22-30); Chloride 101 mmol/L (98-107); Glucose 263 mg/dL (74-99); Magnesium 2.8 mg/dL (1.6-2.3); Non-African American GFR(CKD) 23 (>60 ml/min/1.73 sqM); Potassium 3.5 mmol/L (3.5-5.1); Sodium 141 mmol/L (137-145); Total Bilirubin 1.1 mg/dL (0.2-1.3); Total Protein 6.6 g/dL (6.3-8.2)
[2023-08-22 16:01] LABS: Blood Urea Nitrogen 113 mg/dL (7-17)
[2023-08-22 16:14] LABS: Appearance,Urine Turbid (Clear); Bacteria,Urine Many /hpf; Bilirubin,Urine Negative (Negative); Blood,Urine Small (Negative); Color,Urine Light Yellow; Glucose,Urine (UA) 3+ (Negative); Ketones,Urine Negative (Negative); Leukocyte Esterase,Urine Large (Negative); Mucus,Urine Rare /hpf; Nitrite,Urine Negative (Negative); PH, Urine 5.5 (5.0-8.0); Protein,Urine Trace (Negative); RBC,Urine 2 /hpf (0-5); Specific Gravity,Urine 1.015 (1.001-1.035); Urobilinogen,Urine <2.0 mg/dL (<2.0); WBC,Urine >182 /hpf (0-5)
[2023-08-22] MEDS ORDERED: NALOXONE 0.4 MG/ML 1 ML VIAL IV PRN (16:41)
[2023-08-22] MEDS ORDERED: ACETAMINOPHEN TAB 325 MG TAB PO PRN (16:41)
--- NOTE | 2023-08-22 16:53 | XR ---
EXAMINATION TYPE: XR chest 1V portable DATE OF EXAM: 08/22/2023 COMPARISON: 09/06/2022 INDICATION: Weakness TECHNIQUE: Single frontal view of the chest is obtained. FINDINGS: The heart size is normal. The pulmonary vasculature is normal. The lungs are clear. IMPRESSION: 1. No acute pulmonary process.
[2023-08-22] MEDS ORDERED: MENTHOL-ZINC OXIDE OINT 113 GM TUBE TOPICAL PRN (18:27)
[2023-08-22] MEDS ORDERED: INSULIN ASPART (NovoLOG) 100 UNIT/ML VIAL SQ PRN (18:27)
[2023-08-22] MEDS ORDERED: LACTULOSE 20 GM/30 ML CUP PO PRN (18:27)
[2023-08-22 20:57] LABS: Glucose,Whole Blood 266 mg/dL (70-110)
[2023-08-22] MEDS: GABAPENTIN 100 MG CAP PO SCH (21:43)
[2023-08-22] MEDS: INSULIN DETEMIR (LEVEMIR) 100 UNIT/ML SYR SQ SCH (21:43)
[2023-08-22] MEDS: VENLAFAXINE HCL ER 150 MG CAP PO SCH (21:43)
[2023-08-22] MEDS: MIDODRINE 5 MG TAB PO SCH (21:44)
[2023-08-22] MEDS: METOPROLOL TARTRATE 50 MG TAB PO SCH (21:44)
[2023-08-22] MEDS: allopurinoL 300 MG TAB PO SCH (21:44)
[2023-08-22] MEDS: busPIRone HCl 5 MG TAB PO SCH (21:44)
[2023-08-22] MEDS: ATORVASTATIN 20 MG TAB PO SCH (21:44)
--- NOTE | 2023-08-22 23:32 | P.HPIM ---
History of Present Illness H&P Date: 08/22/23 HISTORY OF PRESENT ILLNESS: 63-year-old one of the 2 tablets patient who has been [facility] apparently for over a year with multiple medical problems was hospitalized last in September 06, 2022 for 2 days for generalized weakness fall and peripheral edema. Patient was sent off from [facility] today to the emergency department because of major concern with abnormal lab has been treated for urinary tract infection with blood work today came back with BUN of 113 creatinine 2.28 with acute kidney failure also white blood cell of 18,200 with normal hemoglobin, urine test was very positive negative troponin and negative lactic acid. Also much worsening mental status compared to her baseline and slightly bit worsening cellulitis of the lower extremity with increased edema decreased mobility. Her workup in the emergency department with repeat blood test showed the same finding patient was hospitalized with acute kidney failure along with sepsis and UTI and altered mental status. REVIEW OF SYSTEMS: CONSTITUTIONAL: Overweight no acute respiratory distress EYES: No icterus sclerae, no conjunctivitis. EARS, NOSE, MOUTH, THROAT, and FACE: No sore throat, lymphadenopathy, carotid bruits or deformity. RESPIRATORY: Slight shortness of breath and cough no wheezes. CARDIOVASCULAR: Positive PND orthopnea palpitation no angina. GASTROINTESTINAL: Abdominal discomfort with significant change in bowel habit with no active bleed but bloating sensation with mild diarrhea sometimes. GENITOURINARY: Significant incontinence with recurrent UTI with no hematuria. INTEGUMENT/BREAST: Generalized arthralgia and edema.. HEMATOLOGIC/LYMPHATIC: Negative for bleed or purpura. MUSCULOSKELTAL: Positive myalgia and arthralgia. NEURLOGICAL: No LOC, Sz or syncope, slight confusion with slight memory loss. BEHAVIORAL/PSYCH: Negative. ENDOCRINE: Negative. PHYSICAL EXAMINATION: General Appearance: Mildly obese no acute respiratory distress. Neck HEENT: Supple, no lymphadenopathy, no thyroid enlargement, no carotid bruits. Lungs: Decreased breath sound bilaterally with fine rhonchi no crackles or wheezes. Chest Wall: Decreased expansion with deep inspiration no tenderness and no deformity was found on exam, no costochondral pain or discomfort. Heart: Regular rate and rhythm, S1, S2 positive S3 no JVD. Back: slight tenderness and scoliosis with lower back discomfort in the sacroiliac bilaterally. Abdomen: Mild abdominal discomfort with slight tenderness in lower abdominal region area with no rebound or rigidity. Extremities: Extremities 1+ edema with slight vascular cellulitis of the lower extremity with generalized fatigue and generalized arthralgia both knees and hips bilaterally. Pulses: 2+ and symmetric. Skin: Skin color, texture, tugor normal, no rashes or lesions. Neurologic: Alert significantly confused cranial nerves II to XII intact not able to do any gait exam. ASSESSMENT AND PLAN: _Acute kidney injury most likely from dehydration could be obstructive uropathy related to the UTI could be passing stone at this point, ultrasound of the kidney done, will consult nephrology, continue hydration. _Acute urinary tract infection with sepsis elevated white blood cell with worsening UTI lactic acid was negative because patient has been treated in [facility] which will alter and change the picture of her sepsis. _ Leukocytosis: Likely etiology most likely infection with UTI will be on antibiotics for now was started on Rocephin. _Type 2 diabetes: Was on larger dose of insulin with Toujeo 90 units at bedtime NovoLog 14 units AC meals with slow down on the dose at this point to half the dose only titrate dose higher gradually. Also patient is on Mounjaro which can be held while she is in the hospital. The patient is still on Invokana as well. _Chronic neuropathy: Has been on gabapentin 100 mg 3 times a day. _Hyperlipidemia: Resume atorvastatin 20 mg a day. _Restless leg syndrome: Has been on Requip 0.25 mg twice a day. _COPD: Remain on ipratropium/albuterol nebulizer along Breo Ellipta with montelukast has been on dexamethasone daily as well. Continue medication still on O2 try to keep pulse ox above 90 percentile. _Chronic edema: Has been on Dyazide and furosemide hold medication for now at least till the kidney function improved and will start back on diuretics gradually. _Hypertension: Still on midodrine to keep systolic blood pressure above 100. _Depression and anxiety remain on BuSpar 15 mg 3 times a day, Effexor ER XR 300 mg at bedtime and still on Abilify 20 mg daily. Chronic vascular cellulitis of the lower extremity can benefit from Silvadene cream and probably course of antibiotic whether or the pneumonia is treated with can match probably an antibiotic to take care of both. _DVT prophylaxis: Remain with knee-high ZACHARIAH hose and can use Lovenox 30 mg subcutaneous daily. _GI prophylaxis: Will continue pantoprazole. CODE STATUS: Full code. Admit patient to the inpatient service for more than 2 night stay. Past Medical History Past Medical History: Asthma, COPD, Diabetes Mellitus, Hyperlipidemia, Renal Disease Additional Past Medical History / Comment(s): OBESITY. USES A WALKER OR W/C TO AMBULATE, HX OF GOUT, HIATAL HERNIA, UTI, WEARS DEPENDS. PAST [employer] INTER[employer] HISTORY: She has no history of STDs. She has never been sexually active. Postmenopausal bleeding, recurrent. History of Any Multi-Drug Resistant Organisms: None Reported Past Surgical History: Bariatric Surgery, Cholecystectomy, Orthopedic Surgery Additional Past Surgical History / Comment(s): Total L knee 04/15/14, lap band placed then removed, gastric sleeve 08/19/2012 EGD. D&C 2016 or 2017(?) Past Anesthesia/Blood Transfusion Reactions: No Reported Reaction Additional Past Anesthesia/Blood Transfusion Reaction / Comment(s): Pt has never recieved blood.CLAUSTERPHOBIA Past Psychological History: Anxiety, Depression, Schizophrenia Smoking Status: Former smoker Past Alcohol Use History: None Reported Past Drug Use History: None Reported - Past Family History Father Family Medical History: Diabetes Mellitus, Musculoskeletal Disorder Additional Family Medical History / Comment(s): Father had parkinsons. He in his 80's. Paternal aunt had breast cancer. Mother Family Medical History: Diabetes Mellitus Medications and Allergies Home Medications Medication Instructions Recorded Confirmed Type Albuterol Inhaler [Ventolin Hfa 2 puff INHALATION RT-Q6H PRN 04/03/17 08/22/23 History Inhaler] Venlafaxine HCl ER [Effexor XR] 300 mg PO HS@209912/20/17 08/22/23 History allopurinoL [Zyloprim] 300 mg PO HS@209912/20/17 08/22/23 History Fluticasone/Vilanterol [Breo 1 puff INHALATION RT-DAILY@0910/05/20 08/22/23 History Ellipta 200-25 Mcg Inhaler] Insulin Glargine,Hum.rec.anlog 90 units SQ HS 10/05/20 08/22/23 History [Tougurjito Max Solostar] Canagliflozin [Invokana] 100 mg PO DAILY@0900 09/06/22 08/22/23 History Loperamide HCl [Imodium A-D] 4 mg PO QID PRN 09/06/22 08/22/23 History Montelukast [Singulair] 10 mg PO DAILY@0900 09/06/22 08/22/23 History busPIRone HCL 15 mg PO TID@0900,1300,209909/06/22 08/22/23 History calcitrioL 0.25 mcg PO MOFR@0900 09/06/22 08/22/23 History hydroCHLOROthiazide 25 mg PO DIRECTED 09/06/22 08/22/23 History Acetaminophen Tab [Tylenol] 650 mg PO Q6HR PRN tab 09/08/22 08/22/23 Rx Lactulose [Cephulac] 20 gm PO DAILY PRN ml 09/08/22 08/22/23 Rx ARIPiprazole [Abilify] 20 mg PO DAILY@0900 08/22/23 08/22/23 History Atorvastatin [Lipitor] 20 mg PO HS@209908/22/23 08/22/23 History Cefuroxime [Ceftin] 250 mg PO BID@0900,209908/22/23 08/22/23 History Cyanocobalamin [Vitamin B-12] 1,000 mcg PO DAILY@0900 08/22/23 08/22/23 History Ergocalciferol (Vitamin D2) 1,250 mcg PO Q14D 08/22/23 08/22/23 History [Drisdol (50,000 Iu)] Furosemide [Lasix] 40 mg PO DAILY@0900 08/22/23 08/22/23 History Gabapentin [Neurontin] 100 mg PO TID@0900,1300,209908/22/23 08/22/23 History INSULIN LISPRO (HumaLOG) [humaLOG] 3 units SQ HS PRN 08/22/23 08/22/23 History Insulin Lispro [humaLOG Kwikpen] 40 unit SQ AC-TID@08,12,17 08/22/23 08/22/23 History Ipratropium/Albuter 20-100Mcg 1 puff INHALATION RT-QID PRN 08/22/23 08/22/23 History [Combivent Respimat 20-100Mcg Inhaler] Menthol [Biofreeze] 1 applic TOPICAL DAILY PRN 08/22/23 08/22/23 History Metoprolol Tartrate [Lopressor] 50 mg PO BID@0900,2100 08/22/23 08/22/23 History Midodrine [ProAmatine] 5 mg PO TID@0900,1300,2100 08/22/23 08/22/23 History Olopatadine HCl [Pataday] 1 drop BOTH EYES DAILY@0600 08/22/23 08/22/23 History Potassium Chloride ER [K-Dur 20] 20 meq PO HS@209908/22/23 08/22/23 History Prostat Awc 30 ml PO DAILY@0908/22/23 08/22/23 History Tirzepatide [Mounjaro] 15 mg SQ MO@89908/22/23 08/22/23 History dexAMETHasone [Decadron] 4 mg PO DAILY@0908/22/23 08/22/23 History rOPINIRole HCL [Requip] 0.25 mg PO BID@0900,1700 08/22/23 08/22/23 History Allergies Allergy/AdvReac Type Severity Reaction Status Date / Time codeine Allergy Rash/Hives Verified 08/22/23 15:04 Physical Exam Vitals: Vital Signs Temp Pulse Resp BP Pulse Ox 08/22/23 16:00 105 H 17 104/59 95 08/22/23 15:40 103 H 21 93/61 96 08/22/23 15:30 103 H 23 93/61 94 L 08/22/23 15:20 105 H 13 93/61 95 08/22/23 15:10 105 H 25 H 93/61 95 08/22/23 15:00 104 H 18 93/61 95 08/22/23 14:51 94 L 08/22/23 14:47 99.1 F 103 H 20 93/61 95 Intake and Output 08/22/23 08/22/23 08/22/23 06:59 14:59 22:59 Other: Weight 145.15 kg Results CBC & Chem 7: 08/22/23 15:13 08/22/23 15:13 Labs: Abnormal Lab Results - Last 24 Hours (Table) 08/22/23 08/22/23 08/22/23 Range/Units 15:13 15:13 15:13 WBC 18.2 H (3.8-10.6) k/uL Neutrophils # 15.0 H (1.3-7.7) k/uL BUN 113 H* (7-17) mg/dL Creatinine 2.28 H (0.52-1.04) mg/dL Glucose 263 H (74-99) mg/dL Magnesium 2.8 H (1.6-2.3) mg/dL AST 115 H (14-36) U/L ALT 35 H (4-34) U/L Alkaline Phosphatase 163 H (38-126) U/L Albumin 3.3 L (3.5-5.0) g/dL Urine Appearance Turbid H (Clear) Urine Protein Trace H (Negative) Urine Glucose (UA) 3+ H (Negative) Urine Blood Small H (Negative) Ur Leukocyte Esterase Large H (Negative) Urine WBC >182 H (0-5) /hpf Urine WBC Clumps Many H (None) /hpf Urine Bacteria Many H (None) /hpf Urine Mucus Rare H (None) /hpf
[2023-08-23 05:46] LABS: Glucose,Whole Blood 319 mg/dL (70-110)
[2023-08-23] MEDS: PANTOPRAZOLE 40 MG TABLET PO SCH (06:35)
[2023-08-23] MEDS: KETOTIFEN 0.025% OPHTH DROPS 5 ML BTL BOTH EYES SCH (06:35)
--- NOTE | 2023-08-23 07:48 | P.PN ---
Subjective Progress Note Date: 08/23/23 HISTORY OF PRESENT ILLNESS: 63-year-old one of the 2 tablets patient who has been [facility] apparently for over a year with multiple medical problems was hospitalized last in September 06, 2022 for 2 days for generalized weakness fall and peripheral edema. Patient was sent off from [facility] today to the emergency department because of major concern with abnormal lab has been treated for urinary tract infection with blood work today came back with BUN of 113 creatinine 2.28 with acute kidney failure also white blood cell of 18,200 with normal hemoglobin, urine test was very positive negative troponin and negative lactic acid. Also much worsening mental status compared to her baseline and slightly bit worsening cellulitis of the lower extremity with increased edema decreased mobility. Her workup in the emergency department with repeat blood test showed the same finding patient was hospitalized with acute kidney failure along with sepsis and UTI and altered mental status. 08/23/2023: Patient slept the night, she is doing slightly better, still mildly confused. There was sacrum wound will initiate wound care also there is a left guillen slight scratch with stage I wound will be covered again with either DuoDERM or Silvadene for now might consult wound care for the sacrum area. Continue IV antibiotics, continue hydration, patient be seen nephrology today and will be going for renal ultrasound to rule out any obstructive uropathy. REVIEW OF SYSTEMS: CONSTITUTIONAL: Overweight no acute respiratory distress EYES: No icterus sclerae, no conjunctivitis. EARS, NOSE, MOUTH, THROAT, and FACE: No sore throat, lymphadenopathy, carotid b ruits or deformity. RESPIRATORY: Slight shortness of breath and cough no wheezes. CARDIOVASCULAR: Positive PND orthopnea palpitation no angina. GASTROINTESTINAL: Abdominal discomfort with significant change in bowel habit with no active bleed but bloating sensation with mild diarrhea sometimes. GENITOURINARY: Significant incontinence with recurrent UTI with no hematuria. INTEGUMENT/BREAST: Generalized arthralgia and edema.. HEMATOLOGIC/LYMPHATIC: Negative for bleed or purpura. MUSCULOSKELTAL: Positive myalgia and arthralgia. NEURLOGICAL: No LOC, Sz or syncope, slight confusion with slight memory loss. BEHAVIORAL/PSYCH: Negative. ENDOCRINE: Negative. PHYSICAL EXAMINATION: General Appearance: Mildly obese no acute respiratory distress. Neck HEENT: Supple, no lymphadenopathy, no thyroid enlargement, no carotid bruits. Lungs: Decreased breath sound bilaterally with fine rhonchi no crackles or wheezes. Chest Wall: Decreased expansion with deep inspiration no tenderness and no deformity was found on exam, no costochondral pain or discomfort. Heart: Regular rate and rhythm, S1, S2 positive S3 no JVD. Back: slight tenderness and scoliosis with lower back discomfort in the sacroiliac bilaterally. Abdomen: Mild abdominal discomfort with slight tenderness in lower abdominal region area with no rebound or rigidity. Extremities: Extremities 1+ edema with slight vascular cellulitis of the lower extremity with generalized fatigue and generalized arthralgia both knees and hips bilaterally. Pulses: 2+ and symmetric. Skin: Skin color, texture, tugor normal, no rashes or lesions. Neurologic: Alert significantly confused cranial nerves II to XII intact not able to do any gait exam. ASSESSMENT AND PLAN: _Acute kidney injury most likely from dehydration could be obstructive uropathy related to the UTI could be passing stone at this point, ultrasound of the kidney done, will consult nephrology, continue hydration. Labs from this mo rning still pending renal ultrasound was ordered as well. _Acute urinary tract infection with sepsis elevated white blood cell with worsening UTI lactic acid was negative because patient has been treated in [facility] which will alter and change the picture of her sepsis. Awaiting for the final culture to change antibiotics. _ Leukocytosis: Likely etiology most likely infection with UTI will be on antibiotics for now was started on Rocephin. _Type 2 diabetes: Was on larger dose of insulin with Toujeo 90 units at bedtime NovoLog 14 units AC meals with slow down on the dose at this point to half the dose only titrate dose higher gradually. Also patient is on Mounjaro which can be held while she is in the hospital. The patient is still on Invokana as well. Blood sugar was higher with the adjustment of insulin was made we will titrate Toujeo up to 70 units and NovoLog up to 30 units 3 times a day. _Chronic neuropathy: Has been on gabapentin 100 mg 3 times a day. _Hyperlipidemia: Resume atorvastatin 20 mg a day. _Restless leg syndrome: Has been on Requip 0.25 mg twice a day. _Sacrum wound: Will be using DuoDERM and wound care to see. Patient is on antibiotic already if it culture anything will change the treatment. _COPD: Remain on ipratropium/albuterol nebulizer along Breo Ellipta with montelukast has been on dexamethasone daily as well. Continue medication still on O2 try to keep pulse ox above 90 percentile. _Chronic edema: Has been on Dyazide and furosemide hold medication for now at least till the kidney function improved and will start back on diuretics gradually. _Hypertension: Still on midodrine to keep systolic blood pressure above 100. _Depression and anxiety remain on BuSpar 15 mg 3 times a day, Effexor ER XR 300 mg at bedtime and still on Abilify 20 mg daily. Chronic vascular cellulitis of the lower extremity can benefit from Silvadene cream and probably course of antibiotic whether or the pneumonia is treated with can match probably an antibiotic to take care of both. Prognosis: Fair at this point. Discussion: Patient will be going for renal ultrasound, continue IV hydration and antibiotic management for now waiting to see nephrology also wound care might be involved with her sacral wound patient might be in the hospital for the next 72 hours. Objective - Vital Signs Vital signs: Vital Signs Temp 98.6 F 08/23/23 01:30 Pulse 106 H 08/23/23 01:30 Resp 15 08/23/23 01:30 BP 97/53 08/23/23 01:30 Pulse Ox 95 08/23/23 01:30 FiO2 Intake & Output 08/22/23 08/22/23 08/23/23 06:59 18:59 06:59 Weight 145.15 kg 145.15 kg Other: Voiding Method Diaper # Voids 1 # Bowel Movements 1 - Labs CBC & Chem 7: 08/22/23 15:13 08/22/23 15:13 Labs: Abnormal Lab Results - Last 24 Hours (Table) 08/22/23 08/22/23 08/22/23 Range/Units 15:13 15:13 15:13 WBC 18.2 H (3.8-10.6) k/uL Neutrophils # 15.0 H (1.3-7.7) k/uL BUN 113 H* (7-17) mg/dL Creatinine 2.28 H (0.52-1.04) mg/dL Glucose 263 H (74-99) mg/dL POC Glucose (mg/dL) (70-110) mg/dL Magnesium 2.8 H (1.6-2.3) mg/dL AST 115 H (14-36) U/L ALT 35 H (4-34) U/L Alkaline Phosphatase 163 H (38-126) U/L Albumin 3.3 L (3.5-5.0) g/dL Urine Appearance Turbid H (Clear) Urine Protein Trace H (Negative) Urine Glucose (UA) 3+ H (Negative) Urine Blood Small H (Negative) Ur Leukocyte Esterase Large H (Negative) Urine WBC >182 H (0-5) /hpf Urine WBC Clumps Many H (None) /hpf Urine Bacteria Many H (None) /hpf Urine Mucus Rare H (None) /hpf 08/22/23 08/23/23 Range/Units 20:54 05:44 WBC (3.8-10.6) k/uL Neutrophils # (1.3-7.7) k/uL BUN (7-17) mg/dL Creatinine (0.52-1.04) mg/dL Glucose (74-99) mg/dL POC Glucose (mg/dL) 266 H 319 H (70-110) mg/dL Magnesium (1.6-2.3) mg/dL AST (14-36) U/L ALT (4-34) U/L Alkaline Phosphatase (38-126) U/L Albumin (3.5-5.0) g/dL Urine Appearance (Clear) Urine Protein (Negative) Urine Glucose (UA) (Negative) Urine Blood (Negative) Ur Leukocyte Esterase (Negative) Urine WBC (0-5) /hpf Urine WBC Clumps (None) /hpf Urine Bacteria (None) /hpf Urine Mucus (None) /hpf
[2023-08-23] MEDS ORDERED: INSULIN ASPART (NovoLOG) 100 UNIT/ML VIAL SQ SCH (08:00)
[2023-08-23 08:43] LABS: Basophils # (A) 0.04 X 10*3/uL (0.00-0.10); Basophils % (A) 0.2 %; Eosinophils # (A) 0.03 X 10*3/uL (0.04-0.35); Eosinophils % (A) 0.2 %; HGB 13.4 g/dL (12.0-15.0); Lymphocytes # (A) 1.24 X 10*3/uL (0.90-5.00); Lymphocytes % (A) 7.6 %; MCH 31.2 pg (27.0-32.0); MCHC 31.2 g/dL (32.0-37.0); Mean Platelet Volume 11.7 FL (9.5-12.2); Monocytes # (A) 1.21 X 10*3/uL (0.20-1.00); Monocytes % (A) 7.4 %; NRBC Per 100 WBC 0 X 10*3/uL (0.00-0.01); Neutrophils # (A) 13.84 X 10*3/uL (1.80-7.70); Neutrophils % (A) 84.3 %; Platelet Count 188 X 10*3/uL (140-440); WBC 16.41 X 10*3/uL (4.50-10.00)
[2023-08-23 08:59] LABS: ALT 36 U/L (8-44); AST 196 U/L (13-35); Albumin 3.1 g/dL (3.8-4.9); Albumin/Globulin Ratio 1.03 Ratio (1.60-3.17); Alkaline Phosphatase 130 U/L (41-126); BUN/Creat Ratio 44.58 Ratio (12.00-20.00); Blood Urea Nitrogen 84.7 mg/dL (9.0-27.0); Calcium 8.9 mg/dL (8.7-10.3); Carbon Dioxide 28.6 mmol/L (21.6-31.8); Chloride 103 mmol/L (96-109); Glucose 284 mg/dL (70-110); Sodium 146 mmol/L (135-145); Total Bilirubin 0.7 mg/dL (0.3-1.2); Total Protein 6.1 g/dL (6.2-8.2)
[2023-08-23] MEDS ORDERED: NON FORMULARY DRUG (Prostat Awc 30 ML) PO SCH (09:00)
[2023-08-23] MEDS ORDERED: DAPAGLIFLOZIN PROPANEDIOL 5 MG TABLET PO SCH (09:00)
[2023-08-23] MEDS: SYMBICORT 160-4.5 MCG INHALER INHALATION SCH (09:03)
--- NOTE | 2023-08-23 09:28 | US ---
EXAMINATION TYPE: US renals and bladder DATE OF EXAM: 08/23/2023 COMPARISON: 02/08/2022 CLINICAL INDICATION: Female, 63 years old with history of IVONNE; HX IVONNE EXAM MEASUREMENTS: Right Kidney: 9.0 x 5.1 x 4.4 cm Left Kidney: unable to visualize Extremely limited exam due to patient body habitus, lack of patient mobility, and overlying bowel g as Right Kidney: No hydronephrosis or masses seen as best visualized Left Kidney: unable to visualize today Bladder: wnl as best visualized Bilateral Jets seen: No IMPRESSION: Renal ultrasound as visualized appears unremarkable. Exam is very limited due to body habitus and bow el gas.
[2023-08-23] MEDS: INSULIN ASPART (NovoLOG) 100 UNIT/ML VIAL SQ SCH (09:36)
[2023-08-23] MEDS: ENOXAPARIN 30 MG/0.3 ML SYRINGE SQ SCH (09:54)
[2023-08-23] MEDS: MONTELUKAST 10 MG TAB PO SCH (09:54)
[2023-08-23] MEDS: CYANOCOBALAMIN 500 MCG TAB PO SCH (09:54)
--- NOTE | 2023-08-23 10:57 | P.GSCN ---
History of Present Illness Consult date: 08/23/23 Reason for Consult: Sacral decubiti Requesting physician: Ras Billy History of present illness: This is a mentally compromised 63-year-old morbidly obese female resident of an [facility]. She has developed recently discoloration and ulceration in her presacral area. Past Medical History Past Medical History: Asthma, COPD, Diabetes Mellitus, Hyperlipidemia, Renal Disease Additional Past Medical History / Comment(s): OBESITY. USES A WALKER OR W/C TO AMBULATE, HX OF GOUT, HIATAL HERNIA, UTI, WEARS DEPENDS. 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 She has never been sexually active. Postmenopausal bleeding, recurrent. History of Any Multi-Drug Resistant Organisms: None Reported Past Surgical History: Bariatric Surgery, Cholecystectomy, Orthopedic Surgery Additional Past Surgical History / Comment(s): Total L knee 04/15/14, lap band placed then removed, gastric sleeve 08/19/2012 EGD. D&C 2016 or 2017(?) Past Anesthesia/Blood Transfusion Reactions: No Reported Reaction Additional Past Anesthesia/Blood Transfusion Reaction / Comm: Pt has never recieved blood.CLAUSTERPHOBIA Past Psychological History: Anxiety, Depression, Schizophrenia Smoking Status: Former smoker Past Alcohol Use History: None Reported Past Drug Use History: None Reported - Past Family History Father Family Medical History: Diabetes Mellitus, Musculoskeletal Disorder Additional Family Medical History / Comment(s): Father had parkinsons. He in his 80's. Paternal aunt had breast cancer. Mother Family Medical History: Diabetes Mellitus Medications and Allergies Home Medications Medication Instructions Recorded Confirmed Type Albuterol Inhaler [Ventolin Hfa 2 puff INHALATION RT-Q6H PRN 04/03/17 08/22/23 History Inhaler] Venlafaxine HCl ER [Effexor XR] 300 mg PO HS@209912/20/17 08/22/23 History allopurinoL [Zyloprim] 300 mg PO HS@209912/20/17 08/22/23 History Fluticasone/Vilanterol [Breo 1 puff INHALATION RT-DAILY@0900 10/05/20 08/22/23 History Ellipta 200-25 Mcg Inhaler] Insulin Glargine,Hum.rec.anlog 90 units SQ HS 10/05/20 08/22/23 History [Toujeo Max Solostar] Canagliflozin [Invokana] 100 mg PO DAILY@0900 09/06/22 08/22/23 History Loperamide HCl [Imodium A-D] 4 mg PO QID PRN 09/06/22 08/22/23 History Montelukast [Singulair] 10 mg PO DAILY@0900 09/06/22 08/22/23 History busPIRone HCL 15 mg PO TID@0900,1300,209909/06/22 08/22/23 History calcitrioL 0.25 mcg PO MOFR@0900 09/06/22 08/22/23 History hydroCHLOROthiazide 25 mg PO DIRECTED 09/06/22 08/22/23 History Acetaminophen Tab [Tylenol] 650 mg PO Q6HR PRN tab 09/08/22 08/22/23 Rx Lactulose [Cephulac] 20 gm PO DAILY PRN ml 09/08/22 08/22/23 Rx ARIPiprazole [Abilify] 20 mg PO DAILY@0908/22/23 08/22/23 History Atorvastatin [Lipitor] 20 mg PO HS@209908/22/23 08/22/23 History Cefuroxime [Ceftin] 250 mg PO BID@0900,209908/22/23 08/22/23 History Cyanocobalamin [Vitamin B-12] 1,000 mcg PO DAILY@0908/22/23 08/22/23 History Ergocalciferol (Vitamin D2) 1,250 mcg PO Q14D 08/22/23 08/22/23 History [Drisdol (50,000 Iu)] Furosemide [Lasix] 40 mg PO DAILY@89908/22/23 08/22/23 History Gabapentin [Neurontin] 100 mg PO TID@0900,1300,2100 08/22/23 08/22/23 History INSULIN LISPRO (HumaLOG) [humaLOG] 3 units SQ HS PRN 08/22/23 08/22/23 History Insulin Lispro [humaLOG Kwikpen] 40 unit SQ AC-TID@08,12,17 08/22/23 08/22/23 History Ipratropium/Albuter 20-100Mcg 1 puff INHALATION RT-QID PRN 08/22/23 08/22/23 History [Combivent Respimat 20-100Mcg Inhaler] Menthol [Biofreeze] 1 applic TOPICAL DAILY PRN 08/22/23 08/22/23 History Metoprolol Tartrate [Lopressor] 50 mg PO BID@0900,2100 08/22/23 08/22/23 History Midodrine [ProAmatine] 5 mg PO TID@0900,1300,2100 08/22/23 08/22/23 History Olopatadine HCl [Pataday] 1 drop BOTH EYES DAILY@0600 08/22/23 08/22/23 History Potassium Chloride ER [K-Dur 20] 20 meq PO HS@2100 08/22/23 08/22/23 History Prostat Awc 30 ml PO DAILY@0900 08/22/23 08/22/23 History Tirzepatide [Mounjaro] 15 mg SQ MO@0900 08/22/23 08/22/23 History dexAMETHasone [Decadron] 4 mg PO DAILY@0900 08/22/23 08/22/23 History rOPINIRole HCL [Requip] 0.25 mg PO BID@0900,1700 08/22/23 08/22/23 History Allergies Allergy/AdvReac Type Severity Reaction Status Date / Time codeine Allergy Rash/Hives Verified 08/22/23 15:04 Surgical - Exam Osteopathic Statement: *. No significant issues noted on an osteopathic structural exam other than those noted in the History and Physical/Consult. Vital Signs Temp Pulse Resp BP Pulse Ox 99.1 F 103 H 20 93/61 95 08/22/23 14:47 08/22/23 14:47 08/22/23 14:47 08/22/23 14:47 08/22/23 14:47 Interval presacral area she has had about a 10 cm in circumference area of dusky discoloration. There is a 1 cm area of mild excoriation and in the central gluteal crease there is some mild excoriation. Results - Labs 08/23/23 05:45 08/23/23 05:45 Abnormal Lab Results - Last 24 Hours (Table) 08/22/23 08/22/23 08/22/23 Range/Units 15:13 15:13 15:13 WBC 18.2 H (3.8-10.6) k/uL MCV (80.0-97.0) FL MCHC (32.0-37.0) g/dL Immature Gran # (0.00-0.04) X 10*3/uL Neutrophils # 15.0 H (1.3-7.7) k/uL Monocytes # (0.20-1.00) X 10*3/uL Eosinophils # (0.04-0.35) X 10*3/uL Sodium (135-145) mmol/L Potassium (3.5-5.5) mmol/L Anion Gap (4.00-12.00) mmol/L BUN 113 H* (7-17) mg/dL Creatinine 2.28 H (0.52-1.04) mg/dL Est GFR (CKD-EPI) (>=60) BUN/Creatinine Ratio (12.00-20.00) Ratio Glucose 263 H (74-99) mg/dL POC Glucose (mg/dL) (70-110) mg/dL Magnesium 2.8 H (1.6-2.3) mg/dL AST 115 H (14-36) U/L ALT 35 H (4-34) U/L Alkaline Phosphatase 163 H (38-126) U/L Total Protein (6.2-8.2) g/dL Albumin 3.3 L (3.5-5.0) g/dL Albumin/Globulin Ratio (1.60-3.17) Ratio Urine Appearance Turbid H (Clear) Urine Protein Trace H (Negative) Urine Glucose (UA) 3+ H (Negative) Urine Blood Small H (Negative) Ur Leukocyte Esterase Large H (Negative) Urine WBC >182 H (0-5) /hpf Urine WBC Clumps Many H (None) /hpf Urine Bacteria Many H (None) /hpf Urine Mucus Rare H (None) /hpf 08/22/23 08/23/23 08/23/23 Range/Units 20:54 05:44 05:45 WBC 16.41 H (3.8-10.6) k/uL MCV 100.0 H (80.0-97.0) FL MCHC 31.2 L (32.0-37.0) g/dL Immature Gran # 0.05 H (0.00-0.04) X 10*3/uL Neutrophils # 13.84 H (1.3-7.7) k/uL Monocytes # 1.21 H (0.20-1.00) X 10*3/uL Eosinophils # 0.03 L (0.04-0.35) X 10*3/uL Sodium (135-145) mmol/L Potassium (3.5-5.5) mmol/L Anion Gap (4.00-12.00) mmol/L BUN (7-17) mg/dL Creatinine (0.52-1.04) mg/dL Est GFR (CKD-EPI) (>=60) BUN/Creatinine Ratio (12.00-20.00) Ratio Glucose (74-99) mg/dL POC Glucose (mg/dL) 266 H 319 H (70-110) mg/dL Magnesium (1.6-2.3) mg/dL AST (14-36) U/L ALT (4-34) U/L Alkaline Phosphatase (38-126) U/L Total Protein (6.2-8.2) g/dL Albumin (3.5-5.0) g/dL Albumin/Globulin Ratio (1.60-3.17) Ratio Urine Appearance (Clear) Urine Protein (Negative) Urine Glucose (UA) (Negative) Urine Blood (Negative) Ur Leukocyte Esterase (Negative) Urine WBC (0-5) /hpf Urine WBC Clumps (None) /hpf Urine Bacteria (None) /hpf Urine Mucus (None) /hpf 08/23/23 Range/Units 05:45 WBC (3.8-10.6) k/uL MCV (80.0-97.0) FL MCHC (32.0-37.0) g/dL Immature Gran # (0.00-0.04) X 10*3/uL Neutrophils # (1.3-7.7) k/uL Monocytes # (0.20-1.00) X 10*3/uL Eosinophils # (0.04-0.35) X 10*3/uL Sodium 146 H (135-145) mmol/L Potassium 3.0 L (3.5-5.5) mmol/L Anion Gap 14.40 H (4.00-12.00) mmol/L BUN 84.7 H (7-17) mg/dL Creatinine 1.9 H (0.52-1.04) mg/dL Est GFR (CKD-EPI) 30 L (>=60) BUN/Creatinine Ratio 44.58 H (12.00-20.00) Ratio Glucose 284 H (74-99) mg/dL POC Glucose (mg/dL) (70-110) mg/dL Magnesium (1.6-2.3) mg/dL AST 196 H (14-36) U/L ALT (4-34) U/L Alkaline Phosphatase 130 H (38-126) U/L Total Protein 6.1 L (6.2-8.2) g/dL Albumin 3.1 L (3.5-5.0) g/dL Albumin/Globulin Ratio 1.03 L (1.60-3.17) Ratio Urine Appearance (Clear) Urine Protein (Negative) Urine Glucose (UA) (Negative) Urine Blood (Negative) Ur Leukocyte Esterase (Negative) Urine WBC (0-5) /hpf Urine WBC Clumps (None) /hpf Urine Bacteria (None) /hpf Urine Mucus (None) /hpf Diabetes panel 08/22/23 08/23/23 Range/Units 15:13 05:45 Sodium 141 146 H (137-145) mmol/L Potassium 3.5 3.0 L (3.5-5.1) mmol/L Chloride 101 103 (98-107) mmol/L Carbon Dioxide 29 28.6 (22-30) mmol/L BUN 113 H* 84.7 H (7-17) mg/dL Creatinine 2.28 H 1.9 H (0.52-1.04) mg/dL Glucose 263 H 284 H (74-99) mg/dL Calcium 8.9 8.9 (8.4-10.2) mg/dL AST 115 H 196 H (14-36) U/L ALT 35 H 36 (4-34) U/L Alkaline Phosphatase 163 H 130 H (38-126) U/L Total Protein 6.6 6.1 L (6.3-8.2) g/dL Albumin 3.3 L 3.1 L (3.5-5.0) g/dL Calcium panel 08/22/23 08/23/23 Range/Units 15:13 05:45 Calcium 8.9 8.9 (8.4-10.2) mg/dL Albumin 3.3 L 3.1 L (3.5-5.0) g/dL Pituitary panel 08/22/23 08/23/23 Range/Units 15:13 05:45 Sodium 141 146 H (137-145) mmol/L Potassium 3.5 3.0 L (3.5-5.1) mmol/L Chloride 101 103 (98-107) mmol/L Carbon Dioxide 29 28.6 (22-30) mmol/L BUN 113 H* 84.7 H (7-17) mg/dL Creatinine 2.28 H 1.9 H (0.52-1.04) mg/dL Glucose 263 H 284 H (74-99) mg/dL Calcium 8.9 8.9 (8.4-10.2) mg/dL Adrenal panel 08/22/23 08/23/23 Range/Units 15:13 05:45 Sodium 141 146 H (137-145) mmol/L Potassium 3.5 3.0 L (3.5-5.1) mmol/L Chloride 101 103 (98-107) mmol/L Carbon Dioxide 29 28.6 (22-30) mmol/L BUN 113 H* 84.7 H (7-17) mg/dL Creatinine 2.28 H 1.9 H (0.52-1.04) mg/dL Glucose 263 H 284 H (74-99) mg/dL Calcium 8.9 8.9 (8.4-10.2) mg/dL Total Bilirubin 1.1 0.7 (0.2-1.3) mg/dL AST 115 H 196 H (14-36) U/L ALT 35 H 36 (4-34) U/L Alkaline Phosphatase 163 H 130 H (38-126) U/L Total Protein 6.6 6.1 L (6.3-8.2) g/dL Albumin 3.3 L 3.1 L (3.5-5.0) g/dL Assessment and Plan (1) Sacral decubitus ulcer, stage II Current Visit: Yes Status: Acute Code(s): L89.152 - PRESSURE ULCER OF SACRAL REGION, STAGE 2 SNOMED Code(s): 99173135709992 Plan: This is essentially an unstageable ulcer that at this point has marginal viability. It is not definitively healed or necrosis. I would simply at this time use triad for the surface. I have instructed nursing to be on the extreme of diligent in maintaining offloading of this area. If this is meticulously maintained this whole area may in fact resolve. If it is simply undeclared at this time it will necrosis and require significant surgical debridement. At that time a wound VAC would be considered. I appreciate you updated to participate in this unfortunate lady's care. We'll be happy to see her if there is any change in her status.
--- NOTE | 2023-08-23 11:33 | P.NPCON ---
History of Present Illness - Reason for Consult acute renal failure, chronic renal failure - History of Present Illness Reason for consultation: Acute kidney injury on chronic kidney disease History of present illness: Patient is a 63-year-old female seen in new consultation for acute kidney injury on chronic kidney disease. Patient has chronic kidney disease stage IIIa with baseline creatinine 1.1-1.3 secondary to nephrosclerosis. Creatinine this admission was elevated at 2.28 and is down to 1.9 today. BUN also trending down. Patient came to the hospital from an extended care facility due to ab normal blood work particularly elevated BUN and creatinine. There was also concern for infection. She was subsequently sent to the hospital. Patient has history of diabetes. She was taking potassium supplementation, SGLT2 inhibitor among several other medications outpatient. She did receive 2 L normal saline on admission. She is currently not on any IV fluids. Patient is not a reliable historian and has history of developmental delay. Patient blood pressure was noted to be low in the systolic 90s over 50s to 60s diastolic on admission and is now up to 110/52. I do not see any NSAIDs on her home medication list. Vital signs are stable. General: No acute distress. HEENT: Head exam is unremarkable. LUNGS: No audible rhonchi or wheezes. HEART: Rate and Rhythm are regular. ABDOMEN: Obese, nontender. EXTREMITITES: Chronic changes noted. Past Medical History Past Medical History: Asthma, COPD, Diabetes Mellitus, Hyperlipidemia, Renal Disease Additional Past Medical History / Comment(s): OBESITY. USES A WALKER OR W/C TO AMBULATE, HX OF GOUT, HIATAL HERNIA, UTI, WEARS DEPENDS. 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 She has never been sexually active. Postmenopausal bleeding, recurrent. History of Any Multi-Drug Resistant Organisms: None Reported Past Surgical History: Bariatric Surgery, Cholecystectomy, Orthopedic Surgery Additional Past Surgical History / Comment(s): Total L knee 04/15/14, lap band placed then removed, gastric sleeve 08/19/2012 EGD. D&C 2016 or 2017(?) Past Anesthesia/Blood Transfusion Reactions: No Reported Reaction Additional Past Anesthesia/Blood Transfusion Reaction / Comment(s): Pt has never recieved blood.CLAUSTERPHOBIA Past Psychological History: Anxiety, Depression, Schizophrenia Smoking Status: Former smoker Past Alcohol Use History: None Reported Past Drug Use History: None Reported - Past Family History Father Family Medical History: Diabetes Mellitus, Musculoskeletal Disorder Additional Family Medical History / Comment(s): Father had parkinsons. He in his 80's. Paternal aunt had breast cancer. Mother Family Medical History: Diabetes Mellitus Medications and Allergies Home Medications Medication Instructions Recorded Confirmed Type Albuterol Inhaler [Ventolin Hfa 2 puff INHALATION RT-Q6H PRN 04/03/17 08/22/23 History Inhaler] Venlafaxine HCl ER [Effexor XR] 300 mg PO HS@209912/20/17 08/22/23 History allopurinoL [Zyloprim] 300 mg PO HS@209912/20/17 08/22/23 History Fluticasone/Vilanterol [Breo 1 puff INHALATION RT-DAILY@0910/05/20 08/22/23 History Ellipta 200-25 Mcg Inhaler] Insulin Glargine,Hum.rec.anlog 90 units SQ HS 10/05/20 08/22/23 History [Beti Andrews] Canagliflozin [Invokana] 100 mg PO DAILY@0909/06/22 08/22/23 History Loperamide HCl [Imodium A-D] 4 mg PO QID PRN 09/06/22 08/22/23 History Montelukast [Singulair] 10 mg PO DAILY@0909/06/22 08/22/23 History busPIRone HCL 15 mg PO TID@0900,1300,209909/06/22 08/22/23 History calcitrioL 0.25 mcg PO MOFR@89909/06/22 08/22/23 History hydroCHLOROthiazide 25 mg PO DIRECTED 09/06/22 08/22/23 History Acetaminophen Tab [Tylenol] 650 mg PO Q6HR PRN tab 09/08/22 08/22/23 Rx Lactulose [Cephulac] 20 gm PO DAILY PRN ml 09/08/22 08/22/23 Rx ARIPiprazole [Abilify] 20 mg PO DAILY@0900 08/22/23 08/22/23 History Atorvastatin [Lipitor] 20 mg PO HS@209908/22/23 08/22/23 History Cefuroxime [Ceftin] 250 mg PO BID@0900,209908/22/23 08/22/23 History Cyanocobalamin [Vitamin B-12] 1,000 mcg PO DAILY@0900 08/22/23 08/22/23 History Ergocalciferol (Vitamin D2) 1,250 mcg PO Q14D 08/22/23 08/22/23 History [Drisdol (50,000 Iu)] Furosemide [Lasix] 40 mg PO DAILY@0908/22/23 08/22/23 History Gabapentin [Neurontin] 100 mg PO TID@0900,1300,209908/22/23 08/22/23 History INSULIN LISPRO (HumaLOG) [humaLOG] 3 units SQ HS PRN 08/22/23 08/22/23 History Insulin Lispro [humaLOG Kwikpen] 40 unit SQ AC-TID@08,12,08/22/23 08/22/23 History Ipratropium/Albuter 20-100Mcg 1 puff INHALATION RT-QID PRN 08/22/23 08/22/23 History [Combivent Respimat 20-100Mcg Inhaler] Menthol [Biofreeze] 1 applic TOPICAL DAILY PRN 08/22/23 08/22/23 History Metoprolol Tartrate [Lopressor] 50 mg PO BID@0900,209908/22/23 08/22/23 History Midodrine [ProAmatine] 5 mg PO TID@0900,1300,209908/22/23 08/22/23 History Olopatadine HCl [Pataday] 1 drop BOTH EYES DAILY@0600 08/22/23 08/22/23 History Potassium Chloride ER [K-Dur 20] 20 meq PO HS@209908/22/23 08/22/23 History Prostat Awc 30 ml PO DAILY@89908/22/23 08/22/23 History Tirzepatide [Mounjaro] 15 mg SQ MO@89908/22/23 08/22/23 History dexAMETHasone [Decadron] 4 mg PO DAILY@0908/22/23 08/22/23 History rOPINIRole HCL [Requip] 0.25 mg PO BID@0900,1700 08/22/23 08/22/23 History Allergies Allergy/AdvReac Type Severity Reaction Status Date / Time codeine Allergy Rash/Hives Verified 08/22/23 15:04 Physical Exam Vitals: Vital Signs Temp Pulse Pulse Resp BP BP Pulse Ox 08/23/23 09:03 95 08/23/23 08:00 98.9 F 106 H 18 110/52 92 L 08/23/23 01:30 98.6 F 106 H 15 97/53 95 08/22/23 20:12 104 H 18 107/66 96 08/22/23 20:00 98.5 F 103 H 18 98/61 93 L 08/22/23 19:54 104 H 18 94/49 95 08/22/23 18:38 99.0 F 08/22/23 18:30 101 H 18 90/55 08/22/23 18:00 105 H 12 108/58 08/22/23 17:30 105 H 18 86/55 08/22/23 17:00 105 H 16 84/58 08/22/23 16:30 105 H 12 104/59 08/22/23 16:00 105 H 17 104/59 95 08/22/23 15:40 103 H 21 93/61 96 08/22/23 15:30 103 H 23 93/61 94 L 08/22/23 15:20 105 H 13 93/61 95 08/22/23 15:10 105 H 25 H 93/61 95 08/22/23 15:00 104 H 18 93/61 95 08/22/23 14:51 94 L 08/22/23 14:47 99.1 F 103 H 20 93/61 95 Intake and Output 08/22/23 08/23/23 08/23/23 22:59 06:59 14:59 Other: Voiding Method Diaper # Voids 1 # Bowel Movements 1 Weight 145.15 kg Results - Lab Results Most recent lab results Calcium 8.9 mg/dL (8.7-10.3) 08/23/23 05:45 Magnesium 2.8 mg/dL (1.6-2.3) H 08/22/23 15:13 08/23/23 05:45 08/23/23 05:45 Assessment and Plan Plan: Assessment: 1. Acute kidney injury secondary to ATN secondary to severe sepsis. Creatinine 2.28 on admission and is 1.9 today. No hydronephrosis noted on kidney ultrasound. Left kidney unable to be visualized. 2. Chronic kidney disease stage IIIa with baseline creatinine 1.1-1.3 secondary to nephrosclerosis. 3. Hypernatremia from lack of oral water intake. 4. Hypokalemia from poor intake. Magnesium not low. 5. Diabetes mellitus. 6. UTI on antibiotics. 7. Chronic kidney disease mineral bone disease maintained on calcitriol. Plan: Start half-normal saline to be run at 75 cc an hour. Replace potassium. Stop Farxiga. Follow-up cultures. Avoid nephrotoxins. Continue to monitor renal function and urine output. Thank you for the consultation. I will continue to follow the patient with you during her hospital stay.
[2023-08-23 11:57] LABS: Glucose,Whole Blood 218 mg/dL (70-110)
[2023-08-23] MEDS: SODIUM CHLORIDE 0.45% 1,000 ML IV SCH (12:52)
[2023-08-23] MEDS: POTASSIUM CHLORIDE ER 20 MEQ TAB.ER PO SCH (12:52)
[2023-08-23] MEDS: ACETAMINOPHEN TAB 325 MG TAB PO PRN (16:11)
[2023-08-23 16:52] LABS: Glucose,Whole Blood 184 mg/dL (70-110)
[2023-08-23 20:13] LABS: Glucose,Whole Blood 151 mg/dL (70-110)
[2023-08-23] MEDS: INSULIN DETEMIR (LEVEMIR) 100 UNIT/ML SYR SQ SCH (20:46)
[2023-08-23] MEDS: HYDROPHILIC CREAM 180 GM TUBE TOPICAL SCH (21:54)
[2023-08-24 05:57] LABS: Glucose,Whole Blood 99 mg/dL (70-110)
[2023-08-24 08:42] LABS: Glucose,Whole Blood 129 mg/dL (70-110)
--- NOTE | 2023-08-24 08:42 | CDI ---
From: Ernestine Devi Phone: [phone] Admit Date: 08/22/2023 04:42:00 PM Patient Name: Tresa Espinoza Visit Number: [id number] Discharge Date: ATTENTION: The Clinical Documentation Specialists (CDI) and [facility] Coding Staff appreciate your assistance in clarifying documentation. Please respond to the clarification below the line at the bottom and electronically sign. The CDI & [facility] Coding staff will review the response and follow-up if needed. Please note: Queries are made part of the Legal Health Record. If you have any questions, please contact the author of this message via ITS. Dr. Ras Billy: Your patient has the documented symptom of "significantly confused" in the H&P 08/21. Additional clarification regarding the etiology/cause of this symptom is requested. History/Risk Factors: Asthma, COPD, Renal disease, obesity who presents with concern of abnormal lab values and has been treated for UTI- admitted with Sepsis, UTI, IVONNE, Leukocytosis Clinical Indicators: 08/21 H&P, Physical Exam: "Neurologic: Alert, significantly confused" 08/22 IM PN, HPI: "08/23/2023: Patient slept the night, she is doing slightly better, still mildly confused." 08/21, 08/22 BUN: 113, 84.7 Creatinine: 2.28, 1.9 08/21 Urinalysis: Color: Light yellow, Appearance: Turbid, Protein: Trace, Blood: Small, Leukocyte Esterase: Large, WBC: >182, Bacteria: Many 08/21 Urine Culture: Gram negative Bacilli Treatment: Rocephin 2 gram IV one 08/21 then [id number] start 08/22 Normal Saline 1000cc IV bolus x2 on 08/21 then 130cc/hour 08/21, then 75cc/hour start 08/22 Please clarify the etiology of the symptom of "Confusion": [xx ] Metabolic Encephalopathy due to UTI, abnormal BUN, Creatinine [ ] Other condition (please specify) [ ] Unable to determine MTDD
--- NOTE | 2023-08-24 08:57 | CDI ---
From: Ernestine Devi Phone: [phone] Admit Date: 08/22/2023 04:42:00 PM Patient Name: Tresa Espinoza Visit Number: [id number] Discharge Date: ATTENTION: The Clinical Documentation Specialists (CDI) and [facility] Coding Staff appreciate your assistance in clarifying documentation. Please respond to the clarification below the line at the bottom and electronically sign. The CDI & [facility] Coding staff will review the response and follow-up if needed. Please note: Queries are made part of the Legal Health Record. If you have any questions, please contact the author of this message via ITS. Dr. Ras Billy: A sacral wound is documented in the IM note 08/22. For each diagnosis, documentation must be clear to determine if the condition was present at the time of the patients inpatient admission or developed during the hospital stay. Additional clarification regarding the sacral wound is requested. History/Risk Factors: Asthma, COPD, Renal disease, obesity who presents with concern of abnormal lab values and has been treated for UTI- admitted with Sepsis, UTI, IVONNE, Leukocytosis Clinical Indicators: 08/22 IM PN, HPI: "08/23/2023: There was a sacrum wound will initiate wound care also there is a left guillen slight scratch with stage I wound." 08/22 Wound Care Consult, Assessment/Plan: "Sacral decubitus ulcer, stage II. Essentially an unstageable ulcer that at this point has marginal viability." Treatment: Rocephin 2 gram IV one 08/21 then [id number] start 08/22 Wound Care Consult Definition of Present on Admission (POA): A diagnosis present at the time the order for admission to inpatient status was written. Please clarify if the Sacral Ulcer was POA: [xx ] Yes, Sacral ulcer stage II POA [ ] Yes, Sacral ulcer unstageable POA [ ] No, Sacral ulcer was not POA [ ] W = Clinically undetermined if the condition was present at the time of the order for inpatient admission. MTDD
[2023-08-24 11:21] LABS: Magnesium 2.4 mg/dL (1.5-2.4)
[2023-08-24 11:26] LABS: BUN/Creat Ratio 40.37 Ratio (12.00-20.00); Blood Urea Nitrogen 76.7 mg/dL (9.0-27.0); Calcium 8.4 mg/dL (8.7-10.3); Carbon Dioxide 29.3 mmol/L (21.6-31.8); Chloride 105 mmol/L (96-109); Glucose 91 mg/dL (70-110); Potassium 3.4 mmol/L (3.5-5.5); Sodium 146 mmol/L (135-145)
[2023-08-24 11:35] LABS: Glucose,Whole Blood 94 mg/dL (70-110)
--- NOTE | 2023-08-24 12:27 | P.PN ---
Subjective Patient is seen in follow-up for acute kidney injury on chronic kidney disease. Renal function stable. Sodium also stable at 146. Currently on half-normal saline. Nonoliguric. Vital signs are stable. General: No acute distress. HEENT: Head exam is unremarkable. On nasal cannula. LUNGS: No audible rhonchi or wheezes. HEART: Rate and Rhythm are regular. ABDOMEN: Obese, nontender. EXTREMITITES: Chronic changes noted. Trace edema. Objective - Vital Signs Vital signs: Vital Signs Temp 98.1 F 08/24/23 07:15 Pulse 98 08/24/23 08:00 Resp 18 08/24/23 08:00 BP 109/69 08/24/23 07:15 Pulse Ox 96 08/24/23 07:15 FiO2 Intake & Output 08/23/23 08/24/23 08/24/23 18:59 06:59 18:59 Output Total 1500 Balance -1500 Output: Urine 1500 Other: Voiding Method Diaper Diaper Diaper External Catheter External Catheter External Catheter # Voids 5 3 - Labs CBC & Chem 7: 08/23/23 05:45 08/24/23 07:02 Labs: Abnormal Lab Results - Last 24 Hours (Table) 08/23/23 08/23/23 08/24/23 Range/Units 16:51 20:11 07:02 Sodium 146 H (135-145) mmol/L Potassium 3.4 L (3.5-5.5) mmol/L BUN 76.7 H (9.0-27.0) mg/dL Creatinine 1.9 H (0.6-1.5) mg/dL Est GFR (CKD-EPI) 30 L (>=60) BUN/Creatinine Ratio 40.37 H (12.00-20.00) Ratio POC Glucose (mg/dL) 184 H 151 H (70-110) mg/dL Calcium 8.4 L (8.7-10.3) mg/dL 08/24/23 Range/Units 08:40 Sodium (135-145) mmol/L Potassium (3.5-5.5) mmol/L BUN (9.0-27.0) mg/dL Creatinine (0.6-1.5) mg/dL Est GFR (CKD-EPI) (>=60) BUN/Creatinine Ratio (12.00-20.00) Ratio POC Glucose (mg/dL) 129 H (70-110) mg/dL Calcium (8.7-10.3) mg/dL Microbiology - Last 24 Hours (Table) 08/22/23 17:15 Blood Culture - Preliminary Blood 08/22/23 17:30 Blood Culture - Preliminary Blood 08/22/23 15:13 Urine Culture - Preliminary Urine,Voided Gram Neg Bacilli Assessment and Plan Plan: Assessment: 1. Acute kidney injury secondary to ATN secondary to severe sepsis. Creatinine 2.28 on admission and is stable at 1.9 today. No hydronephrosis noted on kidney ultrasound. Left kidney unable to be visualized. 2. Chronic kidney disease stage IIIa with baseline creatinine 1.1-1.3 secondary to nephrosclerosis. 3. Hypernatremia from lack of oral water intake. 4. Hypokalemia from poor intake. Magnesium not low. Replaced. Better. 5. Diabetes mellitus. 6. UTI on antibiotics. Urine culture positive for gram-negative bacilli. 7. Chronic kidney disease mineral bone disease maintained on calcitriol. Plan: Change IV fluids to D5W at 75 cc an hour. Replace potassium. Continue to hold Farxiga for now. Follow-up cultures. Avoid nephrotoxins. Continue to monitor renal function and urine output.
[2023-08-24] MEDS: DEXTROSE 5% IN WATER 1,000 ML IV ONE (12:52)
[2023-08-24] MEDS: POTASSIUM CHLORIDE ER 20 MEQ TAB.ER PO STA (12:52)
[2023-08-24 14:43] VITALS: BMI 58.5
[2023-08-24 16:34] LABS: Glucose,Whole Blood 229 mg/dL (70-110)
[2023-08-24 20:22] LABS: Glucose,Whole Blood 289 mg/dL (70-110)
[2023-08-25 06:11] LABS: Glucose,Whole Blood 277 mg/dL (70-110)
--- NOTE | 2023-08-25 06:50 | P.PN ---
Subjective Progress Note Date: 08/24/23 HISTORY OF PRESENT ILLNESS: 63-year-old one of the 2 tablets patient who has been [facility] apparently for over a year with multiple medical problems was hospitalized last in September 06, 2022 for 2 days for generalized weakness fall and peripheral edema. Patient was sent off from [facility] today to the emergency department because of major concern with abnormal lab has been treated for urinary tract infection with blood work today came back with BUN of 113 creatinine 2.28 with acute kidney failure also white blood cell of 18,200 with normal hemoglobin, urine test was very positive negative troponin and negative lactic acid. Also much worsening mental status compared to her baseline and slightly bit worsening cellulitis of the lower extremity with increased edema decreased mobility. Her workup in the emergency department with repeat blood test showed the same finding patient was hospitalized with acute kidney failure along with sepsis and UTI and altered mental status. 08/23/2023: Patient slept the night, she is doing slightly better, still mildly confused. There was sacrum wound will initiate wound care also there is a left guillen slight scratch with stage I wound will be covered again with either DuoDERM or Silvadene for now might consult wound care for the sacrum area. Continue IV antibiotics, continue hydration, patient be seen nephrology today and will be going for renal ultrasound to rule out any obstructive uropathy. 08/24/2023: Patient is doing slightly better, continue to have worsening confusion, kidney function had improved some but still with stage IV chronic kidney disease. Electrolyte imbalance with mild hypokalemia patient baseline GFR might be around 30 so she might not regain much function from where she is on today. Continue hydration continue to treat her UTI more aggressively. Patient debility almost require help with all daily activity including feeding, bathing, dressing and other medical issues on the long-term half-way. Which that is probably the standard looking for once he is ready to be discharged back to [facility]. As for her discharge date most likely patient will be in the hospital till Sunday where I expect her kidney function to be close to his baseline and the UTI is better treated and she will be ready to be discharged. REVIEW OF SYSTEMS: CONSTITUTIONAL: Overweight no acute respiratory distress EYES: No icterus sclerae, no conjunctivitis. EARS, NOSE, MOUTH, THROAT, and FACE: No sore throat, lymphadenopathy, carotid bruits or deformity. RESPIRATORY: Slight shortness of breath and cough no wheezes. CARDIOVASCULAR: Positive PND orthopnea palpitation no angina. GASTROINTESTINAL: Abdominal discomfort with significant change in bowel habit with no active bleed but bloating sensation with mild diarrhea sometimes. GENITOURINARY: Significant incontinence with recurrent UTI with no hematuria. INTEGUMENT/BREAST: Generalized arthralgia and edema.. HEMATOLOGIC/LYMPHATIC: Negative for bleed or purpura. MUSCULOSKELTAL: Positive myalgia and arthralgia. NEURLOGICAL: No LOC, Sz or syncope, slight confusion with slight memory loss. BEHAVIORAL/PSYCH: Negative. ENDOCRINE: Negative. PHYSICAL EXAMINATION: General Appearance: Mildly obese no acute respiratory distress. Neck HEENT: Supple, no lymphadenopathy, no thyroid enlargement, no carotid bruits. Lungs: Decreased breath sound bilaterally with fine rhonchi no crackles or wheezes. Chest Wall: Decreased expansion with deep inspiration no tenderness and no deformity was found on exam, no costochondral pain or discomfort. Heart: Regular rate and rhythm, S1, S2 positive S3 no JVD. Back: slight tenderness and scoliosis with lower back discomfort in the sacroiliac bilaterally. Abdomen: Mild abdominal discomfort with slight tenderness in lower abdominal region area with no rebound or rigidity. Extremities: Extremities 1+ edema with slight vascular cellulitis of the lower extremity with generalized fatigue and generalized arthralgia both knees and hips bilaterally. Pulses: 2+ and symmetric. Skin: Skin color, texture, tugor normal, no rashes or lesions. Neurologic: Alert significantly confused cranial nerves II to XII intact not able to do any gait exam. ASSESSMENT AND PLAN: _Acute kidney injury: Continue to improve gradually with her GFR still around 30 with creatinine at 4.9. _Acute urinary tract infection with sepsis elevated white blood cell with worsening UTI her urine culture came back positive for Klebsiella pneumonia as an ESBL switch antibiotic to meropenem which she is ready to be discharged she might benefit from doing Bactrim DS once a day. _ Leukocytosis: Likely etiology most likely infection with UTI will continue to repeat CBC every 2 days. _Type 2 diabetes: Was on larger dose of insulin with Toujeo 90 units at bedtime NovoLog 14 units AC meals with slow down on the dose at this point to half the dose only titrate dose higher gradually. Also patient is on Mounjaro which can be held while she is in the hospital. The patient is still on Invokana as well. Blood sugar was higher with the adjustment of insulin was made we will titrate Toujeo up to 70 units and NovoLog up to 30 units 3 times a day. _Chronic neuropathy: Has been on gabapentin 100 mg 3 times a day. _Hyperlipidemia: Resume atorvastatin 20 mg a day. _Restless leg syndrome: Has been on Requip 0.25 mg twice a day. _Sacrum wound: Was seen wound clinic continue local dressing along with supportive mattress when she goes back to [facility] will do the same recommendation. _COPD: Remain on ipratropium/albuterol nebulizer along Breo Ellipta with montelukast has been on dexamethasone daily as well. Continue medication still on O2 try to keep pulse ox above 90 percentile. _Chronic edema: Has been on Dyazide and furosemide hold medication for now at least till the kidney function improved and will start back on diuretics gradually. _Hypertension: Still on midodrine to keep systolic blood pressure above 100. _Depression and anxiety remain on BuSpar 15 mg 3 times a day, Effexor ER XR 300 mg at bedtime and still on Abilify 20 mg daily. Chronic vascular cellulitis of the lower extremity can benefit from Silvadene cr eam and probably course of antibiotic whether or the pneumonia is treated with can match probably an antibiotic to take care of both. Prognosis: Fair at this point. Discussion: Patient antibiotic will be switched to meropenem continue supportive care, repeat CMP every 2 days, still consult manager social responsibility probably patient will be going back to [facility] on Sunday. Objective - Vital Signs Vital signs: Vital Signs Temp 98.5 F 08/24/23 00:54 Pulse 96 08/24/23 00:54 Resp 18 08/24/23 00:54 BP 104/60 08/24/23 00:54 Pulse Ox 93 L 08/24/23 00:54 FiO2 Intake & Output 08/23/23 08/23/23 08/24/23 06:59 18:59 06:59 Output Total 1500 Balance -1500 Weight 145.15 kg Output: Urine 1500 Other: Voiding Method Diaper Diaper Diaper External Catheter External Catheter # Voids 1 5 3 # Bowel Movements 1 - Labs CBC & Chem 7: 08/23/23 05:45 08/24/23 07:02 Labs: Abnormal Lab Results - Last 24 Hours (Table) 08/23/23 08/23/23 08/23/23 Range/Units 05:45 05:45 11:56 WBC 16.41 H (4.50-10.00) X 10*3/uL MCV 100.0 H (80.0-97.0) FL MCHC 31.2 L (32.0-37.0) g/dL Immature Gran # 0.05 H (0.00-0.04) X 10*3/uL Neutrophils # 13.84 H (1.80-7.70) X 10*3/uL Monocytes # 1.21 H (0.20-1.00) X 10*3/uL Eosinophils # 0.03 L (0.04-0.35) X 10*3/uL Sodium 146 H (135-145) mmol/L Potassium 3.0 L (3.5-5.5) mmol/L Anion Gap 14.40 H (4.00-12.00) mmol/L BUN 84.7 H (9.0-27.0) mg/dL Creatinine 1.9 H (0.6-1.5) mg/dL Est GFR (CKD-EPI) 30 L (>=60) BUN/Creatinine Ratio 44.58 H (12.00-20.00) Ratio Glucose 284 H (70-110) mg/dL POC Glucose (mg/dL) 218 H (70-110) mg/dL AST 196 H (13-35) U/L Alkaline Phosphatase 130 H (41-126) U/L Total Protein 6.1 L (6.2-8.2) g/dL Albumin 3.1 L (3.8-4.9) g/dL Albumin/Globulin Ratio 1.03 L (1.60-3.17) Ratio 08/23/23 08/23/23 Range/Units 16:51 20:11 WBC (4.50-10.00) X 10*3/uL MCV (80.0-97.0) FL MCHC (32.0-37.0) g/dL Immature Gran # (0.00-0.04) X 10*3/uL Neutrophils # (1.80-7.70) X 10*3/uL Monocytes # (0.20-1.00) X 10*3/uL Eosinophils # (0.04-0.35) X 10*3/uL Sodium (135-145) mmol/L Potassium (3.5-5.5) mmol/L Anion Gap (4.00-12.00) mmol/L BUN (9.0-27.0) mg/dL Creatinine (0.6-1.5) mg/dL Est GFR (CKD-EPI) (>=60) BUN/Creatinine Ratio (12.00-20.00) Ratio Glucose (70-110) mg/dL POC Glucose (mg/dL) 184 H 151 H (70-110) mg/dL AST (13-35) U/L Alkaline Phosphatase (41-126) U/L Total Protein (6.2-8.2) g/dL Albumin (3.8-4.9) g/dL Albumin/Globulin Ratio (1.60-3.17) Ratio Microbiology - Last 24 Hours (Table) 08/22/23 17:15 Blood Culture - Preliminary Blood 08/22/23 17:30 Blood Culture - Preliminary Blood 08/22/23 15:13 Urine Culture - Preliminary Urine,Voided Gram Neg Bacilli
[2023-08-25] MEDS ORDERED: MEROPENEM 1 GM in SODIUM CHLORIDE 0.9% 100 ML IVPB SCH (09:00)
[2023-08-25 09:37] LABS: African American GFR (CKD) 43 (>60 ml/min/1.73 sqM); Anion Gap 9 mmol/L; Blood Urea Nitrogen 77 mg/dL (7-17); Calcium 8.5 mg/dL (8.4-10.2); Carbon Dioxide 26 mmol/L (22-30); Chloride 102 mmol/L (98-107); Glucose 318 mg/dL (74-99); Magnesium 2.3 mg/dL (1.6-2.3); Non-African American GFR(CKD) 37 (>60 ml/min/1.73 sqM); Potassium 3.5 mmol/L (3.5-5.1); Sodium 137 mmol/L (137-145)
[2023-08-25] MEDS: MEROPENEM 500 MG in SODIUM CHLORIDE 0.9% 100 ML IVPB SCH (10:34)
--- NOTE | 2023-08-25 10:39 | P.PN ---
Subjective Progress Note Date: 08/25/23 HISTORY OF PRESENT ILLNESS: 63-year-old one of the 2 tablets patient who has been [facility] apparently for over a year with multiple medical problems was hospitalized last in September 06, 2022 for 2 days for generalized weakness fall and peripheral edema. Patient was sent off from [facility] today to the emergency department because of major concern with abnormal lab has been treated for urinary tract infection with blood work today came back with BUN of 113 creatinine 2.28 with acute kidney failure also white blood cell of 18,200 with normal hemoglobin, urine test was very positive negative troponin and negative lactic acid. Also much worsening mental status compared to her baseline and slightly bit worsening cellulitis of the lower extremity with increased edema decreased mobility. Her workup in the emergency department with repeat blood test showed the same finding patient was hospitalized with acute kidney failure along with sepsis and UTI and altered mental status. 08/23/2023: Patient slept the night, she is doing slightly better, still mildly confused. There was sacrum wound will initiate wound care also there is a left guillen slight scratch with stage I wound will be covered again with either DuoDERM or Silvadene for now might consult wound care for the sacrum area. Continue IV antibiotics, continue hydration, patient be seen nephrology today and will be going for renal ultrasound to rule out any obstructive uropathy. 08/24/2023: Patient is doing slightly better, continue to have worsening confusion, kidney function had improved some but still with stage IV chronic kidney disease. Electrolyte imbalance with mild hypokalemia patient baseline GFR might be around 30 so she might not regain much function from where she is on today. Continue hydration continue to treat her UTI more aggressively. Patient debility almost require help with all daily activity including feeding, bathing, dressing and other medical issues on the long-term longterm. Which that is probably the standard looking for once he is ready to be discharged back to [facility]. As for her discharge date most likely patient will be in the hospital till Sunday where I expect her kidney function to be close to his baseline and the UTI is better treated and she will be ready to be discharged. 08/25/2023: Patient is more awake alert and interactive today, her culture came back as an ESBL switch patient antibiotic to meropenem at this point and when she is ready to be discharged she probably can go on Bactrim at that time. Patient still need help with feeding she is a long-term and longterm not doing much with physical therapy and mobility. REVIEW OF SYSTEMS: CONSTITUTIONAL: Overweight no acute respiratory distress EYES: No icterus sclerae, no conjunctivitis. EARS, NOSE, MOUTH, THROAT, and FACE: No sore throat, lymphadenopathy, carotid bruits or deformity. RESPIRATORY: Slight shortness of breath and cough no wheezes. CARDIOVASCULAR: Positive PND orthopnea palpitation no angina. GASTROINTESTINAL: Abdominal discomfort with significant change in bowel habit with no active bleed but bloating sensation with mild diarrhea sometimes. GENITOURINARY: Significant incontinence with recurrent UTI with no hematuria. INTEGUMENT/BREAST: Generalized arthralgia and edema.. HEMATOLOGIC/LYMPHATIC: Negative for bleed or purpura. MUSCULOSKELTAL: Positive myalgia and arthralgia. NEURLOGICAL: No LOC, Sz or syncope, slight confusion with slight memory loss. BEHAVIORAL/PSYCH: Negative. ENDOCRINE: Negative. PHYSICAL EXAMINATION: General Appearance: Mildly obese no acute respiratory distress. Neck HEENT: Supple, no lymphadenopathy, no thyroid enlargement, no carotid bruits. Lungs: Decreased breath sound bilaterally with fine rhonchi no crackles or wheezes. Chest Wall: Decreased expansion with deep inspiration no tenderness and no deformity was found on exam, no costochondral pain or discomfort. Heart: Regular rate and rhythm, S1, S2 positive S3 no JVD. Back: slight tenderness and scoliosis with lower back discomfort in the sacroiliac bilaterally. Abdomen: Mild abdominal discomfort with slight tenderness in lower abdominal region area with no rebound or rigidity. Extremities: Extremities 1+ edema with slight vascular cellulitis of the lower extremity with generalized fatigue and generalized arthralgia both knees and hips bilaterally. Pulses: 2+ and symmetric. Skin: Skin color, texture, tugor normal, no rashes or lesions. Neurologic: Alert significantly confused cranial nerves II to XII intact not able to do any gait exam. ASSESSMENT AND PLAN: _Acute kidney injury: Continue to improve gradually with her GFR still around 30 with creatinine at 4.9. _Acute urinary tract infection with sepsis elevated white blood cell with worsening UTI her urine culture came back positive for Klebsiella pneumonia as an ESBL switch antibiotic to meropenem which she is ready to be discharged she might benefit from doing Bactrim DS once a day. _ Leukocytosis: Likely etiology most likely infection with UTI will continue to repeat CBC every 2 days. _Type 2 diabetes: Was on larger dose of insulin with Toujeo 90 units at bedtime NovoLog 14 units AC meals with slow down on the dose at this point to half the dose only titrate dose higher gradually. Also patient is on Mounjaro which can be held while she is in the hospital. The patient is still on Invokana as well. Blood sugar was higher with the adjustment of insulin was made we will titrate Toujeo up to 70 units and NovoLog up to 30 units 3 times a day. _Chronic neuropathy: Has been on gabapentin 100 mg 3 times a day. _Hyperlipidemia: Resume atorvastatin 20 mg a day. _Restless leg syndrome: Has been on Requip 0.25 mg twice a day. _Sacrum wound: Was seen wound clinic continue local dressing along with supportive mattress when she goes back to [facility] will do the same recommendati on. _COPD: Remain on ipratropium/albuterol nebulizer along Breo Ellipta with montelukast has been on dexamethasone daily as well. Continue medication still on O2 try to keep pulse ox above 90 percentile. _Chronic edema: Has been on Dyazide and furosemide hold medication for now at least till the kidney function improved and will start back on diuretics gradually. _Hypertension: Still on midodrine to keep systolic blood pressure above 100. _Depression and anxiety remain on BuSpar 15 mg 3 times a day, Effexor ER XR 300 mg at bedtime and still on Abilify 20 mg daily. Chronic vascular cellulitis of the lower extremity can benefit from Silvadene cream and probably course of antibiotic whether or the pneumonia is treated with can match probably an antibiotic to take care of both. Prognosis: Fair at this point. Discussion: Continue IV antibiotic till her discharge will consult infectious disease this for an opinion patient probably will be going back to [facility] on Bactrim DS for 2 weeks. Objective - Vital Signs Vital signs: Vital Signs Temp 97.9 F 08/25/23 02:00 Pulse 100 08/25/23 02:00 Resp 18 08/25/23 02:00 BP 99/64 08/25/23 02:00 Pulse Ox 93 L 08/25/23 02:00 FiO2 Intake & Output 08/24/23 08/24/23 08/25/23 06:59 18:59 06:59 Output Total 1500 500 Balance -1500 -500 Weight 145.15 kg Output: Urine 1500 500 Other: Voiding Method Diaper Diaper Diaper External Catheter Incontinent Incontinent External Catheter External Catheter # Voids 3 1 - Labs CBC & Chem 7: 08/23/23 05:45 08/25/23 08:15 Labs: Abnormal Lab Results - Last 24 Hours (Table) 08/24/23 08/24/23 08/24/23 Range/Units 07:02 08:40 16:32 Sodium 146 H (135-145) mmol/L Potassium 3.4 L (3.5-5.5) mmol/L BUN 76.7 H (9.0-27.0) mg/dL Creatinine 1.9 H (0.6-1.5) mg/dL Est GFR (CKD-EPI) 30 L (>=60) BUN/Creatinine Ratio 40.37 H (12.00-20.00) Ratio POC Glucose (mg/dL) 129 H 229 H (70-110) mg/dL Calcium 8.4 L (8.7-10.3) mg/dL 08/24/23 08/25/23 Range/Units 20:20 06:10 Sodium (135-145) mmol/L Potassium (3.5-5.5) mmol/L BUN (9.0-27.0) mg/dL Creatinine (0.6-1.5) mg/dL Est GFR (CKD-EPI) (>=60) BUN/Creatinine Ratio (12.00-20.00) Ratio POC Glucose (mg/dL) 289 H 277 H (70-110) mg/dL Calcium (8.7-10.3) mg/dL Microbiology - Last 24 Hours (Table) 08/22/23 17:15 Blood Culture - Preliminary Blood 08/22/23 17:30 Blood Culture - Preliminary Blood 08/22/23 15:13 Urine Culture - Final Urine,Voided Klebsiella pneumoniae
[2023-08-25 11:36] LABS: Glucose,Whole Blood 396 mg/dL (70-110)
--- NOTE | 2023-08-25 12:42 | P.PN ---
Subjective patient is seen for follow-up for acute kidney injury and chronic kidney disease. Renal function has improved. Patient is status post IV fluids serum creatinine decreased to 1.5 today. Objective - Vital Signs Vital signs: Vital Signs Temp 97.7 F 08/25/23 07:23 Pulse 96 08/25/23 07:23 Resp 17 08/25/23 07:23 BP 113/70 08/25/23 07:23 Pulse Ox 97 08/25/23 07:23 FiO2 Intake & Output 08/24/23 08/25/23 08/25/23 18:59 06:59 18:59 Output Total 500 Balance -500 Weight 145.15 kg Output: Urine 500 Other: Voiding Method Diaper Diaper Incontinent Incontinent Incontinent External Catheter External Catheter External Catheter # Voids 1 - Exam patient is awake, comfortable, no acute distress Examination of the lungs bilateral breath sounds are heard Abdomen is soft nontender Examination of lower extremities shows trace edema. - Labs CBC & Chem 7: 08/23/23 05:45 08/25/23 08:15 Labs: Abnormal Lab Results - Last 24 Hours (Table) 08/24/23 08/24/23 08/25/23 Range/Units 16:32 20:20 06:10 BUN (7-17) mg/dL Creatinine (0.52-1.04) mg/dL Glucose (74-99) mg/dL POC Glucose (mg/dL) 229 H 289 H 277 H (70-110) mg/dL 08/25/23 08/25/23 Range/Units 08:15 11:35 BUN 77 H (7-17) mg/dL Creatinine 1.51 H (0.52-1.04) mg/dL Glucose 318 H (74-99) mg/dL POC Glucose (mg/dL) 396 H (70-110) mg/dL Microbiology - Last 24 Hours (Table) 08/22/23 17:15 Blood Culture - Preliminary Blood 08/22/23 17:30 Blood Culture - Preliminary Blood 08/22/23 15:13 Urine Culture - Final Urine,Voided Klebsiella pneumoniae Assessment and Plan Assessment: 1. Acute kidney injury secondary to ATN secondary to severe sepsis. Creatinine 2.28 on admission and is stable at 1.5 today. No hydronephrosis noted on kidney ultrasound. Left kidney unable to be visualized. status post IV fluids. 2. Chronic kidney disease stage IIIa with baseline creatinine 1.1-1.3 secondary to nephrosclerosis. 3. Hypernatremia from lack of oral water intake. 4. Hypokalemia from poor intake. Magnesium not low. Replaced. Better. 5. Diabetes mellitus. 6. UTI on antibiotics. Urine culture grew Klebsiella pneumoniae 7. Chronic kidney disease mineral bone disease maintained on calcitriol. Plan: continue to encourage increase oral intake Repeat labs in a.m. Continue to avoid nephrotoxic medications.
[2023-08-25 16:44] LABS: Glucose,Whole Blood 362 mg/dL (70-110)
[2023-08-25 20:57] LABS: Glucose,Whole Blood 349 mg/dL (70-110)
--- NOTE | 2023-08-25 23:23 | P.CONS ---
History of Present Illness - Reason for Consult Consult date: 08/25/23 ESBL Requesting physician: Ras Billy - Chief Complaint Weakness and fall x 1 day - History of Present Illness Patient is a 63-year-old female with a past medical history significant for COPD diabetes mellitus hyperlipidemia renal insufficiency presenting to the hospital 3 days ago for evaluation of increased weakness and fall along with peripheral edema apparently the patient did have a lab work done at [facility] with the patient noticed to have elevated BUN and creatinine and also have a positive UA elevated white count concerning for UTI patient did have a worsening mental status changes with these symptoms the patient has been evaluated and was treated with Rocephin for UTI with urine cultures coming back positive for ESBL prompting this consultation. Patient did have a low-grade fever 100.1 on 08/15/2023 and a low-grade fever of 99.2 today patient is mildly tachycardic but not hypotensive currently on a 2 L nasal cannula oxygen patient denies having any headache or URI symptoms no chest pain, shortness of breath or cough no abdominal pain no diarrhea did have a chronic indwelling catheter patient did have white count of 18.2 with a left shift creatinine is 1.51 urine has been positive cultures with ESBL Klebsiella blood culture has been negative renal ultrasound this admission unremarkable Review of Systems Positive point and negatives has been mentioned in the HPI, complete review of systems was performed and all other systems are negative Past Medical History Past Medical History: Asthma, COPD, Diabetes Mellitus, Hyperlipidemia, Renal Disease Additional Past Medical History / Comment(s): OBESITY. USES A WALKER OR W/C TO AMBULATE, HX OF GOUT, HIATAL HERNIA, UTI, WEARS DEPENDS. PAST AIR SAMPLING AND MONITORING HISTORY: She has no history of STDs. She has never been sexually active. Postmenopausal bleeding, recurrent. History of Any Multi-Drug Resistant Organisms: None Reported Past Surgical History: Bariatric Surgery, Cholecystectomy, Orthopedic Surgery Additional Past Surgical History / Comment(s): Total L knee 04/15/14, lap band placed then removed, gastric sleeve 08/19/2012 EGD. D&C 2016 or 2017(?) Past Anesthesia/Blood Transfusion Reactions: No Reported Reaction Additional Past Anesthesia/Blood Transfusion Reaction / Comm: Pt has never recieved blood.CLAUSTERPHOBIA Past Psychological History: Anxiety, Depression, Schizophrenia Smoking Status: Former smoker Past Alcohol Use History: None Reported Past Drug Use History: None Reported - Past Family History Father Family Medical History: Diabetes Mellitus, Musculoskeletal Disorder Additional Family Medical History / Comment(s): Father had parkinsons. He in his 80's. Paternal aunt had breast cancer. Mother Family Medical History: Diabetes Mellitus Medications and Allergies Home Medications Medication Instructions Recorded Confirmed Type Albuterol Inhaler [Ventolin Hfa 2 puff INHALATION RT-Q6H PRN 04/03/17 08/22/23 History Inhaler] Venlafaxine HCl ER [Effexor XR] 300 mg PO HS@209912/20/17 08/22/23 History allopurinoL [Zyloprim] 300 mg PO HS@209912/20/17 08/22/23 History Fluticasone/Vilanterol [Breo 1 puff INHALATION RT-DAILY@89910/05/20 08/22/23 History Ellipta 200-25 Mcg Inhaler] Insulin Glargine,Hum.rec.anlog 90 units SQ HS 10/05/20 08/22/23 History [Beti Andrews] Canagliflozin [Invokana] 100 mg PO DAILY@0909/06/22 08/22/23 History Montelukast [Singulair] 10 mg PO DAILY@0909/06/22 08/22/23 History busPIRone HCL 15 mg PO TID@0900,1300,209909/06/22 08/22/23 History calcitrioL 0.25 mcg PO MOFR@0909/06/22 08/22/23 History Acetaminophen Tab [Tylenol] 650 mg PO Q6HR PRN tab 09/08/22 08/22/23 Rx Lactulose [Cephulac] 20 gm PO DAILY PRN ml 09/08/22 08/22/23 Rx ARIPiprazole [Abilify] 20 mg PO DAILY@89908/22/23 08/22/23 History Atorvastatin [Lipitor] 20 mg PO HS@209908/22/23 08/22/23 History Cyanocobalamin [Vitamin B-12] 1,000 mcg PO DAILY@0900 08/22/23 08/22/23 History Ergocalciferol (Vitamin D2) 1,250 mcg PO Q14D 08/22/23 08/22/23 History [Drisdol (50,000 Iu)] Furosemide [Lasix] 40 mg PO DAILY@0900 08/22/23 08/22/23 History Insulin Lispro [humaLOG Kwikpen] 40 unit SQ AC-TID@08,12,17 08/22/23 08/22/23 History Ipratropium/Albuter 20-100Mcg 1 puff INHALATION RT-QID PRN 08/22/23 08/22/23 History [Combivent Respimat 20-100Mcg Inhaler] Menthol [Biofreeze] 1 applic TOPICAL DAILY PRN 08/22/23 08/22/23 History Metoprolol Tartrate [Lopressor] 50 mg PO BID@0900,2100 08/22/23 08/22/23 History Midodrine [ProAmatine] 5 mg PO TID@0900,1300,2100 08/22/23 08/22/23 History Olopatadine HCl [Pataday] 1 drop BOTH EYES DAILY@0600 08/22/23 08/22/23 History Potassium Chloride ER [K-Dur 20] 20 meq PO HS@2100 08/22/23 08/22/23 History Tirzepatide [Mounjaro] 15 mg SQ MO@0900 08/22/23 08/22/23 History rOPINIRole HCL [Requip] 0.25 mg PO BID@0900,1700 08/22/23 08/22/23 History Ertapenem [INVanz] 1 gm IVPB DAILY #10 each 08/27/23 Rx Gabapentin [Neurontin] 100 mg PO TID@0900,1300,2100 #90 08/27/23 Rx cap Hydrocolloid Dressing [Duoderm] 1 applicate TOPICAL DAILY #14 each 08/27/23 Rx Hydrophilic Cream [Triad (Kerodex 1 applic TOPICAL AC-TID #71 gm 08/27/23 Rx geq)] INSULIN ASPART (NovoLOG) [NovoLOG 5 unit SQ HS PRN each 08/27/23 Rx (formulary)] Pantoprazole [Protonix] 40 mg PO AC-BRKFST tab 08/27/23 Rx Allergies Allergy/AdvReac Type Severity Reaction Status Date / Time codeine Allergy Rash/Hives Verified 08/22/23 15:04 Physical Exam Vitals: Vital Signs Temp Pulse Resp BP Pulse Ox 08/25/23 07:23 97.7 F 96 17 113/70 97 08/25/23 02:00 97.9 F 100 18 99/64 93 L 08/24/23 19:00 98.4 F 94 18 91/57 08/24/23 16:05 98.8 F 95 18 133/73 08/24/23 16:00 18 08/24/23 13:23 97.5 F L 94 17 101/66 95 Intake and Output 08/24/23 08/25/23 08/25/23 22:59 06:59 14:59 Output Total 500 Balance -500 Output: Urine 500 Other: Voiding Method Diaper Incontinent Incontinent External Catheter External Catheter # Voids 1 GENERAL DESCRIPTION: Middle-aged female lying in bed, no distress. No tachypnea or accessory muscle of respiration use. HEENT: Shows Pallor , no scleral icterus. Oral mucous membrane is dry. No pharyngeal erythema or thrush NECK: Trachea central, no thyromegaly. LUNGS: Unlabored breathing. Clear to auscultation anteriorly. No wheeze or crackle. HEART: S1, S2, regular rate and rhythm. No loud murmur ABDOMEN: Soft, no tenderness , guarding or rigidity, no organomegaly EXTREMITIES: Diffuse swelling of bilateral extremity with some chronic skin changes SKIN: No rash, . NEUROLOGICAL: The patient is awake, alert, oriented x3, mood and affect normal. Results CBC & Chem 7: 08/27/23 05:34 08/27/23 05:34 Labs: Abnormal Lab Results - Last 24 Hours (Table) 08/24/23 08/24/23 08/25/23 Range/Units 16:32 20:20 06:10 BUN (7-17) mg/dL Creatinine (0.52-1.04) mg/dL Glucose (74-99) mg/dL POC Glucose (mg/dL) 229 H 289 H 277 H (70-110) mg/dL 08/25/23 08/25/23 Range/Units 08:15 11:35 BUN 77 H (7-17) mg/dL Creatinine 1.51 H (0.52-1.04) mg/dL Glucose 318 H (74-99) mg/dL POC Glucose (mg/dL) 396 H (70-110) mg/dL Microbiology - Last 24 Hours (Table) 08/22/23 17:15 Blood Culture - Preliminary Blood 08/22/23 17:30 Blood Culture - Preliminary Blood 08/22/23 15:13 Urine Culture - Final Urine,Voided Klebsiella pneumoniae Assessment and Plan (1) Infection due to ESBL-producing Escherichia coli Status: Acute Code(s): A49.8 - OTHER BACTERIAL INFECTIONS OF UNSPECIFIED SITE; Z16.12 - EXTENDED SPECTRUM BETA LACTAMASE (ESBL) RESISTANCE SNOMED Code(s): 306948283 (2) UTI (urinary tract infection) Status: Acute Code(s): N39.0 - URINARY TRACT INFECTION, SITE NOT SPECIFIED SNOMED Code(s): 58067864 Plan: 1patient presented to hospital with generalized weakness and mental status changes patient did have a positive UA elevated white count concerning for symptomatic UTI with urine culture to finalize with ESBL Klebsiella 2-we will discontinue Rocephin 3-start the patient on Invanz 1 g daily, will need midline to finish out treatment on discharge back to the halfway We will follow on clinical condition and cultures to further adjust medication if needed Thank you for this consultation we will follow the patient along with you Dictation was produced using [employer] dictation software. please excuse any grammatical, word or spelling errors.
[2023-08-26 06:00] LABS: Glucose,Whole Blood 303 mg/dL (70-110)
[2023-08-26] MEDS ORDERED: INSULIN ASPART (NovoLOG) 100 UNIT/ML VIAL SQ PRN (07:30)
[2023-08-26] MEDS: INSULIN ASPART (NovoLOG) 100 UNIT/ML VIAL SQ SCH (09:25)
[2023-08-26] MEDS: ERTAPENEM 1 GM in SODIUM CHLORIDE 0.9% 50 ML IVPB SCH (10:12)
--- NOTE | 2023-08-26 11:31 | P.PN ---
Subjective patient is seen for follow-up for acute kidney injury and chronic kidney disease. Renal function has improved. Patient is status post IV fluids serum creatinine decreased to 1.5 yesterday. Objective - Vital Signs Vital signs: Vital Signs Temp 98.1 F 08/26/23 07:16 Pulse 96 08/26/23 07:16 Resp 17 08/26/23 07:16 BP 121/72 08/26/23 07:16 Pulse Ox 95 08/26/23 07:16 FiO2 Intake & Output 08/25/23 08/26/23 08/26/23 18:59 06:59 18:59 Output Total 300 300 Balance -300 -300 Output: Urine 300 300 Other: Voiding Method Incontinent Incontinent External Catheter External Catheter # Voids 2 2 # Bowel Movements 1 1 - Exam patient is awake, comfortable, no acute distress Examination of the lungs bilateral breath sounds are heard Abdomen is soft nontender Examination of lower extremities shows 1+edema. - Labs CBC & Chem 7: 08/23/23 05:45 08/25/23 08:15 Labs: Abnormal Lab Results - Last 24 Hours (Table) 08/25/23 08/25/23 08/25/23 Range/Units 11:35 16:43 20:54 POC Glucose (mg/dL) 396 H 362 H 349 H (70-110) mg/dL 08/26/23 Range/Units 05:57 POC Glucose (mg/dL) 303 H (70-110) mg/dL Microbiology - Last 24 Hours (Table) 08/22/23 17:15 Blood Culture - Preliminary Blood 08/22/23 17:30 Blood Culture - Preliminary Blood Assessment and Plan Assessment: 1. Acute kidney injury secondary to ATN secondary to severe sepsis. Creatinine 2.28 on admission and is stable at 1.5 today. No hydronephrosis noted on kidney ultrasound. Left kidney unable to be visualized. status post IV fluids. 2. Chronic kidney disease stage IIIa with baseline creatinine 1.1-1.3 secondary to nephrosclerosis. 3. Hypernatremia from lack of oral water intake. 4. Hypokalemia from poor intake. Magnesium not low. Replaced. Better. 5. Diabetes mellitus. 6. UTI on antibiotics. Urine culture grew Klebsiella pneumoniae 7. Chronic kidney disease mineral bone disease maintained on calcitriol. Plan: continue to encourage increase oral intake Repeat labs in a.m. Continue to avoid nephrotoxic medications. we can resume diuretics 2-3 times a week.
[2023-08-26 11:39] LABS: Glucose,Whole Blood 331 mg/dL (70-110)
[2023-08-26] MEDS: IPRATROPIUM-ALBUTEROL 3 ML NEB INHALATION PRN (11:46)
--- NOTE | 2023-08-26 13:26 | P.PN ---
Subjective Progress Note Date: 08/26/23 HISTORY OF PRESENT ILLNESS: 63-year-old one of the 2 tablets patient who has been [facility] apparently for over a year with multiple medical problems was hospitalized last in September 06, 2022 for 2 days for generalized weakness fall and peripheral edema. Patient was sent off from [facility] today to the emergency department because of major concern with abnormal lab has been treated for urinary tract infection with blood work today came back with BUN of 113 creatinine 2.28 with acute kidney failure also white blood cell of 18,200 with normal hemoglobin, urine test was very positive negative troponin and negative lactic acid. Also much worsening mental status compared to her baseline and slightly bit worsening cellulitis of the lower extremity with increased edema decreased mobility. Her workup in the emergency department with repeat blood test showed the same finding patient was hospitalized with acute kidney failure along with sepsis and UTI and altered mental status. 08/23/2023: Patient slept the night, she is doing slightly better, still mildly confused. There was sacrum wound will initiate wound care also there is a left guillen slight scratch with stage I wound will be covered again with either DuoDERM or Silvadene for now might consult wound care for the sacrum area. Continue IV antibiotics, continue hydration, patient be seen nephrology today and will be going for renal ultrasound to rule out any obstructive uropathy. 08/24/2023: Patient is doing slightly better, continue to have worsening confusion, kidney function had improved some but still with stage IV chronic kidney disease. Electrolyte imbalance with mild hypokalemia patient baseline GFR might be around 30 so she might not regain much function from where she is on today. Continue hydration continue to treat her UTI more aggressively. Patient debility almost require help with all daily activity including feeding, bathing, dressing and other medical issues on the long-term [facility]. Which that is probably the standard looking for once he is ready to be discharged back to [facility]. As for her discharge date most likely patient will be in the hospital till Sunday where I expect her kidney function to be close to his baseline and the UTI is better treated and she will be ready to be discharged. 08/25/2023: Patient is more awake alert and interactive today, her culture came back as an ESBL switch patient antibiotic to meropenem at this point and when she is ready to be discharged she probably can go on Bactrim at that time. Patient still need help with feeding she is a long-term and [facility] not doing much with physical therapy and mobility. 08/26/2023: Her final culture came back as a Klebsiella ESBL susceptible to meropenem, she is seen infectious disease yesterday and agree with the white blood cell being up mobile that she had to discontinue Rocephin and to use Invanz 1 g daily we believe will need midline to finish treatment and discharge back to [facility]. Sounds like a good plan even person still susceptible to an oral product like Bactrim. Will continue to follow infectious disease recommendation. REVIEW OF SYSTEMS: CONSTITUTIONAL: Overweight no acute respiratory distress EYES: No icterus sclerae, no conjunctivitis. EARS, NOSE, MOUTH, THROAT, and FACE: No sore throat, lymphadenopathy, carotid bruits or deformity. RESPIRATORY: Slight shortness of breath and cough no wheezes. CARDIOVASCULAR: Positive PND orthopnea palpitation no angina. GASTROINTESTINAL: Abdominal discomfort with significant change in bowel habit with no active bleed but bloating sensation with mild diarrhea sometimes. GENITOURINARY: Significant incontinence with recurrent UTI with no hematuria. INTEGUMENT/BREAST: Generalized arthralgia and edema.. HEMATOLOGIC/LYMPHATIC: Negative for bleed or purpura. MUSCULOSKELTAL: Positive myalgia and arthralgia. NEURLOGICAL: No LOC, Sz or syncope, slight confusion with slight memory loss. BEHAVIORAL/PSYCH: Negative. ENDOCRINE: Negative. PHYSICAL EXAMINATION: General Appearance: Mildly obese no acute respiratory distress. Neck HEENT: Supple, no lymphadenopathy, no thyroid enlargement, no carotid bruits. Lungs: Decreased breath sound bilaterally with fine rhonchi no crackles or wheezes. Chest Wall: Decreased expansion with deep inspiration no tenderness and no deformity was found on exam, no costochondral pain or discomfort. Heart: Regular rate and rhythm, S1, S2 positive S3 no JVD. Back: slight tenderness and scoliosis with lower back discomfort in the sacroiliac bilaterally. Abdomen: Mild abdominal discomfort with slight tenderness in lower abdominal region area with no rebound or rigidity. Extremities: Extremities 1+ edema with slight vascular cellulitis of the lower extremity with generalized fatigue and generalized arthralgia both knees and hips bilaterally. Pulses: 2+ and symmetric. Skin: Skin color, texture, tugor normal, no rashes or lesions. Neurologic: Alert significantly confused cranial nerves II to XII intact not able to do any gait exam. ASSESSMENT AND PLAN: _Acute kidney injury: Continue to improve gradually with her GFR still around 30 with creatinine at 4.9. _Acute urinary tract infection with sepsis elevated white blood cell with worsening UTI her urine culture came back positive for Klebsiella pneumonia as an ESBL switch antibiotic Invanz 1 mg daily and will require to stay on medication via midline for probably total of 1 week after her discharge. _ Leukocytosis: Likely etiology most likely infection with UTI will continue to repeat CBC every 2 days. _Type 2 diabetes: Was on larger dose of insulin with Toujeo 90 units at bedtime NovoLog 14 units AC meals with slow down on the dose at this point to half the dose only titrate dose higher gradually. Also patient is on Mounjaro which can be held while she is in the hospital. The patient is still on Invokana as well. Blood sugar was higher with the adjustment of insulin was made we will titrate Toujeo up to 70 units and NovoLog up to 30 units 3 times a day. _Chronic neuropathy: Has been on gabapentin 100 mg 3 times a day. _Hyperlipidemia: Resume atorvastatin 20 mg a day. _Restless leg syndrome: Has been on Requip 0.25 mg twice a day. _Sacrum wound: Was seen wound clinic continue local dressing along with supportive mattress when she goes back to [facility] will do the same recommendation. _COPD: Remain on ipratropium/albuterol nebulizer along Breo Ellipta with montelukast has been on dexamethasone daily as well. Continue medication still on O2 try to keep pulse ox above 90 percentile. _Chronic edema: Has been on Dyazide and furosemide hold medication for now at least till the kidney function improved and will start back on diuretics gradually. _Hypertension: Still on midodrine to keep systolic blood pressure above 100. _Depression and anxiety remain on BuSpar 15 mg 3 times a day, Effexor ER XR 300 mg at bedtime and still on Abilify 20 mg daily. Chronic vascular cellulitis of the lower extremity can benefit from Silvadene cream and probably course of antibiotic whether or the pneumonia is treated with can match probably an antibiotic to take care of both. Prognosis: Fair and doing better at this point. Discussion: Continue Invanz 1 g daily schedule midline for Sunday and see if patient is able to return to [facility] on Sunday. Objective - Vital Signs Vital signs: Vital Signs Temp 98.4 F 08/26/23 01:52 Pulse 106 H 08/26/23 01:52 Resp 18 08/26/23 01:52 BP 104/64 08/26/23 01:52 Pulse Ox 92 L 08/26/23 01:52 FiO2 Intake & Output 08/25/23 08/26/23 08/26/23 18:59 06:59 18:59 Output Total 300 300 Balance -300 -300 Output: Urine 300 300 Other: Voiding Method Incontinent Incontinent External Catheter External Catheter # Voids 2 2 # Bowel Movements 1 1 - Labs CBC & Chem 7: 08/23/23 05:45 08/25/23 08:15 Labs: Abnormal Lab Results - Last 24 Hours (Table) 08/25/23 08/25/23 08/25/23 Range/Units 08:15 11:35 16:43 BUN 77 H (7-17) mg/dL Creatinine 1.51 H (0.52-1.04) mg/dL Glucose 318 H (74-99) mg/dL POC Glucose (mg/dL) 396 H 362 H (70-110) mg/dL 08/25/23 08/26/23 Range/Units 20:54 05:57 BUN (7-17) mg/dL Creatinine (0.52-1.04) mg/dL Glucose (74-99) mg/dL POC Glucose (mg/dL) 349 H 303 H (70-110) mg/dL Microbiology - Last 24 Hours (Table) 08/22/23 17:15 Blood Culture - Preliminary Blood 08/22/23 17:30 Blood Culture - Preliminary Blood
[2023-08-26 16:31] LABS: Glucose,Whole Blood 226 mg/dL (70-110)
[2023-08-26] MEDS: INSULIN DETEMIR (LEVEMIR) 100 UNIT/ML SYR SQ SCH (20:54)
[2023-08-26 20:55] LABS: Glucose,Whole Blood 295 mg/dL (70-110)
[2023-08-27 05:13] LABS: Glucose,Whole Blood 224 mg/dL (70-110)
--- NOTE | 2023-08-27 07:58 | P.DS ---
Providers Date of admission: 08/22/23 16:42 Attending physician: Ras Billy Consults: 08/22/23 18:26 Consult Physician Routine Consulting Provider: Briana Watson Consult Reason/Comments: CKD Do you want consulting provider notified?: Yes 08/25/23 06:51 Consult Physician Routine Consulting Provider: David Melendez Consult Reason/Comments: ESBL Do you want consulting provider notified?: Yes Primary care [facility]: [facility] Course: HISTORY OF PRESENT ILLNESS: 63-year-old one of the 2 tablets patient who has been [facility] apparently for over a year with multiple medical problems was hospitalized last in September 06, 2022 for 2 days for generalized weakness fall and peripheral edema. Patient was sent off from [facility] today to the emergency department because of major concern with abnormal lab has been treated for urinary tract infection with blood work today came back with BUN of 113 creatinine 2.28 with acute kidney failure also white blood cell of 18,200 with normal hemoglobin, urine test was very positive negative troponin and negative lactic acid. Also much worsening mental status compared to her baseline and slightly bit worsening cellulitis of the lower extremity with increased edema decreased mobility. Her workup in the emergency department with repeat blood test showed the same finding patient was hospitalized with acute kidney failure along with sepsis and UTI and altered mental status. 08/23/2023: Patient slept the night, she is doing slightly better, still mildly confused. There was sacrum wound will initiate wound care also there is a left guillen slight scratch with stage I wound will be covered again with either DuoDERM or Silvadene for now might consult wound care for the sacrum area. Continue IV antibiotics, continue hydration, patient be seen nephrology today and will be going for renal ultrasound to rule out any obstructive uropathy. 08/24/2023: Patient is doing slightly better, continue to have worsening con fusion, kidney function had improved some but still with stage IV chronic kidney disease. Electrolyte imbalance with mild hypokalemia patient baseline GFR might be around 30 so she might not regain much function from where she is on today. Continue hydration continue to treat her UTI more aggressively. Patient debility almost require help with all daily activity including feeding, bathing, dressing and other medical issues on the long-term care home. Which that is probably the standard looking for once he is ready to be discharged back to [facility]. As for her discharge date most likely patient will be in the hospital till Sunday where I expect her kidney function to be close to his baseline and the UTI is better treated and she will be ready to be discharged. 08/25/2023: Patient is more awake alert and interactive today, her culture came back as an ESBL switch patient antibiotic to meropenem at this point and when she is ready to be discharged she probably can go on Bactrim at that time. Patient still need help with feeding she is a long-term and care home not doing much with physical therapy and mobility. 08/26/2023: Her final culture came back as a Klebsiella ESBL susceptible to meropenem, she is seen infectious disease yesterday and agree with the white blood cell being up mobile that she had to discontinue Rocephin and to use Invanz 1 g daily we believe will need midline to finish treatment and discharge back to care home. Sounds like a good plan even person still susceptible to an oral product like Bactrim. Will continue to follow infectious disease recommendation. 08/27/2023: She is more alert awake, conclusion with infectious disease the patient will be on Invanz 1 g daily for total of 10 days, she is going to have midline today and hopefully will be discharged to [facility] in the afternoon. Watching the sore on her left leg is slightly better and also had stage II ulcer on the sacrum was seen in wound care continue mattress care continue DuoDERM with topical. Patient mental status and interaction is much better she is able to feed herself today that is close to her baseline. REVIEW OF SYSTEMS: CONSTITUTIONAL: Overweight no acute respiratory distress EYES: No icterus sclerae, no conjunctivitis. EARS, NOSE, MOUTH, THROAT, and FACE: No sore throat, lymphadenopathy, carotid bruits or deformity. RESPIRATORY: Slight shortness of breath and cough no wheezes. CARDIOVASCULAR: Positive PND orthopnea palpitation no angina. GASTROINTESTINAL: Abdominal discomfort with significant change in bowel habit with no active bleed but bloating sensation with mild diarrhea sometimes. GENITOURINARY: Significant incontinence with recurrent UTI with no hematuria. INTEGUMENT/BREAST: Generalized arthralgia and edema.. HEMATOLOGIC/LYMPHATIC: Negative for bleed or purpura. MUSCULOSKELTAL: Positive myalgia and arthralgia. NEURLOGICAL: No LOC, Sz or syncope, slight confusion with slight memory loss. BEHAVIORAL/PSYCH: Negative. ENDOCRINE: Negative. PHYSICAL EXAMINATION: General Appearance: Mildly obese no acute respiratory distress. Neck HEENT: Supple, no lymphadenopathy, no thyroid enlargement, no carotid bruits. Lungs: Decreased breath sound bilaterally with fine rhonchi no crackles or wheezes. Chest Wall: Decreased expansion with deep inspiration no tenderness and no deformity was found on exam, no costochondral pain or discomfort. Heart: Regular rate and rhythm, S1, S2 positive S3 no JVD. Back: slight tenderness and scoliosis with lower back discomfort in the sacroiliac bilaterally. Abdomen: Mild abdominal discomfort with slight tenderness in lower abdominal region area with no rebound or rigidity. Extremities: Extremities 1+ edema with slight vascular cellulitis of the lower extremity with generalized fatigue and generalized arthralgia both knees and hips bilaterally. Pulses: 2+ and symmetric. Skin: Skin color, texture, tugor normal, no rashes or lesions. Neurologic: Alert significantly confused cranial nerves II to XII intact not able to do any gait exam. ASSESSMENT AND PLAN: _Sepsis and UTI: Was diagnosed with a Klebsiella she is on Invanz currently will be done via IV for the next 10 days. _Acute kidney injury: Improvement back to her baseline. _Acute urinary tract infection with sepsis elevated white blood cell with wor sening UTI her urine culture came back positive for Klebsiella pneumonia as an ESBL switch antibiotic Invanz 1 mg daily and will require to stay on medication via midline for probably total of 1 week after her discharge. _ Leukocytosis: Likely etiology most likely infection with UTI along with the sacral ulcer which is better currently, white blood cell is much better compared to before. _Type 2 diabetes: Her initial admission [facility] and [facility] both were down if she is requiring more insulin she is up to her full dose of insulin from SNF. _Chronic neuropathy: Has been on gabapentin 100 mg 3 times a day. _Hyperlipidemia: Resume atorvastatin 20 mg a day. _Restless leg syndrome: Has been on Requip 0.25 mg twice a day. _Sacrum wound: Was seen wound clinic continue local dressing along with supportive mattress when she goes back to [facility] will do the same recommendation. _COPD: Remain on ipratropium/albuterol nebulizer along Breo Ellipta with montelukast has been on dexamethasone daily as well. Continue medication still on O2 try to keep pulse ox above 90 percentile. _Chronic edema: Has been on Dyazide and furosemide hold medication for now at least till the kidney function improved and will start back on diuretics gradually. _Hypertension: Still on midodrine to keep systolic blood pressure above 100. _Depression and anxiety remain on BuSpar 15 mg 3 times a day, Effexor ER XR 300 mg at bedtime and still on Abilify 20 mg daily. _Chronic vascular cellulitis of the lower extremity can benefit from Silvadene cream and probably course of antibiotic whether or the pneumonia is treated with can match probably an antibiotic to take care of both. Prognosis: Fair and doing better at this point. Discussion: Continue Invanz 1 g daily schedule midline for today will be discharged on IV antibiotic for 10 days to follow at [facility] and by wound care as well. Hospital course: Patient was hospitalized with severe altered mental status, acute kidney injury, sepsis with UTI along with sacral wound and left leg ulcer. Final culture came back positive with Klebsiella sensitive to Invanz. Mental status has improved significantly. Kidney function with treatment for her infection along with being on hydration and change medication has done very well. Patient mobility is limited to bedrest and require probably special mattress to reduce pressure ulcer. Continue to watch her lab value on weekly basis. Time spent on patient's discharge was over 35 minutes. Patient Condition at Discharge: Serious Plan - Discharge Summary Discharge Rx Participant: Yes New Discharge Prescriptions: New Pantoprazole [Protonix] 40 mg PO AC-BRKFST tab Hydrocolloid Dressing [Duoderm] 1 applicate TOPICAL DAILY #14 each Ertapenem [INVanz] 1 gm IVPB DAILY #10 each INSULIN ASPART (NovoLOG) [NovoLOG (formulary)] 5 unit SQ HS PRN each PRN Reason: SNACK AT BEDTIME Hydrophilic Cream [Triad (Kerodex geq)] 1 applic TOPICAL AC-TID #71 gm Continue Albuterol Inhaler [Ventolin Hfa Inhaler] 2 puff INHALATION RT-Q6H PRN PRN Reason: Shortness Of Breath Venlafaxine HCl ER [Effexor XR] 300 mg PO HS@2100 allopurinoL [Zyloprim] 300 mg PO HS@2100 busPIRone HCL 15 mg PO TID@0900,1300,2100 calcitrioL 0.25 mcg PO MOFR@0900 Lactulose [Cephulac] 20 gm PO DAILY PRN ml PRN Reason: Constipation Acetaminophen Tab [Tylenol] 650 mg PO Q6HR PRN tab PRN Reason: Mild Pain Or Fever > 100.5 Menthol [Biofreeze] 1 applic TOPICAL DAILY PRN PRN Reason: KNEE PAIN Insulin Lispro [humaLOG Kwikpen] 40 unit SQ AC-TID@08,12,17 rOPINIRole HCL [Requip] 0.25 mg PO BID@0900,1700 Cyanocobalamin [Vitamin B-12] 1,000 mcg PO DAILY@0900 Potassium Chloride ER [K-Dur 20] 20 meq PO HS@2100 Atorvastatin [Lipitor] 20 mg PO HS@2100 ARIPiprazole [Abilify] 20 mg PO DAILY@0900 Insulin Glargine,Hum.rec.anlog [Toujeo Max Solostar] 90 units SQ HS Fluticasone/Vilanterol [Breo Ellipta 200-25 Mcg Inhaler] 1 puff INHALATION RT-DAILY@0900 Canagliflozin [Invokana] 100 mg PO DAILY@0900 Montelukast [Singulair] 10 mg PO DAILY@0900 Midodrine [ProAmatine] 5 mg PO TID@0900,1300,2100 Ipratropium/Albuter 20-100Mcg [Combivent Respimat 20-100Mcg Inhaler] 1 puff INHALATION RT-QID PRN PRN Reason: Shortness Of Breath Metoprolol Tartrate [Lopressor] 50 mg PO BID@0900,2100 Tirzepatide [Mounjaro] 15 mg SQ MO@0900 Olopatadine HCl [Pataday] 1 drop BOTH EYES DAILY@0600 Furosemide [Lasix] 40 mg PO DAILY@0900 Ergocalciferol (Vitamin D2) [Drisdol (50,000 Iu)] 1,250 mcg PO Q14D Changed Gabapentin [Neurontin] 100 mg PO TID@0900,1300,2100 #90 cap Discontinued hydroCHLOROthiazide 25 mg PO DIRECTED Loperamide HCl [Imodium A-D] 4 mg PO QID PRN PRN Reason: Diarrhea INSULIN LISPRO (HumaLOG) [humaLOG] 3 units SQ HS PRN PRN Reason: SNACK AT BEDTIME Cefuroxime [Ceftin] 250 mg PO BID@0900,2100 dexAMETHasone [Decadron] 4 mg PO DAILY@0900 Prostat Awc 30 ml PO DAILY@09 Discharge Medication List Albuterol Inhaler [Ventolin Hfa Inhaler] 2 puff INHALATION RT-Q6H PRN 04/03/17 [History] Venlafaxine HCl ER [Effexor XR] 300 mg PO HS@209912/20/17 [History] allopurinoL [Zyloprim] 300 mg PO HS@209912/20/17 [History] Fluticasone/Vilanterol [Breo Ellipta 200-25 Mcg Inhaler] 1 puff INHALATION RT- DAILY@89910/05/20 [History] Insulin Glargine,Hum.rec.anlog [Toujeo Max Solostar] 90 units SQ HS 10/05/20 [History] Canagliflozin [Invokana] 100 mg PO DAILY@89909/06/22 [History] Montelukast [Singulair] 10 mg PO DAILY@89909/06/22 [History] busPIRone HCL 15 mg PO TID@0900,1300,209909/06/22 [History] calcitrioL 0.25 mcg PO MOFR@89909/06/22 [History] Acetaminophen Tab [Tylenol] 650 mg PO Q6HR PRN tab 09/08/22 [Rx] Lactulose [Cephulac] 20 gm PO DAILY PRN ml 09/08/22 [Rx] ARIPiprazole [Abilify] 20 mg PO DAILY@89908/22/23 [History] Atorvastatin [Lipitor] 20 mg PO HS@209908/22/23 [History] Cyanocobalamin [Vitamin B-12] 1,000 mcg PO DAILY@89908/22/23 [History] Ergocalciferol (Vitamin D2) [Drisdol (50,000 Iu)] 1,250 mcg PO Q14D 08/22/23 [History] Furosemide [Lasix] 40 mg PO DAILY@89908/22/23 [History] Insulin Lispro [humaLOG Kwikpen] 40 unit SQ AC-TID@,,08/22/23 [History] Ipratropium/Albuter 20-100Mcg [Combivent Respimat 20-100Mcg Inhaler] 1 puff INHALATION RT-QID PRN 08/22/23 [History] Menthol [Biofreeze] 1 applic TOPICAL DAILY PRN 08/22/23 [History] Metoprolol Tartrate [Lopressor] 50 mg PO BID@0900,209908/22/23 [History] Midodrine [ProAmatine] 5 mg PO TID@0900,1300,209908/22/23 [History] Olopatadine HCl [Pataday] 1 drop BOTH EYES DAILY@0600 08/22/23 [History] Potassium Chloride ER [K-Dur 20] 20 meq PO HS@209908/22/23 [History] Tirzepatide [Mounjaro] 15 mg SQ MO@0908/22/23 [History] rOPINIRole HCL [Requip] 0.25 mg PO BID@0900,1700 08/22/23 [History] Ertapenem [INVanz] 1 gm IVPB DAILY #10 each 08/27/23 [Rx] Gabapentin [Neurontin] 100 mg PO TID@0900,1300,2099 #90 cap 08/27/23 [Rx] Hydrocolloid Dressing [Duoderm] 1 applicate TOPICAL DAILY #14 each 08/27/23 [Rx] Hydrophilic Cream [Triad (Kerodex geq)] 1 applic TOPICAL AC-TID #71 gm 08/27/23 [Rx] INSULIN ASPART (NovoLOG) [NovoLOG (formulary)] 5 unit SQ HS PRN each 08/27/23 [Rx] Pantoprazole [Protonix] 40 mg PO AC-BRKFST tab 08/27/23 [Rx] Follow up Appointment(s)/Referral(s): Daylin Garcia MD [Primary Care Provider] - 1-2 days [facility], [NON-STAFF] - As Needed David Melendez MD [STAFF PHYSICIAN] - 1 Week Discharge Disposition: TRANSFER TO SNF/ECF
[2023-08-27 08:45] LABS: HCT 39.1 % (37.2-46.3); HGB 12.3 g/dL (12.0-15.0); MCH 31.1 pg (27.0-32.0); MCHC 31.5 g/dL (32.0-37.0); Mean Platelet Volume 11.2 FL (9.5-12.2); NRBC Per 100 WBC 0.02 X 10*3/uL (0.00-0.01); Platelet Count 205 X 10*3/uL (140-440); RBC 3.95 X 10*6/uL (4.10-5.20); RDW 13.8 % (11.5-14.5); WBC 10.89 X 10*3/uL (4.50-10.00)
[2023-08-27] MEDS ORDERED: NON FORMULARY DRUG (Tirzepatide [Mounjaro] 15 MG/0.5 ML Pen.Injctr) SQ SCH (09:00)
[2023-08-27 09:06] VITALS: BP 123/63; RESP 19; TEMP 97.8
[2023-08-27 09:08] LABS: ALT 40 U/L (8-44); AST 54 U/L (13-35); Albumin 2.9 g/dL (3.8-4.9); Albumin/Globulin Ratio 0.97 Ratio (1.60-3.17); Alkaline Phosphatase 138 U/L (41-126); BUN/Creat Ratio 49.23 Ratio (12.00-20.00); Calcium 8.7 mg/dL (8.7-10.3); Carbon Dioxide 27.3 mmol/L (21.6-31.8); Chloride 102 mmol/L (96-109); Glucose 210 mg/dL (70-110); Potassium 3.2 mmol/L (3.5-5.5); Sodium 141 mmol/L (135-145); Total Bilirubin 0.4 mg/dL (0.3-1.2); Total Protein 5.9 g/dL (6.2-8.2)
[2023-08-27] MEDS: ALBUTEROL NEBULIZED 2.5 MG/3 ML INHALATION PRN (09:10)
[2023-08-27 09:49] VITALS: PULSE 94
[2023-08-27] MEDS ORDERED: Potassium Replacement Protocol 1 EACH MISC MISCELLANE PRN (09:59)
[2023-08-27] MEDS: POTASSIUM CHLORIDE ER 20 MEQ TAB.ER PO SCH (10:10)
--- NOTE | 2023-08-27 10:21 | P.PN ---
Subjective patient is seen for follow-up for acute kidney injury and chronic kidney disease. Renal function has improved. Patient is status post IV fluids serum creatinine decreased to 1.5 on 08/25/2023. Objective - Vital Signs Vital signs: Vital Signs Temp 97.8 F 08/27/23 08:02 Pulse 94 08/27/23 09:13 Resp 19 08/27/23 08:02 BP 123/63 08/27/23 08:02 Pulse Ox 95 08/27/23 09:13 FiO2 Intake & Output 08/26/23 08/27/23 08/27/23 18:59 06:59 18:59 Output Total 551 300 Balance -551 -300 Output: Urine 550 300 Stool 1 Other: Voiding Method External Catheter External Catheter # Bowel Movements 1 - Exam patient is awake, comfortable, no acute distress Examination of the lungs bilateral breath sounds are heard Abdomen is soft nontender Examination of lower extremities shows 1+edema. - Labs CBC & Chem 7: 08/27/23 05:34 08/27/23 05:34 Labs: Abnormal Lab Results - Last 24 Hours (Table) 08/26/23 08/26/23 08/26/23 Range/Units 11:37 16:29 20:52 WBC (4.50-10.00) X 10*3/uL RBC (4.10-5.20) X 10*6/uL MCV (80.0-97.0) FL MCHC (32.0-37.0) g/dL NRBC/100 WBC Diff (0.00-0.01) X 10*3/uL Potassium (3.5-5.5) mmol/L BUN (9.0-27.0) mg/dL Est GFR (CKD-EPI) (>=60) BUN/Creatinine Ratio (12.00-20.00) Ratio Glucose (70-110) mg/dL POC Glucose (mg/dL) 331 H 226 H 295 H (70-110) mg/dL AST (13-35) U/L Alkaline Phosphatase (41-126) U/L Total Protein (6.2-8.2) g/dL Albumin (3.8-4.9) g/dL Albumin/Globulin Ratio (1.60-3.17) Ratio 08/27/23 08/27/23 08/27/23 Range/Units 05:11 05:34 05:34 WBC 10.89 H (4.50-10.00) X 10*3/uL RBC 3.95 L (4.10-5.20) X 10*6/uL MCV 99.0 H (80.0-97.0) FL MCHC 31.5 L (32.0-37.0) g/dL NRBC/100 WBC Diff 0.02 H (0.00-0.01) X 10*3/uL Potassium 3.2 L (3.5-5.5) mmol/L BUN 64.0 H (9.0-27.0) mg/dL Est GFR (CKD-EPI) 47 L (>=60) BUN/Creatinine Ratio 49.23 H (12.00-20.00) Ratio Glucose 210 H (70-110) mg/dL POC Glucose (mg/dL) 224 H (70-110) mg/dL AST 54 H (13-35) U/L Alkaline Phosphatase 138 H (41-126) U/L Total Protein 5.9 L (6.2-8.2) g/dL Albumin 2.9 L (3.8-4.9) g/dL Albumin/Globulin Ratio 0.97 L (1.60-3.17) Ratio Assessment and Plan Assessment: 1. Acute kidney injury secondary to ATN secondary to severe sepsis. Creatinine 2.28 on admission and is stable at 1.5 . No hydronephrosis noted on kidney ultrasound. Left kidney unable to be visualized. status post IV fluids. 2. Chronic kidney disease stage IIIa with baseline creatinine 1.1-1.3 secondary to nephrosclerosis. 3. Hypernatremia from lack of oral water intake. 4. Hypokalemia from poor intake. Magnesium not low. Replaced. Better. 5. Diabetes mellitus. 6. UTI on antibiotics. Urine culture grew Klebsiella pneumoniae 7. Chronic kidney disease mineral bone disease maintained on calcitriol. Plan: continue to encourage increase oral intake replace potassium Continue to avoid nephrotoxic medications. we can resume diuretics 2-3 times a week.
[2023-08-27 11:37] LABS: Glucose,Whole Blood 352 mg/dL (70-110)
[2023-08-28] MEDS ORDERED: ENOXAPARIN 40 MG/0.4 ML SYRINGE SQ SCH (09:00)
--- NOTE | 2023-08-28 14:43 | P.PN ---
Subjective Progress Note Date: 08/26/23 Principal diagnosis: Reason for follow-up is ESBL Klebsiella UTI Patient is a 63-year-old female with a past medical history significant for COPD diabetes mellitus hyperlipidemia renal insufficiency presenting to the hospital for evaluation of increased weakness fall peripheral edema did have a positive UA low-grade fever concerning for symptomatic UTI with urine has been finalized with ESBL Klebsiella. On today's evaluation that is 08/26/2023,the patient remains to be afebrile, patient is on room air not requiring supplemental oxygen and denies any shortness of breath no chest pain or cough.Patient denies having any nausea or vomiting, no abdominal pain and no diarrhea has been reported. No new labs has been obtained today Objective - Vital Signs Vital signs: Vital Signs Temp 98.2 F 08/26/23 12:25 Pulse 92 08/26/23 12:25 Resp 19 08/26/23 12:25 BP 110/72 08/26/23 12:25 Pulse Ox 94 L 08/26/23 12:25 FiO2 Intake & Output 08/25/23 08/26/23 08/26/23 18:59 06:59 18:59 Output Total 300 300 551 Balance -300 -300 -551 Output: Urine 300 300 550 Stool 1 Other: Voiding Method Incontinent Incontinent External Catheter External Catheter External Catheter # Voids 2 2 # Bowel Movements 1 1 - Exam GENERAL DESCRIPTION: Middle-aged female lying in bed in no distress RESPIRATORY SYSTEM: Unlabored breathing , decreased breath sounds at bases HEART: S1 S2 regular rate and rhythm , ABDOMEN: Soft , no tenderness EXTREMITIES: Diffuse swelling to the leg and some chronic skin changes - Labs CBC & Chem 7: 08/23/23 05:45 08/25/23 08:15 Labs: Abnormal Lab Results - Last 24 Hours (Table) 08/25/23 08/25/23 08/26/23 Range/Units 16:43 20:54 05:57 POC Glucose (mg/dL) 362 H 349 H 303 H (70-110) mg/dL 08/26/23 Range/Units 11:37 POC Glucose (mg/dL) 331 H (70-110) mg/dL Microbiology - Last 24 Hours (Table) 08/22/23 17:15 Blood Culture - Preliminary Blood 08/22/23 17:30 Blood Culture - Preliminary Blood Assessment and Plan (1) Infection due to ESBL-producing Klebsiella pneumoniae Current Visit: Yes Status: Acute Code(s): A49.8 - OTHER BACTERIAL INFECTIONS OF UNSPECIFIED SITE; Z16.12 - EXTENDED SPECTRUM BETA LACTAMASE (ESBL) RESISTANCE SNOMED Code(s): 949860038 (2) UTI (urinary tract infection) Current Visit: Yes Status: Acute Code(s): N39.0 - URINARY TRACT INFECTION, SITE NOT SPECIFIED SNOMED Code(s): 33714709 Plan: 1patient presented to hospital with generalized weakness and mental status changes patient did have a positive UA elevated white count concerning for symptomatic UTI with urine culture to finalize with ESBL Klebsiella 2-patient to continue with Invanz 1 g daily, will order midline for outpatient IV antibiotic Dictation was produced using [employer] dictation software. please excuse any grammatical, word or spelling errors. Time with Patient: Less than 30
--- NOTE | 2023-08-28 14:43 | P.PN ---
Subjective Progress Note Date: 08/27/23 Principal diagnosis: Reason for follow-up is ESBL Klebsiella UTI Patient is a 63-year-old female with a past medical history significant for COPD diabetes mellitus hyperlipidemia renal insufficiency presenting to the hospital for evaluation of increased weakness fall peripheral edema did have a positive UA low-grade fever concerning for symptomatic UTI with urine has been finalized with ESBL Klebsiella. On today's evaluation that is 08/27/2023, the patient continues to be afebrile, the patient is on room air and breathing comfortably, the Pt denies having any chest pain or cough, the patient denies having any abdominal pain no vomiting or any diarrhea, feeling better. Patient white count is down to 10.89, creatinine is 1.3, blood culture negative Objective - Vital Signs Vital signs: Vital Signs Temp 97.8 F 08/27/23 08:02 Pulse 94 08/27/23 09:13 Resp 19 08/27/23 08:02 BP 123/63 08/27/23 08:02 Pulse Ox 95 08/27/23 09:13 FiO2 Intake & Output 08/26/23 08/27/23 08/27/23 18:59 06:59 18:59 Output Total 551 300 1 Balance -551 -300 -1 Output: Urine 550 300 Stool 1 1 Other: Voiding Method External Catheter External Catheter External Catheter # Bowel Movements 1 - Exam GENERAL DESCRIPTION: Middle-aged female lying in bed in no distress RESPIRATORY SYSTEM: Unlabored breathing , decreased breath sounds at bases HEART: S1 S2 regular rate and rhythm , ABDOMEN: Soft , no tenderness EXTREMITIES: Diffuse swelling to the leg and some chronic skin changes - Labs CBC & Chem 7: 08/27/23 05:34 08/27/23 05:34 Labs: Abnormal Lab Results - Last 24 Hours (Table) 08/26/23 08/26/23 08/27/23 Range/Units 16:29 20:52 05:11 WBC (4.50-10.00) X 10*3/uL RBC (4.10-5.20) X 10*6/uL MCV (80.0-97.0) FL MCHC (32.0-37.0) g/dL NRBC/100 WBC Diff (0.00-0.01) X 10*3/uL Potassium (3.5-5.5) mmol/L BUN (9.0-27.0) mg/dL Est GFR (CKD-EPI) (>=60) BUN/Creatinine Ratio (12.00-20.00) Ratio Glucose (70-110) mg/dL POC Glucose (mg/dL) 226 H 295 H 224 H (70-110) mg/dL AST (13-35) U/L Alkaline Phosphatase (41-126) U/L Total Protein (6.2-8.2) g/dL Albumin (3.8-4.9) g/dL Albumin/Globulin Ratio (1.60-3.17) Ratio 08/27/23 08/27/23 08/27/23 Range/Units 05:34 05:34 11:36 WBC 10.89 H (4.50-10.00) X 10*3/uL RBC 3.95 L (4.10-5.20) X 10*6/uL MCV 99.0 H (80.0-97.0) FL MCHC 31.5 L (32.0-37.0) g/dL NRBC/100 WBC Diff 0.02 H (0.00-0.01) X 10*3/uL Potassium 3.2 L (3.5-5.5) mmol/L BUN 64.0 H (9.0-27.0) mg/dL Est GFR (CKD-EPI) 47 L (>=60) BUN/Creatinine Ratio 49.23 H (12.00-20.00) Ratio Glucose 210 H (70-110) mg/dL POC Glucose (mg/dL) 352 H (70-110) mg/dL AST 54 H (13-35) U/L Alkaline Phosphatase 138 H (41-126) U/L Total Protein 5.9 L (6.2-8.2) g/dL Albumin 2.9 L (3.8-4.9) g/dL Albumin/Globulin Ratio 0.97 L (1.60-3.17) Ratio Assessment and Plan (1) Infection due to ESBL-producing Klebsiella pneumoniae Status: Acute Code(s): A49.8 - OTHER BACTERIAL INFECTIONS OF UNSPECIFIED SITE; Z16.12 - EXTENDED SPECTRUM BETA LACTAMASE (ESBL) RESISTANCE SNOMED Code(s): 715424300 (2) UTI (urinary tract infection) Status: Acute Code(s): N39.0 - URINARY TRACT INFECTION, SITE NOT SPECIFIED SNOMED Code(s): 63812485 Plan: 1patient presented to hospital with generalized weakness and mental status changes patient did have a positive UA elevated white count concerning for sym ptomatic UTI with urine culture to finalize with ESBL Klebsiella 2-patient did have some clinical improvement the patient white count is down blood culture negative, patient to continue with Invanz 1 g daily to finish a 10-day course of therapy on discharge Dictation was produced using [employer] dictation software. please excuse any grammatical, word or spelling errors. Time with Patient: Less than 30
[2023-09-01] MEDS ORDERED: ERGOCALCIFEROL 1,250 MCG (50,000 IU) CAPSULE PO SCH (09:00)
== END 2023-08-27 15:38 | DRG 871 ==
LOC: EC 14:42 → EEVIPCON 14:42 → 4SSUR 16:42
PROVIDERS: ADMIT Internal Medicine Geriatric Medicine; ATTEND Internal Medicine Geriatric Medicine
PROC: 05HF33Z Insertion of Infusion Device into Left Cephalic Vein, Percutaneous Approach (ICD-10-PCS; principal; 2023-08-27 07:30)
DX: A41.59 Other Gram-negative sepsis (principal); G93.41 Metabolic encephalopathy; N17.0 Acute kidney failure with tubular necrosis; E87.0 Hyperosmolality and hypernatremia; N39.0 Urinary tract infection, site not specified; E87.1 Hypo-osmolality and hyponatremia; N18.4 Chronic kidney disease, stage 4 (severe); Z16.12 Extended spectrum beta lactamase (ESBL) resistance; Z68.43 Body mass index [BMI] 50.0-59.9, adult; L03.116 Cellulitis of left lower limb; D64.9 Anemia, unspecified; E66.01 Morbid (severe) obesity due to excess calories; E86.0 Dehydration; E87.6 Hypokalemia; I12.9 Hypertensive chronic kidney disease with stage 1 through stage 4 chronic kidney disease, or unspecified chronic kidney disease; L89.152 Pressure ulcer of sacral region, stage 2; N18.31 Chronic kidney disease, stage 3a; E11.22 Type 2 diabetes mellitus with diabetic chronic kidney disease; E11.42 Type 2 diabetes mellitus with diabetic polyneuropathy; E78.5 Hyperlipidemia, unspecified; F32.A Depression, unspecified; F20.9 Schizophrenia, unspecified; G25.81 Restless legs syndrome; J44.9 Chronic obstructive pulmonary disease, unspecified; Z87.19 Personal history of other diseases of the digestive system; M10.9 Gout, unspecified; E66.9 Obesity, unspecified; M89.8X9 Other specified disorders of bone, unspecified site; Z79.4 Long term (current) use of insulin; Z79.84 Long term (current) use of oral hypoglycemic drugs; Z79.899 Other long term (current) drug therapy
CPT/HCPCS: 36410; 36415; 71045; 76770; 76937; 80048; 80053; 81001; 83605; 83735; 84484; 85025; 85027; 85610; 85730; 87040; 87077; 87086; 87186; 93005; 94640; 94760; 96361; 96374; 99291

== ENCOUNTER → 2023-11-07 | Outpatient (CLI) | payer MEDICARE, OTHER ==
--- NOTE | 2023-11-07 14:40 | CT ---
EXAMINATION TYPE: CT abdomen pelvis wo con DATE OF EXAM: 11/07/2023 HISTORY: Abdominal distension (gaseous) CT DLP: 2347.20 mGycm. Automated Exposure Control for Dose Reduction was Utilized. TECHNIQUE: CT scan of the abdomen and pelvis is performed with oral but without IV contrast. COMPARISON: Prior CT abdomen and pelvis 2016 FINDINGS: Within the limitations of a non-contrast study, the following observations are made. Evalu ation is suboptimal secondary to patient's large body habitus. LUNG BASES: Mild bibasilar linear scarring and/or atelectasis. LIVER/GB: No significant abnormality is appreciated. PANCREAS: Mild to moderate generalized fat replaced atrophy. SPLEEN: No significant abnormality is seen. ADRENALS: No significant abnormality is seen. KIDNEYS: Cortical thinning in both kidneys. Finding present product of chronic medical renal disease. Some central calcifications are favored vascular. No hydronephrosis seen bilaterally. Mildly distend ed bladder. BOWEL: Oral contrast reaches the level of the proximal transverse colon. No abnormal small or large b owel dilatation. Mild/moderate diffuse colonic fecal prominence GENITAL ORGANS: Anteverted uterus projects to right of midline.. LYMPH NODES: No greater than 1cm abdominal or pelvic lymph nodes are appreciated. OSSEOUS STRUCTURES: Multilevel spurring with bridging osteophytes in the thoracic spine. OTHER: Heterogeneous increased fluid in the lower posterior sacral region extending to the skin surfa ce and there are axial image 85. IMPRESSION: Evaluation is suboptimal secondary to patient's large body habitus. No intra-abdominal as cites is seen. There is [id number] diffuse colonic fecal stasis or constipation. No bowel obstr uction. Evidence of chronic medical renal disease noted.
== END | disposition home or self-care (01) ==
LOC: RADCTMAIN 11:33
PROVIDERS: ATTEND Family Medicine
DX: R14.0 Abdominal distension (gaseous) (principal)
CPT/HCPCS: 74176

== ENCOUNTER 2024-09-25 22:21 | Inpatient (IN) | payer MEDICARE, OTHER ==
--- NOTE | 2024-09-25 22:59 | ED ---
SOB HPI - General Chief Complaint: Shortness of Breath Stated Complaint: nausea Time Seen by Provider: 09/25/24 22:28 Source: EMS Mode of arrival: EMS Limitations: physical limitation - History of Present Illness Initial Comments: This patient is a 64-year-old woman sent from [facility] on the [place] home to have evaluation for fever cough and shortness of breath. The patient reportedly had episode of vomiting and they were concerned about possibility of aspiration pneumonia. The patient otherwise on review of systems only complains of a little bit of headache. She denies neck stiffness. She denies neurologic symptoms. MD Complaint: shortness of breath, cough Onset/Timin -: days(s) Consistency: constant Improves With: nothing Worsens With: nothing Known History Of: COPD, diabetes Associated Symptoms: fever, cough Treatments Prior to Arrival: oxygen - Related Data Home Medications Medication Instructions Recorded Confirmed Albuterol Inhaler [Ventolin Hfa 2 puff INHALATION RT-Q4H PRN 04/03/17 09/26/24 Inhaler] Venlafaxine HCl ER [Effexor XR] 300 mg PO DAILY 12/20/17 09/26/24 allopurinoL [Zyloprim] 300 mg PO HS@2100 12/20/17 09/26/24 Fluticasone/Vilanterol [Breo 1 puff INHALATION RT-DAILY@89910/05/20 09/26/24 Ellipta 200-25 Mcg Inhaler] Insulin Glargine,Hum.rec.anlog 80 units SQ HS 10/05/20 09/26/24 [Beti Andrews] Montelukast [Singulair] 10 mg PO HS 09/06/22 09/26/24 calcitrioL 0.25 mcg PO MOFR@0909/06/22 09/26/24 Atorvastatin [Lipitor] 20 mg PO HS@2100 08/22/23 09/26/24 Cyanocobalamin [Vitamin B-12] 1,000 mcg PO DAILY 08/22/23 09/26/24 Ergocalciferol (Vitamin D2) 1,250 mcg PO Q14D 08/22/23 09/26/24 [Drisdol (50,000 Iu)] Furosemide [Lasix] 40 mg PO DAILY@0900 08/22/23 09/26/24 Insulin Lispro [humaLOG Kwikpen] 34 unit SQ AC-TID 08/22/23 09/26/24 Metoprolol Tartrate [Lopressor] 50 mg PO Q12H 08/22/23 09/26/24 Midodrine [ProAmatine] 5 mg PO TID 08/22/23 09/26/24 Potassium Chloride ER [K-Dur 20] 20 meq PO HS@2100 08/22/23 09/26/24 Tirzepatide [Mounjaro] 15 mg SQ TU 08/22/23 09/26/24 ARIPiprazole [Abilify] 30 mg PO DAILY 09/26/24 09/26/24 Acetaminophen Tab [Tylenol] 650 mg PO Q4H PRN 09/26/24 09/26/24 Dapagliflozin Propanediol [Farxiga] 10 mg PO DAILY 09/26/24 09/26/24 Famotidine [Pepcid] 20 mg PO HS 09/26/24 09/26/24 INSULIN LISPRO (HumaLOG) [humaLOG] 5 units SQ DIRECTED PRN 09/26/24 09/26/24 Trihexyphenidyl [Artane] 1 mg PO BID 09/26/24 09/26/24 Previous Rx's Medication Instructions Recorded Gabapentin [Neurontin] 100 mg PO TID@0900,1300,2100 #90 08/27/23 cap Amoxic-Pot Clav 875-125Mg 1 tab PO Q12HR 5 Days #10 tab 09/30/24 [Augmentin 875-125] Heparin Sodium,Porcine (1 ml) 5,000 unit SQ Q12HR each 09/30/24 [Heparin Sodium] Nystatin 100,000 Unit/ml Susp 500,000 unit PO QID 3 Days ml 09/30/24 [Mycostatin Oral Susp] busPIRone HCl [Buspar] 15 mg PO TID tab 09/30/24 rOPINIRole HCL [Requip] 0.25 mg PO BID tab 09/30/24 Allergies Allergy/AdvReac Type Severity Reaction Status Date / Time codeine Allergy Rash/Hives Verified 09/26/24 11:30 Review of Systems ROS Statement: Those systems with pertinent positive or pertinent negative responses have been documented in the HPI. ROS Other: All systems not noted in ROS Statement are negative. Constitutional: Reports: fever Eyes: Denies: vision change ENT: Denies: throat pain, congestion Respiratory: Reports: cough, dyspnea Cardiovascular: Denies: chest pain, palpitations, orthopnea, edema Gastrointestinal: Reports: nausea, vomiting. Denies: abdominal pain, diarrhea, hematemesis, melena, hematochezia Genitourinary: Denies: dysuria Musculoskeletal: Denies: back pain Skin: Denies: rash Neurological: Reports: headache. Denies: weakness, numbness, confusion Past Medical History Past Medical History: Asthma, COPD, Diabetes Mellitus, Hyperlipidemia, Renal Disease Additional Past Medical History / Comment(s): OBESITY. USES A WALKER OR W/C TO AMBULATE, HX OF GOUT, HIATAL HERNIA, UTI, WEARS DEPENDS. 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 She has never been sexually active. Postmenopausal bleeding, recurrent. History of Any Multi-Drug Resistant Organisms: ESBL Date of last positivie culture/infection: 08/22/23 MDRO Source:: Urine Past Surgical History: Bariatric Surgery, Cholecystectomy, Orthopedic Surgery Additional Past Surgical History / Comment(s): Total L knee 04/15/14, lap band placed then removed, gastric sleeve 08/19/2012 EGD. D&C 2016 or 2017(?) Past Anesthesia/Blood Transfusion Reactions: No Reported Reaction Additional Past Anesthesia/Blood Transfusion Reaction / Comment(s): Pt has never recieved blood.CLAUSTERPHOBIA Past Psychological History: Anxiety, Depression, Schizophrenia Smoking Status: Former smoker Past Alcohol Use History: None Reported Past Drug Use History: None Reported - Past Family History Father Family Medical History: Diabetes Mellitus, Musculoskeletal Disorder Additional Family Medical History / Comment(s): Father had parkinsons. He in his 80's. Paternal aunt had breast cancer. Mother Family Medical History: Diabetes Mellitus General Exam Limitations: physical limitation General appearance: alert, in no apparent distress Head exam: Present: atraumatic, normocephalic Eye exam: Present: normal appearance, EOMI. Absent: scleral icterus, conjunctival injection Neck exam: Present: normal inspection, full ROM. Absent: tenderness Respiratory exam: Present: rhonchi. Absent: respiratory distress, wheezes, rales, stridor, accessory muscle use Cardiovascular Exam: Present: normal rhythm, tachycardia, normal heart sounds. Absent: systolic murmur, diastolic murmur, rubs, gallop GI/Abdominal exam: Present: soft. Absent: distended, tenderness, guarding, rebound, mass Extremities exam: Present: normal inspection, normal capillary refill. Absent: pedal edema, calf tenderness Neurological exam: Present: alert, CN II-XII intact Skin exam: Present: warm, dry, intact, normal color. Absent: rash Course Vital Signs 09/25/24 09/25/24 09/25/24 22:25 22:32 22:33 Temperature 102 F H Pulse Rate 111 H Pulse Rate [ Pulse Oximetery ] Respiratory 20 20 Rate Blood Pressure 112/52 Blood Pressure [Right Arm] O2 Sat by Pulse 99 Oximetry 09/26/24 09/26/24 01:25 02:00 Temperature 98.8 F 98.2 F Pulse Rate 101 H Pulse Rate [ 96 Pulse Oximetery ] Respiratory 19 16 Rate Blood Pressure 106/42 Blood Pressure 102/56 [Right Arm] O2 Sat by Pulse 95 96 Oximetry Medical Decision Making - Medical Decision Making [place] body weight 49.9 kg, sepsis bolus based on this calculation. The patient had chest x-ray that I interpreted as showing right lung infiltrate. No bony deformity or pneumothorax Was pt. sent in by a medical professional or institution (, PA, TABLE AND DESK FINISHER, urgent care, hospital, or shelter...) When possible be specific @ -[The patient is sent from her long-term care facility for concern of possible pneumonia Did you speak to anyone other than the patient for history (EMS, parent, family, police, friend...)? What history was obtained from this source @ -[No] Did you review nursing and triage notes (agree or disagree)? Why? @ -[I reviewed and agree with nursing and triage notes] Were old charts reviewed (outside hosp., previous admission, EMS record, old EKG, old radiological studies, urgent care reports/EKG's, shelter records)? Report findings @ -[Transfer records were reviewed] Differential Diagnosis (chest pain, altered mental status, abdominal pain women, abdominal pain men, vaginal bleeding, weakness, fever, dyspnea, syncope, headache, dizziness, GI bleed, back pain, seizure, CVA, palpatations, mental health, musculoskeletal)? @ -[Differential Dyspnea: Coronary syndrome, arrhythmia, tamponade, asthma, COPD, pulmonary embolism, pneumonia, pneumothorax, pulmonary effusion, anaphylaxis, diabetic ketoacidosis, flailed chest, pulmonary contusion, diaphragmatic rupture, anemia, neuromuscular, this is not meant to be an all-inclusive list. EKG interpreted by me (3pts min.). @ -[I interpreted as above] X-rays interpreted by me (1pt min.). @ -[I interpreted as above CT interpreted by me (1pt min.). @ -[None done] U/S interpreted by me (1pt. min.). @ -[None done] What testing was considered but not performed or refused? (CT, X-rays, U/S, labs)? Why? @ -[None] What meds were considered but not given or refused? Why? @ -[None] Did you discuss the management of the patient with other professionals (professionals i.e. , PA, TABLE AND DESK FINISHER, lab, RT, psych nurse, social services assistant, gold layer, teacher, information security officer, shoe parts caser)? Give summary @ -[Case discussed with admitting physician and treatment recommendations incorporated Was smoking cessation discussed for >3mins.? @ -[No] Was critical care preformed (if so, how long)? @ -[No] Were there social determinants of health that impacted care today? How? (Homelessness, low income, unemployed, alcoholism, drug addiction, transportation, low edu. Level, literacy, decrease access to med. care, half-way, rehab)? @ -[No] Was there de-escalation of care discussed even if they declined (Discuss DNR or withdrawal of care, Hospice)? DNR status @ -[No] What co-morbidities impacted this encounter? (DM, HTN, Smoking, COPD, CAD, Cancer, CVA, ARF, Chemo, Hep., AIDS, mental health diagnosis, sleep apnea, morbid obesity)? @ -[None] Was patient admitted / discharged? Hospital course, mention meds given and route, prescriptions, significant lab abnormalities, going to OR and other pertinent info. @ -[Patient is 64-year-old woman sent with concern of pneumonia versus possible aspiration pneumonia following vomiting. Undiagnosed new problem with uncertain prognosis? @ -[No] Drug Therapy requiring intensive monitoring for toxicity (Heparin, Nitro, Insulin, Cardizem)? @ -[No] Were any procedures done? @ -[No] Diagnosis/symptom? @ -[Acute sepsis Acute pneumonia Acute, or Chronic, or Acute on Chronic? @ -[Acute Uncomplicated (without systemic symptoms) or Complicated (systemic symptoms)? @ -[Uncomplicated Side effects of treatment? @ -[No] Exacerbation, Progression, or Severe Exacerbation? @ -[No] Poses a threat to life or bodily function? How? (Chest pain, USA, MD, pneumonia, PE, COPD, DKA, ARF, appy, cholecystitis, CVA, Diverticulitis, Homicidal, Suicidal, threat to staff... and all critical care pts) @ -[Yes high risk of morbidity and mortality associated with sepsis All treatments are based on ideal body weight as in ED triage - Lab Data Result diagrams: 09/28/24 04:31 09/28/24 04:31 Lab Results 09/25/24 09/25/24 09/25/24 Range/Units 23:36 23:36 23:36 WBC 8.15 (4.50-10.00) 10*3/uL RBC 3.97 L (4.10-5.20) 10*6/uL Hgb 12.5 (12.0-15.0) g/dL Hct 39.1 (37.2-46.3) % MCV 98.5 H (80.0-97.0) fL MCH 31.5 (27.0-32.0) pg MCHC 32.0 (32.0-37.0) g/dL Plt Count 179 (140-440) 10*3/uL MPV 10.3 (9.5-12.2) fL Immature Gran % (Auto) 0.7 % Neutrophils % 76.3 % Lymphocytes % 14.2 % Monocytes % 8.2 % Eosinophils % 0.4 % Basophils % 0.2 % Immature Gran # 0.06 H (0.00-0.04) 10*3/uL Neutrophils # 6.21 (1.80-7.70) 10*3/uL Lymphocytes # 1.16 (0.90-5.00) 10*3/uL Monocytes # 0.67 (0.20-1.00) 10*3/uL Eosinophils # 0.03 L (0.04-0.35) 10*3/uL Basophils # 0.02 (0.00-0.10) 10*3/uL PT 10.5 (10.0-12.5) sec INR 0.9 (<1.2) APTT 25.0 (22.0-30.0) sec Sodium 140 (137-145) mmol/L Potassium 4.2 (3.5-5.1) mmol/L Chloride 102 (98-107) mmol/L Carbon Dioxide 30 (22-30) mmol/L Anion Gap 8 mmol/L BUN 29 H (7-17) mg/dL Creatinine 1.03 (0.52-1.04) mg/dL Est GFR (CKD-EPI)AfAm 67 (>60 ml/min/1.73 sqM) Est GFR (CKD-EPI)NonAf 58 (>60 ml/min/1.73 sqM) Glucose 163 H (74-99) mg/dL Plasma Lactic Acid Oscar (0.7-2.0) mmol/L Calcium 8.7 (8.4-10.2) mg/dL Total Bilirubin 0.8 (0.2-1.3) mg/dL AST 48 H (14-36) U/L ALT 37 H (4-34) U/L Alkaline Phosphatase 111 (38-126) U/L Total Protein 6.5 (6.3-8.2) g/dL Albumin 3.3 L (3.5-5.0) g/dL Influenza Type A (PCR) (Not Detectd) Influenza Type B (PCR) (Not Detectd) RSV (PCR) (Not Detectd) SARS-CoV-2 (PCR) (Not Detectd) 09/25/24 09/25/24 Range/Units 23:36 23:36 WBC (4.50-10.00) 10*3/uL RBC (4.10-5.20) 10*6/uL Hgb (12.0-15.0) g/dL Hct (37.2-46.3) % MCV (80.0-97.0) fL MCH (27.0-32.0) pg MCHC (32.0-37.0) g/dL Plt Count (140-440) 10*3/uL MPV (9.5-12.2) fL Immature Gran % (Auto) % Neutrophils % % Lymphocytes % % Monocytes % % Eosinophils % % Basophils % % Immature Gran # (0.00-0.04) 10*3/uL Neutrophils # (1.80-7.70) 10*3/uL Lymphocytes # (0.90-5.00) 10*3/uL Monocytes # (0.20-1.00) 10*3/uL Eosinophils # (0.04-0.35) 10*3/uL Basophils # (0.00-0.10) 10*3/uL PT (10.0-12.5) sec INR (<1.2) APTT (22.0-30.0) sec Sodium (137-145) mmol/L Potassium (3.5-5.1) mmol/L Chloride (98-107) mmol/L Carbon Dioxide (22-30) mmol/L Anion Gap mmol/L BUN (7-17) mg/dL Creatinine (0.52-1.04) mg/dL Est GFR (CKD-EPI)AfAm (>60 ml/min/1.73 sqM) Est GFR (CKD-EPI)NonAf (>60 ml/min/1.73 sqM) Glucose (74-99) mg/dL Plasma Lactic Acid Oscar 0.8 (0.7-2.0) mmol/L Calcium (8.4-10.2) mg/dL Total Bilirubin (0.2-1.3) mg/dL AST (14-36) U/L ALT (4-34) U/L Alkaline Phosphatase (38-126) U/L Total Protein (6.3-8.2) g/dL Albumin (3.5-5.0) g/dL Influenza Type A (PCR) Not Detected (Not Detectd) Influenza Type B (PCR) Not Detected (Not Detectd) RSV (PCR) Not Detected (Not Detectd) SARS-CoV-2 (PCR) Not Detected (Not Detectd) - EKG Data -: EKG Interpreted by [facility] EKG shows normal: sinus rhythm, intervals (Interval 158 ms, normal, QTc 420 ms, normal. QRS duration 132 ms, prolonged consistent with right bundle branch block.), QRS complexes (Right bundle branch block pattern. Possible anterior infarct, old. Old inferior infarct.) Rate: tachycardia (Rate 108 bpm) Disposition Clinical Impression: Sepsis, Pneumonia Disposition: ADMITTED IP TO THIS HOSP Condition: Stable Is patient prescribed a controlled substance at d/c from ED?: No
[2024-09-25 23:51] LABS: Basophils # (A) 0.02 10*3/uL (0.00-0.10); Basophils % (A) 0.2 %; Eosinophils # (A) 0.03 10*3/uL (0.04-0.35); Eosinophils % (A) 0.4 %; HCT 39.1 % (37.2-46.3); HGB 12.5 g/dL (12.0-15.0); Lymphocytes # (A) 1.16 10*3/uL (0.90-5.00); Lymphocytes % (A) 14.2 %; MCH 31.5 pg (27.0-32.0); MCV 98.5 fL (80.0-97.0); Mean Platelet Volume 10.3 fL (9.5-12.2); Monocytes # (A) 0.67 10*3/uL (0.20-1.00); Monocytes % (A) 8.2 %; Neutrophils # (A) 6.21 10*3/uL (1.80-7.70); Neutrophils % (A) 76.3 %; Platelet Count 179 10*3/uL (140-440); RBC 3.97 10*6/uL (4.10-5.20); RDW 14.6 % (11.5-14.5); WBC 8.15 10*3/uL (4.50-10.00)
[2024-09-25] MEDS: ACETAMINOPHEN TAB 325 MG TAB PO STA (23:53)
[2024-09-26 00:04] LABS: ALT 37 U/L (4-34); AST 48 U/L (14-36); African American GFR (CKD) 67 (>60 ml/min/1.73 sqM); Albumin 3.3 g/dL (3.5-5.0); Alkaline Phosphatase 111 U/L (38-126); Anion Gap 8 mmol/L; Blood Urea Nitrogen 29 mg/dL (7-17); Calcium 8.7 mg/dL (8.4-10.2); Carbon Dioxide 30 mmol/L (22-30); Chloride 102 mmol/L (98-107); Glucose 163 mg/dL (74-99); INR 0.9 (<1.2); Non-African American GFR(CKD) 58 (>60 ml/min/1.73 sqM); Potassium 4.2 mmol/L (3.5-5.1); Prothrombin Time 10.5 sec (10.0-12.5); Sodium 140 mmol/L (137-145); Total Bilirubin 0.8 mg/dL (0.2-1.3); Total Protein 6.5 g/dL (6.3-8.2)
[2024-09-26] MEDS: LACTATED RINGERS 1,000 ML IV ONE (00:10)
[2024-09-26 00:35] LABS: Influenza A Not Detected (Not Detectd); Influenza B Not Detected (Not Detectd); RSV Not Detected (Not Detectd)
[2024-09-26] MEDS ORDERED: LACTULOSE 20 GM/30 ML CUP PO PRN (01:00)
[2024-09-26] MEDS ORDERED: INSULIN LISPRO (HumaLOG) 100 UNIT/ML 10 mL VL SQ PRN (01:00)
--- NOTE | 2024-09-26 01:46 | XR ---
EXAM: XR Chest, 1 View CLINICAL HISTORY: ITS.REASON XR Reason: Fever TECHNIQUE: Frontal view of the chest. COMPARISON: 08/22/2023 FINDINGS: Lungs: Mild right basilar opacity Pleural space: No acute findings. Heart: cardiomegaly. Bones/joints: No acute findings. IMPRESSION: Mild right basilar opacity
[2024-09-26] MEDS: LACTATED RINGERS 1,000 ML IV SCH (01:47)
[2024-09-26] MEDS: ZINC OXIDE PASTE (Z-GUARD) 1 APPLIC TOPICAL PRN (05:12)
[2024-09-26 07:08] LABS: Glucose,Whole Blood 129 mg/dL (70-110)
[2024-09-26] MEDS: INSULIN LISPRO (HumaLOG) 100 UNIT/ML 10 mL VL SQ SCH (07:33)
[2024-09-26] MEDS: SYMBICORT 160-4.5 MCG INHALER INHALATION SCH (08:00)
[2024-09-26] MEDS: IPRATROPIUM-ALBUTEROL 3 ML NEB INHALATION PRN (08:00)
[2024-09-26] MEDS: DAPAGLIFLOZIN PROPANEDIOL 5 MG TABLET PO SCH (09:07)
[2024-09-26] MEDS: busPIRone HCl 5 MG TAB PO SCH (09:07)
[2024-09-26] MEDS: MONTELUKAST 10 MG TAB PO SCH (09:07)
[2024-09-26] MEDS: FAMOTIDINE 20 MG/2 ML VIAL IV SCH (09:07)
[2024-09-26] MEDS: PANTOPRAZOLE 40 MG TABLET PO SCH (09:07)
[2024-09-26] MEDS: FUROSEMIDE 40 MG TAB PO SCH (09:07)
[2024-09-26] MEDS: METOPROLOL TARTRATE 50 MG TAB PO SCH (09:08)
[2024-09-26] MEDS: MIDODRINE 5 MG TAB PO SCH (09:35)
[2024-09-26 09:54] LABS: Appearance,Urine Turbid (Clear); Bacteria,Urine Rare /hpf; Bilirubin,Urine Negative (Negative); Blood,Urine Small (Negative); Color,Urine Yellow; Glucose,Urine (UA) 4+ (Negative); Ketones,Urine Negative (Negative); Leukocyte Esterase,Urine Large (Negative); Mucus,Urine Rare /hpf; Nitrite,Urine Negative (Negative); Protein,Urine 1+ (Negative); RBC,Urine 13 /hpf (0-5); Specific Gravity,Urine 1.015 (1.001-1.035); Squamous Epithelial Cell,Urine 3 /hpf (0-4); WBC,Urine >182 /hpf (0-5)
[2024-09-26] MEDS: GABAPENTIN 100 MG CAP PO SCH (09:55)
[2024-09-26 12:04] LABS: Glucose,Whole Blood 127 mg/dL (70-110)
[2024-09-26 17:23] LABS: Glucose,Whole Blood 182 mg/dL (70-110)
[2024-09-26] MEDS: NYSTATIN 100,000 UNIT/ML SUSP 500,000 UNIT/5 ML CUP PO SCH (18:08)
[2024-09-26 20:27] LABS: Glucose,Whole Blood 181 mg/dL (70-110)
[2024-09-26] MEDS: INSULIN GLARGINE (LANTUS) 100 UNIT/ML SYR SQ SCH (21:08)
[2024-09-26] MEDS: POTASSIUM CHLORIDE ER 20 MEQ TAB.ER PO SCH (21:10)
[2024-09-26] MEDS: ATORVASTATIN 20 MG TAB PO SCH (21:10)
[2024-09-26] MEDS: VENLAFAXINE HCL ER 150 MG CAP PO SCH (21:10)
[2024-09-27] MEDS ORDERED: IBUPROFEN 400 MG TAB PO PRN (01:11)
[2024-09-27] MEDS: ACETAMINOPHEN TAB 325 MG TAB PO PRN (01:15)
[2024-09-27 02:24] LABS: Glucose,Whole Blood 178 mg/dL (70-110)
[2024-09-27 07:26] LABS: African American GFR (CKD) 60 (>60 ml/min/1.73 sqM); Anion Gap 6 mmol/L; Blood Urea Nitrogen 27 mg/dL (7-17); Calcium 8.4 mg/dL (8.4-10.2); Carbon Dioxide 34 mmol/L (22-30); Chloride 101 mmol/L (98-107); Glucose 155 mg/dL (74-99); Non-African American GFR(CKD) 52 (>60 ml/min/1.73 sqM); Sodium 141 mmol/L (137-145)
[2024-09-27 07:28] LABS: Glucose,Whole Blood 147 mg/dL (70-110)
[2024-09-27 07:35] LABS: NT-Pro-B-Type Natriuretic Pept 363 pg/mL
--- NOTE | 2024-09-27 09:15 | P.HPIM ---
History of Present Illness H&P Date: 09/26/24 This is a 64-year-old female who presented to the emergency department with increasing shortness of breath with recent vomiting with concerns of possible aspiration pneumonia. Patient currently resides at [facility] and sees Dr. Garcia in the outpatient setting with a significant past medical history of asthma, COPD, diabetes mellitus, hyperlipidemia, obesity, history of gout, frequent UTIs, anxiety, depression, schizophrenia and borderline personality disorder, patient is a former smoker denies any other illicit drug use or alcohol use. Patient also has history of renal disease. Chest x-ray on admission shows an acute mild right basilar opacity patient has been started on antibiotics in the form of ceftriaxone. Patient is on oxygen via nasal cannula and reports she does not wear this all the time. Patient also had an abnormal urine although denies any pain, burning, or frequency. Labs reviewed on admission revealed a normal white count of 8.15, hemoglobin is 12.5, platelets are 179, sodium is 140 with a potassium of 4.2, BUN is 29 with a creatinine of 1.03, blood sugars are elevated, AST mildly elevated at 48 and ALT is 37. Urine was performed as standard protocol in the ER with small blood noted and large leukocyte esterase with WBCs over 182. Virology testing including RSV, influenza, COVID are negative. Patient was admitted with concerns of possible aspiration pneumonia. Patient denies any further vomiting and nurse was concerned with aspiration we will consult speech and appreciate input and recommendations regarding diet moving forward. Plan will be for patient to return to [facility] once stabilized and discharged. REVIEW OF SYSTEMS: CONSTITUTIONAL: No fever, no malaise, no fatigue. HEENT: No recent visual problems or hearing problems. Denied any sore throat. CARDIOVASCULAR: No chest pain, orthopnea, PND, no palpitations, no syncope. PULMONARY: Reported increasing shortness of breath, reports some cough with some yellow phlegm production, no hemoptysis. GASTROINTESTINAL: No diarrhea, no nausea, reported vomiting that has resolved, no abdominal pain. NEUROLOGICAL: No headaches, no weakness, no numbness. HEMATOLOGICAL: Denies any bleeding or petechiae. GENITOURINARY: Denies any burning micturition, frequency, or urgency. MUSCULOSKELETAL/RHEUMATOLOGICAL: Denies any joint pain, swelling, or any muscle pain. ENDOCRINE: Denies any polyuria or polydipsia. The rest of the 14-point review of systems is negative. PHYSICAL EXAMINATION: GENERAL: The patient is alert and oriented x3, not in any acute distress. Well developed, elderly appearing, chronically ill-appearing, morbidly obese HEENT: Pupils are round and equally reacting to light. EOMI. No scleral icterus. No conjunctival pallor. Normocephalic, atraumatic. No pharyngeal erythema. No thyromegaly. CARDIOVASCULAR: S1 and S2 muffled PULMONARY: Diminished breath sounds bilaterally otherwise chest is clear to auscultation, no wheezing or crackles. ABDOMEN: Soft, obese, nontender, nondistended, normoactive bowel sounds. No palpable organomegaly. MUSCULOSKELETAL: No joint swelling or deformity. EXTREMITIES: No cyanosis, clubbing, or pedal edema. NEUROLOGICAL: Gross neurological examination did not reveal any focal deficits. Diffusely weak SKIN: No rashes. Assessment: Shortness of breath, concerns for possible aspiration with vomiting and coughing on food at [facility] History of asthma/COPD, not in exacerbation Acute hypoxic respiratory failure possibly secondary to aspiration History of diabetes mellitus, type II, uncontrolled with hyperglycemia Hyperlipidemia Morbid obesity with a BMI of 50.8 History of frequent urinary tract infections and incontinent wears depends with previous history of ESBL in the urine Anxiety/depression/schizophrenia with history of borderline personality disorder Former smoker History of renal disease GI prophylaxis DVT prophylaxis Full code Plan: Patient was admitted with aspiration concerns as patient was having shortness of breath and vomiting at the [place] [facility] Medications reviewed and resumed as appropriate Continue monitoring Accu-Cheks ACHS and adjust accordingly. Patient to be evaluated by speech with concerns of aspirating Patient's mentation is baseline Wean FiO2 as tolerated and also recommend incentive spirometer with continued use at least 10 times every hour while awake Patient reports is mostly wheelchair-bound Continue local wound care to the bottom with barrier paste and assessing for any skin breakdown as patient is incontinent and wears briefs and mostly bedbound Follow-up on repeat labs and will also order BNP Continue antibiotics for now, will also add procalcitonin The impression and plan of care has been dictated by Tana Houston, Nurse Practitioner as directed. Dr. Royal MD I have performed a history and examination and MDM of this patient, discussed the same with the dictator, and agree with the dictator's assessment and plan as written ,documented as a scribe. Based on total visit time, I have performed more than 50% of the visit. Past Medical History Past Medical History: Asthma, COPD, Diabetes Mellitus, Hyperlipidemia, Renal Disease Additional Past Medical History / Comment(s): OBESITY. USES A WALKER OR W/C TO AMBULATE, HX OF GOUT, HIATAL HERNIA, UTI, WEARS DEPENDS. 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 She has never been sexually active. Postmenopausal bleeding, recurrent. History of Any Multi-Drug Resistant Organisms: ESBL Date of last positivie culture/infection: 08/22/23 MDRO Source:: Urine Past Surgical History: Bariatric Surgery, Cholecystectomy, Orthopedic Surgery Additional Past Surgical History / Comment(s): Total L knee 04/15/14, lap band placed then removed, gastric sleeve 08/19/2012 EGD. D&C 2016 or 2017(?) Past Anesthesia/Blood Transfusion Reactions: No Reported Reaction Additional Past Anesthesia/Blood Transfusion Reaction / Comment(s): Pt has never recieved blood.CLAUSTERPHOBIA Past Psychological History: Anxiety, Depression, Schizophrenia Smoking Status: Former smoker Past Alcohol Use History: None Reported Past Drug Use History: None Reported - Past Family History Father Family Medical History: Diabetes Mellitus, Musculoskeletal Disorder Additional Family Medical History / Comment(s): Father had parkinsons. He in his 80's. Paternal aunt had breast cancer. Mother Family Medical History: Diabetes Mellitus Medications and Allergies Home Medications Medication Instructions Recorded Confirmed Type Albuterol Inhaler [Ventolin Hfa 2 puff INHALATION RT-Q4H PRN 04/03/17 09/26/24 History Inhaler] Venlafaxine HCl ER [Effexor XR] 300 mg PO DAILY 12/20/17 09/26/24 History allopurinoL [Zyloprim] 300 mg PO HS@2100 12/20/17 09/26/24 History Fluticasone/Vilanterol [Breo 1 puff INHALATION RT-DAILY@0900 10/05/20 09/26/24 History Ellipta 200-25 Mcg Inhaler] Insulin Glargine,Hum.rec.anlog 80 units SQ HS 10/05/20 09/26/24 History [Toujeo Max Solostar] Montelukast [Singulair] 10 mg PO HS 09/06/22 09/26/24 History calcitrioL 0.25 mcg PO MOFR@0900 09/06/22 09/26/24 History Atorvastatin [Lipitor] 20 mg PO HS@2100 08/22/23 09/26/24 History Cyanocobalamin [Vitamin B-12] 1,000 mcg PO DAILY 08/22/23 09/26/24 History Ergocalciferol (Vitamin D2) 1,250 mcg PO Q14D 08/22/23 09/26/24 History [Drisdol (50,000 Iu)] Furosemide [Lasix] 40 mg PO DAILY@0900 08/22/23 09/26/24 History Insulin Lispro [humaLOG Kwikpen] 34 unit SQ AC-TID 08/22/23 09/26/24 History Metoprolol Tartrate [Lopressor] 50 mg PO Q12H 08/22/23 09/26/24 History Midodrine [ProAmatine] 5 mg PO TID 08/22/23 09/26/24 History Potassium Chloride ER [K-Dur 20] 20 meq PO HS@2100 08/22/23 09/26/24 History Tirzepatide [Mounjaro] 15 mg SQ TU 08/22/23 09/26/24 History Gabapentin [Neurontin] 100 mg PO TID@0900,1300,2100 #90 08/27/23 09/26/24 Rx cap ARIPiprazole [Abilify] 30 mg PO DAILY 09/26/24 09/26/24 History Acetaminophen Tab [Tylenol] 650 mg PO Q4H PRN 09/26/24 09/26/24 History Dapagliflozin Propanediol [Farxiga] 10 mg PO DAILY 09/26/24 09/26/24 History Famotidine [Pepcid] 20 mg PO HS 09/26/24 09/26/24 History INSULIN LISPRO (HumaLOG) [humaLOG] 5 units SQ DIRECTED PRN 09/26/24 09/26/24 History Losartan [Cozaar] 25 mg PO HS 09/26/24 09/26/24 History Trihexyphenidyl [Artane] 1 mg PO BID 09/26/24 09/26/24 History busPIRone HCl [Buspar] 20 mg PO TID 09/26/24 09/26/24 History rOPINIRole HCL [Requip] 0.5 mg PO Q12H 09/26/24 09/26/24 History Allergies Allergy/AdvReac Type Severity Reaction Status Date / Time codeine Allergy Rash/Hives Verified 09/26/24 11:30 Physical Exam Vitals: Vital Signs Temp Pulse Pulse Resp BP BP Pulse Ox 09/26/24 08:12 93 09/26/24 08:00 95 99 09/26/24 07:36 98.3 F 98 16 120/63 99 09/26/24 02:00 98.2 F 96 16 102/56 96 09/26/24 01:25 98.8 F 101 H 19 106/42 95 09/25/24 22:33 20 09/25/24 22:32 102 F H 09/25/24 22:25 111 H 20 112/52 99 Intake and Output 09/25/24 09/26/24 09/26/24 22:59 06:59 14:59 Intake Total 800 Balance 800 Intake: Intake, IV Titration 560 Amount Lactated Ringers 1,000 ml 560 @ 130 mls/hr IV .[id number] [facility] Rx#:[id number] Oral 240 Other: # Voids 2 # Bowel Movements 2 Weight 126.099 kg 126.099 kg Results CBC & Chem 7: 09/25/24 23:36 09/27/24 05:38 Labs: Abnormal Lab Results - Last 24 Hours (Table) 09/25/24 09/25/24 09/26/24 Range/Units 23:36 23:36 07:06 RBC 3.97 L (4.10-5.20) 10*6/uL MCV 98.5 H (80.0-97.0) fL Immature Gran # 0.06 H (0.00-0.04) 10*3/uL Eosinophils # 0.03 L (0.04-0.35) 10*3/uL BUN 29 H (7-17) mg/dL Glucose 163 H (74-99) mg/dL POC Glucose (mg/dL) 129 H (70-110) mg/dL AST 48 H (14-36) U/L ALT 37 H (4-34) U/L Albumin 3.3 L (3.5-5.0) g/dL Urine Appearance (Clear) Urine Protein (Negative) Urine Glucose (UA) (Negative) Urine Blood (Negative) Ur Leukocyte Esterase (Negative) Urine RBC (0-5) /hpf Urine WBC (0-5) /hpf Urine WBC Clumps (None) /hpf Urine Bacteria (None) /hpf Urine Mucus (None) /hpf 09/26/24 Range/Units 09:06 RBC (4.10-5.20) 10*6/uL MCV (80.0-97.0) fL Immature Gran # (0.00-0.04) 10*3/uL Eosinophils # (0.04-0.35) 10*3/uL BUN (7-17) mg/dL Glucose (74-99) mg/dL POC Glucose (mg/dL) (70-110) mg/dL AST (14-36) U/L ALT (4-34) U/L Albumin (3.5-5.0) g/dL Urine Appearance Turbid H (Clear) Urine Protein 1+ H (Negative) Urine Glucose (UA) 4+ H (Negative) Urine Blood Small H (Negative) Ur Leukocyte Esterase Large H (Negative) Urine RBC 13 H (0-5) /hpf Urine WBC >182 H (0-5) /hpf Urine WBC Clumps Many H (None) /hpf Urine Bacteria Rare H (None) /hpf Urine Mucus Rare H (None) /hpf Thrombosis Risk Factor Assmnt - Choose All That Apply Any of the Below Risk Factors Present?: Yes Each Factor Represents 1 point: Obesity (BMI >25) Other Risk Factors: Yes Each Risk Factor Represents 2 Points: Age 61-74 years Other congenital or acquired thrombophilia - If yes, enter type in comment: No Thrombosis Risk Factor Assessment Total Risk Factor Score: 3 Thrombosis Risk Factor Assessment Level: Moderate Risk
[2024-09-27] MEDS: HEPARIN SODIUM,PORCINE 5,000 UNIT/ML 1 ML VIAL SQ SCH (10:00)
[2024-09-27 10:03] LABS: Basophils # (A) 0.03 X 10*3/uL (0.00-0.10); Basophils % (A) 0.5 %; Eosinophils # (A) 0.01 X 10*3/uL (0.04-0.35); Eosinophils % (A) 0.2 %; HCT 40.5 % (37.2-46.3); HGB 12.3 g/dL (12.0-15.0); Lymphocytes # (A) 1.43 X 10*3/uL (0.90-5.00); Lymphocytes % (A) 23.8 %; MCHC 30.4 g/dL (32.0-37.0); Mean Platelet Volume 10.8 FL (9.5-12.2); Monocytes # (A) 0.49 X 10*3/uL (0.20-1.00); Monocytes % (A) 8.2 %; NRBC Per 100 WBC 0 X 10*3/uL (0.00-0.01); Neutrophils % (A) 66.6 %; Platelet Count 189 X 10*3/uL (140-440); RBC 3.97 X 10*6/uL (4.10-5.20); RDW 14.6 % (11.5-14.5)
[2024-09-27 12:08] LABS: Glucose,Whole Blood 222 mg/dL (70-110)
--- NOTE | 2024-09-27 16:12 | P.PN ---
Subjective Progress Note Date: 09/27/24 This is a 64-year-old female who presented to the emergency department with increasing shortness of breath with recent vomiting with concerns of possible aspiration pneumonia. Patient currently resides at [facility] and sees Dr. Garcia in the outpatient setting with a significant past medical history of asthma, COPD, diabetes mellitus, hyperlipidemia, obesity, history of gout, frequent UTIs, anxiety, depression, schizophrenia and borderline personality disorder, patient is a former smoker denies any other illicit drug use or alcohol use. Patient also has history of renal disease. Chest x-ray on admission shows an acute mild right basilar opacity patient has been started on antibiotics in the form of ceftriaxone. Patient is on oxygen via nasal cannula and reports she does not wear this all the time. Patient also had an abnormal urine although denies any pain, burning, or frequency. Labs reviewed on admission revealed a normal white count of 8.15, hemoglobin is 12.5, platelets are 179, sodium is 140 with a potassium of 4.2, BUN is 29 with a creatinine of 1.03, blood sugars are elevated, AST mildly elevated at 48 and ALT is 37. Urine was performed as standard protocol in the ER with small blood noted and large leukocyte esterase with WBCs over 182. Virology testing including RSV, influenza, COVID are negative. Patient was admitted with concerns of possible aspiration pneumonia. Patient denies any further vomiting and nurse was concerned with aspiration we will consult speech and appreciate input and recommendations regarding diet moving forward. Plan will be for patient to return to [facility] once stabilized and discharged. 09/27/2024 Patient is eval today in follow-up resting in bed comfortably. She has no complaints at this time. Patient was febrile overnight with a Tmax of 102.8 with significantly abnormal urine. A urine culture is requested and will be pending at this time. She continues on IV ceftriaxone. Was concern for possible aspiration patient was evaluated by speech therapy. Today reveal white blood cell count of 6.00, hemoglobin 12.3, sodium 141, BUN of 27 creatinine 1.13. Procalcitonin level was normal at 0.27. REVIEW OF SYSTEMS: CONSTITUTIONAL: No fever, no malaise, no fatigue. HEENT: No recent visual problems or hearing problems. Denied any sore throat. CARDIOVASCULAR: No chest pain, orthopnea, PND, no palpitations, no syncope. PULMONARY: Reported increasing shortness of breath, reports some cough with some yellow phlegm production, no hemoptysis. GASTROINTESTINAL: No diarrhea, no nausea, reported vomiting that has resolved, no abdominal pain. NEUROLOGICAL: No headaches, no weakness, no numbness. PHYSICAL EXAMINATION: GENERAL: The patient is alert and oriented x3, not in any acute distress. Well developed, elderly appearing, chronically ill-appearing, morbidly obese HEENT: Pupils are round and equally reacting to light. EOMI. No scleral icterus. No conjunctival pallor. Normocephalic, atraumatic. No pharyngeal erythema. No thyromegaly. CARDIOVASCULAR: S1 and S2 muffled PULMONARY: Diminished breath sounds bilaterally otherwise chest is clear to auscultation, no wheezing or crackles. ABDOMEN: Soft, obese, nontender, nondistended, normoactive bowel sounds. No palpable organomegaly. MUSCULOSKELETAL: No joint swelling or deformity. EXTREMITIES: No cyanosis, clubbing, or pedal edema. NEUROLOGICAL: Gross neurological examination did not reveal any focal deficits. Diffusely weak SKIN: No rashes. Assessment: Shortness of breath, concerns for possible aspiration with vomiting and coughing on food at [facility] History of asthma/COPD, not in exacerbation Abnormal urine with concern for an acute urinary tract infection Acute hypoxic respiratory failure possibly secondary to aspiration History of diabetes mellitus, type II, uncontrolled with hyperglycemia Hyperlipidemia Morbid obesity with a BMI of 50.8 History of frequent urinary tract infections and incontinent wears depends with previous history of ESBL in the urine Anxiety/depression/schizophrenia with history of borderline personality disorder Former smoker History of renal disease GI prophylaxis DVT prophylaxis Full code Plan: Patient was admitted with aspiration concerns as patient was having shortness of breath and vomiting at the [place] [facility] Medications reviewed and resumed as appropriate Continue monitoring Accu-Cheks ACHS and adjust accordingly. Patient to be evaluated by speech with concerns of aspirating Patient's mentation is baseline Wean FiO2 as tolerated and also recommend incentive spirometer with continued use at least 10 times every hour while awake Patient reports is mostly wheelchair-bound Continue local wound care to the bottom with barrier paste and assessing for any skin breakdown as patient is incontinent and wears briefs and mostly bedbound Continue IV ceftriaxone pending final urine culture Follow-up on repeat labs Patient will be a return to [facility] on Sunday The impression and plan of care has been dictated by Karen Sosa, Nurse Practitioner as directed. Dr. Royal MD I have performed a history and examination and MDM of this patient, discussed the same with the dictator, and agree with the dictator's assessment and plan as written ,documented as a scribe. Based on total visit time, I have performed more than 50% of the visit. Objective - Vital Signs Vital signs: Vital Signs Temp 98.4 F 09/27/24 12:56 Pulse 95 09/27/24 12:56 Resp 17 09/27/24 12:56 BP 107/61 09/27/24 12:56 Pulse Ox 95 09/27/24 12:56 FiO2 Intake & Output 09/26/24 09/27/24 09/27/24 18:59 06:59 18:59 Intake Total 540 Output Total 2400 450 550 Balance -2400 -450 -10 Intake: Oral 540 Output: Urine 2400 450 550 Other: Voiding Method External Catheter Diaper External Catheter # Voids 0 - Labs CBC & Chem 7: 09/27/24 05:20 09/27/24 05:38 Labs: Abnormal Lab Results - Last 24 Hours (Table) 09/26/24 09/26/24 09/27/24 Range/Units 17:22 20:25 02:21 RBC (4.10-5.20) X 10*6/uL MCV (80.0-97.0) FL MCHC (32.0-37.0) g/dL RDW (11.5-14.5) % Eosinophils # (0.04-0.35) X 10*3/uL Carbon Dioxide (22-30) mmol/L BUN (7-17) mg/dL Creatinine (0.52-1.04) mg/dL Glucose (74-99) mg/dL POC Glucose (mg/dL) 182 H 181 H 178 H (70-110) mg/dL 09/27/24 09/27/24 09/27/24 Range/Units 05:20 05:38 07:25 RBC 3.97 L (4.10-5.20) X 10*6/uL MCV 102.0 H (80.0-97.0) FL MCHC 30.4 L (32.0-37.0) g/dL RDW 14.6 H (11.5-14.5) % Eosinophils # 0.01 L (0.04-0.35) X 10*3/uL Carbon Dioxide 34 H (22-30) mmol/L BUN 27 H (7-17) mg/dL Creatinine 1.13 H (0.52-1.04) mg/dL Glucose 155 H (74-99) mg/dL POC Glucose (mg/dL) 147 H (70-110) mg/dL 09/27/24 Range/Units 12:05 RBC (4.10-5.20) X 10*6/uL MCV (80.0-97.0) FL MCHC (32.0-37.0) g/dL RDW (11.5-14.5) % Eosinophils # (0.04-0.35) X 10*3/uL Carbon Dioxide (22-30) mmol/L BUN (7-17) mg/dL Creatinine (0.52-1.04) mg/dL Glucose (74-99) mg/dL POC Glucose (mg/dL) 222 H (70-110) mg/dL Microbiology - Last 24 Hours (Table) 09/25/24 23:36 Blood Culture - Preliminary Blood Assessment and Plan Time with Patient: Less than 30
[2024-09-27 17:01] LABS: Glucose,Whole Blood 160 mg/dL (70-110)
[2024-09-27 20:25] LABS: Glucose,Whole Blood 181 mg/dL (70-110)
[2024-09-28 07:17] LABS: Glucose,Whole Blood 155 mg/dL (70-110)
[2024-09-28] MEDS: MIDODRINE 5 MG TAB PO PRN (08:28)
[2024-09-28] MEDS: FAMOTIDINE 20 MG TAB PO SCH (08:28)
[2024-09-28 10:39] LABS: Basophils # (A) 0.02 X 10*3/uL (0.00-0.10); Basophils % (A) 0.4 %; Eosinophils # (A) 0.08 X 10*3/uL (0.04-0.35); Eosinophils % (A) 1.5 %; HCT 35.9 % (37.2-46.3); HGB 10.9 g/dL (12.0-15.0); Lymphocytes # (A) 1.73 X 10*3/uL (0.90-5.00); Lymphocytes % (A) 32.8 %; MCH 30.6 pg (27.0-32.0); MCHC 30.4 g/dL (32.0-37.0); MCV 100.8 FL (80.0-97.0); Mean Platelet Volume 11.4 FL (9.5-12.2); Monocytes % (A) 7.6 %; NRBC Per 100 WBC 0 X 10*3/uL (0.00-0.01); Neutrophils # (A) 3.01 X 10*3/uL (1.80-7.70); Neutrophils % (A) 57.1 %; Platelet Count 166 X 10*3/uL (140-440); RBC 3.56 X 10*6/uL (4.10-5.20); RDW 14.6 % (11.5-14.5); WBC 5.27 X 10*3/uL (4.50-10.00)
[2024-09-28 11:05] LABS: Calcium 8.1 mg/dL (8.7-10.3); Carbon Dioxide 28.5 mmol/L (21.6-31.8); Chloride 104 mmol/L (96-109); Glucose 150 mg/dL (70-110); Sodium 142 mmol/L (135-145)
[2024-09-28 12:12] LABS: Glucose,Whole Blood 179 mg/dL (70-110)
[2024-09-28] MEDS: guaiFENesin 600 MG TABLET.ER PO SCH (12:58)
--- NOTE | 2024-09-28 13:27 | P.PN ---
Subjective Progress Note Date: 09/28/24 This is a 64-year-old female who presented to the emergency department with increasing shortness of breath with recent vomiting with concerns of possible aspiration pneumonia. Patient currently resides at [facility] and sees Dr. Garcia in the outpatient setting with a significant past medical history of asthma, COPD, diabetes mellitus, hyperlipidemia, obesity, history of gout, frequent UTIs, anxiety, depression, schizophrenia and borderline personality disorder, patient is a former smoker denies any other illicit drug use or alcohol use. Patient also has history of renal disease. Chest x-ray on admission shows an acute mild right basilar opacity patient has been started on antibiotics in the form of ceftriaxone. Patient is on oxygen via nasal cannula and reports she does not wear this all the time. Patient also had an abnormal urine although denies any pain, burning, or frequency. Labs reviewed on admission revealed a normal white count of 8.15, hemoglobin is 12.5, platelets are 179, sodium is 140 with a potassium of 4.2, BUN is 29 with a creatinine of 1.03, blood sugars are elevated, AST mildly elevated at 48 and ALT is 37. Urine was performed as standard protocol in the ER with small blood noted and large leukocyte esterase with WBCs over 182. Virology testing including RSV, influenza, COVID are negative. Patient was admitted with concerns of possible aspiration pneumonia. Patient denies any further vomiting and nurse was concerned with aspiration we will consult speech and appreciate input and recommendations regarding diet moving forward. Plan will be for patient to return to [facility] once stabilized and discharged. 09/27/2024 Patient is eval today in follow-up resting in bed comfortably. She has no complaints at this time. Patient was febrile overnight with a Tmax of 102.8 with significantly abnormal urine. A urine culture is requested and will be pending at this time. She continues on IV ceftriaxone. Was concern for possible aspiration patient was evaluated by speech therapy. Today reveal white blood cell count of 6.00, hemoglobin 12.3, sodium 141, BUN of 27 creatinine 1.13. Procalcitonin level was normal at 0.27. 09/28/2024 Patient is evaluated today in follow up on the medical floor. She is reporting congestion and difficulty with expectoration. Has been afebrile now for 24 hours. Urine culture pending. Remains on IV ceftriaxone. REVIEW OF SYSTEMS: CONSTITUTIONAL: No fever, no malaise, no fatigue. HEENT: No recent visual problems or hearing problems. Denied any sore throat. CARDIOVASCULAR: No chest pain, orthopnea, PND, no palpitations, no syncope. PULMONARY: Reported increasing shortness of breath, reports some cough with some yellow phlegm production, no hemoptysis. GASTROINTESTINAL: No diarrhea, no nausea, reported vomiting that has resolved, no abdominal pain. NEUROLOGICAL: No headaches, no weakness, no numbness. PHYSICAL EXAMINATION: GENERAL: The patient is alert and oriented x3, not in any acute distress. Well developed, elderly appearing, chronically ill-appearing, morbidly obese HEENT: Pupils are round and equally reacting to light. EOMI. No scleral icterus. No conjunctival pallor. Normocephalic, atraumatic. No pharyngeal erythema. No thyromegaly. CARDIOVASCULAR: S1 and S2 muffled PULMONARY: Diminished breath sounds bilaterally otherwise chest is clear to auscultation, no wheezing or crackles. ABDOMEN: Soft, obese, nontender, nondistended, normoactive bowel sounds. No palpable organomegaly. MUSCULOSKELETAL: No joint swelling or deformity. EXTREMITIES: No cyanosis, clubbing, or pedal edema. NEUROLOGICAL: Gross neurological examination did not reveal any focal deficits. Diffusely weak SKIN: No rashes. Assessment: Shortness of breath, concerns for possible aspiration with vomiting and coughing on food at [facility] History of asthma/COPD, not in exacerbation Abnormal urine with concern for an acute urinary tract infection Acute hypoxic respiratory failure possibly secondary to aspiration History of diabetes mellitus, type II, uncontrolled with hyperglycemia Hyperlipidemia Morbid obesity with a BMI of 50.8 History of frequent urinary tract infections and incontinent wears depends with previous history of ESBL in the urine Anxiety/depression/schizophrenia with history of borderline personality disorder Former smoker History of renal disease GI prophylaxis DVT prophylaxis Full code Plan: Patient was admitted with aspiration concerns as patient was having shortness of breath and vomiting at the [facility] Medications reviewed and resumed as appropriate Continue monitoring Accu-Cheks ACHS and adjust accordingly. Patient to be evaluated by speech with concerns of aspirating Patient's mentation is baseline Wean FiO2 as tolerated and also recommend incentive spirometer with continued use at least 10 times every hour while awake Patient reports is mostly wheelchair-bound Continue local wound care to the bottom with barrier paste and assessing for any skin breakdown as patient is incontinent and wears briefs and mostly bedbound Continue IV ceftriaxone pending final urine culture Add mucinex and incentive spirometer Follow-up on repeat labs Patient will be a return to [facility] on Sunday The impression and plan of care has been dictated by Karen Sosa, Nurse Practitioner as directed. Dr. Ryoal MD I have performed a history and examination and MDM of this patient, discussed the same with the dictator, and agree with the dictator's assessment and plan as written ,documented as a scribe. Based on total visit time, I have performed more than 50% of the visit. Objective - Vital Signs Vital signs: Vital Signs Temp 97.7 F 09/28/24 12:07 Pulse 84 09/28/24 12:07 Resp 20 09/28/24 12:07 BP 130/69 09/28/24 12:07 Pulse Ox 95 09/28/24 12:07 FiO2 Intake & Output 09/27/24 09/28/24 09/28/24 18:59 06:59 18:59 Intake Total 1040 1020 Output Total 550 600 Balance 490 420 Intake: Oral 1040 1020 Output: Urine 550 600 Other: Voiding Method Diaper Diaper Diaper External Catheter External Catheter External Catheter # Bowel Movements 1 - Labs CBC & Chem 7: 09/28/24 04:31 09/28/24 04:31 Labs: Abnormal Lab Results - Last 24 Hours (Table) 09/27/24 09/27/24 09/28/24 Range/Units 17:00 20:23 04:31 RBC 3.56 L (4.10-5.20) X 10*6/uL Hgb 10.9 L (12.0-15.0) g/dL Hct 35.9 L (37.2-46.3) % MCV 100.8 H (80.0-97.0) FL MCHC 30.4 L (32.0-37.0) g/dL RDW 14.6 H (11.5-14.5) % Est GFR (CKD-EPI) (>=60) Glucose (70-110) mg/dL POC Glucose (mg/dL) 160 H 181 H (70-110) mg/dL Calcium (8.7-10.3) mg/dL 09/28/24 09/28/24 09/28/24 Range/Units 04:31 07:16 12:09 RBC (4.10-5.20) X 10*6/uL Hgb (12.0-15.0) g/dL Hct (37.2-46.3) % MCV (80.0-97.0) FL MCHC (32.0-37.0) g/dL RDW (11.5-14.5) % Est GFR (CKD-EPI) 46 L (>=60) Glucose 150 H (70-110) mg/dL POC Glucose (mg/dL) 155 H 179 H (70-110) mg/dL Calcium 8.1 L (8.7-10.3) mg/dL Microbiology - Last 24 Hours (Table) 09/25/24 23:36 Blood Culture - Preliminary Blood
[2024-09-28 17:16] LABS: Glucose,Whole Blood 137 mg/dL (70-110)
[2024-09-28] MEDS: ALBUTEROL NEBULIZED 2.5 MG/3 ML INHALATION PRN (19:48)
[2024-09-28 20:22] LABS: Glucose,Whole Blood 125 mg/dL (70-110)
[2024-09-29 06:57] LABS: Glucose,Whole Blood 176 mg/dL (70-110)
[2024-09-29 12:05] LABS: Glucose,Whole Blood 174 mg/dL (70-110)
[2024-09-29 16:39] LABS: Glucose,Whole Blood 171 mg/dL (70-110)
[2024-09-29] MEDS: LACTULOSE 20 GM/30 ML CUP PO SCH (16:50)
[2024-09-29 20:16] LABS: Glucose,Whole Blood 160 mg/dL (70-110)
--- NOTE | 2024-09-29 22:12 | P.PN ---
Subjective Progress Note Date: 09/29/24 This is a 64-year-old female who presented to the emergency department with increasing shortness of breath with recent vomiting with concerns of possible aspiration pneumonia. Patient currently resides at [facility] and sees Dr. Garcia in the outpatient setting with a significant past medical history of asthma, COPD, diabetes mellitus, hyperlipidemia, obesity, history of gout, frequent UTIs, anxiety, depression, schizophrenia and borderline personality disorder, patient is a former smoker denies any other illicit drug use or alcohol use. Patient also has history of renal disease. Chest x-ray on admission shows an acute mild right basilar opacity patient has been started on antibiotics in the form of ceftriaxone. Patient is on oxygen via nasal cannula and reports she does not wear this all the time. Patient also had an abnormal urine although denies any pain, burning, or frequency. Labs reviewed on admission revealed a normal white count of 8.15, hemoglobin is 12.5, platelets are 179, sodium is 140 with a potassium of 4.2, BUN is 29 with a creatinine of 1.03, blood sugars are elevated, AST mildly elevated at 48 and ALT is 37. Urine was performed as standard protocol in the ER with small blood noted and large leukocyte esterase with WBCs over 182. Virology testing including RSV, influenza, COVID are negative. Patient was admitted with concerns of possible aspiration pneumonia. Patient denies any further vomiting and nurse was concerned with aspiration we will consult speech and appreciate input and recommendations regarding diet moving forward. Plan will be for patient to return to [facility] once stabilized and discharged. 09/27/2024 Patient is eval today in follow-up resting in bed comfortably. She has no complaints at this time. Patient was febrile overnight with a Tmax of 102.8 with significantly abnormal urine. A urine culture is requested and will be pending at this time. She continues on IV ceftriaxone. Was concern for possible aspiration patient was evaluated by speech therapy. Today reveal white blood cell count of 6.00, hemoglobin 12.3, sodium 141, BUN of 27 creatinine 1.13. Procalcitonin level was normal at 0.27. 09/28/2024 Patient is evaluated today in follow up on the medical floor. She is reporting congestion and difficulty with expectoration. Has been afebrile now for 24 hours. Urine culture pending. Remains on IV ceftriaxone. 09/29/2024 Patient is evaluated today in follow up. Reports not having a bowel movement in 5 days. Although one was documented yesterday morning. Urine culture pending. REVIEW OF SYSTEMS: CONSTITUTIONAL: No fever, no malaise, no fatigue. HEENT: No recent visual problems or hearing problems. Denied any sore throat. CARDIOVASCULAR: No chest pain, orthopnea, PND, no palpitations, no syncope. PULMONARY: Reported increasing shortness of breath, reports some cough with some yellow phlegm production, no hemoptysis. GASTROINTESTINAL: No diarrhea, no nausea, reported vomiting that has resolved, no abdominal pain. NEUROLOGICAL: No headaches, no weakness, no numbness. PHYSICAL EXAMINATION: GENERAL: The patient is alert and oriented x3, not in any acute distress. Well developed, elderly appearing, chronically ill-appearing, morbidly obese HEENT: Pupils are round and equally reacting to light. EOMI. No scleral icterus. No conjunctival pallor. Normocephalic, atraumatic. No pharyngeal erythema. No thyromegaly. CARDIOVASCULAR: S1 and S2 muffled PULMONARY: Diminished breath sounds bilaterally otherwise chest is clear to auscultation, no wheezing or crackles. ABDOMEN: Soft, obese, nontender, nondistended, normoactive bowel sounds. No palpable organomegaly. MUSCULOSKELETAL: No joint swelling or deformity. EXTREMITIES: No cyanosis, clubbing, or pedal edema. NEUROLOGICAL: Gross neurological examination did not reveal any focal deficits. Diffusely weak SKIN: No rashes. Assessment: Shortness of breath, concerns for possible aspiration with vomiting and coughing on food at [facility] History of asthma/COPD, not in exacerbation Abnormal urine with concern for an acute urinary tract infection Acute hypoxic respiratory failure possibly secondary to aspiration History of diabetes mellitus, type II, uncontrolled with hyperglycemia Hyperlipidemia Morbid obesity with a BMI of 50.8 History of frequent urinary tract infections and incontinent wears depends with previous history of ESBL in the urine Anxiety/depression/schizophrenia with history of borderline personality disorder Former smoker History of renal disease GI prophylaxis DVT prophylaxis Full code Plan: Patient was admitted with aspiration concerns as patient was having shortness of breath and vomiting at the [facility] Medications reviewed and resumed as appropriate Continue monitoring Accu-Cheks ACHS and adjust accordingly. Patient to be evaluated by speech with concerns of aspirating Patient's mentation is baseline Wean FiO2 as tolerated and also recommend incentive spirometer with continued use at least 10 times every hour while awake Patient reports is mostly wheelchair-bound Continue local wound care to the bottom with barrier paste and assessing for any skin breakdown as patient is incontinent and wears briefs and mostly bedbound Continue IV ceftriaxone pending final urine culture Add mucinex and incentive spirometer Follow-up on repeat labs Patient will be a return to [facility] when medically stable The impression and plan of care has been dictated by Karen Sosa, Nurse Practitioner as directed. Dr. Royal MD I have performed a history and examination and MDM of this patient, discussed the same with the dictator, and agree with the dictator's assessment and plan as written ,documented as a scribe. Based on total visit time, I have performed more than 50% of the visit. Objective - Vital Signs Vital signs: Vital Signs Temp 98.4 F 09/29/24 20:00 Pulse 92 09/29/24 20:00 Resp 14 09/29/24 20:00 BP 134/61 09/29/24 20:00 Pulse Ox 96 09/29/24 20:00 FiO2 Intake & Output 09/29/24 09/29/24 09/30/24 06:59 18:59 06:59 Intake Total 2040 Output Total 300 1100 Balance -300 940 Intake: Oral 2040 Output: Urine 300 1100 Other: Voiding Method Diaper Diaper Diaper External Catheter External Catheter External Catheter - Labs CBC & Chem 7: 09/28/24 04:31 09/28/24 04:31 Labs: Abnormal Lab Results - Last 24 Hours (Table) 09/29/24 09/29/24 09/29/24 Range/Units 06:56 12:04 16:37 POC Glucose (mg/dL) 176 H 174 H 171 H (70-110) mg/dL 09/29/24 Range/Units 20:14 POC Glucose (mg/dL) 160 H (70-110) mg/dL Microbiology - Last 24 Hours (Table) 09/25/24 23:36 Blood Culture - Preliminary Blood 09/26/24 19:06 Urine Culture - Preliminary Urine,Clean Catch Assessment and Plan Time with Patient: Less than 30
[2024-09-30 07:47] LABS: Glucose,Whole Blood 133 mg/dL (70-110)
[2024-09-30 12:03] LABS: Glucose,Whole Blood 197 mg/dL (70-110)
[2024-09-30] MEDS: bisacodyL 10 MG SUPP RECTAL STA (12:52)
--- NOTE | 2024-09-30 13:24 | P.DS ---
Providers Date of admission: 09/26/24 00:59 Attending physician: Hernandez Espinoza Primary care physician: Daylin Garcia Hospital Course: Final Diagnosis Shortness of breath, concerns for possible aspiration with vomiting and coughing on food at [facility] History of asthma/COPD, not in exacerbation Abnormal urine with concern for an acute urinary tract infection Acute hypoxic respiratory failure possibly secondary to aspiration History of diabetes mellitus, type II, uncontrolled with hyperglycemia Hyperlipidemia Morbid obesity with a BMI of 50.8 History of frequent urinary tract infections and incontinent wears depends with previous history of ESBL in the urine Anxiety/depression/schizophrenia with history of borderline personality disorder Former smoker History of renal disease Discharge Disposition Patient is stable for discharge with return to [facility]. Patient will complete antibiotic therapy with oral augmentin for the next 5 days on discharge for the enterococcus faecalis UTI. Patient to continue local wound care to the bottom with barrier paste and assessing for any skin breakdown as patient is incontinent and wears briefs and mostly bedbound. Speech therapy has evaluated the patient and recommending soft diet due to dentition but does not appear to b e any signs of aspiration. Patient to maintain 90* while eating meals. Repeat blood work outpatient. Hospital Course This is a 64-year-old female who presented to the emergency department with increasing shortness of breath with recent vomiting with concerns of possible aspiration pneumonia. Patient currently resides at [facility] and sees Dr. Garcia in the outpatient setting with a significant past medical history of asthma, COPD, diabetes mellitus, hyperlipidemia, obesity, history of gout, frequent UTIs, anxiety, depression, schizophrenia and borderline personality disorder, patient is a former smoker denies any other illicit drug use or alcohol use. Patient also has history of renal disease. Chest x-ray on admission shows an acute mild right basilar opacity patient has been started on antibiotics in the form of ceftriaxone. Patient is on oxygen via nasal cannula and reports she does not wear this all the time. Patient also had an abnormal urine although denies any pain, burning, or frequency. Labs reviewed on admission revealed a normal white count of 8.15, hemoglobin is 12.5, platelets are 179, sodium is 140 with a potassium of 4.2, BUN is 29 with a creatinine of 1.03, blood sugars are elevated, AST mildly elevated at 48 and ALT is 37. Urine was performed as standard protocol in the ER with small blood noted and large leukocyte esterase with WBCs over 182. Virology testing including RSV, influenza, COVID are negative. Patient was admitted with concerns of possible aspiration pneumonia. Patient also developed fever with concern for an acute UTI. Urine culture show ing enterococcus faecalis. Will adjust antibiotic therapy to 5 days of oral augmentin for discharge. Clinically she has improved. Speech therapy evaluated the patient and recommending dysphagia dental soft diet sitting upright 90 degrees with meds whole in applesauce or yogurt. Most recent labs show white blood cell count 5.27, hgb 10.9, sodium 142, potassium 4.0, BUN 26, creatinine 1.3. Please see medication reconciliation for a list of current medications. Thank you for allowing us to participate in the care of this patient. The impression and plan of care has been dictated by Karen Sosa, Nurse Practitioner as directed. Dr. Royal MD I have performed a history and physical examination and medical decision making of this patient, discussed the same with the dictator, and agree with the dictators assessment and plan as written, documented as a scribe. Based on total visit time, I have performed more than 50% of this visit. Patient Condition at Discharge: Stable Plan - Discharge Summary New Discharge Prescriptions: New busPIRone HCl [Buspar] 15 mg PO TID tab Heparin Sodium,Porcine (1 ml) [Heparin Sodium] 5,000 unit SQ Q12HR each Nystatin 100,000 Unit/ml Susp [Mycostatin Oral Susp] 500,000 unit PO QID 3 Days ml rOPINIRole HCL [Requip] 0.25 mg PO BID tab Continue Albuterol Inhaler [Ventolin Hfa Inhaler] 2 puff INHALATION RT-Q4H PRN PRN Reason: Shortness Of Breath Venlafaxine HCl ER [Effexor XR] 300 mg PO DAILY allopurinoL [Zyloprim] 300 mg PO HS@2100 calcitrioL 0.25 mcg PO MOFR@0900 Insulin Lispro [humaLOG Kwikpen] 34 unit SQ AC-TID Cyanocobalamin [Vitamin B-12] 1,000 mcg PO DAILY Potassium Chloride ER [K-Dur 20] 20 meq PO HS@2100 Atorvastatin [Lipitor] 20 mg PO HS@2100 Gabapentin [Neurontin] 100 mg PO TID@0900,1300,2100 #90 cap INSULIN LISPRO (HumaLOG) [humaLOG] 5 units SQ DIRECTED PRN PRN Reason: snacks Trihexyphenidyl [Artane] 1 mg PO BID Acetaminophen Tab [Tylenol] 650 mg PO Q4H PRN PRN Reason: Mild Pain Or Fever > 100.5 Insulin Glargine,Hum.rec.anlog [Toujeo Max Solostar] 80 units SQ HS Fluticasone/Vilanterol [Breo Ellipta 200-25 Mcg Inhaler] 1 puff INHALATION RT-DAILY@0900 Montelukast [Singulair] 10 mg PO HS Midodrine [ProAmatine] 5 mg PO TID Metoprolol Tartrate [Lopressor] 50 mg PO Q12H Tirzepatide [Mounjaro] 15 mg SQ TU Furosemide [Lasix] 40 mg PO DAILY@0900 Ergocalciferol (Vitamin D2) [Drisdol (50,000 Iu)] 1,250 mcg PO Q14D ARIPiprazole [Abilify] 30 mg PO DAILY Dapagliflozin Propanediol [Farxiga] 10 mg PO DAILY Famotidine [Pepcid] 20 mg PO HS Discontinued Losartan [Cozaar] 25 mg PO HS busPIRone HCl [Buspar] 20 mg PO TID rOPINIRole HCL [Requip] 0.5 mg PO Q12H Discharge Medication List Albuterol Inhaler [Ventolin Hfa Inhaler] 2 puff INHALATION RT-Q4H PRN 04/03/17 [History] Venlafaxine HCl ER [Effexor XR] 300 mg PO DAILY 12/20/17 [History] allopurinoL [Zyloprim] 300 mg PO HS@2100 12/20/17 [History] Fluticasone/Vilanterol [Breo Ellipta 200-25 Mcg Inhaler] 1 puff INHALATION RT- DAILY@0900 10/05/20 [History] Insulin Glargine,Hum.rec.anlog [Toujeo Max Solostar] 80 units SQ HS 10/05/20 [History] Montelukast [Singulair] 10 mg PO HS 09/06/22 [History] calcitrioL 0.25 mcg PO MOFR@0900 09/06/22 [History] Atorvastatin [Lipitor] 20 mg PO HS@2100 08/22/23 [History] Cyanocobalamin [Vitamin B-12] 1,000 mcg PO DAILY 08/22/23 [History] Ergocalciferol (Vitamin D2) [Drisdol (50,000 Iu)] 1,250 mcg PO Q14D 08/22/23 [History] Furosemide [Lasix] 40 mg PO DAILY@0900 08/22/23 [History] Insulin Lispro [humaLOG Kwikpen] 34 unit SQ AC-TID 08/22/23 [History] Metoprolol Tartrate [Lopressor] 50 mg PO Q12H 08/22/23 [History] Midodrine [ProAmatine] 5 mg PO TID 08/22/23 [History] Potassium Chloride ER [K-Dur 20] 20 meq PO HS@2100 08/22/23 [History] Tirzepatide [Mounjaro] 15 mg SQ TU 08/22/23 [History] Gabapentin [Neurontin] 100 mg PO TID@0900,1300,2100 #90 cap 08/27/23 [Rx] ARIPiprazole [Abilify] 30 mg PO DAILY 09/26/24 [History] Acetaminophen Tab [Tylenol] 650 mg PO Q4H PRN 09/26/24 [History] Dapagliflozin Propanediol [Farxiga] 10 mg PO DAILY 09/26/24 [History] Famotidine [Pepcid] 20 mg PO HS 09/26/24 [History] INSULIN LISPRO (HumaLOG) [humaLOG] 5 units SQ DIRECTED PRN 09/26/24 [History] Trihexyphenidyl [Artane] 1 mg PO BID 09/26/24 [History] Heparin Sodium,Porcine (1 ml) [Heparin Sodium] 5,000 unit SQ Q12HR each 09/30/24 [Rx] Nystatin 100,000 Unit/ml Susp [Mycostatin Oral Susp] 500,000 unit PO QID 3 Days ml 09/30/24 [Rx] busPIRone HCl [Buspar] 15 mg PO TID tab 09/30/24 [Rx] rOPINIRole HCL [Requip] 0.25 mg PO BID tab 09/30/24 [Rx] Follow up Appointment(s)/Referral(s): Daylin Garcia MD [Primary Care Provider] - 1-2 days Ambulatory/Diagnostic Orders: Basic Metabolic Panel [LAB.AMB] Location: None Selected Complete Blood Count w/diff [LAB.AMB] Time Frame: 3 Days, Location: None Selected Discharge Disposition: TRANSFER TO SNF/ECF
[2024-09-30 14:40] VITALS: RESP 18; TEMP 98.3
[2024-09-30 16:39] VITALS: BP 105/66; PULSE 89
[2024-09-30 17:36] LABS: Glucose,Whole Blood 88 mg/dL (70-110)
== END 2024-09-30 18:02 | DRG 204 ==
LOC: EC 22:21 → 5NMEDONC 09-26 00:59
PROVIDERS: ADMIT Hospitalist; ATTEND Hospitalist
DX: R06.02 Shortness of breath (principal); B95.2 Enterococcus as the cause of diseases classified elsewhere; Z68.43 Body mass index [BMI] 50.0-59.9, adult; E11.9 Type 2 diabetes mellitus without complications; J44.89 Other specified chronic obstructive pulmonary disease; F20.9 Schizophrenia, unspecified; F32.A Depression, unspecified; N39.0 Urinary tract infection, site not specified; E66.01 Morbid (severe) obesity due to excess calories; F60.3 Borderline personality disorder; Z79.4 Long term (current) use of insulin; E78.5 Hyperlipidemia, unspecified; F41.9 Anxiety disorder, unspecified; R50.9 Fever, unspecified; R82.90 Unspecified abnormal findings in urine; Z86.19 Personal history of other infectious and parasitic diseases; Z87.440 Personal history of urinary (tract) infections; Z87.891 Personal history of nicotine dependence; Z74.01 Bed confinement status; Z79.84 Long term (current) use of oral hypoglycemic drugs; Z79.899 Other long term (current) drug therapy; Z88.5 Allergy status to narcotic agent; Z99.3 Dependence on wheelchair
CPT/HCPCS: 36415; 71045; 80048; 80053; 81001; 83605; 83880; 84145; 85025; 85610; 85730; 87040; 87077; 87086; 87186; 87636; 93005; 94640; 94760; 96361; 96374; 99285